=== PATIENT | female | born 1970 | race Caucasian/White ===

== ENCOUNTER → 2018-06-14 13:43 | Outpatient (CLI) | payer OTHER, SELFPAY ==
--- NOTE | 2018-06-14 13:47 | US_ITS ---
STUDY: THYROID ULTRASOUND REASON FOR EXAM: Female, 47 years old. Difficulty swallowing, thyromegaly, iodine deficiency TECHNIQUE: Ultrasound evaluation of the thyroid was performed with real-time and static moctezuma-scale imaging. COMPARISON: None. FINDINGS: RIGHT LOBE: The right lobe of the thyroid gland measures 5.8 x 2.7 x 2.5 cm. There is a heterogeneous echotexture. 2 solid nodules are noted measuring 2.5 x 2.2 x 2.4 cm and 1.2 x 1.1 x 0.8 cm, located within the midportion and lower pole, respectively. LEFT LOBE: The left lobe of the thyroid gland measures 4.9 x 2.0 x 1.9 cm. There is a homogeneous echotexture. 2 small solid nodules are noted measuring 4 to 6 mm at the lower pole. ISTHMUS: The isthmus measures 4 mm . The regional lymph nodes are normal. US/Thyroid IMPRESSION: Enlargement of the thyroid. Bilateral thyroid nodules. Electronically Signed: Werner Sheridan DO at 22:39 EDT Tel [phone], Service support ,
== END ==
PROVIDERS: Family Provider Nurse Practitioner; PCP Nurse Practitioner; Visit Provider Nurse Practitioner
DX: E01.0 Iodine-deficiency related diffuse (endemic) goiter (principal); R13.12 Dysphagia, oropharyngeal phase
CPT/HCPCS: 76536

== ENCOUNTER → 2018-06-17 07:41 | Outpatient (CLI) | payer OTHER, SELFPAY ==
[2018-06-17 09:05] LABS: AST(SGOT) 15 U/L (15-37); Alanine Aminotransfer ALT/SGPT 26 U/L (13-56); Albumin, Serum 3.6 g/dL (3.2-5.0); Alkaline Phosphatase 65 U/L (45-117); Cholesterol 267 mg/dL (200); Globulin 4.2 g/dL (2.2-4.2); High Density Lipoprotein 41 mg/dL; Protein, Total 7.8 g/dL (6.4-8.2); Triglycerides 183 mg/dL; Very Low Density Lipoprotein 37 mg/dL (5-40)
== END ==
PROVIDERS: Family Provider Nurse Practitioner; PCP Nurse Practitioner; Visit Provider Internal Medicine Cardiovascular Disease
DX: E78.5 Hyperlipidemia, unspecified (principal); R06.09 Other forms of dyspnea
CPT/HCPCS: 36415; 80061; 80076

== ENCOUNTER → 2018-07-05 14:15 | Outpatient (CLI) | payer OTHER, SELFPAY | PROVIDERS: Family Provider Nurse Practitioner; PCP Nurse Practitioner; Visit Provider Internal Medicine Cardiovascular Disease | DX: R06.09 Other forms of dyspnea (principal) | CPT/HCPCS: 93306 ==

== ENCOUNTER → 2018-07-11 12:14 | Outpatient (CLI) | payer OTHER, SELFPAY | PROVIDERS: Family Provider Nurse Practitioner; PCP Nurse Practitioner; Visit Provider Internal Medicine Cardiovascular Disease | DX: E78.5 Hyperlipidemia, unspecified (principal); R06.09 Other forms of dyspnea | CPT/HCPCS: 93017; 93350 ==

== ENCOUNTER → 2018-10-26 07:51 | Outpatient (CLI) | payer OTHER, SELFPAY ==
[2018-06-15 15:43] VITALS: BMI 37.0
[2018-10-26 09:31] LABS: Hemoglobin A1c 7.4 % (4.2-6.3)
[2018-10-26 09:33] LABS: Vitamin D,25 Hydroxy 49.4 ng/mL (29.95-100.01)
[2018-10-26 09:33] LABS: AST(SGOT) 14 U/L (15-37); Alanine Aminotransfer ALT/SGPT 26 U/L (13-56); Albumin, Serum 3.5 g/dL (3.2-5.0); Alkaline Phosphatase 66 U/L (45-117); Bilirubin, Direct 0.08 mg/dL (0.00-0.30); Cholesterol 265 mg/dL (200); Globulin 4.1 g/dL (2.2-4.2); High Density Lipoprotein 38 mg/dL; Protein, Total 7.6 g/dL (6.4-8.2); Triglycerides 262 mg/dL; Very Low Density Lipoprotein 52 mg/dL (5-40)
--- OUTSIDE RECORDS SUMMARY | 2018-12-12 00:58 | XMS RPT_ITS ---
:1970 Author Organization OHIP Support Name Relationship Address Phone JENIFFER NANCE Unavailable [address] + [place] [address] COMACT Unavailable [address] + [place] [address] NANCE, MARIO Unavailable [address] + [place] [address] NANCE, JENIFFER Unavailable [address] + [place] [address] NANCE, JENIFFER Unavailable [address] + [place] [address] COMACT Unavailable [address] + [place] [address] NANCE, MARIO Unavailable [address] + [place] [address] COMACT Unavailable [address] + [place] [address] NANCE, MARIO Unavailable [address] + [place] [address] COMACT Unavailable [address] + [place] [address] NANCE, MARIO Unavailable [address] + [place] [address] COMACT Unavailable [address] + [place] [address] NANCE, MARIO Unavailable [address] + [place] [address] COMACT Unavailable [address] + [place] [address] NANCE, MARIO Unavailable [address] + [place] [address] COMACT Unavailable [address] + [place] [address] NANCE, MARIO Unavailable [address] + [place] [address] COMACT Unavailable [address] + [place] [address] NANCE, MARIO Unavailable [address] + [place] [address] COMACT Unavailable [address] + [place] [address] NANCE, MARIO Unavailable [address] + [place] [address] Care Team Providers Name Role Phone Kurtz, Holly CORRESPONDENCE RENEW CLERK-C Attending Unavailable Kurtz, Holly CORRESPONDENCE RENEW CLERK-C Primary Care Unavailable Kurtz, Holly CORRESPONDENCE RENEW CLERK-C Referring Unavailable Lala Zambrano Attending Unavailable Jose Alfredo Velázquez Attending Unavailable Kurtz, Holly CORRESPONDENCE RENEW CLERK-C Referring Unavailable Kurtz, Holly CORRESPONDENCE RENEW CLERK-C Primary Care Unavailable Arvind Rothman Attending Unavailable Arvind Rothman Referring Unavailable Kurtz, Holly CORRESPONDENCE RENEW CLERK-C Primary Care Unavailable , PENNIE Consulting Unavailable Jose Alfredo Velázquez Attending Unavailable Jose Alfredo Velázquez Referring Unavailable Kurtz, Holly CORRESPONDENCE RENEW CLERK-C Primary Care Unavailable Jose Alfredo Velázquez Attending Unavailable Jose Alfredo Velázquez Referring Unavailable Kurtz, Holly CORRESPONDENCE RENEW CLERK-C Primary Care Unavailable Jose Alfredo Velázquez Attending Unavailable Jose Alfredo Velázquez Referring Unavailable Kurtz, Holly CORRESPONDENCE RENEW CLERK-C Primary Care Unavailable Jose Alfredo Velázquez Attending Unavailable Jose Alfredo Velázquez Referring Unavailable Jose Alfredo Velázquez Attending Unavailable Jose Alfredo Velázquez Referring Unavailable FREIDA MONTALVO Attending Unavailable FREIDA MONTALVO Referring Unavailable FREIDA MONTALVO Attending Unavailable JO LANE (ROASTER OPERATOR) Referring Unavailable TRUDI BENAVIDEZ, Shona POWELL Attending Unavailable TRUDI BENAVIDEZ, A ANDRE Attending Unavailable TRUDI BENAVIDEZ, A ANDRE Attending Unavailable PROBLEMS PROBLEMS DATE TYPE CONDITION / CODE ATTENDING STATUS SOURCE 07/11/2018 Unknown E78.5 - Jose Alfredo Velázquez Active [place] Hyperlipidemia, Community unspecified / Hospital E78.5(ICD-10) Repository 08/02/2018 Unknown R06.09 - Other Jose Alfredo Velázquez Active [place] forms of dyspnea / Community R06.09(ICD-10) Hospital Repository 06/14/2018 Unknown 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, 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 Hospital (endemic) goiter / Repository E01.0(ICD-10) 06/14/2018 Unknown R13.12 - Dysphagia, Jerardo, Active [place] oropharyngeal phase Holly CORRESPONDENCE RENEW CLERK-C Community / R13.12(ICD-10) Hospital Repository 06/14/2018 Active Encounter for NA Active [facility] screening mammogram [facility] [place] for malignant Repository neoplasm of breast / Z12.31(ICD-10) 06/14/2018 Active Unknown / KATIA, Active [facility] UNK(Unknown) FREIDA L [facility] [place] Repository PROCEDURES PROCEDURES No Procedure Records FoundRESULTS RESULTS HEMOGLOBIN A1C Collected: 10/26/2018 Status: F Source: [place] 8:03 AM [facility] REPOSITORY Order Comment: WANTS THE A1C VITD KAYLA WANTST THE LIVER LIPID TYPE CODE TESTS RESULT OUT OF RANGE REFERENCE UNITS LAB L501.9985 4.2-6.3 % High HGB A1C 7.4 Performed By: #### L501.9985 #### [facility] [address] [place], [place], [address] VITAMIN D,25 HYDROXY Collected: 10/26/2018 Status: F Source: [place] 8:03 AM [facility] REPOSITORY Order Comment: WANTS THE A1C VITD KAYLA WANTST THE LIVER LIPID TYPE CODE TESTS RESULT OUT OF RANGE REFERENCE UNITS LAB L506.1000 29.95-100.01 ng/mL Normal Vitamin D 49.4 25-OH Result Comment: Vitamin D 25(OH) Status Range Deficiency <20 ng/mL (50nmol/L) Insuffciency 20 - 30 ng/mL (50 - 75 nmol/L) Sufficiency 30 - 100 ng/mL (75 - 250 nmol/L) Toxicity >100 ng/mL (>250 nmol/L) Performed By: #### L506.1000 #### [facility] [address] [place], [address] LIVER PROFILE Collected: 10/26/2018 Status: F Source: [place] 8:01 AM [facility] REPOSITORY Order Comment: WANTS THE A1C VITD KAYLA WANTST THE LIVER LIPID TYPE CODE TESTS RESULT OUT OF RANGE REFERENCE UNITS LAB L501.1500 6.4-8.2 g/dL Normal T PROT 7.6 LAB L501.1800 3.2-5.0 g/dL Normal ALB 3.5 LAB L501.1950 2.2-4.2 g/dL Normal GLOB 4.1 LAB L501.4100 15-37 U/L Low AST 14 LAB L501.4305 45-117 U/L Normal ALK P 66 LAB L501.4405 13-56 U/L Normal ALT 26 LAB L501.4600 0.20-1.00 mg/dL Normal T BILI 0.30 LAB L501.4700 0.00-0.30 mg/dL Normal D BILI 0.08 Performed By: #### L500.3400, L500.4100 #### [facility] [address] [place], [place], [id number] LIPID PROFILE Collected: 10/26/2018 Status: F Source: [place] 8:01 AM [facility] REPOSITORY Order Comment: WANTS THE A1C VITD KAYLA WANTST THE LIVER LIPID TYPE CODE TESTS RESULT OUT OF RANGE REFERENCE UNITS LAB L501.4900 200 mg/dL High CHOL 265 Result Comment: <200 mg/dL Desirable 200-240 mg/dL Borderline >240 mg/dL High Risk LAB L501.5000 mg/dL High TRIG 262 Result Comment: The drugs N-Acetylcysteine and Metamizole may falsely depress this assay. Serum Triglycerides Reference Interval Normal <150 mg/dL Borderline high 150 - 199 mg/dL High 200 - 499 mg/dL Very High > or = 500 mg/dL LAB L501.6400 mg/dL Low HDL 38 Result Comment: The drugs N-Acetylcysteine and Metamizole may falsely depress this assay. Reference Range HDL <40 mg/dL Low HDL Cholesterol HDL >or= 60 mg/dL High HDL Cholesterol LAB L501.6500 0-130 mg/dL High LDL 175 LAB L501.6600 5-40 mg/dL High VLDL 52 Performed By: #### L500.3400, L500.4100 #### [facility] [address] [place], [place], [address] Observed: 08/10/2018 Status: F Source: [facility] C URINE 1:54 PM [facility] REPOSITORY [facility] [address] [place] [id number] Name: PATRICIA NANCE : 1970 Admitting Provider: Gender: Female Financial [id number] Number: Location: [facility] Admit 08/09/2018 Date: Discharge 08/09/2018 Date: Microbiology PROCEDURE: C URINE SOURCE: CLEAN CATCH BODY SITE: COLLECTED DATE/TIME: 08/09/2018 15:27 EDT RECEIVED DATE/TIME: 08/09/2018 16:21 EDT START DATE/TIME: 08/09/2018 16:21 EDT FREE TEXT SOURCE: ORDERING PHYSICIAN: Shona BRUSH MD FINAL REPORTS Final Report [] Verified Date/Time: 08/10/2018 13:54 EDT Three or more bacterial species were isolated from urine indicating superficial or fecal contamination. Submission of another specimen is requested. If clinically indicated L=Low, H= High, *= Abnormal, C=Critical, f=Footnote, c=Corrected, i=Interp Data Name: PATRICIA NANCE Print Date/ 08/10/2018 13:54 EDT Time: Performed By: #### [id number] #### [facility] [address] [place] [address] [employer] Developer: Tejinder Felix MD SURGICAL PATHOLOGY Observed: 08/01/2018 Status: F Source: [place] 5:01 PM [facility] REPOSITORY Specimen originated from [facility] Specimen #: [id number] Submitting Physician: FREIDA MONTALVO M.D. ([id number]) FINAL DIAGNOSIS 1. Cervix, 3, 6 and 12 o'clock, biopsy (A) - Squamous mucosa with no significant pathologic abnormality. 2. Endocervix, curettage (B) - Endocervical mucosa with no significant pathologic abnormality. AJP/kr 08/03/2018 Pennie Love MD (Electronic Signature) SPECIMEN SUBMITTED A: CERVIX, BIOPSY 12, 6, 3 O'CLOCK B: ENDOCERVICAL, CURETTINGS CLINICAL DATA Ascus cannot r/o HSIL, +HPV GROSS DESCRIPTION A. Received in formalin are three pieces of christie-white, soft tissue aggregating to 1.3 x 0.3 x 0.3 cm. Totally submitted in one cassette. B. Received in formalin are multiple christie, soft feathery segments of tissue aggregating to 1.0 x 0.5 x 0.1 cm. Totally submitted in one cassette. Gross examination performed at [facility], [address] [place] [address] FFS 08/02/2018 11:56:33 PM Date of Report: 08/03/2018 Date of Procedure: 08/01/2018 Date of Receipt: 08/02/2018 Submitted by: FREIDA MONTALVO M.D. ([id number]) Location: [facility] Diagnostic interpretation performed at [place] [address]. CNOV Observed: 08/01/2018 Status: COMPLETED Source: [place] 4:10 PM [facility] REPOSITORY Office Visit (WOOB) PATRICIA NANCE ([id number]) 1970 F Date Time Provider Department 08/01/18 4:10 PM FREIDA MONTALVO During your visit today, we recorded the following information about you: Blood pressure Weight 132/78 104.3 kg Freida Montalvo MD 08/01/2018 5:01 PM Signed 132/78Mistashley Nance is a 48 year old female who presents today for a colposcopy. Her last pap smear was ASCUS cannot rule out HGSIL from June 2018. Patient has a history of abnormal pap: Yes. She has had prior treatment: LEEP. test: negative UNIVERSAL PROTOCOL / SAFETY CHECKLIST Procedure to be performed: colposcopy with biopsy Sign in Communication: Completed Time Out: Team Confirms the Correct Patient, Correct Procedure, Correct Site and Site Marking, Correct Position (if applicable), Prep and Dry Time (if applicable). Time: 1651 Affirmation of Time Out: YES Sign Out Discussion: Completed Freida Montalvo M.D. PROCEDURE: EXTERNAL GENITALIA: Normal in appearance without lesions VAGINA: Normal in appearance without lesions CERVIX: Speculum placed in vagina and excellent visualization of cervix achieved. Cervix swabbed x 3 with 3% acetic acid solution. Cervix grossly normal. Squamocolumnar junction visualized. acetowhite changes noted 12-6, punctations noted -none, mosaicism noted none and atypical vasculature noted -none, none of upper vagina either. BIOPSY: Done at 3:00, 6:00 and 12:00 ECC: done HEMOSTASIS: Obtained with silver nitrate and pressure Procedure Summary: Patient tolerated procedure well and colposcopy was adequate. ASSESSMENT: HPV effect PLAN: Specimens labeled and sent to Pathology. Will notify patient of results in 1-2 weeks. Post-procedure instructions reviewed and written material given to the patient. [facility] 08/01/2018 3:47 PM Signed YOUR RECOVERY It may take a few weeks for your cervix to heal. While your cervix heals, you may have: - Vaginal bleeding (less than a normal menstrual period) - Mild cramping - A brown-black vaginal discharge (similar to coffee grounds) which is a result of the paste used to help stop bleeding from the procedure Do NOT put anything in the vagina for 1 week after your colposcopy if your doctor does a biopsy of your cervix. This includes sex, tampons, and douches. If you have any discomfort, you may take an over the counter pain medication (motrin, advil, ibuprofen, tylenol, etc). If this does not relieve your discomfort, contact your doctor's office for a prescription strength pain medication. It is okay to wear a sanitary pad until the discharge and spotting stops. RISKS Although problems seldom occur with colposcopy, there can be some complications. You may feel faint during and shortly after the procedure as well as have some bleeding and vaginal discharge after the procedure. There is also a risk of infection after the procedure. These complications are rare and can be easily treated. You should contact you doctor is you have any of the following: - Heavy bleeding (more than your normal period) - Bleeding with clots - Severe abdominal pain - Fever (more than 100.4F) - Foul smelling vaginal discharge RESULTS If a biopsy was taken, we will have the results of your biopsy in 1-2 weeks. If you do not hear the results of your biopsy after 2 weeks, please contact your physicians office for the results. Depending on the biopsy results, your doctor will determine your follow up plan which may include further testing or treatments. STAYING HEALTHY After the procedure, you will need to see your doctor for follow up visits during the year. At these visits your doctor will check the health of your cervix with a pap smear. After three normal pap smears, your doctor will allow you to return to having exams once a year. If you have another abnormal pap smear, you may need closer follow up for longer or you may need additional treatment. By making a few lifestyle changes after the procedure, you can help protect the health of your cervix: - Have regular pelvic exams and pap smears as ordered by your doctor. - Stop smoking as smoking increases your risk of developing a cancer of the cervix - If you have more than one sexual partner, limit your number of partners and use condoms to reduce your risks of STDs. If you have any additional questions, please contact your doctor's office. Referring Provider: JO LANE (ROASTER OPERATOR) [[id number]] Allergies As of Date: 08/01/2018 (No Known Allergies) Date Reviewed: 08/01/2018 Reviewed by: Jen Dailey Ma - Fully Assessed Reason for Visit: Colposcopy [1551] Primary Visit Diagnosis:Pap smear of cervix with ASCUS, cannot exclude HGSIL [R87.611] Other Visit Diagnosis:Cervical high risk HPV (human papillomavirus) test positive [R87.810] Order(s):HCG QUAL UR B/O [7549412] Order #: [id number] COLPOSCOPY [[id number]] Order #: [id number] SURGICAL PATHOLOGY [3970516] Order #: [id number]. #:[id number] Prescriptions as of 08/01/2018 Sig: ESTRADIOL 10 MCG VAGINAL TABL* Use 1 tablet vaginally twice * LEVONORGESTREL 20 MCG/24 HR (* Inserted in office CPAP PRAVASTATIN 40 MG TABLET Problem List As Of Date 08/01/2018 Noted Resolved DM (diabetes mellitus), type 2, uncontrolled wi*INVALID FOR* Cigarette smoker [F17.210] INVALID FOR* Obesity (BMI 30-39.9) [E66.9] INVALID FOR* HSIL (high grade squamous intraepithelial lesio*INVALID FOR* More... Other instructions from your clinician: YOUR RECOVERY It may take a few weeks for your cervix to heal. While your cervix heals, you may have: - Vaginal bleeding (less than a normal menstrual period) - Mild cramping - A brown-black vaginal discharge (similar to coffee grounds) which is a result of the paste used to help stop bleeding from the procedure Do NOT put anything in the vagina for 1 week after your colposcopy if your doctor does a biopsy of your cervix. This includes sex, tampons, and douches. If you have any discomfort, you may take an over the counter pain medication (motrin, advil, ibuprofen, tylenol, etc). If this does not relieve your discomfort, contact your doctor's office for a prescription strength pain medication. It is okay to wear a sanitary pad until the discharge and spotting stops. RISKS Although problems seldom occur with colposcopy, there can be some complications. You may feel faint during and shortly after the procedure as well as have some bleeding and vaginal discharge after the procedure. There is also a risk of infection after the procedure. These complications are rare and can be easily treated. You should contact you doctor is you have any of the following: - Heavy bleeding (more than your normal period) - Bleeding with clots - Severe abdominal pain - Fever (more than 100.4F) - Foul smelling vaginal discharge RESULTS If a biopsy was taken, we will have the results of your biopsy in 1-2 weeks. If you do not hear the results of your biopsy after 2 weeks, please contact your physicians office for the results. Depending on the biopsy results, your doctor will determine your follow up plan which may include further testing or treatments. STAYING HEALTHY After the procedure, you will need to see your doctor for follow up visits during the year. At these visits your doctor will check the health of your cervix with a pap smear. After three normal pap smears, your doctor will allow you to return to having exams once a year. If you have another abnormal pap smear, you may need closer follow up for longer or you may need additional treatment. By making a few lifestyle changes after the procedure, you can help protect the health of your cervix: - Have regular pelvic exams and pap smears as ordered by your doctor. - Stop smoking as smoking increases your risk of developing a cancer of the cervix - If you have more than one sexual partner, limit your number of partners and use condoms to reduce your risks of STDs. If you have any additional questions, please contact your doctor's office. Encounter Status:Closed by FREIDA MONTALVO MD on 08/01/18 PROGRESS Observed: 08/01/2018 Status: COMPLETED Source: [place] 3:45 PM [facility] REPOSITORY HNO ID: [id number] Author: Freida Montalvo Service: (none) Author Type: Physician Type: Progress Notes Filed: 08/01/2018 5:01 PM Note Text: 132/78Patricia Nance is a 48 year old female who presents today for a colposcopy. Her last pap smear was ASCUS cannot rule out HGSIL from June 2018. Patient has a history of abnormal pap: Yes. She has had prior treatment: LEEP. test: negative UNIVERSAL PROTOCOL / SAFETY CHECKLIST Procedure to be performed: colposcopy with biopsy Sign in Communication: Completed Time Out: Team Confirms the Correct Patient, Correct Procedure, Correct Site and Site Marking, Correct Position (if applicable), Prep and Dry Time (if applicable). Time: 1651 Affirmation of Time Out: YES Sign Out Discussion: Completed Freida Montalvo M.D. PROCEDURE: EXTERNAL GENITALIA: Normal in appearance without lesions VAGINA: Normal in appearance without lesions CERVIX: Speculum placed in vagina and excellent visualization of cervix achieved. Cervix swabbed x 3 with 3% acetic acid solution. Cervix grossly normal. Squamocolumnar junction visualized. acetowhite changes noted 12-6, punctations noted -none, mosaicism noted none and atypical vasculature noted -none, none of upper vagina either. BIOPSY: Done at 3:00, 6:00 and 12:00 ECC: done HEMOSTASIS: Obtained with silver nitrate and pressure Procedure Summary: Patient tolerated procedure well and colposcopy was adequate. ASSESSMENT: HPV effect PLAN: Specimens labeled and sent to Pathology. Will notify patient of results in 1-2 weeks. Post-procedure instructions reviewed and written material given to the patient. Freida Montalvo MD THYGLOB WITH REFLEX Collected: 07/29/2018 Status: F Source: [facility] 7:45 AM [facility] REPOSITORY TYPE CODE TESTS RESULT OUT OF REFERENCE UNITS RANGE LAB [id number](LO INC) Thyroglobulin Normal See Report Performed By: #### [id number] #### [facility] [address] [place], [place] [id number] [employer] Software Developer: Tejinder Felix MD DHEA S Collected: 07/28/2018 Status: F Source: [facility] 9:42 AM [facility] REPOSITORY TYPE CODE TESTS RESULT OUT OF RANGE REFERENCE UNITS LAB 7922 32-240 Normal DHEA-S 121 Result Comment: REFERENCE INTERVAL: DHEAS Access complete set of age- and/or gender-specific reference intervals for this test in the [employer] [facility] Test Directory ([facility]). Performed by APR, [address] [place] [id number] [email or web address], Mello Hobson MD - Lab. Director Performed By: #### [id number], [id number] #### [facility] [address] [place], [place] [id number] [employer] Developer: Tejinder Felix MD THYROGLOBULIN AB Collected: 07/28/2018 Status: F Source: [facility] 8:25 AM [facility] REPOSITORY TYPE CODE TESTS RESULT OUT OF REFERENCE UNITS RANGE LAB [id number] 0.0-4.0 IU/mL Thyroglobulin Normal Antibody <0.9 Result Comment: INTERPRETIVE INFORMATION: Thyroglobulin Antibody A value of 4.0 IU/mL or less indicates a negative result for thyroglobulin antibodies. The Thyroglobulin Antibody assay is being performed using the [employer] Access DxI method. Performed by APR, [address] [place] [address] [email or web address], Mello Hobson MD - Lab. Director Performed By: #### [id number], [id number] #### [facility] [address] [place], [place] [id number] [employer] Developer: Tejinder Felix MD TPO Collected: 07/28/2018 Status: F Source: [facility] 8:12 AM [facility] REPOSITORY TYPE CODE TESTS RESULT OUT OF RANGE REFERENCE UNITS LAB [id number] 0.0-9.0 IU/mL Normal Thyroid (TPO) <0.3 Ab Result Comment: Performed by APR, [address] [place] [address] [email or web address], Mello Hobson MD - Lab. Director Performed By: #### [id number], [id number] #### [facility] [address] [place] [address] [employer] Developer: Tejinder Felix MD TESTOS TOT Collected: 07/26/2018 Status: F Source: [facility] 6:10 PM [facility] REPOSITORY TYPE CODE TESTS RESULT OUT OF RANGE REFERENCE UNITS LAB [id number] ng Normal TESTOS 12 TOT Result Comment: Reference ranges for females greater than or equal to 21 yrs old: Premenopausal females-Age 21-60 yrs 9 - 48 ng/dl Postmenopausal females-Age 45-89 yrs 0 - 46 ng/dl Samples with biotin concentrations greater than 30 ng/ml will cause erroneus results. Performed By: #### [id number], [id number], [id number], [id number] #### [facility] [address] [place] [id number] [employer] Developer: Tejinder Fleix MD VIT D 25 LEVEL Collected: 07/26/2018 Status: F Source: [facility] 6:10 PM [facility] REPOSITORY TYPE CODE TESTS RESULT OUT OF RANGE REFERENCE UNITS LAB [id number] ng/mL Normal Vit D 12 25 Result Comment: Less than 20 ng/ml Deficient 20-30 ng/ml Insufficient 30-100 ng/ml Sufficient Greater than 100 ng/ml Potential toxicity Patients who have recently undergone fluorescein dye angiography in the past 48 to 72 hours (or longer if renal insufficient) may have falsely elevated results. Performed By: #### [id number], [id number], [id number], [id number] #### [facility] [address] [place] [id number] [employer] Developer: Tejinder Felix MD FSH Collected: 07/26/2018 Status: F Source: [facility] 6:10 PM [facility] REPOSITORY TYPE CODE TESTS RESULT OUT OF RANGE REFERENCE UNITS LAB [id number] IU/L Normal FSH 7.6 Result Comment: REFERENCE INTERVAL: FOLLICLE STIMULATING HORMONE Prepubertal 0 - 2.0 IU/L Male (Adult) 1.0 - 8.0 IU/L Female: Follicular 1.0 - 10.0 IU/L Mid-cycle 3.0 - 25.0 IU/L Luteal 1.0 - 8.0 IU/L Postmenopausal 30.0 - 110.0 IU/L Performed By: #### [id number], [id number], [id number], [id number] #### [facility] [address] [place] [id number] [employer] Developer: Tejinder Felix MD U MALB RANDOM Collected: 07/26/2018 Status: F Source: [facility] 6[facility]07 [facility] [facility] REPOSITORY TYPE CODE TESTS RESULT OUT OF RANGE REFERENCE UNITS LAB 48498490 0-30 mg MALB/gm High CREAT 32 Microalbumi n/Creatinin e Ratio LAB 28805333 mg/dL Normal 147.0 Creatinine, Urine mg/dl LAB 59684402 mg/L Normal 46.5 Microalbumi n, Urine mg/L Performed By: #### [id number] #### [facility] Services [address] [place] [address] [employer] Software Developer: Tejinder Felix MD THY GP Collected: 07/26/2018 Status: F Source: [facility] 6:07 PM [facility] REPOSITORY TYPE CODE TESTS RESULT OUT OF RANGE REFERENCE UNITS LAB 8878 0.36-3.74 uIU/ml Normal TSH 1.06 Result Comment: High levels of serum biotin may interfere with this test. LAB [id number] 0.76-1.46 ng/dL Normal Free 0.97 T4 Result Comment: High levels of serum biotin may interfere with this test. Performed By: #### [id number] #### [facility] [address] [place], [place] [id number] [employer] Software Developer: Tejinder Felix MD HGB A1C Collected: 07/26/2018 Status: F Source: [facility] 6:02 PM [facility] REPOSITORY TYPE CODE TESTS RESULT OUT OF RANGE REFERENCE UNITS LAB 8155 4.0-6.0 % High HGB A1C 6.4 Performed By: #### [id number] #### [facility] [address] [place], [place] [id number] [employer] Software Developer: Tejinder Felix MD UA Collected: 07/26/2018 Status: F Source: [facility] 5:42 PM [facility] REPOSITORY TYPE CODE TESTS RESULT OUT OF RANGE REFERENCE UNITS LAB [id number] Negative Bilirubin, Normal U Negative LAB 5043993 Negative Nitrite, U Normal Negative LAB 7043537 Appearance, Normal U Clear LAB 8374337 Negative Protein, U Normal Negative LAB 5969188 Bacteria, U Normal Few LAB 8810537 0-5 #/HPF High WBC/HPF, U 17 LAB 3297258 Negative Blood, U Normal Negative LAB 4894147 Negative Leukocyte Abnormal Esterase, U Trace LAB 9422701 Negative Ketones, U Normal Negative LAB 6526767 Negative Glucose Normal Qual, U Negative LAB 0886328 <2.0 mg/dl Normal Urobilinogen <2.0 mg/dl Qual, U Result Comment: EU/dl and mg/dl are equivalent units. LAB 6536717 Normal Mucous, U Occasional LAB 5257654 #/HPF Normal Squamous 2 Epithelial Cells, U LAB 8059156 Normal Color, U Yellow LAB 5287094 4.5-8.0 Normal pH, U 5.0 LAB 2376099 0-3 #/HPF Normal RBC/HPF, U 1 LAB 0300685 1.001-1 Normal .035 Specific 1.018 [place], U LAB 0919272 Normal U MICRO Indicated Performed By: #### [id number] #### [facility] [address] [place] [address] [employer] Software Developer: Tejinder Felix MD STRESS TEST ECHO W/O Observed: 07/12/2018 Status: F Source: [place] 5:00 AM [facility] REPOSITORY [facility] Cardiovascular Services [address] [place] [address] Stress Test Echo w/o Contrast MR#: [id number] Acct: [id number] Name: PATRICIA NANCE Rep #: [id number] : 1970 47 From: Jose Alfredo Velázquez MD Primary Care: Holly Kurtz NP Status: REG CLI Ordering Dr: Jose Alfredo Velázquez MD Sex: F C Reason For Study: Dyspnea On Exertion Stress Results Protocol: Terrence Protocol Maximum Predicted HR: 173 bpm Target HR: 147 bpm% Max imum Predicted HR: 88 % DurationHeart Rate Stage (mm:ss) (bpm) BPCom ment Baseline 72 118/70 No Chest Pain; No Dyspnea Terrence Protocol Stage I 3:00 12 9 146/72No Chest Pain; Mild Dyspnea Terrence Protocol Stage II 3:00 15 3 164/64No Chest Pain; Moderate Dyspnea Recovery 96 122/70 Stress Duration: 6:00 mm:ss Maximum Stress HR: 153 bpmM ETS: 7 Baseline Echocardiogram Findings The estimated ejection fraction is 65 %. Stress Echo Wall motion Data Resting WMIntermediate WMStress WM Resting Wall Motion Wall Motion Stress No regional wall motion No regional wall motion abnormalities noted. abnormalities noted. EKG Data The baseline ECG demonstrates normal sinus rhythm with at rate of _ beats per minute. The patient exercised according to the regular Terrence protocol for a total duration of 6:00. The maximum heart rate attained was 153 beats per minute. This was 88% of maximum predicted heart rate. The patient exercised into stage 3 of the Terrence protocol. During stress, there were no ST or T wave changes noted to suggest ischemia. No clinical angina was noted. No arrhythmias noted. Interpretation Summary The estimated ejection fraction is 65 %. Normal, adequate, treadmill echocardiogram. Negative for ischemia by EKG and echocardiographic criteria. No anginal symptoms noted. No arrhythmias noted. Appropriate blood pressure response to exercise. Below average exercise capacity for age. Final LVEF is 75%. Test terminated due to dyspnea. No complications. Ordering Physician: Jose Alfredo Velázquez Referring Physician: Jose Alfredo Velázquez Performed By: Kelsi Lafleur, RDCS, RVT 07/12/18 0459 Date Jose Alfredo Velázquez MD CC: STACIE Kurtz; Jose Alfredo Velázquez MD Date Dictated: 07/11/18 1258 Date Transcribed: 07/12/18458 Medical Liaison: Signed ECHOCARDIOGRAM COMPLETE Observed: 07/05/2018 Status: F Source: [place] 4:11 PM [facility] REPOSITORY [facility] Cardiovascular Services [address] [place] [address] Echo Complete 07/05/18 1436 MR#: [id number] Acct: [id number] Name: PATRICIA NANCE Rep #: [id number] : 1970 47 From: Jose Alfredo Velázquez MD Attending Dr: Jose Alfredo Velázquez MD Status: REG CLI Ordering Dr: Jose Alfredo Velázquez MD Date: 07/05/18 Location: [facility] Sex: F C Admitted: Reason For Study: Dyspnea/SOB Procedure This was a 2D Doppler, Color Flow transthoracic echocardiogram. Exam performed in department. Left Ventricle Normal size and thickness. The estimated ejection fraction is 65 %. Normal diastology for age. No regional wall motion abnormalities noted. Right Ventricle Normal size and thickness. Normal systolic function. Atria Normal left atrium. Normal right atrium. Normal atrial septum. Mitral Valve The mitral valve is structurally normal. No prolapse or stenosis seen. Tricuspid Valve Normal tricuspid valve. Trivial tricuspid valve insufficiency. Unable to estimate RV systolic pressure/pulmonary artery pressure due to technically difficult study. Aortic Valve Trisinus/trileaflet aortic valve. Normal aortic valve. Pulmonic Valve Normal pulmonic valve. Great Vessels Normal aortic root. Normal arch. Normal inferior vena cava. Inferior vena cava collapse with sniff. Pericardium/Pleural No pericardial effusion. MMode/2D Measurements AND Calculations LVIDd: 5.0 cm IVSd: 1.2 cm Ao root diam: 3.4 cm LVIDs: 2.9 cm LVPWd: 1.0 cm LA dimension: 4.0 cm RVDd: 3.2 cm FS: 43.3 % LAV(MOD-bp): 44.7 ml LA A4 area: 17.4 cm2 RA A4 area: 12.5 cm2 LAV(MOD-bp) Indexed: 21.3 ml/m2 LAV(MOD-sp2): 42.8 ml LAV(MOD-sp4): 41.9 ml Time Measurements MV dec time: 0.22 sec Doppler Measurements AND Calculations MV E max randell: 105.6 cm/sec Lat Peak E' Randell: 12.5 cm/sec Med Peak E' Randell: 11.1 cm/sec MV A max randell: 78.4 cm/sec E/E' lat: 8.4 E/E' med: 9.5 MV E/A: 1.3 MV V2 max: 107.9 cm/sec MV P1/2t max randell: 106.9 cm/sec Ao V2 max: 152.2 cm/sec MV max P.7 mmHg MV P1/2t: 121.2 msec Ao max P.3 mmHg MV V2 mean: 63.4 cm/sec MV dec slope: 258.4 cm/sec2 Ao V2 mean: 96.8 cm/sec MV mean P.9 mmHg MVA(P1/2t): 1.8 cm2 Ao mean P.4 mmHg MV V2 VTI: 31.5 cm Ao V2 VTI: 28.6 cm LV V1 max: 148.6 cm/sec PA V2 max: 96.3 cm/sec LV V1 max P.8 mmHg LV V1 mean P.8 mmHg LV V1 mean: 88.0 cm/sec LV V1 VTI: 29.7 cm Interpretation Summary The estimated ejection fraction is 65 %. Normal diastology for age. Trivial tricuspid valve insufficiency. Unable to estimate RV systolic pressure/pulmonary artery pressure due to technically difficult study. Compared to echo report dated 11/15/2009, no appreciable changes noted. Ordering Physician: Jose Alfredo Velázquez Referring Physician: Jose Alfredo Velázquez Performed By: Didier Lopez RCS 07/05/18 1611 Date Jose Alfredo Velázquez MD CC: STACIE Kurtz; Jose Alfredo Velázquez MD Date Dictated: 07/05/18 1436 Date Transcribed: 07/05/18 1611 Medical Liaison: Rebecca VELARDE Observed: 06/21/2018 Status: COMPLETED Source: [place] 12:00 AM [facility] REPOSITORY Telephone (WOOB) PATRICIA NANCE ([id number]) 1970 F Date Time Provider Department 06/21/[address] (WINNIE) WOOB During your visit today, we recorded the following information about you: Jo Lane APRN.CNP 06/21/2018 12:12 PM Signed Pap ASC-H and HPV+ needs to schedule colp with RR Jo Lane APRN.WINNIE Alves RN 06/21/2018 2:10 PM Signed Left message for patient to call office. Pinky Montalvo MD 06/22/2018 8:05 AM Signed colposcopy ordered. MD Rayna Tran WIRE DRAWING MACHINE TENDER 06/27/2018 9:33 AM Signed Left message to call office Katherine Trevino RN 06/27/2018 3:48 PM Signed Patient notified. 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 [R87.613] Order(s):COLPOSCOPY [6268508] Order #: [id number] Prescriptions as of 06/21/2018 Sig: ESTRADIOL 10 MCG VAGINAL TABL* Use 1 tablet vaginally twice * LEVONORGESTREL 20 MCG/24 HR (* Inserted in office CPAP Problem List As Of Date 06/21/2018 Noted Resolved DM (diabetes mellitus), type 2, uncontrolled wi*INVALID FOR* Cigarette smoker [F17.210] INVALID FOR* Obesity (BMI 30-39.9) [E66.9] INVALID FOR* Encounter Status:Closed by JO LANE on 06/26/18 LIVER PROFILE Collected: 06/17/2018 Status: F Source: [place] 7:51 AM [facility] REPOSITORY TYPE CODE TESTS RESULT OUT OF RANGE REFERENCE UNITS LAB L501.1500 6.4-8.2 g/dL Normal T PROT 7.8 LAB L501.1800 3.2-5.0 g/dL Normal ALB 3.6 LAB L501.1950 2.2-4.2 g/dL Normal GLOB 4.2 LAB L501.4100 15-37 U/L Normal AST 15 LAB L501.4305 45-117 U/L Normal ALK P 65 LAB L501.4405 13-56 U/L Normal ALT 26 LAB L501.4600 0.20-1.00 mg/dL Normal T BILI 0.30 LAB L501.4700 0.00-0.30 mg/dL Normal D BILI 0.10 Performed By: #### L500.3400, L500.4100 #### [facility] [address] [place], [place], [address] LIPID PROFILE Collected: 06/17/2018 Status: F Source: [place] 7:51 AM [facility] REPOSITORY TYPE CODE TESTS RESULT OUT OF RANGE REFERENCE UNITS LAB L501.4900 200 mg/dL High CHOL 267 Result Comment: <200 mg/dL Desirable 200-240 mg/dL Borderline >240 mg/dL High Risk LAB L501.5000 mg/dL Normal TRIG 183 Result Comment: The drugs N-Acetylcysteine and Metamizole may falsely depress this assay. Serum Triglycerides Reference Interval Normal <150 mg/dL Borderline high 150 - 199 mg/dL High 200 - 499 mg/dL Very High > or = 500 mg/dL LAB L501.6400 mg/dL Normal HDL 41 Result Comment: The drugs N-Acetylcysteine and Metamizole may falsely depress this assay. Reference Range HDL <40 mg/dL Low HDL Cholesterol HDL >or= 60 mg/dL High HDL Cholesterol LAB L501.6500 0-130 mg/dL High LDL 189 LAB L501.6600 5-40 mg/dL Normal VLDL 37 Performed By: #### L500.3400, L500.4100 #### [facility] [address] [place], [address] CARDIOLOGY VISIT Observed: 06/15/2018 Status: F Source: [place] REPORT 4:15 PM [facility] REPOSITORY [facility] [address] [place] [address] OFFICE VISIT Date of Service: 06/15/18 MR#: [id number] Acct: [id number] Name: PATRICIA NANCE Rep #: [id number] : 1970 Provider: Jose Alfredo Velázquez MD Age/Sex: 47/F Location: [facility] Status: Signed HPI HPI Chief Complaint: Routine f/u Details: PATRICIA NANCE, is a 47 F who presents to the office today for evaluation of dyspnea on exertion. Specifically she is a diabetic, positive tobacco around 5 cigarettes per day for the past 20 years, nondrinker, nonhypertensive, history of irritable bowel syndrome, currently with a Mirena IUD in place, positive obstructive sleep apnea on chronic CPAP therapy for the past 14 years. She has no known history of coronary disease or CVA or family history that she knows of. She underwent a stress echo in 2008 which was negative for atypical type chest pain. Over the last 1-1/2 years the patient has had progressively worsening lightheadedness and dizziness particularly in the hot shower as well as cold sweats. She attributed this to perimenopausal symptoms however recently she has had electrical shock like chest pain, with upper chest heaviness radiating to her jaw and with tingling and numbness down her left arm. This appears to be both exertional and nonexertional in origin. She is unable to walk 2 blocks due to dyspnea on exertion and shortness of breath. She denies any lower extremity edema, presyncope or syncope. She is currently in a perimenopausal situation. In our office today her blood pressure is 120/60, pulse is 76 and regular. Physical exam demonstrates morbid obesity, clear lungs bilaterally, regular rate and rhythm, normal S1/S2, no S3, S4 or murmurs. No carotid bruits or thrills. She has 2+ upstroke bilaterally. She has no edema. Lipids are pending. EKG dated 06/15/18 shows normal sinus rhythm, low voltage in the limb leads, poor R-wave progression across the precordium which may be secondary to lead misplacement. Intake Vital Signs06/15/18 Height 5 ft 5.5 in 06/15/18 Weight: 226 lb 06/15/18 Body Mass Index (BMI) 37.0 06/15/18 Blood Pressure 120/60 Intake Visit Reasons: SANTIAGO (self) [employer] Allergies No Known Allergies Allergy (Verified 06/15/18 15:45) Medications levonorgestrel 20 mcg/24 hr (5 years) intrauterine device 1 insert INTRAUTERINE ONCE 06/13/18 [History Confirmed 06/13/18] estradiol 10 mcg vaginal tablet 10 mcg VAGINAL 2XW 06/15/18 [History Confirmed 06/15/18] PFSH Medical History Small kidney, unilateral (Chronic) Hyperlipidemia (Chronic) Obstructive sleep apnea (Chronic) Dyspnea on exertion (Chronic) Thyroid mass (Chronic) Family History Mother Ovarian cancer Grandmother Thyroid disorder Arrhythmia Grandfather Thyroid disorder Uncle Thyroid disorder Aunt Thyroid disorder Brother Hypertension Social History Smoking Status: Light Smoker (<10/day) ROS Const Const: Positive for other (New onset SANTIAGO, left jaw pain, chest twinges, near syncope with sweating); negative for fatigue, weakness, body ache, fever(s), headache(s), chills, frequent falls, night sweats, daytime sleepiness, difficulty sleeping, excessive sweating, weight gain, weight loss, increased appetite, poor appetite or anorexia Eyes Eyes: Negative for blind spots, loss of peripheral vision, transient loss of vision, blurry vision, change in vision, double vision, floaters, tunnel vision or other ENT ENT: Negative for headache(s), dizziness, hearing loss, tinnitus, Nosebleed/epistaxis, balance problems, post nasal drip, lip swelling, tongue swelling, bleeding gums, hoarseness, neck pain, dry mouth or other Cardio Chest Pain: Yes (Occasional twinges and midsternal pain, left jaw pain, left arm pain/numb) Palpitations: Yes Edema: None Muscle aches with walking: None Resp Respiratory: Positive for SOB with activity (Recent onset, walking up an incline); negative for SOB at rest, SOB orthopnea\SOB lying down, Coughing up blood/hemoptysis, chest congestion, pain on inspiration, snoring, stridor, wheezing, crackles, paroxysmal nocturnal dyspnea or other GI GI: Negative nausea, vomiting, heartburn, constipation, belching, bloating, cramping, vomiting blood/hematemesis, bright, red blood in stools, black,tarry stools, loose stools, Difficulty Swallowing or other : Negative for hematuria, frequent nighttime urination/ nocturia, erectile dysfunction or abnormal vaginal bleeding Musc Musc: Negative for balance problems, muscle aches/ myalgia, muscle weakness or joint pain Skin Skin: Negative redness, non-healing lesions, rash, unusual bruising, skin ulcer, wounds, jaundice or other Neuro Neuro: Negative for weakness, headache(s), frequent falls, blurry vision, double vision, dizziness, lightheadedness, near syncope, syncope, orthostatic symptoms, confusion, memory loss, restless legs, vertigo, seizures, lack of coordination or other Pankaj Hematologic/Lymphatic: Negative for easy bleeding, easy bruising, enlarged lymph nodes or other Endo Endo: Negative for fatigue, excessive sweating, cold intolerance, heat intolerance, flushing, increased thirst/drinking, increased hunger, hair loss, hair growth or other Psych Psych: Negative for anxiety, depression, thoughts of harming anyone, thoughts of harming yourself, visual hallucinations, panic attacks or audible hallucinations Allergy Allergy/Immunology: Negative for lip swelling, Negative for tongue swelling, Negative for rash, Negative for throat swelling, Negative for hives Cardiology Exam Const Appearance: cooperative, healthy appearing and no acute distress Nutritional Appearance: well nourished Orientation: alert, oriented x3 and oriented to person Head Head: normal to inspection, atraumatic and normocephalic Nose: external nose normal Face and Sinus: face symmetric Mouth: oral mucosae normal Eyes General: appearance normal, both eyes and all related structures Eyelids: eyelids normal Conjunctivae: conjunctivae normal Pupils: PERRL and normal by confrontation EOM: EOM intact bilaterally Neck Neck: normal visual inspection and full ROM Carotids: normal carotid upstroke Chest Chest inspection: normal inspection of the chest Auscultation: Bilateral: Clear to Auscultation Cardio Palpation: normal PMI Rate: regular rate Rhythm: regular rhythm Heart sounds: S1 normal and S2 normal GI GI: normal to inspection, no hepatosplenomegaly and bowel sounds present Neuro General: alert, oriented x3, awake, CN's II-XI intact bilaterally and moves all extremities Skin Skin: no rashes or lesions noted Extremities Pulses: Normal: Right Femoral Pulse, Left Femoral Pulse, Right Dorsalis Pedis Pulse, Left Dorsalis Pedis Pulse, Right Posterior Tibial Pulse, Left Posterior Tibial Pulse, Right Radial Pulse, Left Radial Pulse Lower Extremity Edema: None: Bilateral Psych Psychological: normal affect Assessment AND Plan 1. Dyspnea on exertion R06.09 Plan 1. Me on exertion: Wesley dissipation of dyspnea on exertion but she also has episodes of upper chest pressure, radiating down her left arm and into her neck and jaw. This is both typical and atypical in origin according to the patient. She does have several risk factors including her age, hypertension, diabetes, unknown cholesterol and smoking. I recommended that she undergo a treadmill echocardiogram to evaluate her constellation of symptoms, as well as to evaluate for ischemia. If this is grossly abnormal, she may require diagnostic coronary angiogram. In the meantime she will also undergo a 2D echo with Doppler to assess her LV function and more specifically her pulmonary pressures given her obstructive sleep apnea. No indication for antihypertensive therapy at this time. I have also had a long and thorough discussion with the patient regarding tobacco cessation, and strongly encouraged her to discontinue all tobacco products. Orders Orders: 2. Hyperlipidemia E78.5 Plan 2. Hyperlipidemia: We will obtain a fasting lipid profile. Would recommend treating her LDL if it is greater than 130 given her diabetes. 3. Return office in 6 months. Orders Orders: Plan Detail Follow Up +6M (Eber) Coding Level of Care Code Off vis,new,level 4 Diagnoses Dyspnea on exertion R06.09 Hyperlipidemia E78.5 Coding Level of Care Code Off vis,new,level 4 Diagnoses Dyspnea on exertion R06.09 Hyperlipidemia E78.5 06/15/18 8077 <Electronically signed by Jose Alfredo Velázquez MD> Date Jose Alfredo Thomas Signature: Date (if applicable) CC: STACIE Kurtz CNCO Observed: 06/14/2018 Status: COMPLETED Source: [place] 4:24 PM [facility] REPOSITORY HNO ID: [id number] Author: Mammography Coordinator Service: (none) Author Type: Physician Type: Letter Filed: 06/15/2018 11:32 PM Note Text: June 14, 2018 PID: [id number] Patricia Nance [address] [place] [address] Dear Ms. Nance, We are pleased to inform you that the results of your recent breast imaging exam on 06/14/2018 are normal. Your mammogram demonstrates that you have dense breast tissue, which could hide abnormalities. Dense breast tissue, in and of itself, is a relatively common condition. Therefore, this information is not provided to cause undue concern; rather, it is to raise your awareness and promote discussion with your health care provider regarding the presence of dense breast tissue in addition to other risk factors. Early detection of cancer is very important. We also understand recommendations regarding breast cancer screening are controversial. Please discuss with your primary care provider which strategy is best for you and whether a mammogram is right for you. Your imaging studies and report will be kept on file at [facility] as part of your permanent medical record and are available for your continuing care. Thank you for allowing us to help in meeting your health care needs. Sincerely, Dr. Ceron Interpreting Radiologist [facility] (Normal over 40) THYROID Observed: 06/14/2018 Status: F Source: [place] 1:48 PM [facility] REPOSITORY [facility] Imaging Services [address] [place] [address] Thyroid MR#: [id number] Acct: [id number] Name: PATRICIA NANCE Rep #: [id number] : 1970 F 47 From: Werner Sheridan DO PCP: Holly Kurtz NP Status: REG CLI Study: Thyroid Date of Exam: 06/14/18 Exam# [id number] Ordering Dr: Holly Kurtz CORRESPONDENCE RENEW CLERK-C STUDY: THYROID ULTRASOUND REASON FOR EXAM: Female, 47 years old. Difficulty swallowing, thyromegaly, iodine deficiency TECHNIQUE: Ultrasound evaluation of the thyroid was performed with real-time and static moctezuma-scale imaging. COMPARISON: None. FINDINGS: RIGHT LOBE: The right lobe of the thyroid gland measures 5.8 x 2.7 x 2.5 cm. There is a heterogeneous echotexture. 2 solid nodules are noted measuring 2.5 x 2.2 x 2.4 cm and 1.2 x 1.1 x 0.8 cm, located within the midportion and lower pole, respectively. LEFT LOBE: The left lobe of the thyroid gland measures 4.9 x 2.0 x 1.9 cm. There is a homogeneous echotexture. 2 small solid nodules are noted measuring 4 to 6 mm at the lower pole. ISTHMUS: The isthmus measures 4 mm . The regional lymph nodes are normal. US/Thyroid IMPRESSION: Enlargement of the thyroid. Bilateral thyroid nodules. Electronically Signed: Werner Sheridan DO at 22:39 EDT Tel [phone], Service support , CC: STACIE Kurtz Medical Liaison: Signed [facility] SCREENING Observed: 06/14/2018 Status: F Source: [place] 10:49 AM [facility] REPOSITORY * * *Final Report* * * DATE OF EXAM: Jun 14 2018 10:49AM WOW 0581 - [facility] SCREENING / PROCEDURE REASON: Encounter for screening mammogram for malignant neoplasm of breast * * * * Physician Interpretation * * * * RESULT: #[id number] - [facility] SCREENING BILATERAL DIGITAL SCREENING MAMMOGRAM WITH CAD: 06/14/2018 HISTORY: Encounter For Screening Mammogram For Malignant Neoplasm Of Breast /patient reports no breast symptoms /priors available for comparison. RESULT: TECHNIQUE: The study was acquired using full field digital technology and interpreted from soft copy. Current study was also evaluated with a Computer Aided Detection (CAD). Comparison is made to exam dated: 09/09/2016 mammogram - [facility]. The tissue of both breasts is heterogeneously dense. This may lower the sensitivity of mammography. No significant masses, calcifications, or other findings are seen in either breast. There has been no significant interval change. IMPRESSION: NEGATIVE There is no mammographic evidence of malignancy. A 1 year screening mammogram is recommended. 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: [employer])(Yumi), [facility] letter sent: Normal over 40 Mammogram BI-RADS: 1 Negative Medical Liaison: Eddy Transcribe Date/Time: Jun 14 2018 10:38A Dictated by: SOPHIA CERON MD This examination was interpreted and the report reviewed and electronically signed by: SOPHIA CERON MD on Jun 14 2018 4:24PM EST [id number] PROGRESS Observed: 06/14/2018 Status: COMPLETED Source: [place] 10:32 AM [facility] [place] REPOSITORY HNO ID: [id number] Author: Lisa Mack Service: (none) Author Type: (none) Type: Progress Notes Filed: 06/14/2018 10:37 AM Note Text: Radiology Service Progress Note PATIENT NAME: Patricia Nance DATE OF SERVICE: June 14, 2018 TIME: 10:32 AM PATIENT IDENTITY VERIFICATION COMPLETED USING TWO (2) METHODS: Patient confirmed name verbally and Date of . PATIENT GENDER DATA: Female. status: : No status: NO. PATIENT RELEVANT IMPLANT DATA REVIEWED: Not Applicable RADIOLOGY DEPARTMENT: [facility] scr mammogram PERIPHERAL IV DATA: Not applicable SIGNED BY: Lisa Mack June 14, 2018 10:32 AM HPV W/GENOTYPE Collected: 06/14/2018 Status: F Source: [place] 9:34 AM [facility] REPOSITORY TYPE CODE TESTS RESULT OUT OF RANGE REFERENCE UNITS LAB HPVT16 Abnormal HPV HighRisk Positive for Alert Type 16 HPV DNA high risk type 16 by PCR LAB HPVT18 HPV HighRisk Negative for Type 18 HPV DNA high risk type 18 by PCR. LAB HPVHRO HPV HighRisk Negative for Other HPV DNA high risk types: 31,33,35,39,4 5,51,52,56,58 ,59,66,68 by PCR. Result Comment: This test was developed and its performance characteristics determined by [facility]'s [facility] [place] ([facility] It has not been cleared or approved by the FDA. -[facility] is regulated under CLIA as qualified to perform high-complexity testing. This test is used for clinical purposes. It should not be regarded as inv estigational or for research. Performed By: #### HPVHRR #### [facility] [address] [place], [place] [address] CYTOLOGY Observed: 06/14/2018 Status: C Source: [place] 9:34 [facility] REPOSITORY ADDITIONAL PROCEDURES PRESENT ---Abnormal Pap Test - Epithelial Cell Abnormality--- Specimen originated from [facility] Specimen #: [id number] Submitting Physician: FREIDA MONTALVO M.D. ([id number]) SPECIMEN SUBMITTED A: CERVICAL, SCREENING, FLUID FINAL DIAGNOSIS A. CERVICAL, SCREENING, FLUID Satisfactory for interpretation. Epithelial cell abnormality. Atypical squamous cells cannot exclude high grade squamous intraepithelial lesion (ASC-H). Acute inflammation. This specimen has been analyzed by the ThinPrep Imaging System, an automated imaging and review system, which assists the laboratory in evaluating cells on ThinPrep Pap tests. Following automated imaging, selected zambrano from every slide are reviewed by a bag shaker. Lucia Field MD (Electronic Signature) ADDITIONAL PROCEDURE(S) HUMAN PAPILLOMA VIRUS Date Ordered: 06/15/2018 Date Reported: 06/16/2018 Procedure Results and Interpretation Positive for HPV DNA high risk type 16 by PCR(*) Negative for HPV DNA high risk type 18 by PCR. Negative for HPV DNA high risk types: 31,33,35,39,45,51,52,56,58,59,66,68 by PCR. This test was developed and its performance characteristics determined by [facility]'s Curt [facility] [place] ([facility]). It has not been cleared or approved by the FDA. -[facility] is regulated under CLIA as qualified to perform high-complexity testing. This test is used for clinical purposes. It should not be regarded as investigational or for research. 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 ([id number]) Location: [facility] Diagnostic interpretation performed at [facility], [address] [place] [address]. The Pap Smear is a screening test for cervical cancer. False negative results occur with all screening tests, emphasizing the need for rescreening at recommended intervals, and clinical correlation. CNOV Observed: 06/14/2018 Status: COMPLETED Source: [place] 9:05 AM [facility] REPOSITORY Office Visit (WOOB) PATRICIA NANCE ([id number]) 1970 F Date Time Provider Department 06/14/18 9:05 AM FREIDA MONTALVO WOKEYLA During your visit today, we recorded the following information about you: Blood pressure Weight Height 110/72 102.1 kg 1.664 m Freida Montalvo MD 06/14/2018 9:35 AM Signed Patricia Nance is a 47 year old who presents for her annual gynecologic exam with complaints, vaginal pain w/ intercourse.. During and after, some irritaiton w/ urination as well. Worse past 6 months. Some night sweats and hot flashes. Menses: rare, light w/ mirena. Contraception: IUD HPV vaccine: No Last Pap: 2016 abnormal, ascus HPV: positive History of abnormal pap: No Last mammogram: todauy Sexually active: Yes Obstetric History T0 L0 SAB0 TAB0 Ectopic0 Multiple0 Live Births0 PAST MEDICAL HISTORY Diagnosis Date - ASCUS on Pap smear 01/2014,08/2015,08/2016 - Diabetes (HCC) diet controled - HPV test positive 01/2014,08/2015,08/2016 - Sleep apnea 2004 PAST SURGICAL HISTORY Procedure Laterality Date - GALLBLADDER/EF - INSERTION OF IUD - OFFICE LEEP 04/2014 CIN2 - VAGINOSCOPY 02/2014, 12/2014 FAMILY HISTORY Problem Relation Age of Onset - None Mother - None Father SOCIAL HISTORY Social History Substance Use Topics - Smoking status: Current Every Day Smoker Packs/day: 0.30 Years: 20.00 Types: Cigarettes - Smokeless tobacco: Never Used - Alcohol use No REVIEW OF SYSTEMS Abdomen: No abdominal pain, nausea, vomiting, diarrhea, or constipation. No bloating, early satiety, indigestion, or increased flatulence. Bladder: No dysuria, gross hematuria, urinary frequency, urinary urgency, or incontinence. Breast: No breast lumps, nipple d/c, overlying skin changes, redness or skin retraction. Allergies and current medication updated:Yes EXAM: There were no vitals taken for this visit. GENERAL: pleasant, female in no apparent distress HEENT: Normocephalic, atraumatic, mucus membranes moist and no lesions NECK: Supple, full range of motion, no adenopathy and thyroid normal DERMATOLOGY: Normal, without lesions, non-icteric and non-hirsute BREAST: soft, non-tender, symmetric, no dominant mass, normal nipple-areolar complex, no lymphadenopathy and no nipple discharge CHEST: Normal inspiratory effort ABDOMEN: soft, non-tender and no masses PELVIC: external genitalia normal, normal Bartholin's glands, urethra, Trinity's glands, no vulvar lesions, no cervical lesions, physiologic discharge present, normal appearing perineal body and perianal region, cystocele 1st degree, rectocele 1st degree, IUD strings 2 cm long BIMANUAL: uterus normal size, shape and consistency, no adnexal masses and non-tender RECTOVAGINAL: deferred. NEURO: alert and oriented x3,exam grossly non-focal EXTREMITIES: normal ASSESSMENT/PLAN: 1) Health maintenance: Pap done with HPV. Mammogram ordered. colonoscopy recommended 2) Contraception: IUD. Contraceptive options reviewed and information provided. 3) STD screening: Declined STD check. 4) Follow up one year or sooner as needed vulvovaginal atrophy- trial vaginal estrogen Freida Montalvo MD Referring Provider: SELF [200] Allergies As of Date: 06/14/2018 (No Known Allergies) Date Reviewed: 06/14/2018 Reviewed by: Freida Montalvo - Fully Assessed Reason for Visit: Yearly Exam [187] Primary Visit Diagnosis:Encounter for gynecological examination (general) (routine) with abnormal findings [Z01.411] Other Visit Diagnoses:Screening for cervical cancer [Z12.4] Encounter for screening mammogram for breast cancer [Z12.31] Papanicolaou smear of cervix with atypical squamous cells of undetermined significance (ASC-US) [R87.610] Cervical high risk human papillomavirus (HPV) DNA test positive [R87.810] Atrophic vulvovaginitis [N95.2] Order(s):GLADIS SCREENING [[id number]] Order #: [id number] FUTURE PAP FLUID CERVICAL SCREENING [[id number]] Order #: [id number] GLADIS SCREENING [[id number]] Order #: [id number] FUTURE Estradiol (YUVAFEM) 10 mcg tab vaginal tabletUse 1 tablet vaginally twice a week.Disp: 8 tabletRfl: 12 Prescriptions as of 06/14/2018 Sig: LEVONORGESTREL 20 MCG/24 HR (* Inserted in office CPAP ESTRADIOL 10 MCG VAGINAL TABL* Use 1 tablet vaginally twice * Problem List As Of Date 06/14/2018 Noted Resolved DM (diabetes mellitus), type 2, uncontrolled wi*INVALID FOR* Cigarette smoker [F17.210] INVALID FOR* Obesity (BMI 30-39.9) [E66.9] INVALID FOR* Prescriptions ordered this encounter Disp Refills Start End ESTRADIOL 10 MCG VAGINAL TABLET 8 ta* 12 06/14/2018 Route: VAGINAL Sig: Use 1 tablet vaginally twice a week. Medications Discontinued During This Encounter azithromycin (ZITHROMAX) 250 mg tabl* 6 ta* 0 08/12/2017 06/14/2018 Route: ORAL Sig: Take 1 tablet by mouth as directed. Take 2 tablets by mouth on Day 1, then 1 tablet by mouth every day thereafter for 4 days Patient not taking: Reported on 06/14/2018 Disc: Course of therapy completed albuterol HFA (PROAIR HFA) 90 mcg/ac* 1 In* 0 08/12/2017 06/14/2018 Route: INHALATION Sig: Inhale 2 Puffs as instructed every 4 hours as needed for Wheezing/Shortness of Breath. Patient not taking: Reported on 06/14/2018 Disc: Course of therapy completed benzonatate (TESSALON PERLE) 100 mg * 30 c* 0 08/12/2017 06/14/2018 Route: ORAL Sig: Take 2 capsules by mouth three times daily as needed. Patient not taking: Reported on 06/14/2018 Disc: Course of therapy completed Norethindrone, Contraceptive, (MARYJO* 3 Pa* 3 10/04/2016 06/14/2018 Route: ORAL Sig: Take 1 tablet by mouth once daily. Patient not taking: Reported on 06/14/2018 Disc: Course of therapy completed Disposition: Return in 1 year (on 06/14/2019) for Annual Exam. Follow-up and Disposition History Recorded Letter Text Freida Montalvo M.D. [facility] [address] [place] [phone] 06/14/2018 To whom it may concern: Patricia Nance was seen in our office today. Sincerely, Freida Montalvo M.D. Encounter Status:Closed by FREIDA MONTALVO MD on 06/14/18 PROGRESS Observed: 06/14/2018 Status: COMPLETED Source: [place] 8:56 AM [facility] REPOSITORY HNO ID: [id number] Author: Freida Montalvo Service: (none) Author Type: Physician Type: Progress Notes Filed: 06/14/2018 9:35 AM Note Text: Patricia Nance is a 47 year old who presents for her annual gynecologic exam with complaints, vaginal pain w/ intercourse.. During and after, some irritaiton w/ urination as well. Worse past 6 months. Some night sweats and hot flashes. Menses: rare, light w/ mirena. Contraception: IUD HPV vaccine: No Last Pap: 2016 abnormal, ascus HPV: positive History of abnormal pap: No Last mammogram: toda Sexually active: Yes Obstetric History T0 L0 SAB0 TAB0 Ectopic0 Multiple0 Live Births0 PAST MEDICAL HISTORY Diagnosis Date - ASCUS on Pap smear 01/2014,08/2015,08/2016 - Diabetes (HCC) diet controled - HPV test positive 01/2014,08/2015,08/2016 - Sleep apnea 2004 PAST SURGICAL HISTORY Procedure Laterality Date - GALLBLADDER/EF - INSERTION OF IUD - OFFICE LEEP 04/2014 CIN2 - VAGINOSCOPY 02/2014, 12/2014 FAMILY HISTORY Problem Relation Age of Onset - None Mother - None Father SOCIAL HISTORY Social History Substance Use Topics - Smoking status: Current Every Day Smoker Packs/day: 0.30 Years: 20.00 Types: Cigarettes - Smokeless tobacco: Never Used - Alcohol use No REVIEW OF SYSTEMS Abdomen: No abdominal pain, nausea, vomiting, diarrhea, or constipation. No bloating, early satiety, indigestion, or increased flatulence. Bladder: No dysuria, gross hematuria, urinary frequency, urinary urgency, or incontinence. Breast: No breast lumps, nipple d/c, overlying skin changes, redness or skin retraction. Allergies and current medication updated:Yes EXAM: There were no vitals taken for this visit. GENERAL: pleasant, female in no apparent distress HEENT: Normocephalic, atraumatic, mucus membranes moist and no lesions NECK: Supple, full range of motion, no adenopathy and thyroid normal DERMATOLOGY: Normal, without lesions, non-icteric and non-hirsute BREAST: soft, non-tender, symmetric, no dominant mass, normal nipple-areolar complex, no lymphadenopathy and no nipple discharge CHEST: Normal inspiratory effort ABDOMEN: soft, non-tender and no masses PELVIC: external genitalia normal, normal Bartholin's glands, urethra, Trinity's glands, no vulvar lesions, no cervical lesions, physiologic discharge present, normal appearing perineal body and perianal region, cystocele 1st degree, rectocele 1st degree, IUD strings 2 cm long BIMANUAL: uterus normal size, shape and consistency, no adnexal masses and non-tender RECTOVAGINAL: deferred. NEURO: alert and oriented x3,exam grossly non-focal EXTREMITIES: normal ASSESSMENT/PLAN: 1) Health maintenance: Pap done with HPV. Mammogram ordered. colonoscopy recommended 2) Contraception: IUD. Contraceptive options reviewed and information provided. 3) STD screening: Declined STD check. 4) Follow up one year or sooner as needed vulvovaginal atrophy- trial vaginal estrogen Freida Montalvo MD ALLERGIES ALLERGIES DATE TYPE / CODE NAME / CODE REACTION SEVERITY SOURCE 06/15/2018 Drug No Known Unknown [facility] Allergy/416 Allergies/I18078 [facility] 119418(SNOM 0388(RXNORM) Repository ED CT) Drug NO KNOWN [facility] Class/72216 ALLERGIES [facility] 1003(SNOMED Repository CT) ENCOUNTERS ENCOUNTERS ADMIT/DISCHARGE ACCOUNT NUMBER ADMITTING ENCOUNTER LOCATION SOURCE CLASS 11/28/2018 [id number] Ambulatory [facility] ing:[facility] Repository 10/26/2018 [id number] Ambulatory [facility] ding:LAB Repository 08/09/2018/08/09/20 [id number] [place] [address] g:[facility] Repository 08/01/2018/08/29/20 [id number] Ambulatory [address] Repository 07/26/2018/07/26/20 [id number] Ambulatory 66238Bamsykw [facility] 18 g:OPCL [facility] Repository 07/11/2018 [id number] Ambulatory [facility] ding:[facility] Repository 07/11/2018 [id number] Ambulatory BMSBuilding: [facility] Repository 07/05/2018 [id number] Ambulatory [facility] ding:[facility] Repository 07/05/2018 [id number] Ambulatory BMSBuilding: [facility] Repository 06/17/2018 [id number] Ambulatory [facility] ding:LAB Repository 06/15/2018/06/15/20 [id number] Ambulatory BMSBuilding: [place] 18 BMS.[facility] Repository 06/14/2018 [id number] Ambulatory [facility] ding:US Repository 06/14/2018/06/14/20 [id number] Ambulatory [address] Repository 06/14/2018/06/15/20 [id number] Ambulatory [address] Repository 06/13/2018 [id number] Ambulatory BMSBuilding: [place] BMS.[facility] Repository PAYERS PAYERS ENCOUNTER GUARANTOR PAYER SUBSCRIBER SOURCE 11/28/2018 PATRICIA Rosi Primary JENIFFER [facility] PITTMANDOB: Insurance:AETNAPolicy PITANDOB: General [facility] [id number] Number: [id number] [place] [address] [id number] [place] [address] Date:9063-01-85[place]qykWest [place], [place] [address]Fxu: [phone]) Name:Esteban [phone]: () [phone] () () 10/26/2018 MARIO Falcon [id number] E Insurance:AETNAPolicy PITTMANDOB: [facility] Number: [id number], [place] [id number] Repository [address]Zjq: ([phone]) Date:5900-88-98[phone] (HP) 930961AYANN [place] [phone]: 10/26/2018 Secondary NOT GIVENUNK [place] Insurance:SELF PAY [facility] Number: Effective Repository Date:2018-10-26 08/09/2018 PATRICIA D Primary JENIFEFR Cruz PITTMANDOB: Insurance:AETNAPolicy PITTMANDOB: General Health [id number] Number: [id number] [facility] [id number] [address] [place] [address] Repository [place], [place] Date:2008-11-14 [place], [place] [address]Ufu: [phone] 0936-03-31Plan Name: [id number]: (HP) [phone] (HP) () 07/11/2018 Mario Primary Mario Falcon [id number] E Insurance:AETNAPolicy [facility] Number: [id number], [place] [id number] Repository [address]Ukv: [phone]) Date:1662-60-05[phone] (HP) [id number], [place] [address]OT: 07/11/2018 Secondary NOT GIVENUNK [place] Insurance:SELF PAY [facility] Number: Effective Repository Date:2018-06-15 07/11/2018 Mario Primary Mario Falcon [id number] E Insurance:AETNAPolicy PittmanDOB: [facility] Number: [id number], [place] [id number] Repository [address]Fjb: 330) Date:8875-83-80[phone] () 516008KMSYLMAR, [place] [address]QO: 07/11/2018 Secondary NOT GIVENUNK [place] Insurance:SELF PAY [facility] Number: Effective Repository Date:2018-07-11 07/05/2018 Mario Primary Mario Falcon [id number] E Insurance:AETNAPolicy PittmanDOB: [facility] Number: [id number], [place] [id number] Repository [address]Qgy: ([phone]) Date:9319-27-24[phone] (HP) [id number] OTTO [address]HT: 07/05/2018 Secondary NOT GIVENUNK [place] Insurance:SELF PAY [facility] Number: Effective Repository Date:2018-06-15 07/05/2018 Mario Primary Mario Falcon [id number] E Insurance:AETNAPolicy PittmanDOB: [facility] Number: [id number], [place] [id number] Repository [address]Wga: ([phone]) Date:8485-33-91XN [phone] (HP) [id number] ANN RUSHING [phone]: 07/05/2018 Secondary NOT GIVENUNK [place] Insurance:SELF PAY [facility] Number: Effective Repository Date:2018-07-05 06/17/2018 Mario Primary Mario Falcon [id number] E Insurance:AETNAPolicy PittmanDOB: [facility] Number: [id number], [place] [id number] Repository [address]Nek: ([phone]) Date:1808-25-11IX [phone] (HP) [id number] ANN RUSHING [phone]: 06/17/2018 Secondary NOT GIVENUNK [place] Insurance:SELF PAY [facility] Number: Effective Repository Date:2018-06-17 06/15/2018 Mario Primary Mario Falcon [id number] E Insurance:AETNAPolicy PittmanDOB: [facility] Number: [id number], [place] [id number] Repository [address]Dnb: ([phone]) Date:4792-99-45[phone] (HP) [id number] ANN RUSHING [address]QE: 06/15/2018 Secondary NOT GIVENUNK [place] Insurance:SELF PAY [facility] Number: Effective Repository Date:2018-06-15 06/14/2018 Mario Primary Mario Falcon [id number] E Insurance:AETNAPolicy PittmanDOB: [facility] Number: [id number], [place] [id number] Repository [address]Lgv: ([phone]) Date:6724-37-83[phone] (HP) [id number] ANN RUSHING [phone]: 06/14/2018 Secondary NOT GIVENUNK [place] Insurance:SELF PAY [facility] Number: Effective Repository Date:2018-06-09 06/13/2018 Mario Primary Mario Falcon [id number] E Insurance:AETNAPolicy PittmanDOB: [facility] Number: [id number], [place] [id number] Repository [address]Zus: ([phone]) Date:6433-09-39TL [phone] () 384999KHANN OTTO [phone]: 06/13/2018 Secondary NOT GIVENUNK [place] Insurance:SELF PAY [facility] Number: Effective Repository Date:2018-06-13
== END ==
PROVIDERS: Family Provider Nurse Practitioner; PCP Nurse Practitioner; Referring Provider Nurse Practitioner Family; Visit Provider Nurse Practitioner Family
DX: E78.5 Hyperlipidemia, unspecified (principal); E55.9 Vitamin D deficiency, unspecified; R73.9 Hyperglycemia, unspecified
CPT/HCPCS: 80061; 80076; 82306; 83036

== ENCOUNTER → 2019-01-06 09:46 | Outpatient (CLI) | payer OTHER, SELFPAY ==
[2018-06-15 15:43] VITALS: BMI 37.0
[2019-01-06 10:52] LABS: AST(SGOT) 18 U/L (15-37); Alanine Aminotransfer ALT/SGPT 25 U/L (13-56); Albumin, Serum 3.5 g/dL (3.2-5.0); Alkaline Phosphatase 69 U/L (45-117); Bilirubin, Direct 0.09 mg/dL (0.00-0.30); Cholesterol 205 mg/dL (200); Globulin 3.9 g/dL (2.2-4.2); High Density Lipoprotein 34 mg/dL; Protein, Total 7.4 g/dL (6.4-8.2); Triglycerides 175 mg/dL; Very Low Density Lipoprotein 35 mg/dL (5-40)
== END ==
PROVIDERS: Family Provider Nurse Practitioner; PCP Nurse Practitioner; Referring Provider Nurse Practitioner Family; Visit Provider Nurse Practitioner Family
DX: E11.9 Type 2 diabetes mellitus without complications (principal); E78.5 Hyperlipidemia, unspecified
CPT/HCPCS: 36415; 80061; 80076

== ENCOUNTER → 2019-02-03 08:00 | Outpatient (CLI) | payer OTHER, SELFPAY ==
[2019-01-12 14:46] VITALS: BMI 38.3
[2019-02-03 09:15] LABS: Hemoglobin A1c 6.3 % (4.2-6.3)
[2019-02-03 10:31] LABS: Microalbumin,Random Urine 37.6 mg/L (NO RANGE EST.); Microalbumin:Creatinine Ratio 17.6 mg/g CRE (<30 mg/g CRE)
== END ==
PROVIDERS: Family Provider Nurse Practitioner; PCP Nurse Practitioner
DX: E11.9 Type 2 diabetes mellitus without complications (principal)
CPT/HCPCS: 36415; 82043; 82570; 83036

== ENCOUNTER → 2019-02-05 15:23 | Outpatient (CLI) | payer OTHER, SELFPAY ==
[2019-01-12 14:46] VITALS: BMI 38.3
--- NOTE | 2019-02-05 16:04 | US_ITS ---
HISTORY: F/U NODULES TECHNIQUE: Rosen scale and color doppler imaging was performed of the thyroid gland. COMPARISON: 06/14/18 thyroid ultrasound. FINDINGS: RIGHT THYROID LOBE: 5.3 x 2.2 x 3.0 cm. Homogeneous echotexture with normal vascularity. Lower pole nodule measures 2.8 x 1.5 x 1.9 cm, solid and complex with irregular margins and karmen-nodular vascularity. The second nodule which was measured on the prior study is not identified separate from this larger nodule today. LEFT THYROID LOBE: 4.9 x 1.8 x 2.0 cm.. Homogeneous echotexture with normal vascularity. 0.5 x 0.3 x 0.3 cm solid hypoechoic lower pole nodule with regular margins. ISTHMUS: 0.3 cm thick. No isthmus nodules are present. US/Thyroid IMPRESSION: Large right thyroid nodule again demonstrated. The second nodule which was measured on the prior study is not seen separate from this larger nodule today. This may be due to technical factors and plane of scan. Otherwise the nodule is grossly similar to prior. This nodule has high suspicion pattern; biopsy suggested if not previously performed. at 0944 Reported and signed by: Sreedhar Ernandez MD Electronically Signed: Sreedhar Ernandez, at 9:43 EDT Tel , Service support ,
== END ==
PROVIDERS: Family Provider Nurse Practitioner; PCP Nurse Practitioner
DX: E04.2 Nontoxic multinodular goiter (principal)
CPT/HCPCS: 76536

== ENCOUNTER → 2019-05-11 06:20 | Outpatient (CLI) | payer OTHER, SELFPAY ==
[2019-01-12 14:46] VITALS: BMI 38.3
[2019-05-11 07:42] LABS: Hemoglobin A1c 8.1 % (4.2-6.3)
[2019-05-11 07:43] LABS: AST(SGOT) 15 U/L (15-37); Alanine Aminotransfer ALT/SGPT 26 U/L (13-56); Albumin, Serum 3.5 g/dL (3.2-5.0); Alkaline Phosphatase 77 U/L (45-117); Bilirubin, Direct 0.09 mg/dL (0.00-0.30); Cholesterol 171 mg/dL (200); Globulin 3.9 g/dL (2.2-4.2); High Density Lipoprotein 35 mg/dL; Protein, Total 7.4 g/dL (6.4-8.2); Triglycerides 214 mg/dL; Very Low Density Lipoprotein 43 mg/dL (5-40)
== END ==
PROVIDERS: Family Provider Nurse Practitioner; PCP Nurse Practitioner; Referring Provider Internal Medicine Cardiovascular Disease; Visit Provider Internal Medicine Cardiovascular Disease
DX: E04.2 Nontoxic multinodular goiter (principal); E78.5 Hyperlipidemia, unspecified; E55.9 Vitamin D deficiency, unspecified; E66.09 Other obesity due to excess calories; R73.03 Prediabetes; Z79.84 Long term (current) use of oral hypoglycemic drugs
CPT/HCPCS: 36415; 80061; 80076; 83036

== ENCOUNTER → 2019-09-21 14:37 | Outpatient (CLI) | payer OTHER, SELFPAY ==
[2019-08-23 15:59] VITALS: BMI 39.6
--- NOTE | 2019-09-21 14:41 | ECHOCS_ITS ---
Reason For Study: PHTN Procedure This was a 2D Doppler, Color Flow transthoracic echocardiogram. Contrast injection was performed. Exam performed in department. Left Ventricle Normal size and thickness. The estimated ejection fraction is 65 %. Normal diastology for age. No regional wall motion abnormalities noted. Right Ventricle Normal size and thickness. Normal systolic function. Atria Normal left atrium. Normal right atrium. Normal atrial septum. Mitral Valve The mitral valve is structurally normal. No prolapse or stenosis seen. Tricuspid Valve Normal tricuspid valve. Unable to estimate RV systolic pressure due to insufficient tricuspid regurgitant envelope. Aortic Valve Trisinus/trileaflet aortic valve. The aortic valve is not well visualized. Pulmonic Valve Normal pulmonic valve. Great Vessels Normal aortic root. Normal arch. Normal inferior vena cava. Inferior vena cava collapse with sniff. Pericardium/Pleural No pericardial effusion. Medication Diluted definity 3ml given slow IV push to enhance endocardial definition. MMode/2D Measurements & Calculations LVIDd: 5.0 cm IVSd: 0.98 cm Ao root diam: 2.9 cm LVIDs: 2.9 cm LVPWd: 1.0 cm RVDd: 2.7 cm FS: 42.6 % LAV(MOD-bp): 32.4 ml LVAd ap4: 27.2 cm2 SV(MOD-sp4): 55.0 ml LAV(MOD-bp) Indexed: 15.3 ml/m2 EDV(MOD-sp4): 81.3 ml LAV(MOD-sp2): 30.0 ml EDV(sp4-el): 83.0 ml LAV(MOD-sp4): 32.0 ml LVAs ap4: 13.8 cm2 ESV(MOD-sp4): 26.2 ml ESV(sp4-el): 25.8 ml EF(MOD-sp4): 67.7 % EF(sp4-el): 69.0 % SV(sp4-el): 57.2 ml LA A4 area: 14.6 cm2 LA dimension(2D): 4.0 cm RA A4 area: 10.2 cm2 Doppler Measurements & Calculations MV E max randell: 89.8 cm/sec Lat Peak E' Randell: 9.9 cm/sec Med Peak E' Randell: 8.5 cm/sec MV A max randell: 77.0 cm/sec E/E' lat: 9.0 E/E' med: 10.6 MV E/A: 1.2 Ao V2 max: 153.7 cm/sec LV V1 max: 123.8 cm/sec PA V2 max: 91.9 cm/sec Ao max P.4 mmHg LV V1 max P.1 mmHg Ao V2 mean: 110.9 cm/sec Ao mean P.3 mmHg Ao V2 VTI: 31.2 cm Interpretation Summary The estimated ejection fraction is 65 %. Normal diastology for age. Unable to estimate RV systolic pressure due to insufficient tricuspid regurgitant envelope. Compared to echo report dated 07/05/2018, no appreciable changes noted. The study was technically difficult. Contrast injection was performed. Ordering Physician: Jose Alfredo Velázquez Referring Physician: Holly Kurtz Performed By: Savi Rothman RDCS, RVT
== END ==
PROVIDERS: Family Provider Nurse Practitioner; PCP Nurse Practitioner; Referring Provider Internal Medicine Cardiovascular Disease; Visit Provider Internal Medicine Cardiovascular Disease
DX: I27.20 Pulmonary hypertension, unspecified (principal); G47.33 Obstructive sleep apnea (adult) (pediatric)
CPT/HCPCS: 93306; Q9957; A4216; C8929

== ENCOUNTER 2019-11-23 09:34 | Emergency (ER) | payer OTHER, SELFPAY ==
[2019-08-23 15:59] VITALS: BMI 39.6
[2019-11-23 09:34] VITALS: BP 141/80; PULSE 98; RESP 18; TEMP 36.8; O2SAT 98; BMI 39.4
--- NOTE | 2019-11-23 09:35 | NURSING ---
NO OLD EKGS
--- NOTE | 2019-11-23 09:39 | RAD_ITS ---
STUDY: X-RAY CHEST REASON FOR EXAM: Female, 49 years old. Chest pain TECHNIQUE: Single AP portable view of the chest. COMPARISON: Comparison is made with prior examination dated August 09, 2010. FINDINGS: EKG electrodes are seen. Elevation of the right hemidiaphragm. The lungs are clear. There is no demonstrated pleural abnormality. Normal size heart. Normal mediastinum and mejia. Normal visualized pulmonary arteries. Normal visualized aortic arch and descending thoracic aorta. Normal visualized thoracic spine. Normal visualized ribs, clavicles, and shoulders. There is no demonstrated abnormality of the visualized soft tissue structures of the upper abdomen. RAD/Chest 1 View (Portable) IMPRESSION: Normal x-ray examination of the chest. Electronically Signed: Billy Powell, at 10:42 EST , Service support ,
--- NOTE | 2019-11-23 09:39 | EKG12_ITS ---
Test Reason : CP Blood Pressure : / mmHG Vent. Rate : 094 BPM Atrial Rate : 094 BPM P-R Int : 152 ms QRS Dur : 090 ms QT Int : 372 ms P-R-T Axes : 031 -32 011 degrees QTc Int : 465 ms Normal sinus rhythm Left axis deviation Low voltage QRS Poor R wave progression Abnormal ECG Confirmed by CHOCO BENAVIDEZ, PAPITO ([id number]), scientific editor MEREDITH HOANG ([id number]) on 11/26/2019 10:21:09 AM Referred By: Confirmed By:PAPITO WILHELM MD
[2019-11-23] MEDS: Aspirin 81 MG TAB.CHEW 324 MG PO (09:48)
--- NOTE | 2019-11-23 09:56 | ED.VISSUMM ---
- ER Visit Summary Date of Service: 11/23/19 Chief Complaint: Chest discomfort History of Present Illness: The patient is a 49 F history of [id number] diabetes and high cholesterol. No history of cardiac disease. Prior recent negative stress echo within the last year or so. No prior cardiac catheterization. She has been worked up for chest pain before in the past. She is also had a prior cholecystectomy. She states the last several weeks she has intermittent chest discomfort. She describes as a tightness not associated with exertion or walking. No significant shortness of breath. Today she did get little diaphoretic with it. She has had some mild nausea. Currently she is pain-free and symptom-free. She has had these symptoms before. Physical Examination: Middle-aged female no acute distress vital signs are stable and afebrile. Pulse ox 98% on room air no signs hypoxia. H EENT exam unremarkable. Neck nontender. Lungs clear to auscultation bilaterally. Heart regular rhythm no murmur. Chest nontender. Abdomen soft nontender normal bowel sounds no peritoneal signs. Patient moving all 4 extremities. Calves nontender without edema or cords. Neurologically she is awake alert with no focal motor deficits. Test Results: EKG shows a normal sinus rhythm rate 94 no acute signs of VA or ischemia. CBC normal. Chemistries normal. Glucose 269. Troponin normal. Chest x-ray portable 1 view read by myself shows no acute abnormality. Normal cardiac silhouette mediastinum. Emergency Department Course and Treatment: Patient has nonexertional chest pain. She has had a prior negative cardiac work-up including a stress echo. She will undergo a cardiac work-up today. Repeat exam at 10:40 AM the patient is doing well. Symptom-free. We went over all of her test results. They are comfortable being discharged home with outpatient follow-up. Treatment Plan: Stop smoking. Follow-up with your doctor next week. Return if feeling worse. Return if accelerating or worsening symptoms. Disposition: Discharge Impression: Acute chest pain atypical and nonexertional of uncertain etiology This note was generated with [employer] dictation software. It may contain incorrect words, spelling, and punctuation that were not noted in review of the chart prior to signing ED Disposition - Plan for ED Patient: Referrals: Holly Kurtz NP-C [Primary Care Provider] -
[2019-11-23 10:00] LABS: Absolute Lymphocyte Count 3.09 X10^3/uL (0.83-4.51); Absolute Neutrophil Count 7.3 X10^3/uL (2.0-7.7); Basophil# 0.05 X10^3/uL; Basophil% 0.4 % (0-1); Eosinophil# 0.37 X10^3/uL; Eosinophils% 3.2 % (0-5); Hemoglobin 12.9 g/dL (12.0-15.0); Lymphocyte # 3.09 X10^3/ul (4.0); Lymphocyte % 27.1 % (19-41); Mean Corp Hgb Conc 32.3 g/dL (32-36); Mean Corpuscular Hgb 30.4 pg (27.0-32.0); Mean Corpuscular Volume 94.3 fL (81-99); Mean Platelet Vol. 8.9 fl (6.2-12.0); Monocyte# 0.52 X10^3/uL; Monocyte% 4.6 % (0-10); NRBC Flagged by Analyzer 0 % (0-5); Neutrophil # 7.28 X10^3/uL (2.7-7.7); Platelet Count 331 K/mm3 (150-450); RBC Distribution Width CV 13.2 % (11.6-14.6); RBC Distribution Width SD 45.5 fl (35.1-43.9); Red Blood Count 4.24 M/mm3 (4.2-5.4); White Blood Count 11.4 K/mm3 (4.4-11.0)
[2019-11-23 10:13] LABS: Anion Gap 5 (5-15); BUN 12 mg/dL (7-18); BUN/Creat Ratio 13.7 RATIO (10-20); Chloride 106 mmol/L (98-107); Creatinine, Serum 0.88 mg/dL (0.55-1.02); EST Glomerular Filtration Rate 73 mL/min (>60); Est Glom Filt Rate - Afr Amer 88 mL/min (>60); Estimated Creatinine Clearance 69.59 ml/min; Glucose 269 mg/dL (74-106); Potassium 3.7 mmol/L (3.5-5.1); Sodium Level 137 mmol/L (136-145)
[2019-11-23 10:35] VITALS: BP 130/82; PULSE 77; RESP 15; O2SAT 100
--- NOTE | 2019-11-23 10:43 | ED.DEP ---
ED Disposition - Plan for ED Patient: Disposition: Home or Assisted Living Instructions: CHEST PAIN, Uncertain Cause Referrals: Holly Kurtz NP-C [Primary Care Provider] - 3-5 Days Additional Instructions: Call or follow-up with your primary care physician or provider. Your work-up today was normal. If your symptoms are not improving you need further evaluation. If you are feeling worse return the emergency department. STOP Smoking!
[2019-11-23 10:57] VITALS: BP 135/84; PULSE 87; RESP 18; O2SAT 99
== END 2019-11-23 10:58 | disposition home or self-care (01) ==
PROVIDERS: Emergency Provider Emergency Medicine; Family Provider Nurse Practitioner; PCP Nurse Practitioner
DX: R07.89 Other chest pain (principal); R11.0 Nausea; E11.9 Type 2 diabetes mellitus without complications; E78.00 Pure hypercholesterolemia, unspecified; Z72.0 Tobacco use; Z79.84 Long term (current) use of oral hypoglycemic drugs; Z79.899 Other long term (current) drug therapy; Z90.49 Acquired absence of other specified parts of digestive tract
CPT/HCPCS: 71045; 80048; 84484; 85025; 93005; 99283; A4216

== ENCOUNTER → 2020-10-27 | Outpatient (CLI) | payer OTHER, SELFPAY ==
[2020-10-27 17:19] VITALS: BMI 36.8
== END | disposition home or self-care (01) ==
PROVIDERS: PCP Nurse Practitioner; Referring Provider Nurse Practitioner; Visit Provider Nurse Practitioner
DX: N39.0 Urinary tract infection, site not specified (principal)
CPT/HCPCS: 87077; 87086; 87088; 87186

== ENCOUNTER → 2020-11-25 | Outpatient (CLI) | payer OTHER, SELFPAY ==
[2020-11-25 19:22] VITALS: BMI 38.2
== END | disposition home or self-care (01) ==
PROVIDERS: PCP Nurse Practitioner; Visit Provider Nurse Practitioner
DX: R10.9 Unspecified abdominal pain (principal)
CPT/HCPCS: 87086; 87088

== ENCOUNTER → 2022-06-23 | Outpatient (CLI) | payer OTHER, SELFPAY ==
[2022-06-23 07:29] LABS: Absolute Lymphocyte Count 3.55 X10^3/uL (0.83-4.51); Absolute Neutrophil Count 5.6 X10^3/uL (2.0-7.7); Basophil# 0.06 X10^3/uL; Basophil% 0.6 % (0-1); Eosinophil# 0.62 X10^3/uL; Hematocrit 43.7 % (37-47); Hemoglobin 14.6 g/dL (12.0-15.0); Lymphocyte # 3.55 X10^3/ul (0.83-4.51); Lymphocyte % 34.2 % (19-41); Mean Corp Hgb Conc 33.4 g/dL (32-36); Mean Corpuscular Hgb 31.4 pg (27.0-32.0); Mean Platelet Vol. 10.2 fl (6.2-12.0); Monocyte# 0.53 X10^3/uL; Monocyte% 5.1 % (0-10); NRBC Flagged by Analyzer 0 % (0-5); Neutrophil # 5.57 X10^3/uL (2.7-7.7); Neutrophil % 53.7 % (47-70); Platelet Count 323 K/mm3 (150-450); RBC Distribution Width CV 13.2 % (11.6-14.6); RBC Distribution Width SD 45.6 fl (35.1-43.9); Red Blood Count 4.65 M/mm3 (4.2-5.4); White Blood Count 10.4 K/mm3 (4.4-11.0)
[2022-06-23 07:56] LABS: ALB/GLOB Ratio 0.9 RATIO (0.9-2.4); AST(SGOT) 14 U/L (15-37); Alanine Aminotransfer ALT/SGPT 31 U/L (13-56); Albumin, Serum 3.6 g/dL (3.2-5.0); Alkaline Phosphatase 79 U/L (45-117); Anion Gap 5 (5-15); BUN 12 mg/dL (7-18); BUN/Creat Ratio 18.3 RATIO (10-20); Calcium,Total 9.1 mg/dL (8.5-10.1); Chloride 108 mmol/L (98-107); Cholesterol 263 mg/dL (200); Creatinine, Serum 0.65 mg/dL (0.55-1.02); EST Glomerular Filtration Rate 101 mL/min (>60); Est Glom Filt Rate - Afr Amer 122 mL/min (>60); Glucose 107 mg/dL (74-106); High Density Lipoprotein 37 mg/dL; Protein, Total 7.6 g/dL (6.4-8.2); Sodium Level 139 mmol/L (136-145); Triglycerides 249 mg/dL; Very Low Density Lipoprotein 50 mg/dL (5-40)
[2022-06-23 08:22] LABS: Hemoglobin A1c 5.9 % (3.8-5.6)
== END | disposition home or self-care (01) ==
LOC: LAB 06:31
PROVIDERS: PCP Nurse Practitioner; Visit Provider Nurse Practitioner
DX: Z00.00 Encounter for general adult medical examination without abnormal findings (principal)
CPT/HCPCS: 36415; 80053; 80061; 83036; 85025

== ENCOUNTER → 2022-08-24 | Outpatient (CLI) | payer OTHER, SELFPAY | END | disposition home or self-care (01) | PROVIDERS: PCP Nurse Practitioner; Visit Provider Nurse Practitioner | DX: E11.65 Type 2 diabetes mellitus with hyperglycemia (principal); N30.90 Cystitis, unspecified without hematuria | CPT/HCPCS: 87086; 87088 ==

== ENCOUNTER 2022-12-03 17:01 | Inpatient (IN) | payer OTHER, SELFPAY ==
[2022-12-03] VITALS (7 sets, daily range): BP systolic 101–127; BP diastolic 65–91; PULSE 66–78; RESP 14–19; TEMP 36.4–36.8; O2SAT 95–99; BMI 34.6; BMI 34.2
--- NOTE | 2022-12-03 17:06 | EKG12_ITS ---
Test Reason : Blood Pressure : / mmHG Vent. Rate : 078 BPM Atrial Rate : 078 BPM P-R Int : 148 ms QRS Dur : 076 ms QT Int : 400 ms P-R-T Axes : 023 -35 031 degrees QTc Int : 456 ms Normal sinus rhythm Left axis deviation Abnormal ECG Confirmed by CURTIS BENAVIDEZ, SHAYE ([id number]), sports editor MEREDITH HOANG ([id number]) on 12/06/2022 10:02:32 AM Referred By: DAMIAN Confirmed By:SHAYE ACEVEDO MD
--- NOTE | 2022-12-03 17:21 | RAD_ITS ---
INDICATION: chest pain EXAMINATION/TECHNIQUE: X-RAY - XR Chest 1 View COMPARISON: 11/23/2019 FINDINGS: LIFE-SUPPORT AND LINES: 1. None HEART AND VESSELS: The cardiac silhouette, pulmonary vasculature have normal appearance. No evidence of congestive failure. LUNGS AND PLEURAL SPACES: Lungs are clear. No focal infiltrate, consolidation or effusions. No evidence of pneumothorax. No pulmonary mass is noted. MEDIASTINUM AND HILAR REGIONS: No masses adenopathy noted. No areas of calcification. Visualized upper airway is normal in position. BONY ELEMENTS: No acute bony changes noted. RAD/Chest 1 View (Portable) IMPRESSION: 1. No evidence of acute cardiopulmonary process Electronically Signed: Marcelo Huston MD at 17:52 EST ,
--- NOTE | 2022-12-03 17:25 | EDS_ITS ---
HPI History of Present Illness Chief Complaint: Chest Pain Narrative Narrative: Patient presents with chest pain. It has been ongoing for about 6 hours, it is on and off, it is in her chest and lasts just a few minutes. It has been however constant over the past 2 hours and its somewhat squeezing and pressure- like. She has no radiation of the pain she has no back pain or tearing sensation no upper extremity symptoms. She has no pleuritic component. She has no DVT or PE risk factors. [facility] Medical History (Reviewed 08/25/22 @ 14:19 by Holly Kurtz DIRECTOR OF TEACHER EDUCATION, DIRECTOR OF TEACHER EDUCATION-C) Diabetes type 2, uncontrolled Dyspnea on exertion Hyperlipidemia Obstructive sleep apnea Small kidney, unilateral Thyroid mass Home Medications levonorgestrel 20 mcg/24 hours (8 yrs) 52 mg intrauterine device (Mirena) 1 insert intrauterine ONCE 06/13/18 [History Last Taken Unknown] empagliflozin 25 mg-metformin ER 1,000 mg tablet,extended release 24hr (Synjardy XR) 1 tab PO DAILY #90 ea 06/22/22 [Rx Last Taken Unknown] rosuvastatin 10 mg tablet 10 mg PO DAILY #90 tabs 06/22/22 [Rx Last Taken Unknown] fluconazole 150 mg tablet 150 mg PO Q3D 2 doses #2 tabs 07/22/22 [Rx Last Taken Unknown] phenazopyridine 200 mg tablet (Pyridium) 200 mg PO TID PRN pain #9 tabs 08/24/22 [Rx Last Taken Unknown] dulaglutide 0.75 mg/0.5 mL subcutaneous pen injector (Trulicity) 0.75 mg (0.5 mL) subcut QWEEK 3 months #6.5 mL 09/23/22 [Rx Last Taken Unknown] tirzepatide 5 mg/0.5 mL subcutaneous pen injector (Mounjaro) 5 mg (0.5 mL) subcut QWEEK 30 days #2.5 mL 09/28/22 [Rx Last Taken Unknown] Allergy/AdvReac Type Severity Reaction Status Date / Time No Known Allergies Allergy Verified 12/03/22 17:05 Family History Mother Ovarian cancer Grandmother Thyroid disorder Arrhythmia Grandfather Thyroid disorder had thyroid removed for cancer Uncle Thyroid disorder Aunt Thyroid disorder thyroid cancer and had removed Brother Hypertension Surgical History (Reviewed 08/25/22 @ 14:19 by Holly Kurtz DIRECTOR OF TEACHER EDUCATION, DIRECTOR OF TEACHER EDUCATION-C) History of cholecystectomy Social History Smoking Status: Current every day smoker tobacco type: cigarettes ROS ROS ED ROS Narrative Past medical history: Reviewed Medications: Reviewed Social history: Noncontributory Review of systems: All systems negative except as indicated General: No fever Eyes: No visual changes ENT: No upper airway congestion, normal voice Neck: No neck pain Cardiovascular: Chest pain as in HPI Respiratory: No shortness of breath or cough Gastrointestinal: No abdominal pain, nausea vomiting or diarrhea Genitourinary: No dysuria Musculoskeletal: Denies myalgias no difficulty with ambulation Skin: No rash Neurological: No memory loss, confusion or any focal weakness Psych: No recent behavioral changes Hematologic: No easy bleeding or easy bruising EXAM Physical Exam Narrative Exam Narrative: Physical exam General: Well nourished, Well developed, No Acute Distress Head: Normocephalic, Atraumatic Eyes: Conjunctiva not pale ENT: Moist mucous membranes Neck: Supple, Nontender, No lymphadenopathy Cardiovascular: Regular rate, Regular rhythm Respiratory: No distress, CTA bilaterally Abdomen: Soft, Nontender, Nondistended Back: Nontender, Normal Inspection. Negative for: CVA tenderness Extremities: Nontender, No edema Skin: Normal color, No rash Neurological: Alert, Normal Strength, Normal Sensation Psychological: Normal affect Const Vital Signs: 12/03/22 17:02 12/03/22 17:13 12/03/22 18:03 Temperature 97.6 F L Temperature Source Temporal Pulse Rate 78 66 Respiratory Rate 19 H 15 Blood Pressure 127/65 H Blood Pressure Mean 85 Pulse Ox 99 97 98 Oxygen Delivery Method Room Air Room Air Room Air Heart Score History: Highly Suspicious ECG: Nonspecific Repolarization Age: >45 - <65 years Risk Factors: >/= 3 Risk Factors or History of CAD Troponin: >/=3 x Normal Limit Score: 8 MDM MDM MDM Narrative Medical decision making narrative: A. Problems addressed Chest pain, acute coronary syndrome. B. Amount and/or complexity of the data 1. CBC, CMP, troponin ordered and interpreted by me. I discussed the patient with who was in the room 2. Independent interpretation of test Sinus rhythm with a rate in the 70s without any ectopy. 3. Discussion of management with cardiology, Dr. Burt, and the medicine admitting doctor. Esteban. Patient is found to have quite an elevated troponin. Her heart score is an 8. Her EKG is however unremarkable other than nonspecific changes. I discussed with cardiology since the patient has acute coronary syndrome. We will give nitroglycerin and Lovenox. At this time there is no indication for emergent intervention. We will get the pain controlled and patient will be admitted Lab Data Labs: Laboratory Results - last 24 hr 12/03/22 12/03/22 17:15 17:15 WBC 12.0 H RBC 4.85 Hgb 15.0 Hct 46.5 MCV 95.9 MCH 30.9 MCHC 32.3 RDW Std Deviation 46.6 H RDW Coeff of Lakesha 13.2 Plt Count 367 MPV 9.2 Immature Gran % (Auto) 0.400 Neut % (Auto) 59.6 Lymph % (Auto) 29.1 [place] % (Auto) 5.0 Eos % (Auto) 5.3 H Baso % (Auto) 0.6 Absolute Neuts (auto) 7.1 Absolute Lymphs (auto) 3.48 Nucleated RBC % 0 Sodium 141 Potassium 3.6 Chloride 107 Carbon Dioxide 28.0 Anion Gap 6 BUN 9 Creatinine 0.77 Estim Creat Clear Calc 76.90 Est GFR (MDRD) Af Amer 101 Est GFR (MDRD) Non-Af 84 BUN/Creatinine Ratio 11.7 Glucose 135 H Calcium 9.5 Troponin I High Sens 85 H Radiography Diagnostic Testing: Clinical Impression(s) from Imaging Studies Chest X-Ray 12/03/22 17:21 IMPRESSION: 1. No evidence of acute cardiopulmonary process Electronically Signed: Marcelo Huston MD at 17:52 EST , EKG Initial EKG: Comments: Sinus rhythm with a rate of 78. Normal MD and QTc intervals. Left axis deviation. No acute ischemic changes. Critical Care Time Critical Care Time: Yes Critical care time (excluding procedures): 30-74 minutes, Including time spent:, Discussing w/Patient &/or Family/See Wheeler, Discussing w/Consultants, Arranging Admission or Transfer, Performing Direct Patient Care at Bedside and - (30 minutes) Discharge Plan Triage Chief Complaint: Chest Pain ED Provider: Dante Daniel Dx/Rx/DC Orders Clinical Impression: ACS (acute coronary syndrome), Diabetes, Hypercholesterolemia, Chest pain, Elevated troponin Prescriptions: No Action levonorgestrel [Mirena] 20 mcg/24 hr (5 years) intrauterine device 1 insert Intrauterine ONCE Synjardy XR 25-1,000 mg tablet, IR - ER, biphasic 24hr 1 tab PO DAILY Qty: 90 3RF rosuvastatin 10 mg tablet 10 mg PO DAILY Qty: 90 3RF fluconazole 150 mg tablet 150 mg PO Q3D Qty: 2 2RF phenazopyridine [Pyridium] 200 mg tablet 200 mg PO TID PRN (Reason: pain) Qty: 9 5RF Trulicity 0.75 mg/0.5 mL pen injector 0.75 mg subcut QWEEK 90 Days Qty: 6.5 3RF Mounjaro 5 mg/0.5 mL pen injector 5 mg subcut QWEEK 30 Days Qty: 2.5 12RF Primary Care Provider: Holly Kurtz NP Referrals: Holly Kurtz NP, DIRECTOR OF TEACHER EDUCATION-C [Primary Care Provider] - Disposition Disposition: Acute Care Hospital [facility]
[2022-12-03 17:26] LABS: Absolute Lymphocyte Count 3.48 X10^3/uL (0.83-4.51); Absolute Neutrophil Count 7.1 X10^3/uL (2.0-7.7); Basophil# 0.07 X10^3/uL; Basophil% 0.6 % (0-1); Eosinophil# 0.63 X10^3/uL; Eosinophils% 5.3 % (0-5); Hematocrit 46.5 % (37-47); Lymphocyte # 3.48 X10^3/ul (0.83-4.51); Lymphocyte % 29.1 % (19-41); Mean Corp Hgb Conc 32.3 g/dL (32-36); Mean Corpuscular Hgb 30.9 pg (27.0-32.0); Mean Corpuscular Volume 95.9 fL (81-99); Mean Platelet Vol. 9.2 fl (6.2-12.0); NRBC Flagged by Analyzer 0 % (0-5); Neutrophil # 7.14 X10^3/uL (2.7-7.7); Neutrophil % 59.6 % (47-70); Platelet Count 367 K/mm3 (150-450); RBC Distribution Width CV 13.2 % (11.6-14.6); RBC Distribution Width SD 46.6 fl (35.1-43.9); Red Blood Count 4.85 M/mm3 (4.2-5.4)
[2022-12-03] MEDS: Ketorolac 15 MG/ML Vial IV (17:29)
[2022-12-03 17:58] LABS: Anion Gap 6 (5-15); BUN 9 mg/dL (7-18); BUN/Creat Ratio 11.7 RATIO (10-20); Calcium,Total 9.5 mg/dL (8.5-10.1); Chloride 107 mmol/L (98-107); Creatinine, Serum 0.77 mg/dL (0.55-1.02); EST Glomerular Filtration Rate 84 mL/min (>60); Est Glom Filt Rate - Afr Amer 101 mL/min (>60); Glucose 135 mg/dL (74-106); Potassium 3.6 mmol/L (3.5-5.1); Sodium Level 141 mmol/L (136-145); Troponin-I HS 85 pg/mL (3.0-54.0)
[2022-12-03] MEDS: Enoxaparin 100 MG/ML Syringe SC (18:32)
[2022-12-03] MEDS: Ondansetron 4 MG/2 ML Vial IV (18:34)
--- NOTE | 2022-12-03 18:57 | ED.RN ---
PT REFUSED NITRO PASTE OF 1856. PER DR. RUBALCAVA PASTE IS FOR PAIN MANAGEMENT AND NOT FOR CARDIAC TREATMENT. PT RATES PAIN ON NUMERIC VERBAL SCALE 1/10. DR. RUBALCAVA AWARE NITRO PASTE HELD.
--- NOTE | 2022-12-03 19:11 | HP.PCM.HOS_ITS ---
HPI - General General Date of Admission: 12/03/22 Date of Service: 12/03/22 Chief Complaint: Chest pain HPI Narrative МАРИНА NANCE, is a 52 F who presents to the emergency room at [facility] with complaints of substernal chest discomfort which started at 11 AM today, its been off and on since that time, she describes the chest discomfort as squeezing in nature and radiating into her throat and down both arms. At the time of my examination, she states her chest pain is a 1 out of 10 in intensity with 10 being the greatest intensity. Patient's work-up in the emergency room included a chest x-ray which was unremarkable, white blood cell count was 12,000, chemistry profile was remarkable for glucose of 135 and troponin was 85. Patient's EKG showed a normal sinus rhythm without evidence of ischemic changes. Patient will be admitted for non-STEMI to the PCU, she will have an echocardiogram performed tomorrow, she was given subcu Lovenox for anticoagulation, and she was placed on Nitropaste. She will be seen by cardiology tomorrow, I had a brief conversation with Dr. Burt about her care. Cardiac enzymes will be cycled [facility] Medical History Diabetes type 2, uncontrolled Dyspnea on exertion Hyperlipidemia Obstructive sleep apnea Small kidney, unilateral Thyroid mass Home Medications levonorgestrel 20 mcg/24 hours (8 yrs) 52 mg intrauterine device (Mirena) 1 insert intrauterine ONCE CONTROL 06/13/18 [History Last Taken Unknown] empagliflozin 25 mg-metformin ER 1,000 mg tablet,extended release 24hr (Synjardy XR) 1 tab PO DAILY blood sugars 12/03/22 [History Last Taken 12/03/22] modafinil 100 mg tablet 100 mg PO DAILY SLEEP APNEA 12/03/22 [History Last Taken 12/03/22] rosuvastatin 10 mg tablet 10 mg PO DAILY cholesterol 12/03/22 [History Last Taken 12/03/22] tirzepatide 5 mg/0.5 mL subcutaneous pen injector (Mounjaro) 5 mg subcut YAÑEZ DIABETES 12/03/22 [History Last Taken 11/28/22] Allergy/AdvReac Type Severity Reaction Status Date / Time No Known Allergies Allergy Verified 12/03/22 17:05 Family History Mother Ovarian cancer Grandmother Thyroid disorder Arrhythmia Grandfather Thyroid disorder had thyroid removed for cancer Uncle Thyroid disorder Aunt Thyroid disorder thyroid cancer and had removed Brother Hypertension Surgical History History of cholecystectomy Social History Smoking Status: Current every day smoker tobacco type: cigarettes ROS Constitutional Constitutional: Denies anorexia, change in weight, chills, fatigue, fever(s), malaise, night sweats or weakness Eyes Eyes: Denies blurry vision, change in eye color, change in vision, discharge from eye(s), double vision or eye pain ENT HEENT: Denies abnormal hearing, dysphagia or ear pain Cardiovascular Cardiovascular: Reports chest pain; Denies claudication, dyspnea on exertion, edema, palpitations or rapid heart rate Respiratory/Chest Respiratory/Chest: Denies cough, dyspnea, excessive phlegm production, hemoptysis, productive cough, shortness of breath at rest or shortness of breath with exertion Gastrointestinal Gastrointestinal: Denies abdominal pain, coffee ground emesis, constipation, diarrhea, dyspepsia, hematemesis, hematochezia, loose stools, melena, nausea or vomiting Genitourinary Genitourinary: Denies dysuria, hematuria, urinary frequency, urinary hesitancy, urinary incontinence or urinary urgency Musculoskeletal Musculoskeletal: Denies back pain, joint pain, joint stiffness, joint swelling, myalgias or neck pain Neurologic Neurologic: Denies abnormal gait, abnormal speech, dizziness, focal weakness, headache(s), loss of vision, numbness, other visual disturbances, paresthesias, syncope or tingling Psychiatric Psychiatric: Denies anxiety, cognitive impairment, depression, irritability, mood swings or suicidal ideation Endocrine Endocrinology: Denies change in body appearance, cold intolerance, excessive sweating, heat intolerance, polydipsia or polyuria Hematologic/Lymphatic Hematologic/Lymphatic: Denies none, anemia, easy bleeding, easy bruising or lymphadenopathy Allergic/Immunologic Allergic/Immunologic: Denies rhinitis, urticaria, eczemia or asthma Vital Signs Vital Signs Vital Signs: 12/03/22 17:02 12/03/22 17:13 12/03/22 18:03 Temperature 97.6 F L Temperature Source Temporal Pulse Rate 78 66 Respiratory Rate 19 H 15 Blood Pressure 127/65 H Blood Pressure Mean 85 Pulse Ox 99 97 98 Oxygen Delivery Method Room Air Room Air Room Air 12/03/22 18:49 Temperature 98.2 F Temperature Source Oral Pulse Rate 68 Respiratory Rate 14 Blood Pressure 125/70 H Blood Pressure Mean 88 Pulse Ox 97 Oxygen Delivery Method Room Air Weight Weight: 94.347 kg Body Mass Index (BMI) 34.6 Physical Exam Const alert, oriented x3, no apparent distress and healthy appearing General Appearance: cooperative, well kempt and well developed Orientation / Consciousness: awake, oriented to person, oriented to place and oriented to time HEENT normocephalic, head/scalp atraumatic, hearing grossly normal bilaterally and moist oral mucous membranes Eyes PERRL, EOMs intact bilaterally and conjunctivae normal Neck supple, no JVD, thyroid normal and no carotid bruits General: trachea midline Resp normal respiratory effort, no retractions, no use of accessory muscles and clear to auscultation bilaterally Auscultation: Negative for rales, rhonchi or wheezes Cardio regular rate, regular rhythm, S1 normal heart sound, S2 normal heart sound, no murmurs, no rub and no gallops GI normal to inspection, nondistended, normoactive bowel sounds, soft to palpation, non-tender and non-distended Extremity no clubbing, cyanosis or edema Skin no rashes or lesions noted General Skin Exam: no breakdown Neuro oriented x3, CN's II-XII intact bilaterally, moves all extremities, no focal motor deficits and no sensory deficits noted Sensorium / Orientation: awake and alert Speech: speech normal Psych affect normal Results Lab / Micro Data Result Diagrams: 12/03/22 17:15 12/03/22 17:15 Labs: Laboratory Results - last 24 hr 12/03/22 17:15: WBC 12.0 H, RBC 4.85, Hgb 15.0, Hct 46.5, MCV 95.9, MCH 30.9, MCHC 32.3, RDW Std Deviation 46.6 H, RDW Coeff of Lakesha 13.2, Plt Count 367, MPV 9.2, Immature Gran % (Auto) 0.400, Neut % (Auto) 59.6, Lymph % (Auto) 29.1, [place] % (Auto) 5.0, Eos % (Auto) 5.3 H, Baso % (Auto) 0.6, Absolute Neuts (auto) 7.1, Absolute Lymphs (auto) 3.48, Nucleated RBC % 0 12/03/22 17:15: Sodium 141, Potassium 3.6, Chloride 107, Carbon Dioxide 28.0, Anion Gap 6, BUN 9, Creatinine 0.77, Estim Creat Clear Calc 76.90, Est GFR (MDRD) Af Amer 101, Est GFR (MDRD) Non-Af 84, BUN/Creatinine Ratio 11.7, Glucose 135 H, Calcium 9.5, Troponin I High Sens 85 H Radiology Impression Chest X-Ray 12/03/22 17:21 IMPRESSION: 1. No evidence of acute cardiopulmonary process Electronically Signed: Marcelo Huston MD at 17:52 EST , Assessment & Plan Assessment/Plan (1) ACS (acute coronary syndrome): PLAN: Plan 1. [id number] will be admitted to PCU, Lovenox subcu will be administered for full anticoagulation, patient will have an echocardiogram performed tomorrow, she will be seen by cardiology, cardiac enzymes will be cycled. Patient will be placed on a baby aspirin a day. #2 type 2 diabetes-patient's blood sugars will be monitored, sliding scale insulin will be administered as needed #3 hyperlipidemia-patient states that she does not take her cholesterol medications on a routine basis, she will be placed on a statin #4 sleep apnea-patient states that she takes Provigil, this will be continued here Total clinical time spent by myself addressing the patient's medical problems, reviewing the medical data, and collaborating with patient's care team: 55 minutes
--- NOTE | 2022-12-03 20:25 | ECHOD_ITS ---
Reason For Study: NSTEMI Procedure This was a 2D Doppler, Color Flow transthoracic echocardiogram. Exam performed portable in patient room. Left Ventricle Normal LV size. The estimated ejection fraction is 50 %. Stage 1 diastolic dysfunction. Mild segmental systolic dysfunction (see wall motion). [place] : Hypokinetic. Mid-Anterior : Hypokinetic. Right Ventricle Normal RV size. Normal systolic function. Atria Normal left atrium. Normal right atrium. Mitral Valve Normal mitral valve. Tricuspid Valve Normal tricuspid valve. Aortic Valve Trisinus/trileaflet aortic valve. Normal aortic valve. Pulmonic Valve Normal pulmonic valve. Great Vessels Normal aortic root. The pulmonary artery is normal size. Normal inferior vena cava. Pericardium/Pleural No pericardial effusion. MMode/2D Measurements & Calculations LVIDd: 5.2 cm IVSd: 1.2 cm Ao root diam: 3.2 cm LVIDs: 3.3 cm LVPWd: 1.1 cm RVDd: 3.3 cm FS: 35.7 % LAV(MOD-bp): 41.6 ml LVAd ap4: 23.8 cm2 LVAd ap2: 24.3 cm2 LAV(MOD-bp) Indexed: 20.8 ml/m2 LVLd ap4: 7.4 cm LVLd ap2: 7.8 cm LAV(MOD-sp2): 41.1 ml EDV(MOD-sp4): 63.1 ml EDV(MOD-sp2): 63.9 ml LAV(MOD-sp4): 41.1 ml EDV(sp4-el): 65.1 ml EDV(sp2-el): 64.2 ml LVAs ap4: 14.4 cm2 LVAs ap2: 15.4 cm2 LVLs ap4: 5.9 cm LVLs ap2: 6.9 cm ESV(MOD-sp4): 28.7 ml ESV(MOD-sp2): 29.1 ml ESV(sp4-el): 29.7 ml ESV(sp2-el): 29.1 ml EF(MOD-sp4): 54.6 % EF(MOD-sp2): 54.5 % EF(sp4-el): 54.4 % SV(MOD-sp4): 34.5 ml SV(MOD-sp2): 34.8 ml SV(sp4-el): 35.4 ml LA dimension(2D): 3.9 cm LA A4 area: 16.5 cm2 RA A4 area: 12.3 cm2 Time Measurements MV dec time: 0.18 sec Doppler Measurements & Calculations MV E max randell: 71.4 cm/sec Lat Peak E' Randell: 9.5 cm/sec Med Peak E' Randell: 9.2 cm/sec MV A max randell: 79.0 cm/sec E/E' lat: 7.5 E/E' med: 7.8 MV E/A: 0.90 MV dec slope: 397.9 cm/sec2 Ao V2 max: 139.1 cm/sec LV V1 max: 104.4 cm/sec Ao max P.7 mmHg LV V1 max P.4 mmHg Ao V2 mean: 98.3 cm/sec LV V1 mean P.4 mmHg Ao mean P.3 mmHg LV V1 mean: 72.9 cm/sec Ao V2 VTI: 33.8 cm LV V1 VTI: 23.5 cm AV (velocity ratio): 0.70 PA V2 max: 61.0 cm/sec ECHO/Echo Complete Interpretation Summary Normal LV size. The estimated ejection fraction is 50 %. Stage 1 diastolic dysfunction. Mild segmental systolic dysfunction (see wall motion). Ordering Physician: Marco Antonio Han Referring Physician: Holly Kurtz Performed By: Kelsi Lafleur RDCS, RVT
--- NOTE | 2022-12-03 20:30 | EKG12_ITS ---
Test Reason : CHEST PAIN ADMISSION Blood Pressure : / mmHG Vent. Rate : 068 BPM Atrial Rate : 068 BPM P-R Int : 158 ms QRS Dur : 078 ms QT Int : 416 ms P-R-T Axes : 040 -32 033 degrees QTc Int : 442 ms Normal sinus rhythm Left axis deviation Low voltage QRS Abnormal ECG When compared with ECG of 03-DEC-2022 17:11, MANUAL COMPARISON REQUIRED, DATA IS UNCONFIRMED Confirmed by CURTIS BENAVIDEZ, SHAYE ([id number]), general expeditor MEREDITH HOANG ([id number]) on 12/07/2022 11:33:53 AM Referred By: EDUAR Confirmed By:SHAYE ACEVEDO MD
[2022-12-03 21:16] LABS: Troponin-I HS 476 pg/mL (3.0-54.0)
[2022-12-03] MEDS: Atorvastatin Calcium 20 MG Tablet PO (21:56)
[2022-12-03] MEDS: 0.9% Saline Lock 10 ML Syringe IV (21:56)
[2022-12-03] MEDS: Carvedilol 3.125 MG TABLET PO (21:56)
[2022-12-03 23:06] LABS: Bedside Glucose 104 mg/dL (74-106)
[2022-12-03 23:59] LABS: Troponin-I HS 990 pg/mL (3.0-54.0)
[2022-12-04 02:54] VITALS: BP 117/73; PULSE 76; RESP 16; TEMP 36.9; O2SAT 94
[2022-12-04 06:20] VITALS: BP 119/79; PULSE 62; RESP 18; TEMP 36.9; O2SAT 95
[2022-12-04 07:01] LABS: Bedside Glucose 81 mg/dL (74-106)
[2022-12-04 07:33] LABS: Anion Gap 5 (5-15); BUN 10 mg/dL (7-18); BUN/Creat Ratio 15.9 RATIO (10-20); Calcium,Total 8.9 mg/dL (8.5-10.1); Chloride 111 mmol/L (98-107); Cholesterol 254 mg/dL (200); Creatinine, Serum 0.63 mg/dL (0.55-1.02); EST Glomerular Filtration Rate 105 mL/min (>60); Est Glom Filt Rate - Afr Amer 127 mL/min (>60); Estimated Creatinine Clearance 93.99 ml/min; Glucose 101 mg/dL (74-106); High Density Lipoprotein 30 mg/dL; Potassium 3.9 mmol/L (3.5-5.1); Sodium Level 141 mmol/L (136-145); Triglycerides 299 mg/dL; Very Low Density Lipoprotein 60 mg/dL (5-40)
[2022-12-04 10:57] VITALS: BP 123/84; PULSE 62; RESP 20; TEMP 36.4; O2SAT 97
--- NOTE | 2022-12-04 10:58 | CON.PCM.CA_ITS ---
Assessment & Plan Assessment/Plan (1) ACS (acute coronary syndrome): PLAN: She presents with chest discomfort and is noted to have evidence of a non- ST elevation myocardial infarction. * Will continue aspirin * Continue beta-rich * Start high intensity statin * Lovenox 1 mg/kg twice a day * Patient at this moment is pain-free with preserved ejection fraction noted on the echocardiogram with anteroapical hypokinesis. * Will scheduled for left heart catheterization Tuesday a.m. (2) Hyperlipidemia: PLAN: Continue aggressive risk factor modification Thank you for allowing me to participate in the care of your patient. Please don't hesitate to call if any issues arise. HPI Consult Data Date of Consult: 12/04/22 HPI Narrative HPI Narrative: МАРИНА NANCE, is a 52 F who presents to the emergency room with chest discomfort which she describes as a tightness and squeezing sensation and occasional sharp discomfort. She says that she has had on and off discomfort since 2019. She had previously been investigated in the hospital with an echocardiogram which was noted to be normal. At this time the discomfort started at about 11:00 was squeezing and she did have a little bit of jaw discomfort. She had no dizziness or diaphoresis no near syncope or syncope but it seemed to come with activity or with movement. She presented to the emergency room and her initial cardiac enzymes were noted to be mildly abnormal. Her EKG demonstrated normal sinus rhythm with no acute changes. [facility] Medical History Diabetes type 2, uncontrolled Dyspnea on exertion Hyperlipidemia Obstructive sleep apnea Small kidney, unilateral Thyroid mass Home Medications levonorgestrel 20 mcg/24 hours (8 yrs) 52 mg intrauterine device (Mirena) 1 insert intrauterine ONCE CONTROL 06/13/18 [History Last Taken Unknown] empagliflozin 25 mg-metformin ER 1,000 mg tablet,extended release 24hr (Synjardy XR) 1 tab PO DAILY blood sugars 12/03/22 [History Last Taken 12/03/22] modafinil 100 mg tablet 100 mg PO DAILY SLEEP APNEA 12/03/22 [History Last Taken 12/03/22] rosuvastatin 10 mg tablet 10 mg PO DAILY cholesterol 12/03/22 [History Last Taken 12/03/22] tirzepatide 5 mg/0.5 mL subcutaneous pen injector (Mounjaro) 5 mg subcut YAÑEZ DIABETES 12/03/22 [History Last Taken 11/28/22] Allergy/AdvReac Type Severity Reaction Status Date / Time No Known Allergies Allergy Verified 12/03/22 17:05 Family History Mother Ovarian cancer Grandmother Thyroid disorder Arrhythmia Grandfather Thyroid disorder had thyroid removed for cancer Uncle Thyroid disorder Aunt Thyroid disorder thyroid cancer and had removed Brother Hypertension Surgical History History of cholecystectomy Social History Smoking Status: Current every day smoker tobacco type: cigarettes ROS Constitutional Constitutional: Denies anorexia, change in weight, chills, fatigue, fever(s), malaise, night sweats or weakness Eyes Eyes: Denies blurry vision, change in eye color, change in vision, discharge from eye(s), double vision or eye pain ENT HEENT: Denies abnormal hearing, dysphagia or ear pain Cardiovascular Cardiovascular: Reports chest pain; Denies claudication, dyspnea on exertion, edema, palpitations or rapid heart rate Respiratory/Chest Respiratory/Chest: Denies cough, dyspnea, excessive phlegm production, hemoptysis, productive cough, shortness of breath at rest or shortness of breath with exertion Gastrointestinal Gastrointestinal: Denies abdominal pain, coffee ground emesis, constipation, diarrhea, dyspepsia, hematemesis, hematochezia, loose stools, melena, nausea or vomiting Genitourinary Genitourinary: Denies dysuria, hematuria, urinary frequency, urinary hesitancy, urinary incontinence or urinary urgency Musculoskeletal Musculoskeletal: Denies back pain, joint pain, joint stiffness, joint swelling, myalgias or neck pain Neurologic Neurologic: Denies abnormal gait, abnormal speech, dizziness, focal weakness, headache(s), loss of vision, numbness, other visual disturbances, paresthesias, syncope or tingling Psychiatric Psychiatric: Denies anxiety, cognitive impairment, depression, irritability, mood swings or suicidal ideation Endocrine Endocrinology: Denies change in body appearance, cold intolerance, excessive sweating, heat intolerance, polydipsia or polyuria Hematologic/Lymphatic Hematologic/Lymphatic: Denies none, anemia, easy bleeding, easy bruising or lymphadenopathy Allergic/Immunologic Allergic/Immunologic: Denies rhinitis, urticaria, eczemia or asthma Physical Exam Const alert, oriented x3 and no apparent distress General Appearance: cooperative HEENT hearing grossly normal bilaterally Head and Scalp: atraumatic Eyes EOMs intact bilaterally Neck General: normal visual inspection Chest inspection of chest normal and palpation of chest normal Resp normal respiratory effort Auscultation: clear to auscultation bilaterally Cardio regular rate, regular rhythm, S1 normal heart sound and S2 normal heart sound Jugular Venous Distention: JVD GI normal to inspection, nondistended, normoactive bowel sounds Extremity normal capillary refill and no pedal edema Peripheral Pulses: Yes pulses 2+ throughout and femoral pulses present Skin no rashes or lesions noted Neuro oriented x3 and CN's II-XII intact bilaterally Psych Appearance: grossly normal and appropriate Risk Stratification Risk Stratification Applicable: Yes Age >/= 65: No >/= 3 CAD Risk Factors (HTN, HLD, DM, family hx of CAD, or current smoker): Yes Aspirin Use in the Past 7 Days: No Severe Angina (>/= episodes in 24 hours): Yes EKG ST Changes >/= 0.5mm: No Positive Cardiac Marker: Yes ALBERT Risk Stratification Score: 3 ALBERT % Risk: 13% Risk Objective Data Vital Signs: Vital Signs Temp Pulse Resp BP Pulse Ox O2 Del Method 97.6 F L 62 20 H 123/84 H 97 Room Air 12/04/22 10:57 12/04/22 10:57 12/04/22 10:57 12/04/22 10:57 12/04/22 10:57 12/04/22 10:57 Oxygen Delivery Method Room Air Weight: 205 lb 7.533 oz Body Mass Index (BMI) 34.2 Lab / Micro Data Result Diagrams: 12/03/22 17:15 12/04/22 06:39 Labs: Laboratory Results - last 24 hr 12/03/22 17:15: WBC 12.0 H, RBC 4.85, Hgb 15.0, Hct 46.5, MCV 95.9, MCH 30.9, MCHC 32.3, RDW Std Deviation 46.6 H, RDW Coeff of Lakesha 13.2, Plt Count 367, MPV 9.2, Immature Gran % (Auto) 0.400, Neut % (Auto) 59.6, Lymph % (Auto) 29.1, [place] % (Auto) 5.0, Eos % (Auto) 5.3 H, Baso % (Auto) 0.6, Absolute Neuts (auto) 7.1, Absolute Lymphs (auto) 3.48, Nucleated RBC % 0 12/03/22 17:15: Sodium 141, Potassium 3.6, Chloride 107, Carbon Dioxide 28.0, Anion Gap 6, BUN 9, Creatinine 0.77, Estim Creat Clear Calc 76.90, Est GFR (MDRD) Af Amer 101, Est GFR (MDRD) Non-Af 84, BUN/Creatinine Ratio 11.7, Glucose 135 H, Calcium 9.5, Troponin I High Sens 85 H 12/03/22 20:40: Troponin I High Sens 476 H* 12/03/22 21:55: POC Glucose 104 12/03/22 22:48: Troponin I High Sens 990 H* 12/04/22 06:23: POC Glucose 81 12/04/22 06:39: Sodium 141, Potassium 3.9, Chloride 111 H, Carbon Dioxide 25.0, Anion Gap 5, BUN 10, Creatinine 0.63, Estim Creat Clear Calc 93.99, Est GFR (MDRD) Af Amer 127, Est GFR (MDRD) Non-Af 105, BUN/Creatinine Ratio 15.9, Glucose 101, Calcium 8.9, Triglycerides 299 H, Cholesterol 254 H, LDL Cholesterol 164 H, VLDL Cholesterol 60 H, HDL Cholesterol 30 L Cardiology Labs/Tests 12/03/22 17:15: WBC 12.0 H, RBC 4.85, Hgb 15.0, Hct 46.5, MCV 95.9, MCH 30.9, MCHC 32.3, Plt Count 367, MPV 9.2, Immature Gran % (Auto) 0.400, Neut % (Auto) 59.6, Lymph % (Auto) 29.1, [place] % (Auto) 5.0, Eos % (Auto) 5.3 H, Baso % (Auto) 0.6, Absolute Neuts (auto) 7.1, Nucleated RBC % 0 12/03/22 17:15: Sodium 141, Potassium 3.6, Chloride 107, Carbon Dioxide 28.0, A nion Gap 6, BUN 9, Creatinine 0.77, Est GFR (MDRD) Af Amer 101, Est GFR (MDRD) Non-Af 84, BUN/Creatinine Ratio 11.7, Glucose 135 H, Calcium 9.5 12/04/22 06:39: Sodium 141, Potassium 3.9, Chloride 111 H, Carbon Dioxide 25.0, Anion Gap 5, BUN 10, Creatinine 0.63, Est GFR (MDRD) Af Amer 127, Est GFR (MDRD) Non-Af 105, BUN/Creatinine Ratio 15.9, Glucose 101, Calcium 8.9, Triglycerides 299 H, Cholesterol 254 H, LDL Cholesterol 164 H, VLDL Cholesterol 60 H, HDL Cholesterol 30 L Rhythm: EKG: ECHO: Stress Test: Cardiac Cath: PCI: CT Surgery: Holter monitor: EPS: PPM: CXR: Chest CT Scan: Radiography Diagnostic Testing: Radiology Impression Chest X-Ray 12/03/22 17:21 IMPRESSION: 1. No evidence of acute cardiopulmonary process Electronically Signed: Marcelo Huston MD at 17:52 EST Reading Location ID and State: [address] [place] [address] Tel , Service support , Echocardiogram 12/03/22 20:25 Interpretation Summary Normal LV size. The estimated ejection fraction is 50 %. Stage 1 diastolic dysfunction. Mild segmental systolic dysfunction (see wall motion). Ordering Physician: Marco Antonio Han Referring Physician: Holly Kurtz Performed By: Kelsi Lafleur, RDCS, RVT
[2022-12-04] MEDS: Carvedilol 3.125 MG TABLET PO ×2 (11:23→18:18)
[2022-12-04] MEDS: Aspirin E.C. 81 MG Tablet PO (11:23)
--- NOTE | 2022-12-04 11:45 | CASEMGMT ---
RN CM Face to Face with patient for initial transition planning/care coordination assessment. RN CM introduced self and role at [facility]. Patient lying in bed, alert and oriented, at bedside. Patient willing to participate in assessment and is able to answer all questions appropriately. Care providers, pharmacy, and demographics verified. Patient wishes to discharge home, denies need for home health at this time. Patient states she has no further needs or concerns at this time. CM to follow for discharge planning needs that may arise. PCP: STACIE Kurtz Specialists: none Preferred Pharmacy: [facility] Insurance: [employer] Prescription Benefit: yes Living Will/HPOA: yes, Mario Lopez, HPOA LNOK: Living Arrangements: Patient lives with in a single story home with 2 steps and railing to enter the home. Patient states she is independent at home. Transportation: self, DME/HHC: Patient states she has cpap at home. No previous HHC. Disposition Plan: Patient to discharge home with family support and follow-up plans in place. Cassandra ALAN, RN, CM
--- NOTE | 2022-12-04 12:22 | PN.HOSP_ITS ---
Subjective Subjective Follow-up on acute non-STEMI: Patient was seen and examined. She denied any pain at time of being seen. Denied any dizziness or palpitations Objective Data Objective Data Vital Signs: Vital Signs Temp Pulse Resp BP Pulse Ox O2 Del Method 97.6 F L 62 20 H 123/84 H 97 Room Air 12/04/22 10:57 12/04/22 10:57 12/04/22 10:57 12/04/22 10:57 12/04/22 10:57 12/04/22 10:57 Oxygen Delivery Method Room Air Weight: 93.2 kg Body Mass Index (BMI) 34.2 Lab / Micro Data Result Diagrams: 12/03/22 17:15 12/04/22 06:39 Labs: Laboratory Results - last 24 hr 12/03/22 17:15: WBC 12.0 H, RBC 4.85, Hgb 15.0, Hct 46.5, MCV 95.9, MCH 30.9, MCHC 32.3, RDW Std Deviation 46.6 H, RDW Coeff of Lakesha 13.2, Plt Count 367, MPV 9.2, Immature Gran % (Auto) 0.400, Neut % (Auto) 59.6, Lymph % (Auto) 29.1, [place] % (Auto) 5.0, Eos % (Auto) 5.3 H, Baso % (Auto) 0.6, Absolute Neuts (auto) 7.1, Absolute Lymphs (auto) 3.48, Nucleated RBC % 0 12/03/22 17:15: Sodium 141, Potassium 3.6, Chloride 107, Carbon Dioxide 28.0, Anion Gap 6, BUN 9, Creatinine 0.77, Estim Creat Clear Calc 76.90, Est GFR (MDRD) Af Amer 101, Est GFR (MDRD) Non-Af 84, BUN/Creatinine Ratio 11.7, Glucose 135 H, Calcium 9.5, Troponin I High Sens 85 H 12/03/22 20:40: Troponin I High Sens 476 H* 12/03/22 21:55: POC Glucose 104 12/03/22 22:48: Troponin I High Sens 990 H* 12/04/22 06:23: POC Glucose 81 12/04/22 06:39: Sodium 141, Potassium 3.9, Chloride 111 H, Carbon Dioxide 25.0, Anion Gap 5, BUN 10, Creatinine 0.63, Estim Creat Clear Calc 93.99, Est GFR (MDRD) Af Amer 127, Est GFR (MDRD) Non-Af 105, BUN/Creatinine Ratio 15.9, Glucose 101, Calcium 8.9, Triglycerides 299 H, Cholesterol 254 H, LDL Cholesterol 164 H, VLDL Cholesterol 60 H, HDL Cholesterol 30 L Radiography Diagnostic Testing: Radiology Impression Chest X-Ray 12/03/22 17:21 IMPRESSION: 1. No evidence of acute cardiopulmonary process Electronically Signed: Marcelo Huston MD at 17:52 EST , Echocardiogram 12/03/22 20:25 Interpretation Summary Normal LV size. The estimated ejection fraction is 50 %. Stage 1 diastolic dysfunction. Mild segmental systolic dysfunction (see wall motion). Ordering Physician: Marco Antonio Han Referring Physician: Holly Kurtz Performed By: Kelsi Lafleur RDCS, RVT Physical Exam Narrative Physical exam: General: Alert, Oriented x3, Cooperative HEENT: Atraumatic Oral: Moist Mucosa Neck: Supple Lungs: Clear to auscultation Cardiovascular: HS I+II, regular, no murmurs Abdomen: Bowel Sounds Present, Soft, Non Tender Extremities: No edema Skin: No rashes, No breakdown Neurological: Grossly intact Psych/Mental Status: Appropriate Assessment & Plan Assessment/Plan (1) Elevated troponin: (2) Hypercholesterolemia: (3) Diabetes: PLAN: Plan 1, Acute NSTEMI, likely type I Patient with multiple comorbidities cardiovascular risk factors have been known history of heart disease Troponins went from 85-->990 Patient is currently on Lovenox therapeutic dosing, aspirin, statin Cardiology consulted, cardiac cath planned for Abisai morning 2. Type II DM, continue insulin sliding scale with blood glucose Continue to hold empagliflozin/metforminalivia 3. Hyperlipidemia, continue on statin 4. KATRINA, continue on Provigil 5. DVT PPx- on therapeutic Lovenox Charges/Coding Visit Charges Inpatient E&M: 92272 Subs Hosp L2
[2022-12-04 12:30] LABS: Bedside Glucose 103 mg/dL (74-106)
[2022-12-04 15:55] VITALS: BP 103/50; PULSE 62; RESP 18; TEMP 36.6; O2SAT 97
[2022-12-04] MEDS: Enoxaparin 100 MG/ML Syringe SC (16:46)
[2022-12-04 17:10] LABS: Bedside Glucose 102 mg/dL (74-106)
[2022-12-04 20:38] VITALS: BP 124/94; PULSE 64; RESP 18; TEMP 37; O2SAT 96
[2022-12-04] MEDS: Atorvastatin Calcium 40 MG Tablet PO (20:49)
[2022-12-04 23:26] VITALS: BP 110/66; PULSE 65; RESP 18; TEMP 36.7; O2SAT 95
[2022-12-04 23:26] LABS: Bedside Glucose 108 mg/dL (74-106)
[2022-12-05 05:42] VITALS: BP 80/72; PULSE 65; RESP 18; TEMP 36.4; O2SAT 94
[2022-12-05] MEDS: Enoxaparin 100 MG/ML Syringe SC ×2 (05:46→16:45)
[2022-12-05 05:52] VITALS: BP 98/52
[2022-12-05 06:50] LABS: Bedside Glucose 102 mg/dL (74-106)
[2022-12-05 06:57] LABS: Absolute Lymphocyte Count 3.06 X10^3/uL (0.83-4.51); Absolute Neutrophil Count 4.7 X10^3/uL (2.0-7.7); Basophil# 0.07 X10^3/uL; Basophil% 0.8 % (0-1); Eosinophil# 0.45 X10^3/uL; Eosinophils% 5.1 % (0-5); Hematocrit 42.7 % (37-47); Hemoglobin 13.9 g/dL (12.0-15.0); Lymphocyte # 3.06 X10^3/ul (0.83-4.51); Lymphocyte % 34.3 % (19-41); Mean Corp Hgb Conc 32.6 g/dL (32-36); Mean Corpuscular Hgb 31.1 pg (27.0-32.0); Mean Corpuscular Volume 95.5 fL (81-99); Mean Platelet Vol. 9.2 fl (6.2-12.0); Monocyte# 0.58 X10^3/uL; Monocyte% 6.5 % (0-10); NRBC Flagged by Analyzer 0 % (0-5); Neutrophil # 4.73 X10^3/uL (2.7-7.7); Neutrophil % 53.1 % (47-70); Platelet Count 324 K/mm3 (150-450); RBC Distribution Width CV 12.7 % (11.6-14.6); RBC Distribution Width SD 44.8 fl (35.1-43.9); Red Blood Count 4.47 M/mm3 (4.2-5.4); White Blood Count 8.9 K/mm3 (4.4-11.0)
[2022-12-05 07:27] LABS: ALB/GLOB Ratio 0.9 RATIO (0.9-2.4); AST(SGOT) 23 U/L (15-37); Alanine Aminotransfer ALT/SGPT 30 U/L (13-56); Albumin, Serum 3.4 g/dL (3.2-5.0); Alkaline Phosphatase 74 U/L (45-117); Anion Gap 7 (5-15); BUN 10 mg/dL (7-18); Chloride 106 mmol/L (98-107); Creatinine, Serum 0.63 mg/dL (0.55-1.02); EST Glomerular Filtration Rate 106 mL/min (>60); Est Glom Filt Rate - Afr Amer 128 mL/min (>60); Estimated Creatinine Clearance 93.99 ml/min; Globulin 3.7 g/dL (2.2-4.2); Glucose 96 mg/dL (74-106); Potassium 3.9 mmol/L (3.5-5.1); Protein, Total 7.1 g/dL (6.4-8.2); Sodium Level 137 mmol/L (136-145)
--- NOTE | 2022-12-05 08:00 | PCM.PN.HOSP ---
Subjective Subjective Follow-up on acute non-STEMI: Patient was seen and examined.?She denied any chest pain at time of being seen.? Denied any dizziness or palpitations. Patient will be going for [facility] in am. Objective Data Objective Data Vital Signs: Vital Signs Temp Pulse Resp BP Pulse Ox O2 Del Method 97.6 F L 65 18 98/52 L 94 Room Air 12/05/22 05:42 12/05/22 05:42 12/05/22 05:42 12/05/22 05:52 12/05/22 05:42 12/05/22 06:51 Oxygen Delivery Method Room Air Weight: 93.2 kg Body Mass Index (BMI) 34.2 Intake & Output: Intake and Output for Last 24 Hours 12/03/22 12/04/22 12/05/22 23:59 23:59 23:59 Intake Total 640 / 640 120 / 120 Balance 640 / 640 120 / 120 Lab / Micro Data Result Diagrams: 12/05/22 06:21 12/05/22 06:21 Labs: Laboratory Results - last 24 hr 12/04/22 11:25: POC Glucose 103 12/04/22 16:44: POC Glucose 102 12/04/22 20:43: POC Glucose 108 H 12/05/22 06:21: WBC 8.9, RBC 4.47, Hgb 13.9, Hct 42.7, MCV 95.5, MCH 31.1, MCHC 32.6, RDW Std Deviation 44.8 H, RDW Coeff of Lakesha 12.7, Plt Count 324, MPV 9.2, Immature Gran % (Auto) 0.200, Neut % (Auto) 53.1, Lymph % (Auto) 34.3, [place] % (Auto) 6.5, Eos % (Auto) 5.1 H, Baso % (Auto) 0.8, Absolute Neuts (auto) 4.7, Absolute Lymphs (auto) 3.06, Nucleated RBC % 0 12/05/22 06:21: Sodium 137, Potassium 3.9, Chloride 106, Carbon Dioxide 24.0, Anion Gap 7, BUN 10, Creatinine 0.63, Estim Creat Clear Calc 93.99, Est GFR (MDRD) Af Amer 128, Est GFR (MDRD) Non-Af 106, BUN/Creatinine Ratio 16.0, Glucose 96, Calcium 9.0, Total Bilirubin 0.50, AST 23, ALT 30, Alkaline Phosphatase 74, Total Protein 7.1, Albumin 3.4, Globulin 3.7, Albumin/Globulin Ratio 0.9 12/05/22 06:27: POC Glucose 102 Radiography Diagnostic Testing: Radiology Impression Echocardiogram 12/03/22 20:25 Interpretation Summary Normal LV size. The estimated ejection fraction is 50 %. Stage 1 diastolic dysfunction. Mild segmental systolic dysfunction (see wall motion). Ordering Physician: Marco Antonio Han Referring Physician: Holly Kurtz Performed By: Kelsi Lafleur, LOUIE, RVT Physical Exam Narrative Physical exam: General: Alert, Oriented x3, Cooperative HEENT: Atraumatic Oral: Moist Mucosa Neck: Supple Lungs: Clear to auscultation Cardiovascular: HS I+II, regular, no murmurs Abdomen: Bowel Sounds Present, Soft, Non Tender Extremities: No edema Skin: No rashes, No breakdown Neurological: Grossly intact Psych/Mental Status: Appropriate Assessment & Plan Assessment/Plan (1) Elevated troponin: (2) Hypercholesterolemia: (3) Diabetes: PLAN: Plan 1, Acute NSTEMI, going for [facility] in am Continue on Lovenox therapeutic dosing, aspirin, statin Cardiology following 2. Type II DM, continue insulin sliding scale with blood glucose Continue to hold empagliflozin/metformin,mounjaro 3. Hyperlipidemia, continue on statin 4. KATRINA, continue on Provigil 5. DVT PPx- on therapeutic Lovenox Charges/Coding Visit Charges Inpatient E&M: 16719 Subs Hosp L2
[2022-12-05 09:00] VITALS: BP 118/59; PULSE 70; RESP 20; TEMP 36.4; O2SAT 95
[2022-12-05] MEDS: Aspirin E.C. 81 MG Tablet PO (09:01)
[2022-12-05] MEDS: Carvedilol 3.125 MG TABLET PO ×2 (09:01→16:45)
--- NOTE | 2022-12-05 09:38 | PN.CARD_ITS ---
Subjective Subjective Patient seen and evaluated no chest pain since admission. Objective Data Vital Signs: Vital Signs Temp Pulse Resp BP Pulse Ox O2 Del Method 97.6 F L 65 18 98/52 L 94 Room Air 12/05/22 05:42 12/05/22 05:42 12/05/22 05:42 12/05/22 05:52 12/05/22 05:42 12/05/22 06:51 Oxygen Delivery Method Room Air Weight: 205 lb 7.533 oz Body Mass Index (BMI) 34.2 Intake & Output: Intake and Output for Last 24 Hours 12/03/22 12/04/22 12/05/22 23:59 23:59 23:59 Intake Total 640 / 640 120 / 120 Balance 640 / 640 120 / 120 Lab / Micro Data Result Diagrams: 12/05/22 06:21 12/05/22 06:21 Labs: Laboratory Results - last 24 hr 12/04/22 11:25: POC Glucose 103 12/04/22 16:44: POC Glucose 102 12/04/22 20:43: POC Glucose 108 H 12/05/22 06:21: WBC 8.9, RBC 4.47, Hgb 13.9, Hct 42.7, MCV 95.5, MCH 31.1, MCHC 32.6, RDW Std Deviation 44.8 H, RDW Coeff of Lakesha 12.7, Plt Count 324, MPV 9.2, Immature Gran % (Auto) 0.200, Neut % (Auto) 53.1, Lymph % (Auto) 34.3, [place] % (Auto) 6.5, Eos % (Auto) 5.1 H, Baso % (Auto) 0.8, Absolute Neuts (auto) 4.7, Absolute Lymphs (auto) 3.06, Nucleated RBC % 0 12/05/22 06:21: Sodium 137, Potassium 3.9, Chloride 106, Carbon Dioxide 24.0, Anion Gap 7, BUN 10, Creatinine 0.63, Estim Creat Clear Calc 93.99, Est GFR (MDRD) Af Amer 128, Est GFR (MDRD) Non-Af 106, BUN/Creatinine Ratio 16.0, Glucose 96, Calcium 9.0, Total Bilirubin 0.50, AST 23, ALT 30, Alkaline Phosphatase 74, Total Protein 7.1, Albumin 3.4, Globulin 3.7, Albumin/Globulin Ratio 0.9 12/05/22 06:27: POC Glucose 102 Cardiology Labs/Tests 12/05/22 06:21: WBC 8.9, RBC 4.47, Hgb 13.9, Hct 42.7, MCV 95.5, MCH 31.1, MCHC 32.6, Plt Count 324, MPV 9.2, Immature Gran % (Auto) 0.200, Neut % (Auto) 53.1, Lymph % (Auto) 34.3, [place] % (Auto) 6.5, Eos % (Auto) 5.1 H, Baso % (Auto) 0.8, Absolute Neuts (auto) 4.7, Nucleated RBC % 0 12/05/22 06:21: Sodium 137, Potassium 3.9, Chloride 106, Carbon Dioxide 24.0, Anion Gap 7, BUN 10, Creatinine 0.63, Est GFR (MDRD) Af Amer 128, Est GFR (MDRD) Non-Af 106, BUN/Creatinine Ratio 16.0, Glucose 96, Calcium 9.0, Total Bilirubin 0.50 Rhythm: EKG: ECHO: Stress Test: Cardiac Cath: PCI: CT Surgery: Holter monitor: EPS: PPM: CXR: Chest CT Scan: Radiography Diagnostic Testing: Radiology Impression Echocardiogram 12/03/22 20:25 Interpretation Summary Normal LV size. The estimated ejection fraction is 50 %. Stage 1 diastolic dysfunction. Mild segmental systolic dysfunction (see wall motion). Ordering Physician: Marco Antonio Han Referring Physician: Holly Kurtz Performed By: Kelsi Lafleur, LOUIE, RVT Physical Exam Const alert, oriented x3 and no apparent distress General Appearance: cooperative HEENT hearing grossly normal bilaterally Head and Scalp: atraumatic Eyes EOMs intact bilaterally Neck General: normal visual inspection Chest inspection of chest normal and palpation of chest normal Resp normal respiratory effort Auscultation: clear to auscultation bilaterally Cardio regular rate, regular rhythm, S1 normal heart sound and S2 normal heart sound Jugular Venous Distention: JVD GI normal to inspection, nondistended, normoactive bowel sounds Extremity normal capillary refill and no pedal edema Peripheral Pulses: Yes pulses 2+ throughout and femoral pulses present Skin no rashes or lesions noted Neuro oriented x3 and CN's II-XII intact bilaterally Psych Appearance: grossly normal and appropriate Assessment & Plan Assessment/Plan (1) ACS (acute coronary syndrome): PLAN: She presents with chest discomfort and is noted to have evidence of a non- ST elevation myocardial infarction. * Will continue aspirin * Continue beta-rich * Start high intensity statin * Lovenox 1 mg/kg twice a day * Patient at this moment is pain-free with preserved ejection fraction noted on the echocardiogram with anteroapical hypokinesis. * Will scheduled for left heart catheterization Tuesday a.m. (2) Hyperlipidemia: PLAN: Continue aggressive risk factor modification Thank you for allowing me to participate in the care of your patient. Please don't hesitate to call if any issues arise.
[2022-12-05 12:10] LABS: Bedside Glucose 167 mg/dL (74-106)
[2022-12-05 15:00] VITALS: BP 113/76; PULSE 73; RESP 18; TEMP 36.2; O2SAT 97
[2022-12-05 17:35] LABS: Bedside Glucose 98 mg/dL (74-106)
[2022-12-05] MEDS: Atorvastatin Calcium 40 MG Tablet PO (20:32)
[2022-12-05 20:37] VITALS: BP 109/44; PULSE 71; RESP 16; TEMP 36.9; O2SAT 96
[2022-12-05 21:20] LABS: Bedside Glucose 120 mg/dL (74-106)
[2022-12-06] VITALS (12 sets, daily range): BP systolic 91–114; BP diastolic 57–80; PULSE 58–77; RESP 14–18; TEMP 36.5–36.8; O2SAT 95–97; BMI 34.2
[2022-12-06] MEDS: Aspirin E.C. 81 MG Tablet PO (06:35)
[2022-12-06] MEDS: Carvedilol 3.125 MG TABLET PO (06:35)
[2022-12-06 07:06] LABS: Bedside Glucose 111 mg/dL (74-106)
--- NOTE | 2022-12-06 08:01 | PN.CARD_ITS ---
Subjective Subjective Patient seen and evaluated and underwent cardiac catheterization this morning. Objective Data Vital Signs: Vital Signs Temp Pulse Resp BP Pulse Ox O2 Del Method 98.2 F 60 18 114/59 L 96 Room Air 12/06/22 06:27 12/06/22 06:27 12/06/22 06:27 12/06/22 06:27 12/06/22 06:27 12/06/22 06:27 Oxygen Delivery Method Room Air Weight: 205 lb 7.533 oz Body Mass Index (BMI) 34.2 Intake & Output: Intake and Output for Last 24 Hours 12/04/22 12/05/22 12/06/22 23:59 23:59 23:59 Intake Total 640 / 640 970 / 970 Balance 640 / 640 970 / 970 Lab / Micro Data Result Diagrams: 12/05/22 06:21 12/05/22 06:21 Labs: Laboratory Results - last 24 hr 12/05/22 11:28: POC Glucose 167 H 12/05/22 16:39: POC Glucose 98 12/05/22 20:28: POC Glucose 120 H 12/06/22 06:33: POC Glucose 111 H Cardiology Labs/Tests Rhythm: EKG: ECHO: Stress Test: Cardiac Cath: PCI: CT Surgery: Holter monitor: EPS: PPM: CXR: Chest CT Scan: Physical Exam Const alert, oriented x3 and no apparent distress General Appearance: cooperative HEENT hearing grossly normal bilaterally Head and Scalp: atraumatic Eyes EOMs intact bilaterally Neck General: normal visual inspection Chest inspection of chest normal and palpation of chest normal Resp normal respiratory effort Auscultation: clear to auscultation bilaterally Cardio regular rate, regular rhythm, S1 normal heart sound and S2 normal heart sound Jugular Venous Distention: JVD GI normal to inspection, nondistended, normoactive bowel sounds Extremity normal capillary refill and no pedal edema Peripheral Pulses: Yes pulses 2+ throughout and femoral pulses present Skin no rashes or lesions noted Neuro oriented x3 and CN's II-XII intact bilaterally Psych Appearance: grossly normal and appropriate Assessment & Plan Assessment/Plan (1) ACS (acute coronary syndrome): PLAN: She presents with chest discomfort and is noted to have evidence of a non- ST elevation myocardial infarction. * Will continue aspirin * Continue beta-rich * Start high intensity statin * Catheterization the following: Normal left main coronary tree. Left anterior descending artery with high-grade proximal to mid LAD stenosis. Left circumflex artery with diffuse coronary stenosis. Dominant right coronary artery diffusely diseased with high-grade PDA and obtuse marginal vessel stenosis. Preserved left ventricular systolic function with anterior hypokinesis. Based on the above angiographic findings would consider coronary artery bypass graft surgery. (2) Hyperlipidemia: PLAN: Continue aggressive risk factor modification Thank you for allowing me to participate in the care of your patient. Please don't hesitate to call if any issues arise.
--- NOTE | 2022-12-06 08:09 | CL.D_ITS ---
Patient Name: МАРИНА NANCE Study Date: 12/06/2022 Performing: Ronak Burt MD Ht: 65 inches 165.1 cm : 1970 Wt: 205.7 lbs 93.2 kg Age: 52 Gender: female BSA: 2 PROCEDURE(S) PERFORMED [id number])LHC/COR/LV CLINICAL PROFILE AND INDICATIONS Indications: Suspected CAD Heart Failure: None Stress/Imaging Stress/Image Study Performed: No CAD Presentations: Non-STEMI. Symptom onset Date/Time: 12/04/22 Time Not Available CONCLUSIONS Triple-vessel disease involving the left anterior descending artery, circumflex artery, and right coronary artery with low normal ejection fraction. RECOMMENDATIONS Surgery consult for coronary revascularization DESCRIPTION OF PROCEDURE The patient arrived to the procedure lab. The risks and benefits of the procedure as well as a full description of our services here and current unavailability of surgical backup were fully explained to the patient and/or their significant other prior to the catheterization. The Timeout was completed, verifying the correct patient and procedure. The patient's procedural site was prepped and draped in the usual fashion. Local anesthetic was given subcutaneously to right radial region with Lidocaine 2%. Using a modified Seldinger technique, arterial access was obtained via the right radial artery, a 6Fr sheath was inserted. Right Coronary Artery selective angiography was then performed in multiple views using a 5 Fr. 4.0 Waldron catheter. Left Coronary Artery selective angiography was performed in multiple views using a 5 Fr. 4.0 Waldron catheter. Left Ventriculography was performed in BULGARIAN projection using a 5 Fr. Pigtail catheter. LV to AO pullback pressures were then recorded.The arterial sheath was pulled and a TR Band was applied for hemostasis. 10cc air inserted. CORONARY ANGIOGRAPHY DOMINANCE: Right Dominant LEFT HEART ASSESSMENT Left Ventricular Ejection Fraction: by LV Gram 50 % Anterior Hypokinesis - Mild Normal Left Ventricular systolic function LEFT MAIN: Angiographically normal LEFT ANTERIOR DESCENDING ARTERY: Left anterior descending artery appears to be severely diseased with 2 areas of 80 to 90% stenosis in the first diagonal branch with an ostial 80% stenosis. The vessel itself also is diffusely diseased. CIRCUMFLEX ARTERY: Nondominant medium size vessel mild diffuse disease in obtuse marginal branch with proximal 70% stenosis RIGHT CORONARY ARTERY: Dominant vessel severely diffusely diseased with ostial posterior descending artery 80% stenosis and acute marginal branch with 70% stenosis. COMPLICATIONS No Complications PROCEDURE MEDICATIONS Fentanyl 50 mcg IV Versed 1 mg IV Versed 1 mg IV Oxygen: 2 L/min via nasal cannula Heparin given IA 12/06/2022 07:38:45 Verapamil 2.5mg, Ntg 100mcgs, 3000 units of Heparin given IA 12/06/2022 07:38:45 SUMMARY OF HEMODYNAMIC DATA Time AIR REST ECG 07:17:22 AO 93/61 (76) SA 07:40:13 LV 106/0, 6 07:50:27 LV 107/0, 6 07:50:35 LV 109/2, 9 07:51:51 LVp 110/0, 9 07:51:55 AOp 114/62 (85) 07:52:02 Signed By Ronak Burt MD On 12/06/2022 08:08:09 Ronak Burt MD
[2022-12-06] MEDS: Acetaminophen 325 MG Tablet 650 MG PO (10:14)
--- NOTE | 2022-12-06 10:50 | PCM.DC.SUM ---
Providers Date of Admission: 12/03/22 Date of Discharge: 12/06/22 Primary Care Physician: ARMANDO Jackman Consultations 12/03/22 20:25 Consult: Cardiology Routine Consulting Provider: Ronak Burt Reason for Consult: NSTEMI EMERGENT Consult: No MD Notified: Yes Date Notified: 12/03/22 Time Notified: 19:31 Method of Notification: Verbal Reason For Visit: NON-STEMI Diagnosis Discharge Diagnosis (1) ACS (acute coronary syndrome): Status: Acute Code(s): I24.9 - Acute ischemic heart disease, unspecified (2) Hyperlipidemia: Status: Chronic Code(s): E78.5 - Hyperlipidemia, unspecified Medications at Discharge Home Medications levonorgestrel 20 mcg/24 hours (8 yrs) 52 mg intrauterine device (Mirena) 1 insert intrauterine ONCE CONTROL 06/13/18 empagliflozin 25 mg-metformin ER 1,000 mg tablet,extended release 24hr (Synjardy XR) 1 tab PO DAILY blood sugars 12/03/22 modafinil 100 mg tablet 100 mg PO DAILY SLEEP APNEA 12/03/22 rosuvastatin 10 mg tablet 10 mg PO DAILY cholesterol 12/03/22 tirzepatide 5 mg/0.5 mL subcutaneous pen injector (Mounjaro) 5 mg subcut YAÑEZ DIABETES 12/03/22 Hospital Course Procedures 2-D Echocardiogram, Cardiac catheterization and EKG Summary of Care Provided Minutes Spent on Discharge: 33 Hospital Course: Mrs. Lopez is a 52-year-old lady male who presented to emergency department [facility] on 12/03/2022 with complaints substernal chest pain that started at 11 AM on the day of presentation. She reported that it had been happening on and off since that time. She reported the pain was squeezing in nature and radiated to her throat and both arms. Her vital signs on presentation were stable and her lab work was overall unremarkable other than a mildly elevated white count at 12,000, glucose of 135, and her initial troponin was 85. Her EKG showed normal sinus rhythm without evidence of acute ischemia. She was admitted to telemetry and placed on subcu Lovenox therapeutic dosing as well as Nitropaste. She was maintained on aspirin, beta-rich, high-dose statin was initiated and an echocardiogram was performed on the day of admission and showed an EF of 50% with stage I diastolic dysfunction and mild segmental systolic dysfunction at the apex and mid anterior region of the LV. Cardiac enzymes were cycled and increased from 85-4 76 and her third troponin was 990. She was evaluated by cardiology on 12/04/2022. Lipid panel was performed finding a total cholesterol of 254/LDL 164/HDL 30/triglyceride 299. Cardiac catheterization was performed on the a.m. of 12/06/2021 at which time triple-vessel disease involving the LAD, circumflex, and RCA with a low normal ejection fraction was identified. With these findings transfer to tertiary center for cardiothoracic surgery intervention was recommended and Dr. Burt spoke to Dr. Ulloa at [facility] and he accepted for transfer. Her most recent hemoglobin A1c was done on 08/24/2022 and was 5.8. A bed was available for transfer on 12/06/2022 the patient was transferred to [facility] chest pain-free on this day. Discharge diagnoses: NSTEMI Triple-vessel cardiovascular disease Hyperlipidemia DM-2 KATRINA Tobacco abuse Physical Exam Const alert, oriented x3, no apparent distress and well nourished Constitutional Narrative: Obese, middle-aged, white female lying in bed, nursing and at bedside, patient appears comfortable, has just returned from the [employer] General Appearance: cooperative, comfortable, well kempt and well developed Orientation / Consciousness: awake, oriented to person, oriented to place and oriented to time Exam Limitations: no limitations Nutritional Appearance: obese HEENT normocephalic, head/scalp atraumatic, hearing grossly normal bilaterally and moist oral mucous membranes HEENT Narrative: Mallampati 3, no thrush Resp normal respiratory effort, no retractions, no use of accessory muscles and clear to auscultation bilaterally Auscultation: Negative for crackles, rales, rhonchi or wheezes Cardio regular rate, regular rhythm, S1 normal heart sound, S2 normal heart sound, no murmurs, no rub, no gallops and no clicks GI normal to inspection, nondistended, normoactive bowel sounds, soft to palpation and non-tender Extremity no clubbing, cyanosis or edema Extremity Narrative: Right radial post catheterization compressive device in place with good cap refill bilateral upper extremities, 2+ pedal pulses Neuro oriented x3, CN's II-XII intact bilaterally, moves all extremities and no focal motor deficits Speech: speech normal Psych affect normal Psych Narrative: Very pleasant, appropriately interactive Weight / BMI Weight Weight: 93.2 kg Body Mass Index (BMI) 34.2 ABG / Lab / Microbiology Data Result Diagrams: 12/05/22 06:21 12/05/22 06:21 Laboratory: Laboratory Results - last 24 hr 12/05/22 11:28: POC Glucose 167 H 12/05/22 16:39: POC Glucose 98 12/05/22 20:28: POC Glucose 120 H 12/06/22 06:33: POC Glucose 111 H Meaningful Use Info Meaningful Use Diagnoses (Choose all that apply): None applicable Discharge Plan Admission Admit Date/Time: 12/03/22 19:22 Primary Reason for Your Visit: Chest Pain Attending Provider: Lucia Shay Primary Care Provider: Holly Kurtz NP Consulting Providers: Ronak Burt ; Marco Antonio Han ; Shilpa Norton Discharge Orders/Prescriptions Prescriptions: No Action levonorgestrel [Mirena] 20 mcg/24 hr (5 years) intrauterine device 1 insert Intrauterine ONCE modafinil 100 mg tablet 100 mg PO DAILY rosuvastatin 10 mg tablet 10 mg PO DAILY Synjardy XR 25-1,000 mg tablet, IR - ER, biphasic 24hr 1 tab PO DAILY Mounjaro 5 mg/0.5 mL pen injector 5 mg subcut YAÑEZ Referrals / Follow Up: Holly Kurtz BUSINESS CENTER REPRESENTATIVE, BUSINESS CENTER REPRESENTATIVE-C [Primary Care Provider] - Arvind Rothman BUSINESS CENTER REPRESENTATIVE, BUSINESS CENTER REPRESENTATIVE-C [Med Staff - [facility] Practice Prof] - 01/03/23 10:00 am Disposition Disposition (needs filled in before D/C Order can be placed): Acute Care Hospital Charges/Coding Visit Charges Inpatient E&M: 58209 Disch Hosp
[2022-12-06 13:36] LABS: Bedside Glucose 103 mg/dL (74-106)
--- NOTE | 2022-12-06 15:18 | NURSING ---
REPORT CALLED TO Jaime LIZARRAGA AT [facility]
== END 2022-12-06 15:33 | disposition short-term general hospital (02) | DRG 282 ==
LOC: ED 18:29 → PCU 20:07
PROVIDERS: Internal Medicine; Admitting Provider Internal Medicine; Emergency Provider Emergency Medicine; PCP Nurse Practitioner; Visit Provider Internal Medicine
DX: I21.4 Non-ST elevation (NSTEMI) myocardial infarction (principal); E11.9 Type 2 diabetes mellitus without complications; I25.10 Atherosclerotic heart disease of native coronary artery without angina pectoris; E78.00 Pure hypercholesterolemia, unspecified; G47.33 Obstructive sleep apnea (adult) (pediatric); F17.210 Nicotine dependence, cigarettes, uncomplicated; E66.9 Obesity, unspecified; Z68.34 Body mass index [BMI] 34.0-34.9, adult; Z79.82 Long term (current) use of aspirin; Z79.899 Other long term (current) drug therapy
CPT/HCPCS: 36415; 71045; 80048; 80053; 80061; 82962; 84484; 85025; 93005; 93306; 93458; 99152; 99153; 99285; Q9957; A4216; C1769; C1894; J2405; Q9967

== ENCOUNTER → 2023-01-13 | Outpatient (CLI) | payer OTHER, SELFPAY ==
--- NOTE | 2023-01-13 15:25 | US_ITS ---
STUDY: THYROID ULTRASOUND REASON FOR EXAM: Female, 52 years old. Enlarged and thyroid mass TECHNIQUE: Ultrasound evaluation of the thyroid was performed with real-time and static moctezuma-scale imaging. COMPARISON: Comparison is made with prior study dated February 05, 2019. FINDINGS: RIGHT LOBE: The right lobe of the thyroid gland is enlarged and measures 5.8 cm x 2.5 cm x 3.2 cm. There is a homogeneous echotexture. There are 3 complex solid and cystic nodules within the lobe. The largest measures 3.1 cm x 2.3 sided by 2.7 cm. This lies in the lower pole of the right lobe. This has increased in size as compared to prior study. LEFT LOBE: The left lobe of the thyroid gland is enlarged and measures 5.1 cm x 1.9 cm x 2.0 cm. There is a homogeneous echotexture. Scattered solid hypoechoic nodule is seen predominantly in the mid and lower pole of the left lobe. The largest measures 7 mm x 8 mm x 5 mm. ISTHMUS: The isthmus measures 3.6 mm. The regional lymph nodes are normal. US/Thyroid IMPRESSION: Enlargement of the thyroid gland as described. Dominant complex solid cystic masses seen in the right lobe as described. Biopsy is suggested if not previously performed. Electronically Signed: Billy Powell MD at 13:46 EST ,
== END | disposition home or self-care (01) ==
LOC: US 15:24
PROVIDERS: PCP Nurse Practitioner; Visit Provider Nurse Practitioner
DX: E07.9 Disorder of thyroid, unspecified (principal)
CPT/HCPCS: 76536

== ENCOUNTER → 2023-01-24 | Outpatient (CLI) | payer OTHER, SELFPAY ==
--- NOTE | 2023-01-24 13:04 | PCM.CR.HP2 ---
CR - History & Physical - General Arrival date:: 01/24/23 Arrival time:: 13:05 Date of Referral:: 12/29/22 Date of CR Evaluation:: 01/24/23 Referring Physician: Dr. Ronak Burt Primary Diagnosis: PCI with coronary stent - History of Present Cardiac Event Onset Date: Enter Onset Date of cardiac illnesses in Comment field below PTCA or coronary stenting:: Yes - 12/06/22 LAD and RCA - Sleep Disorder Evaluation Hx of Sleep Apnea: Yes Do you snore loudly (louder than talking or can be heard through closed doors)?: No Do you often feel tired/ fatigued/ sleepy during daytime?: No Has anyone observed you stop breathing during sleep?: No History of Hypertension (for STOP score): No STOP Results: Negative - Medications Home Medications: Ambulatory Orders Medication Instructions Recorded levonorgestrel 21 mcg/24 hours (8 1 insert intrauterine ONCE 06/13/18 yrs) 52 mg intrauterine device CONTROL (Mirena) empagliflozin 25 mg-metformin ER 1 tab PO DAILY blood sugars 12/03/22 1,000 mg tablet,extended release 24hr (Synjardy XR) tirzepatide 5 mg/0.5 mL 5 mg subcut YAÑEZ DIABETES 12/03/22 subcutaneous pen injector (Mounjaro) aspirin 81 mg tablet,delayed 81 mg PO DAILY #90 tabs 12/29/22 release atorvastatin 40 mg tablet 40 mg PO DAILY #90 tabs 12/29/22 metoprolol succinate 25 mg 25 mg PO DAILY PRN 12/29/22 tablet,extended release 24 hr modafinil 100 mg tablet 100 mg PO DAILY PRN SLEEP APNEA 12/29/22 pantoprazole 20 mg tablet,delayed 20 mg PO DAILY #90 tabs 12/29/22 release ticagrelor 90 mg tablet (Brilinta) 90 mg PO BID #180 tabs 12/29/22 - Allergies Allergies/Adverse Reactions: Allergies No Known Allergies Allergy (Verified 12/29/22 12:58) Advanced Directives - Advanced Directives 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9 - Past Surgical History Surgical History: Past Surgical History (Last Updated 01/07/23 @ 10:51 by Evie MENDOZA, PA) History of cholecystectomy Z90.49 History of heart artery stent Z95.5 PCI to proximal. Mid LAD with 3 overlapping stents, Proximal RCA, Mid RCA and distal RCA with side brand to the RPDA 12/06/2022 - Family History Summary Family History: Family History (Last Reviewed 12/29/22 @ 16:36 by Evie MENDOZA, PA) Mother Ovarian cancer Grandmother Thyroid disorder Arrhythmia Grandfather Thyroid disorder had thyroid removed for cancer Uncle Thyroid disorder Aunt Thyroid disorder thyroid cancer and had removed Brother Hypertension Social History - Smoking History Smoking Status: Former smoker Years Smokin Hx Smoking Cessation Date: 12/03/22 Hx Tobacco Use: Yes - 5 cigarettes a day Hx Smoking Exposure: Yes - Alcohol Use Alcohol Usage: No - Substance Abuse Hx Substance Use: No - Occupation Occupation (List type of work in comments):: Employed Hours worked per day:: 8 - Hobbies, Recreation, Social Activities Hobbies: Other - fishing Recreational Activities: I am able to engage in all my recreational activities Social Environment - Status Marital Status: - Current Living Arrangements Living Environment:: Spouse - Children How many children do you have?: 0 - Safety Do you feel safe in your surroundings?: Yes - Assistance Do you need any assistance at home?: no Review of Systems - Review of Systems Hints: Right click = Denies (Slash). Left click = Reports (Rulo) Review of Present Symptoms: Reports: Shortness of Breath with Exertion, Angina, Dizziness/Lightheadedness, Fatigue, Sleep - Normal. Denies: Shortness of Breath at Rest, PVD, Operative Discomfort, Wound Healing, Heart Arrhythmia/Irregularities, Appetite - Normal, Appetite - Special Diet, Sexual Changes - Pain Is Patient Pain Free?: No Pain Location: head, chest Pain Level: 5/10 Risk Factor Assessment - Vital Signs Pulse Ox: 95 - Pulse Pulse Rate: 93 - Hypertension Blood Pressure Sitting - Left Arm: 128/92 - Diabetes Diabetic History: Type II Nutrition Referral for Diabetes: Yes - Obesity Height: 5 ft 4 in Weight:: 96.162 kg Weight in Pounds: 212.0 lbs Body Mass Index (BMI): 36.3 Nutritional Referral for Obesity: Yes - Physical Inactivity Physical Inactivity: None - Risk Stratification Risk Guidelines: Moderate Risk: Risk Factor for Hypertension, Risk Factor for Sedentary Lifestyle, Risk Factor for Depression, Highest Risk: Risk Factor for Smoking, Risk Factor for Dyslipidemia, Risk Factor for Diabetes, Risk Factor for Obesity - Family History Family History: Family History (Last Reviewed 12/29/22 @ 16:36 by Evie Miller PA, PA) Mother Ovarian cancer Grandmother Thyroid disorder Arrhythmia Grandfather Thyroid disorder Uncle Thyroid disorder Aunt Thyroid disorder Brother Hypertension Motivation - Motivation to Participate On a scale of 1 to 10, how prepared are you to commit to attending program?: 10 What do you see as barriers to successfully being able to complete the program?: nothing What do you see as the benefits of succesfully completing the program? In other words, what do you hope to get out of participating in the program?: no more surgeries Are there issues you are dealing with that will interfere with completing the program?: no Do you have a spouse or signficant other, family or friends who will help support you to complete the program?: yes
[2023-01-24 13:57] VITALS: BP 128/92; PULSE 93; O2SAT 95; BMI 36.3
--- NOTE | 2023-01-24 13:58 | PCM.CR.ITP ---
Diagnosis - General Information Admitting Diagnosis: with coronary stent Personal Learning Style:: Audio/Visual Stage of change r/t lifestyle modifications:: Contemplation Gave educational material for:: Treating Heart Disease, Emotions & Heart Disease, Stress Management & Relaxation, Sleep Disorders & Heart Disease, How The Heart Works, What it means to have Heart Disease, How Coronary Artery Disease is Diagnosed, Heart Procedures, What Heart Medications Do, Risk Factors & Modifications, Living an Active Life, Nutrition - Education/Goals Cardiac Rehabilitation Goals: 1. Maintain the individual as the primary focus of care. 2. To improve the patient's quality of life. 3. Identification of cardiac risk factors and provide cardiac risk factor management. 4. Enhance the psychosocial status of the patient. 5. Reconditioning enough to allow the patient to resume customary activities. 6. Control symptoms of cardiac disease Personal Goals: Initial Assessment: Improve energy level, Participate in home exercise program, Improve muscle strength and endurance, Improve diet and eating habits (eat healthier), Control risk factors (learn risk factor modification) Scale for measuring improvement of personal goals: Enter appropriate number in Comments. 2 = Unchanged. 3 = Slightly Better. 4 = Moderate Improvement. 5 = Met my Goal Exercise - Initial Assessment - Visit Date of Eval: 01/24/23 - initial eval Mets: Pre-: >3 METS for 30 minutes by discharge, >5 METS for 30 minutes by discharge, >7 METS for 30 minutes by discharge, Unable to meet goal due to: (see comment below) - Physician Prescribed Exercise Modalities: Treadmill, Rower, Airdyne, NuStep, SciFit, Lateral Community Dietitian Frequency: 2x/week for 18 weeks [36 sessions] Intensity: 60-80% of age predicted maximum heart rate reserve Current METSs:: 3 Target Heart Rate:: 109-126 Resting Blood Pressure: 128/92 EKG Type: NSR - Outcomes & Goals Goals:: Verbalizes understanding of THR, RPE & goal METS by session 6, Documents in home exercise log/reports 30 min aerobic 5 day/wk by DC, Demonstrates accurate pulse taking by DC, Other additional outcome/goals: see below - Intervention & Plan Exercise Program Goals: Instruct on personal THR & RPE, Instruct on MET level & personal MET goal, Show patient to take own pulse /validate performance until accurate, Instruct on home exercise, Other additional plan/int - Physical Activity Home Exercise Physical Activity - Home Exercise: Safe Exercise, Warm-up, Self-monitoring, Cool-Down, Home Exercise > 30 min Daily, Sitting Time <3 hours/daily - Outcomes & Goals Outcomes/Goals: Demonstrates correct Warm-up/exercise Cool-Down (S3) if = 2.5 METs, Verbalizes symptoms of exercise intolerance by Session 3 (S3), Demonstrate safe equipment use (S3) & follows exercise prescrition (6), Other: See below - Intervention & Plan Plan/Intervention: Instruct warm-up & cool-down if exercising at > 2 METs, Instruct on symptoms of exercise intolerance & actions to take, Instruct & monitor on saf, Assess intial functional capacity & safety risk, Other See below Nutrition - Initial Assessment - Program Goals Nutrition Program Goals: LDL <100 optimal. 100 - 129 Near optimal. 130 - 159 Borderline High. 160 - 189 High. Total Cholesterol <200 desirable. 200 - 239 Borderline High. >/= 240 High. HDL < 40 Low >/=60 High. Triglycerides <150 desirable. <199 optimal. VlDL 5 - 40. HgbA1C <7%. BMI <25 Patient has diagnosis of Hyperlipidemia (ICD E78)?: Yes - Visit Date of Assessment:: 01/24/23 - initial eval - Cholesterol/Lipids (Other Core Measures) Determine presence & major risk factors that modify LDL goal: Cigarette smoking, Hypertension or hypertensive medication, Low HDL cholesterol <40 mg/dL*, Family history of premature CHD in Male < 55 years: female <65 yearsFa, Age men > 45 years; women >/= 55 years Outcomes/Goals: Pt IDs own risk factors & lifestyle modifications by Session 10, Verbalizes symptoms of angina & response by session 3., Pt independently manages, Other Additional Outcomes/Goals: Intervention/Plan: Advocate for lipid panel cholesterol medication if applicable, Instruct on personal lipid levels & lipid goals/NCEP guidelines, Instruct on cholesterol, Other additional plan/int Referral to dietitian:: Yes - Diabetes (Other Core Measures) Diabetes Type: Diagnosis Type II ICD-10 E11 Non-Insulin Dependent?: Yes Referral to Diabetic Clinic:: Yes Outcomes/Goals:: Able to state symptoms of, Able to state, Able to state, Other additional Intervention/Plan:: Instruct on, Refer to, Instruct on, Other - Weight Mgt (Other Care) Height: 5 ft 5 in Weight:: 96.162 kg BMI: 35.2 Diagnosis Overweight/Obesity BMI> 30% ICD-10 E66: Yes Diagnosis High BMI/Morbid Obesity BMI> 35% ICD-10 Z68: Yes Outcomes/Goals: Pt sets, maintains & shows weight loss goal & trend during rehab, Other additional outcomes/goals Intervention/Plan: Instruct on ideal BMI & set weight loss goal w/patient, Assist pt to ID & incorporate diet changes for weight loss by S9, Refer to Structured Weight Loss program as appropriate, Encourage goal of using 250-300dcal per session for weight loss, Other additional plan/interventions - Healthy Eating Habits Will attend diet classes:: Yes Outcomes/Goals:: Consume diet rich in vegs,fruits,whole grain/high fiber,fish,lean meat, Limit sat/trans fats,cholesterol & added salts & sugars, Other additional outcome/goals: Intervention/Plan:: Assess current eating habits, Other Additional plan/interventions - Education Gave educational materials for:: Signs & symptoms of hypoglycemia, Signs & symptoms of hyperglycemia, Relate diabetes to coronary artery disease, Healthy eating Nutrition - 30-Day Assessment Nutrition - 60-Day Assessment Nutrition - 90-Day Assessment Nutrition - Final Assessment Core - Initial Assessment - Visit Date of Eval: 01/24/23 - initial eval - Medication Compliance Preventative Medication(s):: Aspirin, Ticagrelor/P2Y12 inhibitor, Statin/lipid, Beta rich H/O mental health issues: depression, anxiety, or addiction?: No Doesn?t believe in the benefits of treatment?: No Believes medications are unnecessary or harmful?: No Has a concern about medication side effects?: No Expresses concern over the cost of medications?: No Interventions/plans: Instruct on medication effects & side effects, Review medication list w/patient every two weeks, Instruct importance of taking meds as ordered & assist problem solving, Other additional - Tobacco Use Tobacco Use: Non-smoker How many cigarettes do you smoke per day?: 5 - stopped in november Smokin Do you use smokeless tobacco?: No Outcomes/Goals: Smoking cessation achieved or maintained by discharge, Identify aids/strategies for achieving smoking cessation by session 6, Other additional outcome/goals Interventions/plan: Instruct on effects of smoking & provide smoking cessation resource, Assist pt to set quit date & provide encouragement, Assist pt to develop strategies to achieve/maintain quit date, Assist pt w/nicotine replacement & medication for cessation success, Other additional plan/interventions - Hypertension Resting Blood Pressure:: 128/92 [place] [employer] Hypertension Guidelines: [place] [employer] Hypertension Guidelines. Normal BP Less than 120/80. Elevated BP 120/80. Hypertension Stage 1: BP 130-139/80-89. Hypertesnion Stage 2: BP 140 or higher/90 or higher. Hypertension Crisis: BP higher than 180/120 Outcomes/Goals: Able to verbalize/achieve optimal blood pressure <130/80, Incorporates diet changes & exercise for blood pressure control by DC, Other additional outcomes/goals Interventions/plan: Instruct on optimal blood pressure, hypertension & medications, Instruct on effects of sodium, alcohol, stress, exercise &hypertension, Other additional plan/interventions - Tobacco Cessation Referral Smoking Cessation Referral:: No Individual Education/Counseling:: No Education Schedule Given:: Yes Core - 30-Day Assessment Core - 60-Day Assessment Core - 90 Day Assessment Core - Final Assessment Psychosocial - Initial Assess - VIsit Date of Eval: 01/24/23 - initial eval History of previous Mental disease:: No Psychosocial - 30-Day Assess Psychosocial - 60-Day Assess Psychosocial - 90-Day Assess Psychosocial - Final Assessmen Patient Health Questionnaire Initial Assessment 1. Little interest or pleasure in doing things: Not at all 2. Feeling down, depressed, or hopeless: Not at all 3. Trouble falling or staying asleep, or sleeping too much: Several days 4. Feeling tired or having little energy: Several days 5. Poor appetite or overeating: More than half the days 6. Feeling bad about yourself -- or that you are a failure or have let yourself or your family down: Not at all 7. Trouble concentrating on things, such as reading the newspaper or watching television: Several days 8. Moving or speaking so slowly that other people could have noticed. Or the opposite - being so fidgety or restless that you have been moving around a lot more than usual: Not at all 9. Thoughts that you would be better off , or of hurting yourself in some way: Not at all How difficult have these problems made it for you to do your work, take care of things at home, or get along with other people?: Somewhat difficult Total Score: 5 OMKAR-Q SV Test - Statements CAD is a disease of the arteries in the heart: False Examples of risk factors for heart disease: True Angina is chest pain or discomfort: True The benefits of resistance training include: True Eating more meat and dairy products: False Anti-platelet medications such as aspirin are important: True The only effective way to manage stress: False An exercise warm-up slowly increases heart rate: True Prepared, processed foods usually have high sodium: True Depression is common after a heart attack: True The statin medications lower cholesterol: True To control blood pressure, lower the amount of sodium: True If someone gets chest discomfort during walking: False Transfats are partially hydrogenated vegetable oils: True Sleep apnea that is not treated increases the risk: False To control cholesterol, one should become a vegetarian: False Someone knows if he/she is exercising at the right level: I Don't Know Diabetes cannot be prevented with exercise & health eating: I Don't Know Stress is a large risk for heart attack: True A diet that can help lower blood pressure is rich in: True - Total Score Total Correct Responses: 18 Self-Efficacy Initial Assessment We would like to know how confident you are in doing certain activities. Please select your confidence level for:: Select your confidence level for the following using the scale 1-10 where 1 is not at all confident and 10 is totally confident. Your score is the average of all 6 responses. Fatigue: How confident are you that you can keep the fatigue caused by your disease from interfering with the things you want to do? Select Number: 4 Physical Discomfort or Pain: How confident are you that you can keep the physical discomfort or pain of your disease from interfering with the things you want to do? Select Number: 4 Emotional Distress: How confident are you that you can keep the emotional distress caused by your disease from interfering with the things you want to do? Select Number: 5 Other Symptoms or Health Problems: How confident are you that you can keep other symptoms or health problems from interfering with the things you want to do? Select Number: 4 Different Tasks and Activities: How confident are you that you can do the different tasks and activities needed to manage your health condition so as to reduce your need to see a doctor? Select Number: 7 Medication: How confident are you that you can do things other than just taking medication to reduce how much your illness affects your everyday life? Select Number: 7 Total Score:: 5 Nutrition Survey - Nutrition Survey Initial Have you lost >10 lbs over the past 2 months without trying?: No Are you following a special diet at home for diabetes, low fat, or low salt?: No Are you interested in meeting with a dietitian for help understanding your diet?: Yes Do you eat less than 3 meals a day?: No Do you eat fatty meats (alvarado, sausage, ribs, etc), fried foods, desserts, large amounts of salad dressings, margarine, butter, or cheese most days?: Yes Do you have food allergies? [Enter types in comment field]: No Do you eat in restaurants more than 3 times a week?: No Do you season food with salt, seasoning salt, or garlic salt?: No Do you used canned, boxed, frozen meals, or soups, seasoning packets?: Yes Total Score:: 3
[2023-01-24 15:08] VITALS: BP 128/92; BMI 35.2
== END | disposition home or self-care (01) ==
LOC: CR 13:00
PROVIDERS: PCP Nurse Practitioner; Visit Provider Internal Medicine Cardiovascular Disease
DX: Z95.5 Presence of coronary angioplasty implant and graft (principal)

== ENCOUNTER 2023-02-09 15:15 | Outpatient (RCR) | payer OTHER, SELFPAY ==
[2023-01-24 15:08] VITALS: BMI 35.2
== END 2023-02-11 23:59 ==
LOC: CR 15:15
PROVIDERS: PCP Nurse Practitioner; Visit Provider Internal Medicine Cardiovascular Disease
DX: I25.10 Atherosclerotic heart disease of native coronary artery without angina pectoris (principal); E11.9 Type 2 diabetes mellitus without complications; R06.00 Dyspnea, unspecified; E78.00 Pure hypercholesterolemia, unspecified; G47.33 Obstructive sleep apnea (adult) (pediatric); E04.1 Nontoxic single thyroid nodule; N27.9 Small kidney, unspecified; F17.210 Nicotine dependence, cigarettes, uncomplicated
CPT/HCPCS: 93798

== ENCOUNTER → 2023-02-16 | Outpatient (CLI) | payer OTHER, SELFPAY ==
[2023-01-24 15:08] VITALS: BMI 35.2
[2023-02-16 07:57] LABS: AST(SGOT) 13 U/L (15-37); Alanine Aminotransfer ALT/SGPT 29 U/L (13-56); Albumin, Serum 3.7 g/dL (3.2-5.0); Alkaline Phosphatase 97 U/L (45-117); Bilirubin, Direct 0.07 mg/dL (0.00-0.30); Cholesterol 167 mg/dL (200); High Density Lipoprotein 40 mg/dL; Protein, Total 7.7 g/dL (6.4-8.2); Triglycerides 123 mg/dL; Very Low Density Lipoprotein 25 mg/dL (5-40)
== END | disposition home or self-care (01) ==
LOC: LAB 07:06
PROVIDERS: PCP Nurse Practitioner; Referring Provider Physician Assistant Medical; Visit Provider Physician Assistant Medical
DX: E78.5 Hyperlipidemia, unspecified (principal); Z95.5 Presence of coronary angioplasty implant and graft
CPT/HCPCS: 36415; 80061; 80076

== ENCOUNTER 2023-03-10 15:58 | Outpatient (RCR) | payer OTHER, SELFPAY ==
[2023-02-23 10:07] VITALS: BMI 36.4
== END 2023-03-13 23:59 ==
LOC: DC 15:58
PROVIDERS: PCP Nurse Practitioner; Referring Provider Internal Medicine Cardiovascular Disease; Visit Provider Internal Medicine Cardiovascular Disease
DX: E11.9 Type 2 diabetes mellitus without complications (principal)
CPT/HCPCS: G0108

== ENCOUNTER 2023-03-11 08:00 | Outpatient (RCR) | payer OTHER, SELFPAY ==
[2023-01-24 15:08] VITALS: BMI 35.2
--- NOTE | 2023-02-23 09:57 | CR.ITP_ITS ---
Diagnosis Exercise - 30-day Assessment - Visit Date of Eval: 02/23/23 Session #:: 5 - Physician Prescribed Exercise Modalities: Treadmill, Airdyne, NuStep Frequency: 2x/week for 18 weeks [36 sessions], 3x/week for 12 weeks [36 sessions] Intensity: 60-80% of age predicted maximum heart rate reserve Current METSs:: 4 Target Heart Rate:: 109-126 Current RPE:: 11-13 Maximum Excercise HR:: 116 Resting Blood Pressure: 118/70 Maximum Exercise Blood Pressure: 138/72 EKG Type: NSR to ST without ectopy - Outcomes & Goals Goals:: Verbalizes understanding of THR, RPE & goal METS by session 6, Documents in home exercise log/reports 30 min aerobic 5 day/wk by DC, Demonstrates accurate pulse taking by DC, Other additional outcome/goals: see below - Intervention & Plan Exercise Program Goals: Instruct on personal THR & RPE, Instruct on MET level & personal MET goal, Show patient to take own pulse /validate performance until accurate, Instruct on home exercise, Other additional plan/int - 30-day Reassessments 30 day Reassessments:: Progressing - THR explained - Physical Activity Home Exercise Physical Activity - Home Exercise: Safe Exercise, Warm-up, Self-monitoring, Cool-Down, Home Exercise > 30 min Daily, Sitting Time <3 hours/daily - Outcomes & Goals Outcomes/Goals: Demonstrates correct Warm-up/exercise Cool-Down (S3) if = 2.5 METs, Verbalizes symptoms of exercise intolerance by Session 3 (S3), Demonstrate safe equipment use (S3) & follows exercise prescrition (6), Other: See below - Intervention & Plan Plan/Intervention: Instruct warm-up & cool-down if exercising at > 2 METs, Instruct on symptoms of exercise intolerance & actions to take, Instruct & monitor on saf, Assess intial functional capacity & safety risk, Other See below - 30-day Reassessments 30 day Reassessments:: Progressing - warm up encouraged Nutrition - Initial Assessment Nutrition - 30-Day Assessment - Program Goals Nutrition Program Goals: LDL <100 optimal. 100 - 129 Near optimal. 130 - 159 Borderline High. 160 - 189 High. Total Cholesterol <200 desirable. 200 - 239 Borderline High. >/= 240 High. HDL < 40 Low >/=60 High. Triglycerides <150 desirable. <199 optimal. VlDL 5 - 40. HgbA1C <7%. BMI <25 Patient has diagnosis of Hyperlipidemia (ICD E78)?: Yes - Visit Date of Assessment:: 02/23/23 Session #:: 5 - Cholesterol/Lipids (Other Core Measures) Determine presence & major risk factors that modify LDL goal: Cigarette smoking, Hypertension or hypertensive medication, Low HDL cholesterol <40 mg/dL*, Family history of premature CHD in Male < 55 years: female <65 yearsFa, Age men > 45 years; women >/= 55 years Outcomes/Goals: Pt IDs own risk factors & lifestyle modifications by Session 10, Verbalizes symptoms of angina & response by session 3., Pt independently manages, Other Additional Outcomes/Goals: Intervention/Plan: Advocate for lipid panel cholesterol medication if applicable, Instruct on personal lipid levels & lipid goals/NCEP guidelines, Instruct on cholesterol, Other additional plan/int 30-day Reassessments:: Progressing - risk factors explained - Diabetes (Other Core Measures) Diabetes Type: Diagnosis Type II ICD-10 E11 Non-Insulin Dependent?: Yes Referral to Diabetic Clinic:: Yes Outcomes/Goals:: Able to state symptoms of, Able to state, Able to state, Other additional Intervention/Plan:: Instruct on, Refer to, Instruct on, Other - Weight Mgt (Other Care) Height: 5 ft 5 in Weight:: 99.337 kg BMI: 36.4 Diagnosis Overweight/Obesity BMI> 30% ICD-10 E66: Yes Diagnosis High BMI/Morbid Obesity BMI> 35% ICD-10 Z68: Yes Outcomes/Goals: Pt sets, maintains & shows weight loss goal & trend during rehab, Other additional outcomes/goals Intervention/Plan: Instruct on ideal BMI & set weight loss goal w/patient, Assist pt to ID & incorporate diet changes for weight loss by S9, Refer to Structured Weight Loss program as appropriate, Encourage goal of using 250- 300dcal per session for weight loss, Other additional plan/interventions 30 day Reassessments:: Progressing - will attend nutrition class - Healthy Eating Habits Will attend diet classes:: Yes Outcomes/Goals:: Consume diet rich in vegs,fruits,whole grain/high fiber,fish,lean meat, Limit sat/trans fats,cholesterol & added salts & sugars, Other additional outcome/goals: Intervention/Plan:: Assess current eating habits, Other Additional plan/interventions 30-day Reassessments:: Progressing - will attend nutrition class - Education Gave educational materials for:: Signs & symptoms of hypoglycemia, Signs & symptoms of hyperglycemia, Relate diabetes to coronary artery disease, Healthy eating Nutrition - 60-Day Assessment Nutrition - 90-Day Assessment Nutrition - Final Assessment Core - Initial Assessment Core - 30-Day Assessment - Visit Date of Eval: 02/23/23 Session #:: 5 - Medication Compliance Preventative Medication(s):: Aspirin, Ticagrelor/P2Y12 inhibitor, Statin/lipid, Beta rich H/O mental health issues: depression, anxiety, or addiction?: No Doesn?t believe in the benefits of treatment?: No Believes medications are unnecessary or harmful?: No Has a concern about medication side effects?: No Expresses concern over the cost of medications?: No Outcomes/Goals: Verbalizes medications,desired effect & common side effects @ DC, Pt self-reports following medication regimen, Keeps card in wallet w/medications listed by DC, Other additional outcome/goals: Interventions/plans: Instruct on medication effects & side effects, Review medication list w/patient every two weeks, Instruct importance of taking meds as ordered & assist problem solving, Other additional 30-day Reassessments:: Progressing - pt encouraged to take meds - Tobacco Use Tobacco Use: Non-smoker - pt stopped smoking in November How long ago did you quit using tobacco products?: Less than 6 months ago Years Smokin Outcomes/Goals: Smoking cessation achieved or maintained by discharge, Identify aids/strategies for achieving smoking cessation by session 6, Other additional outcome/goals Interventions/plan: Instruct on effects of smoking & provide smoking cessation resource, Assist pt to set quit date & provide encouragement, Assist pt to develop strategies to achieve/maintain quit date, Assist pt w/nicotine replacement & medication for cessation success, Other additional plan/interventions 30-day Reassessments:: Met - Hypertension Resting Blood Pressure:: 118/70 [place] [employer] Hypertension Guidelines: [place] [employer] Hypertension Guidelines. Normal BP Less than 120/80. Elevated BP 120/80. Hypertension Stage 1: BP 130-139/80-89. Hypertesnion Stage 2: BP 140 or higher/90 or higher. Hypertension Crisis: BP higher than 180/120 Peak Exercise Blood Pressure:: 138/72 Outcomes/Goals: Able to verbalize/achieve optimal blood pressure <130/80, Incorporates diet changes & exercise for blood pressure control by DC, Other additional outcomes/goals Interventions/plan: Instruct on optimal blood pressure, hypertension & medications, Instruct on effects of sodium, alcohol, stress, exercise &hypertension, Other additional plan/interventions 30 day Reassessments:: Progressing - encouraged to take meds - Tobacco Cessation Referral Smoking Cessation Referral:: No Individual Education/Counseling:: No Education Schedule Given:: Yes Core - 60-Day Assessment Core - 90 Day Assessment Core - Final Assessment Psychosocial - Initial Assess Psychosocial - 30-Day Assess - VIsit Date of Eval: 02/23/23 Session #:: 5 Psychosocial - 60-Day Assess Psychosocial - 90-Day Assess Psychosocial - Final Assessmen Patient Health Questionnaire 30-Day Re-eval Assessment 1. Little interest or pleasure in doing things: Not at all 2. Feeling down, depressed, or hopeless: Not at all 3. Trouble falling or staying asleep, or sleeping too much: Several days 4. Feeling tired or having little energy: Several days 5. Poor appetite or overeating: More than half the days 6. Feeling bad about yourself -- or that you are a failure or have let yourself or your family down: Not at all 7. Trouble concentrating on things, such as reading the newspaper or watching television: Several days 8. Moving or speaking so slowly that other people could have noticed. Or the opposite - being so fidgety or restless that you have been moving around a lot more than usual: Not at all 9. Thoughts that you would be better off , or of hurting yourself in some way: Not at all How difficult have these problems made it for you to do your work, take care of things at home, or get along with other people?: Somewhat difficult Total Score: 5 Self-Efficacy 30-Day Re-eval Assessment We would like to know how confident you are in doing certain activities. Please select your confidence level for:: Select your confidence level for the following using the scale 1-10 where 1 is not at all confident and 10 is totally confident. Your score is the average of all 6 responses. Fatigue: How confident are you that you can keep the fatigue caused by your disease from interfering with the things you want to do? Select Number: 4 Physical Discomfort or Pain: How confident are you that you can keep the physical discomfort or pain of your disease from interfering with the things you want to do? Select Number: 4 Emotional Distress: How confident are you that you can keep the emotional distress caused by your disease from interfering with the things you want to do? Select Number: 5 Other Symptoms or Health Problems: How confident are you that you can keep other symptoms or health problems from interfering with the things you want to do? Select Number: 4 Different Tasks and Activities: How confident are you that you can do the di fferent tasks and activities needed to manage your health condition so as to reduce your need to see a doctor? Select Number: 7 Medication: How confident are you that you can do things other than just taking medication to reduce how much your illness affects your everyday life? Select Number: 7 Total Score:: 5 Nutrition Survey
[2023-02-23 10:07] VITALS: BP 118/70; BP 138/72; BMI 36.4
== END 2023-03-13 23:59 ==
LOC: CR 08:00
PROVIDERS: PCP Nurse Practitioner; Visit Provider Internal Medicine Cardiovascular Disease
DX: I25.10 Atherosclerotic heart disease of native coronary artery without angina pectoris (principal); E11.9 Type 2 diabetes mellitus without complications; R06.00 Dyspnea, unspecified; E78.00 Pure hypercholesterolemia, unspecified; G47.33 Obstructive sleep apnea (adult) (pediatric); N27.9 Small kidney, unspecified; F17.210 Nicotine dependence, cigarettes, uncomplicated; E78.5 Hyperlipidemia, unspecified
CPT/HCPCS: 93798

== ENCOUNTER 2023-03-24 16:00 | Outpatient (RCR) | payer OTHER, SELFPAY ==
[2023-02-23 10:07] VITALS: BMI 36.4
== END 2023-04-13 23:59 ==
LOC: DC 16:00
PROVIDERS: PCP Nurse Practitioner; Referring Provider Internal Medicine Cardiovascular Disease; Visit Provider Internal Medicine Cardiovascular Disease
DX: E11.9 Type 2 diabetes mellitus without complications (principal)
CPT/HCPCS: 97802; G0108; G0109

== ENCOUNTER 2023-04-08 15:15 | Outpatient (RCR) | payer OTHER, SELFPAY ==
[2023-02-23 10:07] VITALS: BMI 36.4
[2023-03-14 00:44] VITALS: BP 118/70; BP 138/72
--- NOTE | 2023-03-25 08:18 | PCM.CR.ITP ---
Diagnosis Exercise - 60-day Assessment - Visit Date of Eval: 03/25/23 Session #:: 14 - Physician Prescribed Exercise Modalities: Treadmill, Rower, Lateral Cookie Breaker Frequency: 3x/week for 12 weeks [36 sessions] Intensity: 60-80% of age predicted maximum heart rate reserve Current METSs:: 6 Target Heart Rate:: 126-142 Current RPE:: 12-13 Maximum Excercise HR:: 118 Resting Blood Pressure: 102/78 Maximum Exercise Blood Pressure: 132/80 EKG Type: NSR to ST - Outcomes & Goals Goals:: Verbalizes understanding of THR, RPE & goal METS by session 6, Documents in home exercise log/reports 30 min aerobic 5 day/wk by DC, Demonstrates accurate pulse taking by DC, Other additional outcome/goals: see below - Intervention & Plan Exercise Program Goals: Instruct on personal THR & RPE, Instruct on MET level & personal MET goal, Show patient to take own pulse /validate performance until accurate, Instruct on home exercise, Other additional plan/int - 30-day Reassessments 30 day Reassessments:: Progressing - THR explained - Physical Activity Home Exercise Physical Activity - Home Exercise: Safe Exercise, Warm-up, Self-monitoring, Cool-Down, Home Exercise > 30 min Daily, Sitting Time <3 hours/daily - Outcomes & Goals Outcomes/Goals: Demonstrates correct Warm-up/exercise Cool-Down (S3) if = 2.5 METs, Verbalizes symptoms of exercise intolerance by Session 3 (S3), Demonstrate safe equipment use (S3) & follows exercise prescrition (6), Other: See below - Intervention & Plan Plan/Intervention: Instruct warm-up & cool-down if exercising at > 2 METs, Instruct on symptoms of exercise intolerance & actions to take, Instruct & monitor on saf, Assess intial functional capacity & safety risk, Other See below - 30-day Reassessments 30 day Reassessments:: Progressing - cool down encouraged Nutrition - Initial Assessment Nutrition - 30-Day Assessment Nutrition - 60-Day Assessment - Program Goals Nutrition Program Goals: LDL <100 optimal. 100 - 129 Near optimal. 130 - 159 Borderline High. 160 - 189 High. Total Cholesterol <200 desirable. 200 - 239 Borderline High. >/= 240 High. HDL < 40 Low >/=60 High. Triglycerides <150 desirable. <199 optimal. VlDL 5 - 40. HgbA1C <7%. BMI <25 Patient has diagnosis of Hyperlipidemia (ICD E78)?: Yes - Visit Date of Assessment:: 03/25/23 Session #:: 14 - Cholesterol/Lipids (Other Core Measures) Determine presence & major risk factors that modify LDL goal: Cigarette smoking, Hypertension or hypertensive medication, Low HDL cholesterol <40 mg/dL*, Family history of premature CHD in Male < 55 years: female <65 yearsFa, Age men > 45 years; women >/= 55 years Outcomes/Goals: Pt IDs own risk factors & lifestyle modifications by Session 10, Verbalizes symptoms of angina & response by session 3., Pt independently manages, Other Additional Outcomes/Goals: Intervention/Plan: Advocate for lipid panel cholesterol medication if applicable, Instruct on personal lipid levels & lipid goals/NCEP guidelines, Instruct on cholesterol, Other additional plan/int - Diabetes (Other Core Measures) Diabetes Type: Diagnosis Type II ICD-10 E11 Non-Insulin Dependent?: Yes Referral to Diabetic Clinic:: No - pt met with advertising sales manager Outcomes/Goals:: Able to state symptoms of, Able to state, Able to state, Other additional Intervention/Plan:: Instruct on, Refer to, Instruct on, Other 30-day Reassessments:: Progressing - met with advertising sales manager - Weight Mgt (Other Care) Height: 5 ft 5 in Weight:: 99.337 kg BMI: 36.4 Diagnosis Overweight/Obesity BMI> 30% ICD-10 E66: Yes Diagnosis High BMI/Morbid Obesity BMI> 35% ICD-10 Z68: Yes Outcomes/Goals: Pt sets, maintains & shows weight loss goal & trend during rehab, Other additional outcomes/goals Intervention/Plan: Instruct on ideal BMI & set weight loss goal w/patient, Assist pt to ID & incorporate diet changes for weight loss by S9, Refer to Structured Weight Loss program as appropriate, Encourage goal of using 250-300dcal per session for weight loss, Other additional plan/interventions 30 day Reassessments:: Progressing - met with advertising sales manager - Healthy Eating Habits Will attend diet classes:: Yes Outcomes/Goals:: Consume diet rich in vegs,fruits,whole grain/high fiber,fish,lean meat, Limit sat/trans fats,cholesterol & added salts & sugars, Other additional outcome/goals: Intervention/Plan:: Assess current eating habits, Other Additional plan/interventions 30-day Reassessments:: Progressing - met with advertising sales manager - Education Gave educational materials for:: Signs & symptoms of hypoglycemia, Signs & symptoms of hyperglycemia, Relate diabetes to coronary artery disease, Healthy eating Nutrition - 90-Day Assessment Nutrition - Final Assessment Core - Initial Assessment Core - 30-Day Assessment Core - 60-Day Assessment - Visit Date of Eval: 03/25/23 Session #:: 14 - Medication Compliance Preventative Medication(s):: Aspirin, Ticagrelor/P2Y12 inhibitor, Statin/lipid, Beta rich H/O mental health issues: depression, anxiety, or addiction?: No Doesn?t believe in the benefits of treatment?: No Believes medications are unnecessary or harmful?: No Has a concern about medication side effects?: No Expresses concern over the cost of medications?: No Outcomes/Goals: Verbalizes medications,desired effect & common side effects @ DC, Pt self-reports following medication regimen, Keeps card in wallet w/medications listed by DC, Other additional outcome/goals: Interventions/plans: Instruct on medication effects & side effects, Review medication list w/patient every two weeks, Instruct importance of taking meds as ordered & assist problem solving, Other additional 30-day Reassessments:: Progressing - encouraged to take meds - Tobacco Use Tobacco Use: Non-smoker - pt stopped smoking in November How long ago did you quit using tobacco products?: Less than 6 months ago Years Smokin Outcomes/Goals: Smoking cessation achieved or maintained by discharge, Identify aids/strategies for achieving smoking cessation by session 6, Other additional outcome/goals Interventions/plan: Instruct on effects of smoking & provide smoking cessation resource, Assist pt to set quit date & provide encouragement, Assist pt to develop strategies to achieve/maintain quit date, Assist pt w/nicotine replacement & medication for cessation success, Other additional plan/interventions 30-day Reassessments:: Met - pt is no longer smoking - Hypertension Resting Blood Pressure:: 102/78 [place] [employer] Hypertension Guidelines: [place] [employer] Hypertension Guidelines. Normal BP Less than 120/80. Elevated BP 120/80. Hypertension Stage 1: BP 130-139/80-89. Hypertesnion Stage 2: BP 140 or higher/90 or higher. Hypertension Crisis: BP higher than 180/120 Peak Exercise Blood Pressure:: 132/80 Outcomes/Goals: Able to verbalize/achieve optimal blood pressure <130/80, Incorporates diet changes & exercise for blood pressure control by DC, Other additional outcomes/goals Interventions/plan: Instruct on optimal blood pressure, hypertension & medications, Instruct on effects of sodium, alcohol, stress, exercise &hypertension, Other additional plan/interventions 30 day Reassessments:: Progressing - encouraged to take meds - Tobacco Cessation Referral Smoking Cessation Referral:: No Individual Education/Counseling:: No Education Schedule Given:: Yes Core - 90 Day Assessment Core - Final Assessment Psychosocial - Initial Assess Psychosocial - 30-Day Assess Psychosocial - 60-Day Assess - VIsit Date of Eval: 03/25/23 Session #:: 14 History of previous Mental disease:: No Psychosocial - 90-Day Assess Psychosocial - Final Assessmen Patient Health Questionnaire 60-Day Re-eval Assessment 1. Little interest or pleasure in doing things: Not at all 2. Feeling down, depressed, or hopeless: Not at all 3. Trouble falling or staying asleep, or sleeping too much: Several days 4. Feeling tired or having little energy: Several days 5. Poor appetite or overeating: More than half the days 6. Feeling bad about yourself -- or that you are a failure or have let yourself or your family down: Not at all 7. Trouble concentrating on things, such as reading the newspaper or watching television: Not at all 8. Moving or speaking so slowly that other people could have noticed. Or the opposite - being so fidgety or restless that you have been moving around a lot more than usual: Not at all 9. Thoughts that you would be better off , or of hurting yourself in some way: Not at all How difficult have these problems made it for you to do your work, take care of things at home, or get along with other people?: Somewhat difficult Total Score: 4 Self-Efficacy 60-Day Re-eval Assessment We would like to know how confident you are in doing certain activities. Please select your confidence level for:: Select your confidence level for the following using the scale 1-10 where 1 is not at all confident and 10 is totally confident. Your score is the average of all 6 responses. Fatigue: How confident are you that you can keep the fatigue caused by your disease from interfering with the things you want to do? Select Number: 4 Physical Discomfort or Pain: How confident are you that you can keep the physical discomfort or pain of your disease from interfering with the things you want to do? Select Number: 4 Emotional Distress: How confident are you that you can keep the emotional distress caused by your disease from interfering with the things you want to do? Select Number: 5 Other Symptoms or Health Problems: How confident are you that you can keep other symptoms or health problems from interfering with the things you want to do? Select Number: 4 Different Tasks and Activities: How confident are you that you can do the different tasks and activities needed to manage your health condition so as to reduce your need to see a doctor? Select Number: 7 Medication: How confident are you that you can do things other than just taking medication to reduce how much your illness affects your everyday life? Select Number: 7 Total Score:: 5 Nutrition Survey
[2023-03-25 08:30] VITALS: BP 102/78; BP 132/80; BMI 36.4
== END 2023-04-13 23:59 ==
LOC: CR 15:15
PROVIDERS: PCP Nurse Practitioner; Visit Provider Internal Medicine Cardiovascular Disease
DX: Z95.5 Presence of coronary angioplasty implant and graft
CPT/HCPCS: 93798

== ENCOUNTER 2023-04-19 16:03 | Outpatient (RCR) | payer OTHER, SELFPAY ==
[2023-03-25 08:30] VITALS: BMI 36.4
== END 2023-05-13 23:59 ==
LOC: DC 16:03
PROVIDERS: PCP Nurse Practitioner; Referring Provider Internal Medicine Cardiovascular Disease; Visit Provider Internal Medicine Cardiovascular Disease
DX: E11.9 Type 2 diabetes mellitus without complications (principal)
CPT/HCPCS: 97803

== ENCOUNTER 2023-05-09 15:45 | Outpatient (RCR) | payer OTHER, SELFPAY ==
[2023-03-25 08:30] VITALS: BMI 36.4
[2023-04-14 00:36] VITALS: BP 102/78; BP 132/80
== END 2023-05-13 23:59 ==
LOC: CR 15:45
PROVIDERS: PCP Nurse Practitioner; Visit Provider Internal Medicine Cardiovascular Disease
DX: Z95.5 Presence of coronary angioplasty implant and graft (principal)
CPT/HCPCS: 93798

== ENCOUNTER → 2023-06-09 | Outpatient (CLI) | payer OTHER, SELFPAY ==
[2023-03-25 08:30] VITALS: BMI 36.4
[2023-05-25 08:33] VITALS: BMI 36.5
--- NOTE | 2023-06-09 12:44 | ART_ITS ---
Reason For Study: PVD, claudication Procedure A bilateral lower extremity continuous wave Doppler with analog waveform analysis,segmental pressures,and ankle brachial indexes without exercise. Left Segmental Pressures Left brachial= 117mmHg. Left posterior tibial artery = 151mmHg. Left dorsalis pedis artery = 140mmHg. Left digit = 151 mmHg. The left dorsalis pedis waveforms are triphasic. The left posterior tibial artery waveforms are triphasic. Right Segmental Pressures Right brachial= 122mmHg. Right posterior tibial artery = 157mmHg. Right dorsalis pedis artery = 154mmHg. Right digit = 139 mmHg. The right dorsalis pedis waveforms are triphasic. The right posterior tibial artery waveforms are triphasic. Indices The right ankle brachial index by the posterior tibial artery is 1.29. The right ankle brachial index by the dorsalis pedis is 1.26. The right digital-brachial index is 1.14. The left ankle brachial index by the posterior tibial artery is 1.24. The left ankle brachial index by the dorsalis pedis is 1.15. The left digital-brachial index is 1.24. VL/Lower Ext Art Exam w/o Exercis Interpretation Summary Right AIMEE 1.29, normal. TBI and Doppler/PVR waveforms of the right leg normal a t rest. Left AIMEE 1.24, normal. TBI and Doppler/PVR waveforms of the left leg normal at rest. Ordering Physician: Evie Miller Performed By: Riley Junior RVT
== END | disposition home or self-care (01) ==
LOC: CVS 12:44
PROVIDERS: PCP Nurse Practitioner; Referring Provider Physician Assistant Medical; Visit Provider Physician Assistant Medical
DX: I73.9 Peripheral vascular disease, unspecified (principal)
CPT/HCPCS: 93923

== ENCOUNTER 2023-06-13 15:45 | Outpatient (RCR) | payer OTHER, SELFPAY ==
[2023-03-25 08:30] VITALS: BMI 36.4
[2023-05-14 01:22] VITALS: BP 102/78; BP 132/80
--- NOTE | 2023-05-25 08:17 | PCM.CR.ITP ---
Nutrition - Initial Assessment Program Goals Nutrition Program Goals Patient has diagnosis of Hyperlipidemia (ICD E78)?: Yes Weight Mgt (Other Care) Height: 5 ft 5 in Weight:: 219 lb 8 oz BMI: 36.5 Core - Initial Assessment Hypertension Resting Blood Pressure:: 120/72 [place] [employer] Hypertension Guidelines Psychosocial - Initial Assess Target Goals Target Goals Referral to Behavioral Health PS - Interventions: Yes: Attend Stress Management Classes and No: Referral to Behavioral Health if PHQ-9 score >9:, No: Referral to [facility] and No: Referral to Physician if PHQ-9 if score is 5-9: Patient Health Questionnaire PHQ-9 Screening Discharge Assessment: 1. Little interest or pleasure in doing things: Not at all 2. Feeling down, depressed, or hopeless: Not at all 3. Trouble falling or staying asleep, or sleeping too much: Several days 4. Feeling tired or having little energy: Not at all 5. Poor appetite or overeating: Several days 6. Feeling bad about yourself -- or that you are a failure or have let yourself or your family down: Not at all 7. Trouble concentrating on things, such as reading the newspaper or watching television: Not at all 8. Moving or speaking so slowly that other people could have noticed. Or the opposite - being so fidgety or restless that you have been moving around a lot more than usual: Not at all 9. Thoughts that you would be better off , or of hurting yourself in some way: Not at all How difficult have these problems made it for you to do your work, take care of things at home, or get along with other people?: Not difficult at all Total Score: 2 Self-Efficacy 6-Item Scale Discharge Assessment: We would like to know how confident you are in doing certain activities. Please select your confidence level for: Fatigue Select Number: 10 Physical Discomfort or Pain Select Number: 10 Emotional Distress Select Number: 10 Other Symptoms or Health Problems Select Number: 10 Different Tasks and Activities Select Number: 10 Medication Select Number: 10 Total Score:: 10 Nutrition Survey Nutrition Survey Instructions Scoring Instructions Nutrition Survey Discharge: Have you lost >10 lbs over the past 2 months without trying?: No Are you following a special diet at home for diabetes, low fat, or low salt?: No Are you interested in meeting with a dietitian for help understanding your diet?: No Do you eat less than 3 meals a day?: No Do you eat fatty meats (alvarado, sausage, ribs, etc), fried foods, desserts, large amounts of salad dressings, margarine, butter, or cheese most days?: No Do you have food allergies? [Enter types in comment field]: No Do you eat in restaurants more than 3 times a week?: No Do you season food with salt, seasoning salt, or garlic salt?: No Do you used canned, boxed, frozen meals, or soups, seasoning packets?: No Total Score:: 0 Exercise - Final/Discharge Visit Date of Eval: 05/25/23 Session #:: 27 Comments:: Patient is doing two days per week due to her work schedule conflict on Tuesday. Physician Prescribed Exercise Modalities: Rower, Airdyne and Lateral [place] Frequency: 3x/week for 12 weeks [36 sessions] Intensity: 60-80% of age predicted maximum heart rate reserve Duration: 30 - 45 minutes Current METSs:: 7.0 Target Heart Rate:: 126-142 Current RPE:: 12 Maximum Heart Rate:: 129 Resting Blood Pressure: 120/72 Maximum Exercise Blood Pressure: 176/82 EKG Type: NSR to sinus tachy w/ rare PVC Outcomes & Goals Goals:: Verbalizes understanding of THR, RPE & goal METS by session 6, Documents in home exercise log/reports 30 min aerobic 5 day/wk by DC and Demonstrates accurate pulse taking by DC Intervention & Plan Exercise Program Goals: Instruct on personal THR & RPE, Instruct on MET level & personal MET goal, Show patient to take own pulse /validate performance until accurate and Instruct on home exercise 30-day Reassessments 30 day Reassessments:: Met Physical Activity Home Exercise Physical Activity - Home Exercise: Safe Exercise, Warm-up, Self-monitoring, Cool-Down, Home Exercise > 30 min Daily and Sitting Time <3 hours/daily Outcomes & Goals Outcomes/Goals: Demonstrates correct Warm-up/exercise Cool-Down (S3) if = 2.5 METs, Verbalizes symptoms of exercise intolerance by Session 3 (S3) and Demonstrate safe equipment use (S3) & follows exercise prescrition (6) Intervention & Plan Plan/Intervention: Instruct warm-up & cool-down if exercising at > 2 METs, Instruct on symptoms of exercise intolerance & actions to take, Instruct & monitor on saf and Assess intial functional capacity & safety risk 30-day Reassessments 30 day Reassessments:: Met Nutrition - 30-Day Assessment Weight Mgt (Other Care) Height: 5 ft 5 in Weight:: 219 lb 8 oz BMI: 36.5 Nutrition - 60-Day Assessment Weight Mgt (Other Care) Height: 5 ft 5 in Weight:: 219 lb 8 oz BMI: 36.5 Core - Final Assessment Visit Date of Eval: 05/25/23 Session #:: 27 Medication Compliance Preventative Medication(s):: Aspirin, Ticagrelor/P2Y12 inhibitor, Statin/lipid and Beta rich H/O mental health issues: depression, anxiety, or addiction?: No Doesn?t believe in the benefits of treatment?: No Believes medications are unnecessary or harmful?: No Has a concern about medication side effects?: No Expresses concern over the cost of medications?: No Outcomes/Goals: Verbalizes medications,desired effect & common side effects @ DC, Pt self-reports following medication regimen and Keeps card in wallet w/medications listed by DC Interventions/plans: Instruct on medication effects & side effects, Review medication list w/patient every two weeks and Instruct importance of taking meds as ordered & assist problem solving 30-day Reassessments:: Met Tobacco Use Tobacco Use: Non-smoker Hypertension Resting Blood Pressure:: 120/72 [place] [employer] Hypertension Guidelines Peak Exercise Blood Pressure:: 176/82 Outcomes/Goals: Able to verbalize/achieve optimal blood pressure <130/80 and Incorporates diet changes & exercise for blood pressure control by DC Interventions/plan: Instruct on optimal blood pressure, hypertension & medications and Instruct on effects of sodium, alcohol, stress, exercise &hypertension 30 day Reassessments:: Met Tobacco Cessation Referral Smoking Cessation Referral:: No Individual Education/Counseling:: No Education Schedule Given:: Yes Core - 60-Day Assessment Hypertension Resting Blood Pressure:: 120/72 [place] [employer] Hypertension Guidelines Psychosocial - 30-Day Assess Target Goals Target Goals Referral to Behavioral Health PS - Interventions: Yes: Attend Stress Management Classes and No: Referral to Behavioral Health if PHQ-9 score >9:, No: Referral to [facility] and No: Referral to Physician if PHQ-9 if score is 5-9: Psychosocial - 60-Day Assess Target Goals Target Goals Referral to Behavioral Health PS - Interventions: Yes: Attend Stress Management Classes and No: Referral to Behavioral Health if PHQ-9 score >9:, No: Referral to [facility] and No: Referral to Physician if PHQ-9 if score is 5-9: Psychosocial - 90-Day Assess Target Goals Target Goals Referral to Behavioral Health PS - Interventions: Yes: Attend Stress Management Classes and No: Referral to Behavioral Health if PHQ-9 score >9:, No: Referral to [facility] and No: Referral to Physician if PHQ-9 if score is 5-9: Psychosocial - Final Assessmen Target Goals Target Goals Psychosocial Test Tool Used:: [employer] QOL Cardiac and PHQ-9 Questionnaire phq-9 Severity Referral to Behavioral Health PS - Interventions: Yes: Attend Stress Management Classes and No: Referral to Behavioral Health if PHQ-9 score >9:, No: Referral to [facility] and No: Referral to Physician if PHQ-9 if score is 5-9: Outcomes/Goals: See list Psychosocial Outcomes/Goals:: ID's personal stressors & 2 strategies to manage stress by discharge Intervention/Plan: See List Interventions/Plan:: Assess stressors,coping strategies & signs of derpression on admission, Instruct/assist pt to develop coping & personal stress Mgt strategies, Instruct patient to recognize signs & symptoms of depression and Instruct patient to recog 30-day Reassessments: 30 day Reassessments:: Met Nutrition - 90-Day Assessment Weight Mgt (Other Care) Height: 5 ft 5 in Weight:: 219 lb 8 oz BMI: 36.5 Nutrition - Final Assessment Program Goals Patient has diagnosis of Hyperlipidemia (ICD E78)?: Yes Visit Date of Assessment:: 05/25/23 Session #:: 27 Cholesterol/Lipids (Other Core Measures) Determine presence & major risk factors that modify LDL goal: Hypertension or hypertensive medication, Family history of premature CHD in Male < 55 years: female <65 yearsFa and Age men > 45 years; women >/= 55 years Outcomes/Goals: Pt IDs own risk factors & lifestyle modifications by Session 10, Verbalizes symptoms of angina & response by session 3. and Pt independently manages Intervention/Plan: Instruct on personal lipid levels & lipid goals/NCEP guidelines, Instruct on cholesterol and Other additional plan/int Referral to dietitian:: No 30-day Reassessments:: Met Diabetes (Other Core Measures) Diabetes Type: Diagnosis Type II ICD-10 E11 Insulin dependent injection/pump?: No Non-Insulin Dependent?: No Do you monitor your blood sugar at home?: No Referral to Diabetic Clinic:: No Weight Mgt (Other Care) Not Applicable: No Height: 5 ft 5 in Weight:: 219 lb 8 oz BMI: 36.5 Diagnosis Overweight/Obesity BMI> 30% ICD-10 E66: Yes Diagnosis High BMI/Morbid Obesity BMI> 35% ICD-10 Z68: Yes Outcomes/Goals: Pt sets, maintains & shows weight loss goal & trend during rehab Intervention/Plan: Instruct on ideal BMI & set weight loss goal w/patient, Assist pt to ID & incorporate diet changes for weight loss by S9 and Encourage goal of using 250-300dcal per session for weight loss 30 day Reassessments:: Not Met Healthy Eating Habits Will attend diet classes:: Yes Outcomes/Goals:: Consume diet rich in vegs,fruits,whole grain/high fiber,fish,lean meat and Limit sat/trans fats,cholesterol & added salts & sugars Intervention/Plan:: Assess current eating habits 30-day Reassessments:: Progressing
[2023-05-25 08:33] VITALS: BP 120/72; BMI 36.5
== END 2023-06-13 23:59 ==
LOC: CR 15:45
PROVIDERS: PCP Nurse Practitioner; Visit Provider Internal Medicine Cardiovascular Disease
DX: Z95.5 Presence of coronary angioplasty implant and graft (principal)
CPT/HCPCS: 93798

== ENCOUNTER → 2023-07-15 | Outpatient (CLI) | payer OTHER, SELFPAY ==
[2023-05-25 08:33] VITALS: BMI 36.5
[2023-07-15 08:28] LABS: Hematocrit 40.1 % (37-47); Hemoglobin 12.8 g/dL (12.0-15.0); Mean Corp Hgb Conc 31.9 g/dL (32-36); Mean Corpuscular Hgb 30.3 pg (27.0-32.0); Mean Corpuscular Volume 94.8 fL (81-99); Platelet Count 353 K/mm3 (150-450); RBC Distribution Width CV 14.2 % (11.6-14.6); RBC Distribution Width SD 48.9 fl (35.1-43.9); Red Blood Count 4.23 M/mm3 (4.2-5.4); White Blood Count 8.5 K/mm3 (4.4-11.0)
[2023-07-15 08:46] LABS: Microalbumin,Random Urine 16.2 mg/L (NO RANGE EST.); Microalbumin:Creatinine Ratio 10.5 mg/g CRE (<30 mg/g CRE)
[2023-07-15 08:57] LABS: Homocysteine 7.3 umol/L (3.2-10.7)
[2023-07-15 09:14] LABS: Vitamin B12 420 pg/mL (211-911); Vitamin D,25 Hydroxy 51.8 ng/mL
[2023-07-15 09:22] LABS: AST(SGOT) 15 U/L (15-37); Alanine Aminotransfer ALT/SGPT 33 U/L (13-56); Albumin, Serum 3.9 g/dL (3.2-5.0); Alkaline Phosphatase 113 U/L (45-117); Anion Gap 6 (5-15); BUN 13 mg/dL (7-18); BUN/Creat Ratio 14.8 RATIO (10-20); Chloride 108 mmol/L (98-107); Cholesterol 166 mg/dL (200); Creatinine, Serum 0.88 mg/dL (0.55-1.02); EST Glomerular Filtration Rate 71 mL/min (>60); Est Glom Filt Rate - Afr Amer 86 mL/min (>60); Ferritin 97 ng/mL (8-252); Free T3 2.2 pg/mL (2.18-3.98); Globulin 4.1 g/dL (2.2-4.2); Glucose 108 mg/dL (74-106); High Density Lipoprotein 48 mg/dL; Iron 56 ug/dL (50-170); Iron Binding Capacity,Total 349 ug/dL (250-450); Sodium Level 140 mmol/L (136-145); T4 Free Direct 1.07 ng/dL (0.76-1.46); Thyroid Stim Hormone (TSH) 1.67 uIU/mL (0.358-3.74); Triglycerides 124 mg/dL; Very Low Density Lipoprotein 25 mg/dL (5-40)
[2023-07-20 05:07] LABS: Methylmalonic Acid Bld 107 nmol/L (0-378)
[2023-07-20 18:07] LABS: Thyroid Stim Immunoglob <0.10 IU/L (0.00-0.55)
== END | disposition home or self-care (01) ==
PROVIDERS: PCP Nurse Practitioner; Referring Provider Internal Medicine Endocrinology, Diabetes & Metabolism; Visit Provider Internal Medicine Endocrinology, Diabetes & Metabolism
DX: E11.65 Type 2 diabetes mellitus with hyperglycemia (principal); E78.5 Hyperlipidemia, unspecified; I25.10 Atherosclerotic heart disease of native coronary artery without angina pectoris; E04.1 Nontoxic single thyroid nodule; E55.9 Vitamin D deficiency, unspecified
CPT/HCPCS: 36415; 80053; 80061; 82043; 82306; 82570; 82607; 82728; 82746; 83090; 83540; 83550; 83921; 84439; 84443; 84445; 84481; 85027

== ENCOUNTER → 2023-07-19 | Outpatient (CLI) | payer OTHER, SELFPAY ==
[2023-05-25 08:33] VITALS: BMI 36.5
--- NOTE | 2023-07-19 13:02 | STRESSREP_ITS ---
Stress Test Report Exercise myocardial perfusion stress test. 52-year-old lady with a history of chest pain post stent Stress protocol: Resting EKG demonstrates normal sinus rhythm with a rate of 65 bpm resting blood pressure is 104/62 mmHg. The patient exercised according to the regular Terrence protocol for a total duration of 6 minutes and 30 seconds attaining a maximum heart rate of 148 bpm which was 88% of maximum predicted heart rate; the maximum workload was 8.5 metabolic equivalents. At rest there were no ST or T wave changes noted to suggest ischemia and at peak exercise upsloping ST changes only were noted which did not meet the criteria for ischemia. No clinical angina was noted the test was terminated due to the target heart rate being ach ieved/fatigue. The peak blood pressure was 152/82 mmHg. Rate-pressure product was 20,600. Myocardial perfusion protocol. 13.2 mCi of technetium 99m sestamibi was injected at rest. The patient exer cised according to regular Terrence protocol for total duration of 6 minutes and 30 seconds and at peak exercise 45.0 mCi of technetium 99m sestamibi was injected stress images were obtained stress and rest images were reconstructed in comparing the short axis vertical long and horizontal long axis. Gated images were also obtained. Perfusion SPECT analysis: Review of the stress images demonstrate normal uptake of tracer noted in all areas of the myocardium. The resting images similarly demonstrate normal uptake of tracer noted in all areas of the myocardium. No areas of reversibility are noted to suggest ischemia no previous infarct was noted. Gated SPECT analysis: The gated ejection fraction is 81%. Conclusion: Normal exercise myocardial perfusion stress test at a moderate workload Preserved ejection fraction.
== END | disposition home or self-care (01) ==
LOC: CVS 06:13
PROVIDERS: PCP Nurse Practitioner; Referring Provider Physician Assistant Medical; Visit Provider Physician Assistant Medical
DX: R07.9 Chest pain, unspecified (principal); E11.65 Type 2 diabetes mellitus with hyperglycemia; I24.9 Acute ischemic heart disease, unspecified; I25.10 Atherosclerotic heart disease of native coronary artery without angina pectoris; Z95.5 Presence of coronary angioplasty implant and graft; E78.2 Mixed hyperlipidemia; R77.8 Other specified abnormalities of plasma proteins; R06.09 Other forms of dyspnea
CPT/HCPCS: 78452; 93017; A9500; A4216

== ENCOUNTER → 2023-07-28 | Outpatient (CLI) | payer OTHER, SELFPAY ==
[2023-05-25 08:33] VITALS: BMI 36.5
== END | disposition home or self-care (01) ==
LOC: LAB 07:59
PROVIDERS: PCP Nurse Practitioner; Referring Provider Internal Medicine Endocrinology, Diabetes & Metabolism; Visit Provider Internal Medicine Endocrinology, Diabetes & Metabolism
DX: E11.65 Type 2 diabetes mellitus with hyperglycemia (principal); E78.5 Hyperlipidemia, unspecified; I25.10 Atherosclerotic heart disease of native coronary artery without angina pectoris; E55.9 Vitamin D deficiency, unspecified; E04.1 Nontoxic single thyroid nodule
CPT/HCPCS: 36415; 82533

== ENCOUNTER → 2023-09-08 | Outpatient (CLI) | payer OTHER, SELFPAY ==
[2023-05-25 08:33] VITALS: BMI 36.5
--- NOTE | 2023-09-08 07:43 | AAAS_ITS ---
Reason For Study: AAA Screening Aorta Measurements Aorta Doppler Measurements Proximal aorta measures2.07 x 2.04cm. in cross- Peak systolic flow velocities within the proximal sectional axis. aorta measure 106.7 cm/sec. Proximal aorta measures2.03cm. in longitudinal Peak systolic flow velocities within the mid aorta axis. measure 94.1 cm/sec. Mid aorta measures1.36 x 1.42cm. in cross- Peak systolic flow velocities within the distal sectional axis. aorta measure 74.1 cm/sec. Mid aorta measures1.38cm. in longitudinal axis. Distal aorta measures1.44 x 1.46cm. in cross- sectional axis. Distal aorta measures1.41cm. in longitudinal axis. Left Iliac Artery Left iliac artery measures 0.83 x 0.83 cm. in the cross-sectional axis. Left iliac artery measures 0.82 cm. in the longitudinal axis. Peak systolic velocity in the left iliac artery measures 146.9 cm/sec. Right Iliac Artery Right iliac artery measures 0.79 x 0.94 cm. in the cross-sectional axis. Right iliac artery measures 0.81 cm. in the longitudinal axis. Peak systolic velocity in the right iliac artery measures 101.3 cm/sec. VL/AAA Screening Interpretation Summary Aorta patent, normal caliber Bilateral iliac arteries patent, normal caliber Ordering Physician: Ronak Burt Referring Physician: Holly Kurtz Performed By: Umer Romero, RVT
== END | disposition home or self-care (01) ==
LOC: CVS 07:42
PROVIDERS: PCP Nurse Practitioner; Referring Provider Internal Medicine Cardiovascular Disease; Visit Provider Internal Medicine Cardiovascular Disease
DX: I25.118 Atherosclerotic heart disease of native coronary artery with other forms of angina pectoris (principal)
CPT/HCPCS: 76706; 93005

== ENCOUNTER → 2023-09-08 | Outpatient (CLI) | payer OTHER, SELFPAY ==
[2023-05-25 08:33] VITALS: BMI 36.5
== END | disposition home or self-care (01) ==
LOC: CR 07:41
PROVIDERS: PCP Nurse Practitioner; Referring Provider Internal Medicine Cardiovascular Disease; Visit Provider Internal Medicine Cardiovascular Disease
DX: Z00.00 Encounter for general adult medical examination without abnormal findings (principal)

== ENCOUNTER 2023-09-13 08:00 | Outpatient (RCR) | payer OTHER, SELFPAY ==
[2023-05-25 08:33] VITALS: BMI 36.5
== END 2023-09-13 23:59 ==
LOC: CR 08:00
PROVIDERS: PCP Nurse Practitioner; Referring Provider Internal Medicine Cardiovascular Disease; Visit Provider Internal Medicine Cardiovascular Disease
DX: I25.118 Atherosclerotic heart disease of native coronary artery with other forms of angina pectoris (principal)
CPT/HCPCS: 92971; G0166

== ENCOUNTER → 2023-09-28 | Outpatient (CLI) | payer OTHER, SELFPAY ==
[2023-05-25 08:33] VITALS: BMI 36.5
--- NOTE | 2023-09-28 15:19 | US_ITS ---
STUDY: THYROID ULTRASOUND REASON FOR EXAM: Female, 53 years old. NODULE GROWTH TECHNIQUE: Ultrasound evaluation of the thyroid was performed with real-time and static moctezuma-scale imaging. COMPARISON: 01/13/2023 FINDINGS: RIGHT LOBE: The right lobe of the thyroid gland measures 6.4 x 3.0 x 3.5 cm. There is a homogeneous echotexture. Nodule 1: No change in the 29 x 23 x 23 mm solid isoechoic wider than tall ill-defined margin nodule with no echogenic foci (TR 3) in the mid right lobe for which ultrasound-guided biopsy is recommended if never performed. Nodule 2: No change in the 12 x 11 x 9 mm solid isoechoic wider than tall ill-defined margin nodule with no echogenic foci (TR 3) in the inferior right lobe consistent with an adenoma. Nodule 3: No change in the 13 x 12 x 15 mm solid isoechoic wider than tall ill-defined margin nodule with no echogenic foci (TR 3) in the inferior right lobe and follow-up ultrasound is recommended in one year. LEFT LOBE: The left lobe of the thyroid gland measures 5.4 x 2.0 x 2.1 cm. There is a homogeneous echotexture. Nodule 4: No change in a 9 x 7 x 6 mm solid hypoechoic wider than tall ill-defined margin nodule with no echogenic foci (TR 4) in the inferior left lobe consistent with an adenoma. ISTHMUS: The isthmus measures 5 mm thick. . The regional lymph nodes are normal. US/Thyroid IMPRESSION: No change in multinodular thyroid gland. Follow-up ultrasound is recommended in one year. Electronically Signed: Marcelo Saldana MD at 22:35 EST ,
== END | disposition home or self-care (01) ==
LOC: US 15:18
PROVIDERS: PCP Nurse Practitioner; Referring Provider Internal Medicine Endocrinology, Diabetes & Metabolism; Visit Provider Internal Medicine Endocrinology, Diabetes & Metabolism
DX: E11.65 Type 2 diabetes mellitus with hyperglycemia (principal); E78.5 Hyperlipidemia, unspecified; I25.10 Atherosclerotic heart disease of native coronary artery without angina pectoris; E04.1 Nontoxic single thyroid nodule; E55.9 Vitamin D deficiency, unspecified
CPT/HCPCS: 76536

== ENCOUNTER 2023-10-13 08:00 | Outpatient (RCR) | payer OTHER, SELFPAY ==
[2023-05-25 08:33] VITALS: BMI 36.5
--- NOTE | 2023-10-11 09:09 | SUR.PHASEII ---
Patricia Lopez 1970 53 F Ronak Burt 10/11/2023 Clinical RCR V [id number] M [id number] Patricia Lopez was referred to Cardiac Rehabilitation for External Counter-Pulsation Therapy (EECP) by Dr.. Burt on 09/12/2023. Since starting therapy, the patient reports less frequency and intensity of her stable angina. She has increased energy and activity levels since starting therapy as well. The first two weeks of therapy, she had occasional Premature Ventricular Contractions (PVCs) identified by EKG, but the past 2-3 weeks she has had no ectopy noted. The patient is very happy with EECP therapy results to date. Her overall decrease in periods of angina, and increased energy level has greatly improved her quality of life, she stated. Thank you Dr. Burt for referring your patient to the Cardiac Rehab EECP
== END 2023-10-13 23:59 ==
LOC: CR 08:00
PROVIDERS: PCP Nurse Practitioner; Referring Provider Internal Medicine Cardiovascular Disease; Visit Provider Internal Medicine Cardiovascular Disease
DX: I25.119 Atherosclerotic heart disease of native coronary artery with unspecified angina pectoris (principal)
CPT/HCPCS: 92971; G0166

== ENCOUNTER → 2023-10-14 | Outpatient (CLI) | payer OTHER, SELFPAY ==
[2023-05-25 08:33] VITALS: BMI 36.5
[2023-10-14 10:38] LABS: Hemoglobin A1c 5.4 % (3.8-5.6)
[2023-10-14 11:13] LABS: AST(SGOT) 20 U/L (15-37); Alanine Aminotransfer ALT/SGPT 35 U/L (13-56); Albumin, Serum 3.9 g/dL (3.2-5.0); Alkaline Phosphatase 120 U/L (45-117); Anion Gap 7 (5-15); BUN 11 mg/dL (7-18); BUN/Creat Ratio 12.1 RATIO (10-20); Calcium,Total 9.3 mg/dL (8.5-10.1); Chloride 106 mmol/L (98-107); Cholesterol 175 mg/dL (200); Creatinine, Serum 0.91 mg/dL (0.55-1.02); EST Glomerular Filtration Rate 69 mL/min (>60); Est Glom Filt Rate - Afr Amer 83 mL/min (>60); Globulin 4.1 g/dL (2.2-4.2); Glucose 103 mg/dL (74-106); High Density Lipoprotein 49 mg/dL; Potassium 4.3 mmol/L (3.5-5.1); Sodium Level 139 mmol/L (136-145); T4 Free Direct 1.09 ng/dL (0.76-1.46); Thyroid Stim Hormone (TSH) 1.21 uIU/mL (0.358-3.74); Triglycerides 121 mg/dL; Very Low Density Lipoprotein 24 mg/dL (5-40)
== END | disposition home or self-care (01) ==
LOC: LAB 09:20
PROVIDERS: PCP Nurse Practitioner; Referring Provider Internal Medicine Endocrinology, Diabetes & Metabolism; Visit Provider Internal Medicine Endocrinology, Diabetes & Metabolism
DX: E11.65 Type 2 diabetes mellitus with hyperglycemia (principal); E78.5 Hyperlipidemia, unspecified; E55.9 Vitamin D deficiency, unspecified; E04.1 Nontoxic single thyroid nodule; I25.10 Atherosclerotic heart disease of native coronary artery without angina pectoris
CPT/HCPCS: 36415; 80053; 80061; 83036; 84439; 84443

== ENCOUNTER 2023-11-02 08:00 | Outpatient (RCR) | payer OTHER, SELFPAY ==
[2023-05-25 08:33] VITALS: BMI 36.5
== END 2023-11-13 23:59 ==
LOC: CR 08:00
PROVIDERS: PCP Nurse Practitioner; Referring Provider Internal Medicine Cardiovascular Disease; Visit Provider Internal Medicine Cardiovascular Disease
DX: I25.118 Atherosclerotic heart disease of native coronary artery with other forms of angina pectoris
CPT/HCPCS: 92971; G0166

== ENCOUNTER → 2024-02-16 | Outpatient (CLI) | payer OTHER, SELFPAY ==
[2023-05-25 08:33] VITALS: BMI 36.5
[2024-02-16 09:06] LABS: AST(SGOT) 15 U/L (15-37); Alanine Aminotransfer ALT/SGPT 34 U/L (13-56); Alkaline Phosphatase 111 U/L (45-117); Anion Gap 3 (5-15); BUN 14 mg/dL (7-18); BUN/Creat Ratio 13.6 RATIO (10-20); Calcium,Total 9.6 mg/dL (8.5-10.1); Chloride 110 mmol/L (98-107); Creatinine, Serum 1.03 mg/dL (0.55-1.02); EST Glomerular Filtration Rate 60 mL/min (>60); Est Glom Filt Rate - Afr Amer 72 mL/min (>60); Globulin 3.9 g/dL (2.2-4.2); Glucose 131 mg/dL (74-106); Potassium 4.8 mmol/L (3.5-5.1); Protein, Total 7.9 g/dL (6.4-8.2); Sodium Level 141 mmol/L (136-145); Vitamin D,25 Hydroxy 44.5 ng/mL
[2024-02-16 11:01] LABS: Hemoglobin A1c 5.7 % (3.8-5.6)
[2024-02-16 12:38] LABS: Microalbumin:Creatinine Ratio 6.1 mg/g CRE (<30 mg/g CRE)
== END | disposition home or self-care (01) ==
LOC: LAB 07:38
PROVIDERS: PCP Nurse Practitioner; Referring Provider Internal Medicine Endocrinology, Diabetes & Metabolism; Visit Provider Internal Medicine Endocrinology, Diabetes & Metabolism
DX: E11.65 Type 2 diabetes mellitus with hyperglycemia (principal); E78.5 Hyperlipidemia, unspecified; I25.10 Atherosclerotic heart disease of native coronary artery without angina pectoris; E04.1 Nontoxic single thyroid nodule; E55.9 Vitamin D deficiency, unspecified
CPT/HCPCS: 36415; 80053; 82043; 82306; 82570; 83036

== ENCOUNTER → 2024-06-01 | Outpatient (CLI) | payer OTHER, SELFPAY ==
[2023-05-25 08:33] VITALS: BMI 36.5
== END | disposition home or self-care (01) ==
PROVIDERS: PCP Nurse Practitioner; Referring Provider Nurse Practitioner; Visit Provider Nurse Practitioner
DX: N30.90 Cystitis, unspecified without hematuria (principal)
CPT/HCPCS: 87077; 87086; 87088; 87186

== ENCOUNTER 2024-06-26 10:11 | Day surgery (SDC) | payer OTHER, SELFPAY ==
[2023-05-25 08:33] VITALS: BMI 36.5
[2024-06-26 10:12] VITALS: BP 102/66; PULSE 71; RESP 15; TEMP 36.4; O2SAT 96; BMI 36.8
--- NOTE | 2024-06-26 10:47 | RAD_ITS ---
STUDY: X-RAY CHEST REASON FOR EXAM: Female, 53 years old. Chest pain TECHNIQUE: Frontal and lateral views of the chest COMPARISON: 12/03/2022 FINDINGS: The lungs are clear. There are no pleural effusions. There is no pneumothorax. The heart is normal in size. The visualized osseous structures are within normal limits. RAD/Chest PA and Lateral IMPRESSION: No acute thoracic pathology. Electronically Signed: Fabian Jacinto MD at 11:18 EDT ,
--- NOTE | 2024-06-26 10:50 | EDS_ITS ---
HPI History of Present Illness Chief Complaint: Chest Pain Informant: patient Narrative Narrative: Waxing waning pain across her chest for last 2 days. Intermittent dullness with sharp sensations. Yesterday pain down her left arm and neck region. Had intermittent dyspnea and nausea and sweats. States feels similar when she had her DC a couple years ago. Initially admitted here catheterization had multivessel disease she was transferred up to [facility]. She did not have a bypass however did have sick stents placed. She states symptoms are now mild dull in the chest of 3. She did not take any medications. She called her bi consultant office today Dr. Burt, spoke to nursing. She was sent to the ED for evaluation. Denies recent cough. Hypertension, diabetes, hyperlipidemia. Remote tobacco quit after last DC. Denies family history of MIs at young age. Denies recent surgeries, travel, immobilizations. No history of PE or DVT. Prior Similar Symptoms: Yes and With Prior DC CVD Risk Factors: Positive for Hypertension, Diabetes and Hypercholesterolemia; Negative for Family History 1' </=55 or Smoking (Quit 2 years ago) PE Risk Factors: Positive for Recent Travel/Surgery, Recent Immobilization and Prior DVT or PE [facility] Medical History Normal echocardiogram CAD (coronary artery disease), [place] coronary artery Hypercholesterolemia Diabetes Diabetes type 2, uncontrolled Small kidney, unilateral Hyperlipidemia Obstructive sleep apnea Dyspnea on exertion Thyroid mass Home Medications ?Medication ?Instructions ?Recorded ?Last Taken ?Type levonorgestrel 21 mcg/24 hr (up to 1 insert intrauterine ONCE 06/13/18 Unknown History 8 years) 52 mg intrauterine device CONTROL (Mirena) blood sugar diagnostic (OneTouch #50 ea 04/08/23 Unknown Rx Verio test strips) lancets 33 gauge (OneTouch Delica #100 ea 04/08/23 Unknown Rx Plus Lancet) tirzepatide 5 mg/0.5 mL 5 mg subcut QWEEK 05/11/23 Unknown History subcutaneous pen injector (Sharmin) amlodipine 2.5 mg tablet (Norvasc) 2.5 mg PO DAILY #90 tabs 08/25/23 Unknown Rx atorvastatin 80 mg tablet 80 mg PO DAILY #90 tabs 08/25/23 Unknown Rx cholecalciferol (vitamin D3) 125 125 mcg PO DAILY 08/25/23 Unknown History mcg (5,000 unit) capsule nitroglycerin 0.4 mg sublingual 0.4 mg sublingual Q5-15M PRN chest 08/25/23 Unknown Rx tablet (Nitrostat) pain #25 tabs empagliflozin 10 mg tablet 10 mg PO DAILY 11/17/23 Unknown History (Jardiance) famotidine 40 mg tablet See Rx Instructions .Route 12/13/23 Unknown Rx .COMPLEX #90 TABLETS metoprolol succinate 25 mg See Rx Instructions .Route 01/06/24 Unknown Rx tablet,extended release 24 hr .COMPLEX #90 tabs evolocumab 140 mg/mL subcutaneous 140 mg subcut Q2W PA has been 01/17/24 Unknown Rx pen injector (Repatha Lisaick) APPROVED 12/08/2023 #2 mL isosorbide mononitrate 30 mg 30 mg PO DAILY #90 TABLETS 02/20/24 Unknown Rx tablet,extended release 24 hr aspirin 81 mg tablet,delayed 81 mg PO DAILY #90 tabs 02/28/24 Unknown Rx release ticagrelor 90 mg tablet (Brilinta) 90 mg PO BID #180 tabs 02/28/24 Unknown Rx ciprofloxacin HCl 500 mg tablet 500 mg PO BID #14 tabs 06/01/24 Unknown Rx (Cipro) tirzepatide 12.5 mg/0.5 mL 12.5 mg subcut QWEEK 06/01/24 Unknown History subcutaneous pen injector ranolazine 1,000 mg 1,000 mg PO BID #180 TABLETS 06/06/24 Unknown Rx tablet,extended release,12 hr Allergy/AdvReac Type Severity Reaction Status Date / Time No Known Allergies Allergy Verified 06/26/24 10:11 Family History Mother Ovarian cancer Grandmother Thyroid disorder Arrhythmia Grandfather Thyroid disorder had thyroid removed for cancer Uncle Thyroid disorder Aunt Thyroid disorder thyroid cancer and had removed Brother Hypertension Surgical History H/O left heart catheterization by ventricular puncture History of heart artery stent History of cholecystectomy Social History Smoking Status: Former smoker ROS ROS ED Constitutional Constitutional ED: Denies chills, fever(s) or sweats Eyes Eyes: Denies change in vision ENT ENT ED: Denies dysphagia or sore throat Cardiovascular Cardiovascular: Reports chest pain; Denies leg edema, palpitations or racing heartbeat Respiratory/Chest Respiratory/Chest: Denies cough, dyspnea or dyspnea on exertion Gastrointestinal Gastrointestinal: Denies abdominal pain, diarrhea, nausea or vomiting Genitourinary Genitourinary ED: Denies dysuria, hematuria or urinary frequency Musculoskeletal Musculoskeletal: Denies back pain, extremity pain or neck pain Integumentary Denies rash or wounds Neurologic Neurologic: Denies headache(s), paresthesias or weakness EXAM Physical Exam Const Vital Signs: 06/26/24 10:12 06/26/24 10:49 06/26/24 11:11 Temperature 97.6 F L Temperature Source Temporal Pulse Rate 71 67 Respiratory Rate 15 19 H Blood Pressure 102/66 101/68 Blood Pressure Mean 78 79 Pulse Ox 96 97 Oxygen Delivery Method Room Air Room Air Room Air Positive well nourished and well developed General Appearance ED: well developed and NAD HEENT Reports moist mucous membranes normocephalic and atraumatic Eyes EOMs intact bilaterally and conjunctivae normal General Eye ED: Yes normal appearance of both eyes Neck no lymphadenopathy and supple General: Negative for tenderness Chest Wall Chest: Negative for tenderness Resp normal respiratory effort and normal air movement Effort and Inspection: symmetric chest movement; Negative for respiratory distress Cardio regular rate, regular rhythm and no murmurs Peripheral Pulses: pulses 2+ throughout GI normal to inspection, nondistended, normoactive bowel sounds and non-tender Palpation: Negative for guarding or rebound tenderness present Back/Spine no CVA tenderness and no thoracic nor lumbar tenderness Extremity normal to inspection General Extremety ED: Negative for edema or tenderness General Extremity: Negative for edema Neuro oriented x3 and no sensory deficits noted Sensorium / Orientation: awake and alert Skin no rashes or lesions noted and no wounds MDM MDM MDM Narrative Medical decision making narrative: Interventions / MDM: Differential diagnosis: Diagnosis considered but do not suspect: N/A My EKG interpretation: Sinus rate of 70, no ST changes isolated T wave inversion leads III. Nonspecific. Imaging independently reviewed and interpreted by myself: 2 view chest x-ray: No acute process. External documents reviewed: Cardiac cath November 2022 of multivessel disease. Transferred to [facility] at that time for intervention treatment. Test considered but not ordered:N/A ED course: Patient presented with chest pains waxing waning for 2 days. Currently 3 out of 10. Current blood pressure in the room started 105. Give aspirin cardiac workup performed. Will hold off on nitro at this time as her blood pressure is soft and she is in no acute distress. 1135: Patient still dull pain 3 out of 10. Initial troponin is negative. Labs are stable. Two-view chest x-ray shows no acute process. I will discuss with cardiology service with her cardiac history. Re-evaluation: stable Disposition discussed with patient/family/significant other: Case discussed with consulting clinician: N/A This note was generated with [employer] dictation software. It may contain incorrect words, spelling, and punctuation that were not noted in checking the note before signing. Lab Data Attestation: I reviewed the patient's lab results. Labs: Laboratory Results - last 24 hr 06/26/24 10:27 WBC 9.9 RBC 4.16 L Hgb 13.0 Hct 39.9 MCV 95.9 MCH 31.3 MCHC 32.6 RDW Std Deviation 46.1 H RDW Coeff of Lakesha 13.2 Plt Count 318 MPV 9.1 Immature Gran % (Auto) 0.400 Neut % (Auto) 66.5 Lymph % (Auto) 24.7 [place] % (Auto) 6.6 Eos % (Auto) 1.5 Baso % (Auto) 0.3 Absolute Neuts (auto) 6.6 Absolute Lymphs (auto) 2.43 Nucleated RBC % 0 Sodium 139 Potassium 3.9 Chloride 107 Carbon Dioxide 25.0 Anion Gap 7 BUN 13 Creatinine 0.78 Estim Creat Clear Calc 98.02 Est GFR (MDRD) Af Amer 100 Est GFR (MDRD) Non-Af 82 BUN/Creatinine Ratio 16.8 Glucose 123 H Calcium 9.3 Troponin I High Sens 4 Radiography Diagnostic Testing: Clinical Impression(s) from Imaging Studies Chest X-Ray 06/26/24 10:47 IMPRESSION: No acute thoracic pathology. Electronically Signed: Fabian Jacinto MD at 11:18 EDT , Discharge Plan Triage Chief Complaint: Chest Pain ED Provider: Kevin Schneider Dx/Rx/DC Orders Prescriptions: No Action levonorgestrel [Mirena] 20 mcg/24 hr (5 years) intrauterine device 1 insert Intrauterine ONCE Mounjaro 5 mg/0.5 mL pen injector 5 mg subcut QWEEK cholecalciferol (vitamin D3) 125 mcg (5,000 unit) capsule 125 mcg PO DAILY atorvastatin 80 mg tablet 80 mg PO DAILY Qty: 90 4RF amlodipine [Norvasc] 2.5 mg tablet 2.5 mg PO DAILY Qty: 90 3RF nitroglycerin [Nitrostat] 0.4 mg tablet, sublingual 0.4 mg sublingual Q5-15M PRN (Reason: chest pain) Qty: 25 3RF Rx Instructions: do not exceed 3 doses per episode Jardiance 10 mg tablet 10 mg PO DAILY ciprofloxacin HCl [Cipro] 500 mg tablet 500 mg PO BID Qty: 14 0RF tirzepatide 12.5 mg/0.5 mL pen injector 12.5 mg subcut QWEEK (DME) OneTouch Verio test strips Strip See Rx Instructions .Route Qty: 50 12RF Rx Instructions: 2 x a day (DME) lancets [OneTouch Delica Plus Lancet] 33 gauge misc See Rx Instructions .Route Qty: 100 12RF Rx Instructions: for testing 2 x a day famotidine 40 mg tablet See Rx Instructions .ROUTE .COMPLEX Qty: 90 3RF Dose Instruction: TAKE 1 TABLET BY MOUTH EVERY DAY Rx Instructions: TAKE 1 TABLET BY MOUTH EVERY DAY metoprolol succinate 25 mg tablet extended release 24 hr See Rx Instructions .ROUTE .COMPLEX Qty: 90 3RF Dose Instruction: TAKE 1 TABLET BY MOUTH EVERY DAY Rx Instructions: TAKE 1 TABLET BY MOUTH EVERY DAY Repatha SureClick 140 mg/mL pen injector 140 mg subcut Q2W Qty: 2 11RF isosorbide mononitrate 30 mg tablet extended release 24 hr 30 mg PO DAILY Qty: 90 3RF aspirin 81 mg tablet,delayed release (DR/EC) 81 mg PO DAILY Qty: 90 4RF Brilinta 90 mg tablet 90 mg PO BID Qty: 180 4RF ranolazine 1,000 mg tablet extended release 12 hr 1,000 mg PO BID Qty: 180 3RF Primary Care Provider: Holly Kurtz NP Referrals: Kurtz,Holly POLYSOMNOGRAPH TECH, POLYSOMNOGRAPH TECH-C [Primary Care Provider] - Print Language: Ukrainian
[2024-06-26 10:53] LABS: Absolute Lymphocyte Count 2.43 X10^3/uL (0.83-4.51); Absolute Neutrophil Count 6.6 X10^3/uL (2.0-7.7); Basophil# 0.03 X10^3/uL; Basophil% 0.3 % (0-1); Eosinophil# 0.15 X10^3/uL; Eosinophils% 1.5 % (0-5); Hematocrit 39.9 % (37-47); Lymphocyte # 2.43 X10^3/ul (0.83-4.51); Lymphocyte % 24.7 % (19-41); Mean Corp Hgb Conc 32.6 g/dL (32-36); Mean Corpuscular Hgb 31.3 pg (27.0-32.0); Mean Corpuscular Volume 95.9 fL (81-99); Mean Platelet Vol. 9.1 fl (6.2-12.0); Monocyte# 0.65 X10^3/uL; Monocyte% 6.6 % (0-10); NRBC Flagged by Analyzer 0 % (0-5); Neutrophil # 6.55 X10^3/uL (2.7-7.7); Neutrophil % 66.5 % (47-70); Platelet Count 318 K/mm3 (150-450); RBC Distribution Width CV 13.2 % (11.6-14.6); RBC Distribution Width SD 46.1 fl (35.1-43.9); Red Blood Count 4.16 M/mm3 (4.2-5.4); White Blood Count 9.9 K/mm3 (4.4-11.0)
[2024-06-26 11:11] VITALS: BP 101/68; PULSE 67; RESP 19; O2SAT 97
[2024-06-26] MEDS: Aspirin 81 MG TAB.CHEW 324 MG PO (11:11)
[2024-06-26 11:26] LABS: Anion Gap 7 (5-15); BUN 13 mg/dL (7-18); BUN/Creat Ratio 16.8 RATIO (10-20); Calcium,Total 9.3 mg/dL (8.5-10.1); Chloride 107 mmol/L (98-107); Creatinine, Serum 0.78 mg/dL (0.55-1.02); EST Glomerular Filtration Rate 82 mL/min (>60); Est Glom Filt Rate - Afr Amer 100 mL/min (>60); Estimated Creatinine Clearance 98.02 ml/min; Glucose 123 mg/dL (74-106); Potassium 3.9 mmol/L (3.5-5.1); Sodium Level 139 mmol/L (136-145); Troponin-I HS (w/2H Reflex) 4 pg/mL (3.0-54.0)
[2024-06-26 12:00] VITALS: BP 95/51; PULSE 65; RESP 16; O2SAT 100
[2024-06-26 12:49] LABS: Reflex Troponin-HS? (from REC) Y
[2024-06-26 13:00] VITALS: BP 106/63; PULSE 73; RESP 15; O2SAT 98
[2024-06-26 13:07] LABS: Troponin-I HS 3 pg/mL (3.0-54.0)
--- NOTE | 2024-06-26 13:16 | NURSING ---
[employer]
[2024-06-26 13:19] VITALS: BP 106/61; PULSE 81; RESP 17; O2SAT 97
--- NOTE | 2024-06-26 13:25 | PCM.CONS.C ---
Assessment & Plan Assessment/Plan (1) ACS (acute coronary syndrome): PLAN: She presents with chest discomfort and has no EKG changes or troponin elevation. Will continue aspirin Continue beta-rich Start high intensity statin She was brought to the catheterization lab from the ED and it demonstrated the following: Normal left main coronary artery. Left anterior descending artery with the previously placed stents noted to be patent. Left circumflex artery with diffuse atherosclerosis and the inferior branch of the first obtuse marginal branch with 60 to 70% stenosis. Dominant right coronary artery previously stented and noted to be patent. Based on the above and graphic findings she will continue with aggressive medical therapy and increasing her amlodipine to 2.5 mg twice a day. She will be discharged from the [facility]. (2) Hyperlipidemia: QUALIFIERS: Hyperlipidemia type: mixed hyperlipidemia Qualified Code(s): E78.2 - Mixed hyperlipidemia PLAN: Continue aggressive risk factor modification Thank you for allowing me to participate in the care of your patient. Please don't hesitate to call if any issues arise. HPI Consult Data Date of Consult: 06/26/24 HPI Narrative HPI Narrative: МАРИНА NANCE, is a 53 F who presents to the emergency room after complaining of chest discomfort which she says is similar to the previous discomfort that she had when she had a non-ST elevation myocardial infarction and underwent PCI. She was seen in the emergency room EKG demonstrated no acute changes and cardiac enzymes were negative. However due to her persistent complaints cardiology was called for further evaluation and management. She did have an stress echocardiogram done in 2019 which was a normal adequate treadmill stress echocardiogram.? It was negative for ischemia by EKG and echocardiogram criteria.? She presented to [facility] on 12/04/2022 with chest tightness.? Her cardiac enzymes were noted to be elevated.?She did undergo a diagnostic heart catheterization on 12/06/2022.? She was noted to have triple-vessel disease involving the LAD, circumflex and RCA with a low normal ejection fraction.? She was transferred ostensibly for coronary bypass surgery but instead underwent angioplasty and stenting of the LAD and right coronary artery. She underwent cardiac rehabilitation. She had undergone proximal and mid LAD stenting using 3 overlapping stents and PCI through the ostium into the distal RCA and the right posterior descending artery with 3 overlapping stents. The proximal RCA was also stented due to guide dissection. Residual disease was noted and a small inferior branch of the obtuse marginal vessel. [facility] Medical History Normal echocardiogram CAD (coronary artery disease), [place] coronary artery Hypercholesterolemia Diabetes Diabetes type 2, uncontrolled Small kidney, unilateral Hyperlipidemia Obstructive sleep apnea Dyspnea on exertion Thyroid mass Home Medications ?Medication ?Instructions ?Recorded ?Last Taken ?Type levonorgestrel 21 mcg/24 hr (up to 1 insert intrauterine ONCE 06/13/18 Unknown History 8 years) 52 mg intrauterine device CONTROL (Mirena) blood sugar diagnostic (OneTouch #50 ea 04/08/23 Unknown Rx Verio test strips) lancets 33 gauge (bideo.comTouch Delica #100 ea 04/08/23 Unknown Rx Plus Lancet) tirzepatide 5 mg/0.5 mL 5 mg subcut QWEEK 05/11/23 Unknown History subcutaneous pen injector (Sharmin) amlodipine 2.5 mg tablet (Norvasc) 2.5 mg PO DAILY #90 tabs 08/25/23 Unknown Rx atorvastatin 80 mg tablet 80 mg PO DAILY #90 tabs 08/25/23 Unknown Rx cholecalciferol (vitamin D3) 125 125 mcg PO DAILY 08/25/23 Unknown History mcg (5,000 unit) capsule nitroglycerin 0.4 mg sublingual 0.4 mg sublingual Q5-15M PRN chest 08/25/23 Unknown Rx tablet (Nitrostat) pain #25 tabs empagliflozin 10 mg tablet 10 mg PO DAILY 11/17/23 Unknown History (Jardiance) famotidine 40 mg tablet See Rx Instructions .Route 12/13/23 Unknown Rx .COMPLEX #90 TABLETS metoprolol succinate 25 mg See Rx Instructions .Route 01/06/24 Unknown Rx tablet,extended release 24 hr .COMPLEX #90 tabs evolocumab 140 mg/mL subcutaneous 140 mg subcut Q2W PA has been 01/17/24 Unknown Rx pen injector (Ran Nassar) APPROVED 12/08/2023 #2 mL isosorbide mononitrate 30 mg 30 mg PO DAILY #90 TABLETS 02/20/24 Unknown Rx tablet,extended release 24 hr aspirin 81 mg tablet,delayed 81 mg PO DAILY #90 tabs 02/28/24 Unknown Rx release ticagrelor 90 mg tablet (Brilinta) 90 mg PO BID #180 tabs 02/28/24 Unknown Rx ciprofloxacin HCl 500 mg tablet 500 mg PO BID #14 tabs 06/01/24 Unknown Rx (Cipro) tirzepatide 12.5 mg/0.5 mL 12.5 mg subcut QWEEK 06/01/24 Unknown History subcutaneous pen injector ranolazine 1,000 mg 1,000 mg PO BID #180 TABLETS 06/06/24 Unknown Rx tablet,extended release,12 hr Allergy/AdvReac Type Severity Reaction Status Date / Time No Known Allergies Allergy Verified 06/26/24 10:11 Family History Mother Ovarian cancer Grandmother Thyroid disorder Arrhythmia Grandfather Thyroid disorder had thyroid removed for cancer Uncle Thyroid disorder Aunt Thyroid disorder thyroid cancer and had removed Brother Hypertension Surgical History H/O left heart catheterization by ventricular puncture History of heart artery stent History of cholecystectomy Social History Smoking Status: Former smoker ROS Constitutional Constitutional: Denies fever(s) or weight loss Eyes Eyes: Reports systems reviewed and no addt'l complaints, except as documented ENT HEENT: Reports systems reviewed and no addt'l complaints, except as documented Cardiovascular Cardiovascular: Reports chest pain at rest and chest pain with activity; Denies dyspnea at rest, dyspnea on exertion, edema, palpitations or paroxysmal nocturnal dyspnea Respiratory/Chest Respiratory/Chest: Denies dyspnea on exertion, productive cough, shortness of breath at rest or shortness of breath with exertion Gastrointestinal Gastrointestinal: Denies change in bowel habits, nausea, vomiting or weight changes Genitourinary Genitourinary: Denies difficulty urinating Musculoskeletal Musculoskeletal: Denies joint stiffness or muscle weakness Integumentary Integumentary: Denies lesions Neurologic Neurologic: Denies dizziness or syncope Psychiatric Psychiatric: Denies anxiety Endocrine Endocrinology: Denies excessive sweating or fatigue Hematologic/Lymphatic Hematologic/Lymphatic: Denies anemia Allergic/Immunologic Allergic/Immunologic: Denies seasonal rhinorrhea Physical Exam Const alert, oriented x3 and no apparent distress General Appearance: cooperative HEENT hearing grossly normal bilaterally Head and Scalp: atraumatic Eyes EOMs intact bilaterally Neck General: normal visual inspection Chest inspection of chest normal and palpation of chest normal Resp normal respiratory effort Auscultation: clear to auscultation bilaterally Cardio regular rate, regular rhythm, S1 normal heart sound and S2 normal heart sound Jugular Venous Distention: JVD GI normal to inspection, nondistended, normoactive bowel sounds Extremity normal capillary refill and no pedal edema Peripheral Pulses: Yes pulses 2+ throughout and femoral pulses present Skin no rashes or lesions noted Neuro oriented x3 and CN's II-XII intact bilaterally Psych Appearance: grossly normal and appropriate Risk Stratification Risk Stratification Applicable: Yes Age >/= 65: No >/= 3 CAD Risk Factors (HTN, HLD, DM, family hx of CAD, or current smoker): Yes Aspirin Use in the Past 7 Days: Yes Severe Angina (>/= episodes in 24 hours): No EKG ST Changes >/= 0.5mm: No Positive Cardiac Marker: No ALBERT Risk Stratification Score: 2 ALBERT % Risk: 8% Risk Objective Data Vital Signs: Vital Signs Temp Pulse Resp BP Pulse Ox O2 Del Method 97.6 F L 81 17 106/61 97 Room Air 06/26/24 10:12 06/26/24 13:19 06/26/24 13:19 06/26/24 13:19 06/26/24 13:19 06/26/24 13:19 Oxygen Delivery Method Room Air Weight: 221 lb 12.8 oz Body Mass Index (BMI) 36.8 Lab / Micro Data 06/26/24 10:27 06/26/24 10:27 Labs: Laboratory Results - last 24 hr 06/26/24 10:27: WBC 9.9, RBC 4.16 L, Hgb 13.0, Hct 39.9, MCV 95.9, MCH 31.3, MCHC 32.6, RDW Std Deviation 46.1 H, RDW Coeff of Lakesha 13.2, Plt Count 318, MPV 9.1, Immature Gran % (Auto) 0.400, Neut % (Auto) 66.5, Lymph % (Auto) 24.7, [place] % (Auto) 6.6, Eos % (Auto) 1.5, Baso % (Auto) 0.3, Absolute Neuts (auto) 6.6, Absolute Lymphs (auto) 2.43, Nucleated RBC % 0, Sodium 139, Potassium 3.9, Chloride 107, Carbon Dioxide 25.0, Anion Gap 7, BUN 13, Creatinine 0.78, Estim Creat Clear Calc 98.02, Est GFR (MDRD) Af Amer 100, Est GFR (MDRD) Non-Af 82, BUN/Creatinine Ratio 16.8, Glucose 123 H, Calcium 9.3, Troponin I High Sens 4 06/26/24 12:27: Troponin I High Sens 3 Cardiology Labs/Tests 06/26/24 10:27: WBC 9.9, RBC 4.16 L, Hgb 13.0, Hct 39.9, MCV 95.9, MCH 31.3, MCHC 32.6, Plt Count 318, MPV 9.1, Immature Gran % (Auto) 0.400, Neut % (Auto) 66.5, Lymph % (Auto) 24.7, [place] % (Auto) 6.6, Eos % (Auto) 1.5, Baso % (Auto) 0.3, Absolute Neuts (auto) 6.6, Nucleated RBC % 0, Sodium 139, Potassium 3.9, Chloride 107, Carbon Dioxide 25.0, Anion Gap 7, BUN 13, Creatinine 0.78, Est GFR (MDRD) Af Amer 100, Est GFR (MDRD) Non-Af 82, BUN/Creatinine Ratio 16.8, Glucose 123 H, Calcium 9.3 Rhythm: EKG: ECHO: Stress Test: Cardiac Cath: PCI: CT Surgery: Holter monitor: EPS: PPM: CXR: Chest CT Scan: Radiography Diagnostic Testing: Radiology Impression Chest X-Ray 06/26/24 10:47 IMPRESSION: No acute thoracic pathology. Electronically Signed: Fabian Jacinto MD at 11:18 EDT ,
[2024-06-26 14:10] VITALS: BP 106/61; PULSE 78; RESP 16; TEMP 36.6; O2SAT 100
--- NOTE | 2024-06-26 18:47 | CL.D_ITS ---
Patient Name: МАРИНА NANCE Study Date: 06/26/2024 Performing: Ronak Burt MD Ht: 65 inches 165.1 cm : 1970 Wt: 222.1 lbs 100.61 kg Age: 53 Gender: female BSA: 2.07 PROCEDURE(S) PERFORMED [id number])[facility] CLINICAL PROFILE AND INDICATIONS Indications: Worsening Angina Heart Failure: None Stress/Imaging Stress/Image Study Performed: No CAD Presentations: Symptom unlikely to be ischemic. CONCLUSIONS Patent stent placed in the proximal mid and distal right coronary artery, and proximal and mid left anterior descending artery. 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 RECOMMENDATIONS [facility] medical therapy. DESCRIPTION OF PROCEDURE The patient arrived to the procedure lab. The risks and benefits of the procedure as well as a full description of our services here and current unavailability of surgical backup were fully explained to the patient and/or their significant other prior to the catheterization. The Timeout was completed, verifying the correct patient and procedure. The patient's procedural site was prepped and draped in the usual fashion. Local anesthetic was given subcutaneously to right radial region with Lidocaine 2%. Using a modified Seldinger technique, arterial access was obtained via the right ulner artery, a 6Fr sheath was inserted. Right Coronary Artery selective angiography was then performed in multiple views using a 5 Fr. 4.0 [place] catheter. Left Coronary Artery selective angiography was performed in multiple views using a 5 Fr. JL3 catheter.The arterial sheath was pulled and a TR Band was applied for hemostasis. 12cc air CORONARY ANGIOGRAPHY DOMINANCE: Right Dominant LEFT HEART ASSESSMENT Left Ventricular Ejection Fraction: Not assessed LEFT MAIN: Angiographically normal LEFT ANTERIOR DESCENDING ARTERY: Diffusely stented vessel from proximal to mid segment with minimal in-stent stenosis and mild diffuse disease noted distally. CIRCUMFLEX ARTERY: Nondominant left circumflex artery with first obtuse marginal branch which bifurcates with the lower branch having a 60 to 70% stenosis. The AV groove branch has mild diffuse disease. RIGHT CORONARY ARTERY: Dominant right coronary artery previously stented with patent stents noted in the proximal mid and distal segments. COMPLICATIONS No Complications PROCEDURE MEDICATIONS Fentanyl 50 mcg IV Versed 1 mg IV Versed 1 mg IV Fentanyl 25 mcg IV Oxygen: 2 L/min via nasal cannula Heparin given IA 06/26/2024 13:39:08 Verapamil 2.5mg, Ntg 100mcgs, 3000 units of Heparin given IA 06/26/2024 13:39:08 SUMMARY OF HEMODYNAMIC DATA Time AIR REST ECG 13:26:05 AO 89/60 (74) SA 13:41:46 AO 96/65 (80) 13:49:24 Signed By Ronak Burt MD On 06/26/2024 18:46:34 Ronak Burt MD
== END 2024-06-26 16:00 | disposition home or self-care (01) ==
LOC: ED 11:19 → CLSP 13:17
PROVIDERS: Emergency Provider Emergency Medicine; PCP Nurse Practitioner; Visit Provider Internal Medicine Cardiovascular Disease
DX: I25.119 Atherosclerotic heart disease of native coronary artery with unspecified angina pectoris (principal); E11.9 Type 2 diabetes mellitus without complications; I10 Essential (primary) hypertension; E78.2 Mixed hyperlipidemia; G47.33 Obstructive sleep apnea (adult) (pediatric); I25.2 Old myocardial infarction; Z79.02 Long term (current) use of antithrombotics/antiplatelets; Z79.82 Long term (current) use of aspirin; Z79.84 Long term (current) use of oral hypoglycemic drugs; Z79.85 Long-term (current) use of injectable non-insulin antidiabetic drugs; Z87.891 Personal history of nicotine dependence; Z95.5 Presence of coronary angioplasty implant and graft
CPT/HCPCS: 71046; 80048; 84484; 85025; 93005; 93454; 99152; 99153; 99282; J7040; Q9967; A4216; C1769; C1894

== ENCOUNTER → 2024-06-28 | Outpatient (CLI) | payer OTHER, SELFPAY ==
[2023-05-25 08:33] VITALS: BMI 36.5
[2024-06-28 11:30] LABS: ALB/GLOB Ratio 0.9 RATIO (0.9-2.4); AST(SGOT) 20 U/L (15-37); Alanine Aminotransfer ALT/SGPT 38 U/L (13-56); Albumin, Serum 3.8 g/dL (3.2-5.0); Alkaline Phosphatase 118 U/L (45-117); Anion Gap 7 (5-15); BUN 11 mg/dL (7-18); BUN/Creat Ratio 13.1 RATIO (10-20); Chloride 105 mmol/L (98-107); Cholesterol 100 mg/dL (200); Creatinine, Serum 0.84 mg/dL (0.55-1.02); EST Glomerular Filtration Rate 75 mL/min (>60); Est Glom Filt Rate - Afr Amer 91 mL/min (>60); Globulin 4.1 g/dL (2.2-4.2); Glucose 113 mg/dL (74-106); High Density Lipoprotein 53 mg/dL; Potassium 4.3 mmol/L (3.5-5.1); Protein, Total 7.9 g/dL (6.4-8.2); Sodium Level 138 mmol/L (136-145); Triglycerides 140 mg/dL; Very Low Density Lipoprotein 28 mg/dL (5-40)
[2024-06-28 13:34] LABS: Vitamin D,25 Hydroxy 54.7 ng/mL
== END | disposition home or self-care (01) ==
LOC: LAB 09:18
PROVIDERS: PCP Nurse Practitioner; Referring Provider Internal Medicine Endocrinology, Diabetes & Metabolism; Visit Provider Internal Medicine Endocrinology, Diabetes & Metabolism
DX: E11.65 Type 2 diabetes mellitus with hyperglycemia (principal); E78.5 Hyperlipidemia, unspecified; I25.10 Atherosclerotic heart disease of native coronary artery without angina pectoris; E55.9 Vitamin D deficiency, unspecified; E04.1 Nontoxic single thyroid nodule
CPT/HCPCS: 36415; 80053; 80061; 82306; 83036; 84443; 84481

== ENCOUNTER → 2024-11-20 | Outpatient (CLI) | payer OTHER, SELFPAY ==
[2023-05-25 08:33] VITALS: BMI 36.5
[2024-11-20 08:36] LABS: Hemoglobin A1c 5.2 % (3.8-5.6)
[2024-11-20 08:38] LABS: AST(SGOT) 22 U/L (15-37); Alanine Aminotransfer ALT/SGPT 58 U/L (13-56); Alkaline Phosphatase 128 U/L (45-117); Anion Gap 8 (5-15); BUN 15 mg/dL (7-18); BUN/Creat Ratio 15.1 RATIO (10-20); Calcium,Total 9.3 mg/dL (8.5-10.1); Chloride 109 mmol/L (98-107); Cholesterol 98 mg/dL (200); Creatinine, Serum 0.99 mg/dL (0.55-1.02); EST Glomerular Filtration Rate 62 mL/min (>60); Est Glom Filt Rate - Afr Amer 75 mL/min (>60); Globulin 4.1 g/dL (2.2-4.2); Glucose 116 mg/dL (74-106); High Density Lipoprotein 53 mg/dL; Protein, Total 8.1 g/dL (6.4-8.2); Sodium Level 140 mmol/L (136-145); T4 Free Direct 1.11 ng/dL (0.76-1.46); Triglycerides 110 mg/dL; Very Low Density Lipoprotein 22 mg/dL (5-40)
[2024-11-20 10:12] LABS: Microalbumin:Creatinine Ratio 9.1 mg/g CRE (<30 mg/g CRE)
== END | disposition home or self-care (01) ==
LOC: LAB 07:39
PROVIDERS: PCP Nurse Practitioner; Referring Provider Internal Medicine Endocrinology, Diabetes & Metabolism; Visit Provider Internal Medicine Endocrinology, Diabetes & Metabolism
DX: I25.10 Atherosclerotic heart disease of native coronary artery without angina pectoris (principal); E11.65 Type 2 diabetes mellitus with hyperglycemia; E78.5 Hyperlipidemia, unspecified; E04.1 Nontoxic single thyroid nodule; G47.33 Obstructive sleep apnea (adult) (pediatric)
CPT/HCPCS: 36415; 80053; 80061; 82043; 82570; 83036; 84439; 84443

== ENCOUNTER → 2024-12-13 | Outpatient (CLI) | payer OTHER, SELFPAY ==
[2023-05-25 08:33] VITALS: BMI 36.5
--- NOTE | 2024-12-13 15:29 | US_ITS ---
PROCEDURE: THYROID REASON FOR EXAM: THYROID NODULE TECHNIQUE: Routine grayscale and color flow imaging of the thyroid gland with routine image documentation. COMPARISON: No relevant prior FINDINGS: Right thyroid lobe measures 5.3 x 3.0 x 2.2 cm.. Left thyroid lobe measures 4.6 x 1.9 x 1.9 cm.. Isthmus thickness is0.4 cm.. Thyroid Size: Normal Background Echotexture: Heterogeneous. Thyroid Nodules: Bilateral. Right: Superior pole, 0.6 x 0.6 x 2.5 the cm, mixed cystic and solid, hypoechoic, wider than tall, no calcifications, TR 3. Mid pole, predominantly solid, 2.3 x 1.9 x 1.7 cm, isoechoic, wider than tall, no calcifications, TR 2. Inferior pole, mixed cystic and solid, 1.2 x 1.1 x 0.8 cm, isoechoic, wider than tall, no calcifications, TR 2. Inferior pole, predominantly solid, 1.4 x 1.7 x 1.4 cm, isoechoic, wider than tall, no calcifications, TR 2. Left: Superior pole, solid, 0.4 x 0.4 x 0.3 cm, hypoechoic, wider than tall, no calcifications, TR 4. Inferior pole, solid, 0.5 x 0.4 x 0.4 cm, hypoechoic, wider than tall, no calcifications, TR 4. Inferior pole, solid, 0.5 x 0.6 x 0.4 cm, hypoechoic, wider than tall, no calcifications, TR 4. US/Thyroid IMPRESSION: 1. Heterogeneous thyroid gland. 2. TR 3 and TR 2 category nodules in the right thyroid lobe. No FNA warranted . 3. TR 4 category micro nodules in the left thyroid lobe. No FNA warranted. 4. Follow-up ultrasound recommended in 12 months for surveillance. Reading Location: [facility]
== END | disposition home or self-care (01) ==
LOC: US 15:27
PROVIDERS: PCP Nurse Practitioner; Referring Provider Internal Medicine Endocrinology, Diabetes & Metabolism; Visit Provider Internal Medicine Endocrinology, Diabetes & Metabolism
DX: E04.1 Nontoxic single thyroid nodule (principal); E11.65 Type 2 diabetes mellitus with hyperglycemia; I25.10 Atherosclerotic heart disease of native coronary artery without angina pectoris; E78.5 Hyperlipidemia, unspecified; G47.33 Obstructive sleep apnea (adult) (pediatric)
CPT/HCPCS: 76536

== ENCOUNTER → 2025-04-01 | Outpatient (CLI) | payer OTHER, SELFPAY ==
[2023-05-25 08:33] VITALS: BMI 36.5
[2025-04-01 09:04] LABS: Microalbumin,Random Urine 13.8 mg/L (NO RANGE EST.); Microalbumin:Creatinine Ratio 49.8 mg/g CRE
[2025-04-01 09:29] LABS: ALB/GLOB Ratio 1.4 RATIO (0.9-2.4); AST(SGOT) 19 U/L (<=31); Alanine Aminotransfer ALT/SGPT 20 U/L (<=34); Albumin, Serum 4.3 g/dL (3.5-5.0); Alkaline Phosphatase 109 U/L (35-104); Anion Gap 11 (5-15); BUN 13 mg/dL (4-19); Calcium,Total 9.4 mg/dL (7.6-11.0); Carbon Dioxide 23.1 mmol/L (21.0-32.0); Chloride 107 mmol/L (98-108); Creatinine, Serum 0.92 mg/dL (0.70-1.20); EST Glomerular Filtration Rate 74 (>60); Globulin 3.1 g/dL (2.2-4.2); Glucose 112 mg/dL (70-99); Hemoglobin A1c 5.3 % (<=5.6); Potassium 4.3 mmol/L (3.3-5.1); Protein, Total 7.4 g/dL (5.9-8.4); Sodium Level 141 mmol/L (133-145); Total Bilirubin 0.28 mg/dL (0.00-1.30)
[2025-04-01 09:31] LABS: Free T3 2.7 pg/mL (2.18-3.98); Vitamin D,25 Hydroxy 41.2 ng/mL (30-100)
== END | disposition home or self-care (01) ==
LOC: LAB 07:43
PROVIDERS: PCP Nurse Practitioner; Referring Provider Internal Medicine Endocrinology, Diabetes & Metabolism; Visit Provider Internal Medicine Endocrinology, Diabetes & Metabolism
DX: E11.65 Type 2 diabetes mellitus with hyperglycemia (principal); E78.5 Hyperlipidemia, unspecified; I25.10 Atherosclerotic heart disease of native coronary artery without angina pectoris; E04.1 Nontoxic single thyroid nodule; G47.33 Obstructive sleep apnea (adult) (pediatric)
CPT/HCPCS: 36415; 80053; 82043; 82306; 82570; 83036; 84439; 84443; 84481

== ENCOUNTER → 2025-07-04 | Outpatient (CLI) | payer OTHER, SELFPAY ==
[2023-05-25 08:33] VITALS: BMI 36.5
== END | disposition home or self-care (01) ==
LOC: LABSPEC 10:32
PROVIDERS: PCP Nurse Practitioner; Referring Provider Nurse Practitioner; Visit Provider Nurse Practitioner
DX: K58.9 Irritable bowel syndrome, unspecified (principal); A04.72 Enterocolitis due to Clostridium difficile, not specified as recurrent; T73.2XXA Exhaustion due to exposure, initial encounter; X58.XXXA Exposure to other specified factors, initial encounter
CPT/HCPCS: 87493; 87506

== ENCOUNTER → 2025-10-04 | Outpatient (CLI) | payer OTHER, SELFPAY ==
[2023-05-25 08:33] VITALS: BMI 36.5
--- NOTE | 2025-10-04 07:25 | AAVD_ITS ---
Reason For Study Reason For Study: CAD / EECP Therapy Aorta Measurements Aorta Doppler Measurements Proximal aorta measures2.21 x 2.21cm. in cross-sectional Peak systolic flow velocities within the proximal aorta axis. measure 88.6 cm/sec. Proximal aorta measures2.10cm. in longitudinal axis. Peak systolic flow velocities within the mid aorta measure Mid aorta measures1.54 x 1.69cm. in cross-sectional axis. 85.0 cm/sec. Mid aorta measures1.67cm. in longitudinal axis. Peak systolic flow velocities within the distal aorta Distal aorta measures1.71 x 1.72cm. in cross-sectional axis.measure 75.9 cm/sec. Distal aorta measures1.65cm. in longitudinal axis. Left Iliac Artery Left iliac artery measures 1.03 x 1.06 cm. in the cross-sectional axis. Left iliac artery measures 1.04 cm. in the longitudinal axis. Peak systolic velocity in the left iliac artery measures 107.3 cm/sec. Right Iliac Artery Right iliac artery measures 1.12 x 1.13 cm. in the cross-sectional axis. Right iliac artery measures 1.10 cm. in the longitudinal axis. Peak systolic velocity in the right iliac artery measures 88.6 cm/sec. Procedure Aorta IVC Iliac vasculature or bypass grafts [id number]. The exam was diagnostic. Exam performed in department. VL/Abd Aortic/IVC Duplex scan Interpretation Summary The dimensions of the intra-abdominal aorta appear normal, without evidence of aneurysmal dilatation. The iliac arteries also appear normal in caliber bilaterally. The intra-abdominal aorta and iliac arteries are patent, demonstrating normal, pulsatile arterial flow and normal peak systolic velocities. Ordering Physician: Yenny Izquierdo Referring Physician: Holly Kurtz Performed By: Umer Romero, RVT
--- OUTSIDE RECORDS SUMMARY | 2025-10-04 07:38 | XMS RPT_ITS | CCD ---
Author Organization [facility] Care Team Providers Care Feeder Driver Name Role Phone Jerardo BOATS RENTER, BOATS RENTER-C Joshua Primary Care Provider Dr. Dante Daniel Emergency Provider Dr. Supa Witt Admit Provider Dr. Supa Witt Attending Provider Dr. Supa Witt Other Provider Dr. Ronak Burt Attending Provider Dr. Ronak Burt Other Provider Dr. Shilpa Norton Attending Provider Dr. Shilpa Norton Other Provider Dr. Lucia Shay Attending Provider Dr. Lucia Shay Other Provider Dr. Ronak Burt Attending Provider Dr. Supa Witt Referring Provider Dr. Lucia Shay Other Provider Jerardo BOATS RENTER, BOATS RENTER-C Joshua Referring Provider Angela MENDOZA, REJI Eason Attending Provider SUPA WITT Referring Unavailable KURTZ, JOSHUA Primary Care Unavailable GRICELDA CORTÉS Attending Unavailable GRICELDA CORTÉS Admitting Unavailable KURTZ, JOSHUA Primary Care Unavailable KATHERINE BARBA Referring Unavailable Jerardo BOATS RENTER, BOATS RENTER-C Joshua Primary Care Provider Dr. Dante Daniel Emergency Provider Dr. Supa Witt Admit Provider Dr. Supa Witt Attending Provider Dr. Supa Witt Other Provider Dr. Ronak Burt Attending Provider Dr. Supa Witt Referring Provider Dr. Ronak Burt Other Provider Dr. Shilpa Norton Attending Provider Dr. Shilpa Norton Other Provider Dr. Lucia Shay Other Provider Dr. Lucia Shay Attending Provider Kurtz BOATS RENTER, BOATS RENTER-C Joshua Referring Provider REJI Armstrong Attending Provider Kurtz BOATS RENTER, BOATS RENTER-C Joshua Primary Care Provider Kurtz BOATS RENTER, BOATS RENTER-C Joshua Primary Care Provider Kurtz BOATS RENTER, BOATS RENTER-C Joshua Referring Provider REJI Armstrong Attending Provider Dr. Taras Ramachandran Attending Provider Kurtz BOATS RENTER, BOATS RENTER-C Joshua Primary Care Provider Kurtz BOATS RENTER, BOATS RENTER-C Joshua Referring Provider REJI Armstrong Attending Provider REJI Armstrong Referring Provider REJI Armstrong Other Provider Dr. Ronak Burt Attending Provider Kurtz BOATS RENTER, BOATS RENTER-C Joshua Primary Care Provider Kurtz BOATS RENTER, BOATS RENTER-C Joshua Referring Provider REJI Armstrong Attending Provider Kurtz BOATS RENTER, BOATS RENTER-C Joshua Primary Care Provider Dr. Taras Ramachandran Attending Provider [phone] REJI Armstrong Referring Provider REJI Armstrong Other Provider [phone] Dr. Ronak Burt Attending Provider [phone] Kurtz BOATS RENTER, BOATS RENTER-C Joshua Referring Provider REJI Armstrong Attending Provider Kurtz BOATS RENTER, BOATS RENTER-C Joshua Primary Care Provider REJI Armstrong Referring Provider Dr. Taras Ramachandran Attending Provider [phone] Kurtz BOATS RENTER, BOATS RENTER-C Joshua Primary Care Provider Kurtz BOATS RENTER, BOATS RENTER-C Joshua Referring Provider REJI Armstrong Attending Provider Kurtz, Joshua Primary Care Provider Kurtz BOATS RENTER-C, Joshua Primary Care Provider Flavio BENAVIDEZ, Dr. Jodee To Attending Provide r Flavio BENAVIDEZ, Dr. Jodee To Referring Provide r Kurtz BOATS RENTER-C, Joshua Referring Provider Yenny Yee Attending Provider Kurtz BOATS RENTER-C, Joshua Primary Care Provider Flavio BENAVIDEZ, Dr. Jodee To Attending Provide r Dr. Jodee Muniz MD Referring Provide r Kurtz BOATS RENTER-C, Joshua Attending Provider Timbo QUINONES-CYenny Referring Provider Kurtz BOATS RENTER, Joshua Primary Care Unavailable Ronak Burt Attending Unavailable Kurtz BOATS RENTER, Joshua Referring Unavailable Yenny Izquierdo NP Attending Unavailable Kurtz BOATS RENTER, Joshua Referring Unavailable Kurtz BOATS RENTER, Joshua Primary Care Unavailable Timbo BOATS RENTER, Yenny Attending Unavailable Jerardo BOATS RENTER, Joshua Referring Unavailable Jerardo BOATS RENTER, Joshua Primary Care Unavailable Raghunathan, Jodee Na Referring Unavaila ble Jerardo BOATS RENTER, Joshua Primary Care Unavailable Raghunathan, Jodee Na Attending Unavaila ble Jerardo BOATS RENTER, Joshua Primary Care Unavailable Raghunathan, Jodee Na Attending Unavaila ble Ragamiranathan, Jodee Na Referring Unavaila ble iTmbo BOATS RENTER, Yenny Attending Unavailable Timbo BOATS RENTER, Yenny Referring Unavailable Jerardo BOATS RENTER, Joshua Primary Care Unavailable Kurtz BOATS RENTER, Joshua Attending Unavailable Jerardo BOATS RENTER, Joshua Primary Care Unavailable Kurtz BOATS RENTER, Joshua Attending Unavailable Jerardo BOATS RENTER, Joshua Referring Unavailable Jerardo BOATS RENTER, Joshua Primary Care Unavailable Raghunathan, Jodee Na Referring Unavaila ble Jerarod BOATS RENTER, Joshua Primary Care Unavailable Raghunathan, Jodee Na Attending Unavaila ble Allergies Allergy Classification Reported Allergen(s) Allergy Type Date of Onset Reaction(s) Facility (1 source) metFORMIN Drug Allergy 08-24-2022 Diarrhea [facility] Work Phone: (1 source) ozempic Propensity to adverse reactions 08-24-2022 Diarrhea [facility] Work Phone: Medications Current Medications Medication Drug Class(es) Dates Sig (Normalized) Sig (Original) amLODIPine 2.5 mg oral tablet (20 sources) Dihydropyridine Calcium Channel Rich Start: 07-02-2025 take 1 tablet by mouth once daily Amlodipine 2.5 mg tablet Active 2.5 mg PO daily July 02, 2025 12:00am Start: 05-13-2025 End: 06-03-2025 take 1 tablet by mouth twice daily Amlodipine 2.5 mg tablet Discontinued 2.5 mg PO .COMPLEX 180 3 May 14, 2025 3:41pm June 03, 2025 12:57pm 2.5 mg orally twice a day Start: 05-09-2025 End: 05-13-2025 take 1 tablet by mouth twice daily Amlodipine 5 mg tablet Discontinued 5 mg PO TWICE A DAY 90 3 May 10, 2025 4:36pm May 13, 2025 11:39am Start: 07-23-2024 End: 04-02-2025 take 1 tablet by mouth twice daily Amlodipine (Norvasc) 2.5 mg tablet Discontinued 2.5 mg PO TWICE A DAY 180 July 23, 2024 9:14am April 02, 2025 2:08pm Start: 08-25-2023 End: 07-23-2024 take 1 tablet by mouth once daily Amlodipine (Norvasc) 2.5 mg tablet Discontinued 2.5 mg PO DAILY 90 August 25, 2023 12:00am July 23, 2024 9:14am atorvastatin 80 mg oral tablet (20 sources) HMG-CoA Reductase Inhibitor Start: 08-25-2023 End: 10-02-2024 take 1 tablet by mouth once daily Atorvastatin 80 mg tablet Active 80 mg PO DAILY 90 October 02, 2024 4:01pm Start: 12-06-2022 End: 12-10-2023 take 1 tablet by mouth once daily Atorvastatin 40 mg tablet Discontinued 40 mg PO DAILY 90 February 01, 2023 9:35am August 25, 2023 1:28pm cholecalciferol 0.125 mg oral capsule (14 sources) Vitamin D Start: 08-25-2023 take 1 capsule by mouth once daily Cholecalciferol (Vitamin D3) 125 mcg (5,000 unit) capsule Active 125 ug PO DAILY August 25, 2023 12:00am cholecalciferol (D3 Maximum Strength) 125 MCG (5000 UT) capsule as directed 0 Active estradiol 1 mg oral tablet (20 sources) Estrogen Start: 06-27-2022 take 1 tablet by mouth once daily estradiol (Estrace) 1 MG tablet Take 1 mg by mouth daily. 0 06/27/2022 Active Start: 06-15-2018 End: 08-23-2019 Estradiol (Yuvafem) 10 mcg t ablet Discontinued 10 ug VAGINAL TWICE A WEEK June 15, 2018 12:00am August 23, 2019 4:04pm Start: 06-15-2018 End: 08-23-2019 Estradiol (Yuvafem) 10 mcg t ablet Discontinued 10 MCG VAGINAL TWICE A WEEK June 15, 2018 12:00am August 23, 2019 4:04pm fluconazole 150 mg oral tablet (20 sources) Azole Antifungal Start: 07-22-2022 Fluconazole A ctive 150 MG PO Q3D July 22, 2022 12:00am Start: 05-19-2021 End: 06-22-2022 Fluconazole 150 mg tablet Di scontinued 150 mg PO Every 3 Days 2 May 19, 2021 12:00am June 22, 2022 5:37pm 24 hr isosorbide mononitrate 30 mg extended release oral tablet (20 sources) Nitrate Vasodilator Start: 07-02-2025 Isosorbide Mononitrate 30 mg tablet extended release 24 hr Active 60 mg PO TWICE A DAY 270 90 July 02, 2025 2:31pm Start: 10-02-2024 End: 07-02-2025 take 1 tablet by mouth twice daily, then take 1 tablet by mouth every twenty-four hours Isosorbide Mononitrate 30 mg tablet extended release 24 hr Discontinued 30 mg PO TWICE A DAY 180 90 January 16, 2025 5:16pm July 02, 2025 2:32pm Start: 08-25-2023 End: 10-02-2024 take 1 tablet by mouth once daily, then take 1 tablet by mouth every twenty-four hours Isosorbide Mononitrate 30 mg tablet extended release 24 hr Discontinued 30 mg PO DAILY 90 February 20, 2024 2:25pm October 02, 2024 3:54pm Start: 02-14-2023 End: 08-25-2023 take 1 tablet by mouth twice daily, then take 1 tablet by mouth every twenty-four hours Isosorbide Mononitrate 30 mg tablet extended release 24 hr Discontinued 30 mg PO TWICE A DAY 60 February 17, 2023 1:54pm August 25, 2023 1:34pm Start: 02-07-2023 End: 02-14-2023 take 1 tablet by mouth once daily, then take 1 tablet by mouth every twenty-four hours Isosorbide Mononitrate 30 mg tablet extended release 24 hr Discontinued 30 mg PO DAILY 30 February 07, 2023 12:00am February 14, 2023 3:56pm levonorgestrel 0.678369 mg/hr intrauterine system (20 sources) Progestin, Progestin-containing Intrauterine Device Start: 06-13-2018 Levonorgestrel (Mirena) 20 mcg/24 hr (5 years) intrauterine device Active 1 NMA INTRA-UTER ONCE June 13, 2018 12:00am CONTROL Start: 06-13-2018 Levonorgestrel (Mirena) 20 mcg/24 hr (5 years) intrauterine device Active 1 INSERT INTRA-UTER ONCE June 13, 2018 12:00am 24 hr metoprolol succinate 25 mg extended release oral tablet (20 sources) beta-Adrenergic Rich Start: 07-02-2025 take 1 tablet by mouth every twenty-four hours at bedtime Metoprolol Succinate 25 mg tablet extended release 24 hr Active 25 mg PO AT BEDTIME July 02, 2025 2:13pm Start: 06-03-2025 End: 07-02-2025 take 1 tablet by mouth twice daily Metoprolol Succinate 25 mg tablet extended release 24 hr Discontinued 25 mg PO TWICE A DAY 180 3 June 03, 2025 12:58pm July 02, 2025 2:15pm Start: 04-20-2023 End: 06-03-2025 take 1 tablet by mouth once daily Metoprolol Succinate 25 mg tablet extended release 24 hr Discontinued 0 .ROUTE .COMPLEX 90 3 March 27, 2025 8:10am June 03, 2025 12:58pm TAKE 1 TABLET BY MOUTH EVERY DAY Start: 12-29-2022 End: 02-14-2023 take 1 tablet by mouth once daily as needed Metoprolol Succinate 25 mg tablet extended release 24 hr Discontinued 25 mg PO DAILY as needed December 29, 2022 1:00am February 14, 2023 3:27pm Start: 12-10-2022 End: 12-10-2023 take 0.5 tablet by mouth once daily metoprolol succinate XL (Toprol-XL) 25 MG 24 hr tablet Take 0.5 tablets (12.5 mg) by mouth daily. Do not crush or chew. Do not start before December 10, 2022. 15 tablet 11 12/10/2022 12/10/2023 Active Start: 12-08-2022 End: 12-10-2022 metoprolol succinate XL (Top rol-XL) 24 hr tablet 12.5 mg metroNIDAZOLE 500 mg oral tablet (20 sources) Nitroimidazole Antimicrobial Start: 07-05-2025 take 1 tablet by mouth every eight hours Metronidazole 500 mg tablet Active 500 mg PO Q8H 42 14 0 July 05, 2025 12:00am July 18, 2025 12:00am Start: 05-19-2021 End: 06-22-2022 take 1 tablet by mouth three times daily Metronidazole 500 mg tablet Discontinued 500 mg PO THREE TIMES A DAY 21 7 1 Bettie 6th, 2021 12:00am June 22, 2022 5:37pm nitroglycerin 0.4 mg sublingual tablet (12 sources) Nitrate Vasodilator Start: 08-25-2023 Nitroglyce rin (Nitrostat) 0.4 mg tablet, sublingual Active 0.4 mg SL every 5 to 15 minutes as needed for chest pain 05 02August 25, 2023 12:00am do not exceed 3 doses per episode Start: 08-25-2023 Nitroglycerin (Nitrostat) 0.4 mg tablet, sublingual Active 0.4 MG SL every 5 to 15 minutes August 25, 2023 12:00am do not exceed 3 doses per episode phenazopyridine hydrochloride 200 mg oral tablet (1 source) Start: 08-24-2022 take 1 tablet by mouth three times daily Phenazopyridine (Pyridium) 200 mg tablet Active 200 MG PO THREE TIMES A DAY August 24, 2022 12:00am 12 hr ranolazine 1000 mg extended release oral tablet (20 sources) Anti-ang inal Start: 07-05-2023 End: 07-09-2025 take 1 tablet by mouth twice daily Ranolazine 1,000 mg tablet extended release 12 hr Active 1000 mg PO TWICE A DAY 180 July 09, 2025 8:53am Start: 06-06-2023 End: 07-05-2023 take 1 tablet by mouth twice daily Ranolazine 500 mg tablet extended release 12 hr Discontinued 1000 mg PO TWICE A DAY 180 June 06, 2023 4:18pm July 05, 2023 3:16pm Start: 05-11-2023 End: 06-06-2023 take 1 tablet by mouth twice daily Ranolazine 500 mg tablet extended release 12 hr Discontinued 500 mg PO TWICE A DAY 180 May 11, 2023 12:00am June 06, 2023 4:19pm Respiratory Therapy Supplies (CareTouch 2 CPAP Hose Nail Sticker) misc (2 sources) Respiratory Ther apy Supplies (CareTouch 2 CPAP Hose Nail Sticker) [facility] Tirzepatide 12.5 mg/0.5 mL pen injector (5 sources) Start: Tirzepatide 12.5 mg/0.5 mL pen injector Active 12.5 mg SC EVERY WEEK June 01, 2024 12:00am vancomycin 125 mg oral capsule (1 source) Glycopeptide Antibacterial Start: take 1 capsule by mouth four times daily Vancomycin 125 mg capsule Active 125 mg PO EVERY 6 HOURS 40 10 0 July 08, 2025 12:00am July 17, 2025 12:00am take 125 mg 4 times per day for 10 days Vitamin B Complex tablet (3 sources) Start: Vitamin B Complex tablet Active 1 {tbl} PO daily July 02, 2025 12:00am Completed/Discontinued Medications Medication Drug Class(es) Dates Sig (Normalized) Sig (Original) acetaminophen 325 mg oral tablet (4 sources) Start: 12-08-2022 End: 12-09-2022 take 1 tablet by mouth every four hours as needed for pain acetaminophen (Tylenol) tablet 650 mg Start: 12-06-2022 End: 12-10-2022 take 1 tablet by mouth every six hours as needed for pain and fever acetaminophen (Tylenol) tablet 650 mg aspirin 81 mg delayed release oral tablet (20 sources) Platelet Aggregation Inhibitor, Nonsteroidal Anti-inflammatory Drug Start: 12-29-2022 End: 04-12-2025 take 1 tablet by mouth once daily Aspirin 81 mg tablet,delayed release (DR/EC) Discontinued 81 mg PO DAILY 90 4 February 28, 2024 10:20am April 12, 2025 12:12pm Start: 12-06-2022 End: 12-10-2023 aspirin 81 MG chewable table t Chew 1 tablet (81 mg) daily. Do not start before December 10, 2022. 30 tablet 11 12/10/2022 12/10/2023 Active cholecalciferol 9.52 unt/ml / glucose 357 mg/ml oral gel (2 sources) Vitamin D Start: 12-06-2022 End: 12-10-2022 glucose oral gel 15 g ciprofloxacin 500 mg oral tablet (20 sources) Quinolone Antimicrobial Start: 06-01-2024 End: 10-02-2024 take 1 tablet by mouth twice daily Ciprofloxacin Hcl (Cipro) 500 mg tablet Discontinued 500 mg PO TWICE A DAY 14 0 June 01, 2024 12:00am October 02, 2024 3:52pm Start: 07-22-2022 End: 10-11-2022 take 1 tablet by mouth twice daily Ciprofloxacin Hcl (Cipro) 500 mg tablet Discontinued 500 mg PO TWICE A DAY 14 0 July 22, 2022 8:31pm August 24, 2022 7:19pm Start: 10-27-2020 End: 11-25-2020 take 1 tablet by mouth twice daily Ciprofloxacin Hcl (Cipro) 500 mg tablet Discontinued 500 mg PO TWICE A DAY 14 0 October 27, 2020 1:00am November 25, 2020 8:27pm 0.5 ml dulaglutide 3 mg/ml auto-injector (20 sources) GLP-1 Receptor Agonist Start: 04-08-2023 End: 05-11-2023 Dulaglutide 1.5 mg/0.5 mL pen injector Discontinued 1.5 mg SC EVERY WEEK 6.5 90 3 April 08, 2023 12:00am May 11, 2023 3:31pm empagliflozin 10 mg oral tablet (20 sources) Sodium-Glucose Cotransporter 2 Inhibitor Start: 11-17-2023 End: 04-02-2025 take 1 tablet by mouth once daily Empagliflozin (Jardiance) 10 mg tablet Discontinued 25 mg PO DAILY October 02, 2024 3:53pm April 02, 2025 2:03pm Start: 10-27-2020 End: 12-26-2020 take 1 tablet by mouth once daily Empagliflozin (Jardiance) 10 mg tablet Discontinued 10 mg PO DAILY October 27, 2020 1:00am December 26, 2020 4:36pm 24 hr empagliflozin 25 mg / metFORMIN hydrochloride 1000 mg extended release oral tablet (20 sources) Biguanide, Sodium-Glucose Cotransporter 2 Inhibitor Start: 12-26-2020 End: 11-17-2023 Empagliflozin-Metformin (Synjardy Xr) 25-1,000 mg tablet, IR - ER, biphasic 24hr Discontinued 1 {tbl} PO DAILY 90 3 June 18, 2021 5:27pm June 22, 2022 5:39pm 0.4 ml enoxaparin sodium 100 mg/ml prefilled syringe (2 sources) Low Molecular Weight Heparin Start: 12-06-2022 End: 12-07-2022 enoxaparin (Lovenox) syringe 40 mg 1 ml evolocumab 140 mg/ml auto-injector (20 sources) PCSK9 Inhibitor Start: 11-17-2023 End: 01-17-2024 Evolocumab (Brendanshona Cesario) 140 mg/mL pen injector Discontinued 140 mg SC every 2 weeks 2 December 28, 2023 4:49pm January 17, 2024 10:34am PA has been APPROVED 12/08/2023 famotidine 40 mg oral tablet (20 sources) Histamine-2 Receptor Antagonist Start: 05-11-2023 End: 01-17-2025 take 1 tablet by mouth once daily Famotidine 40 mg tablet Discontinued 0 .ROUTE .COMPLEX 90 December 13, 2023 11:01am January 17, 2025 9:36am TAKE 1 TABLET BY MOUTH EVERY DAY Start: 02-02-2023 End: 02-14-2023 take 1 tablet by mouth once daily Famotidine (Pepcid) 40 mg tablet Discontinued 40 mg PO DAILY 90 3 February 02, 2023 12:00am February 14, 2023 3:28pm fluticasone propionate 0.05 mg/actuat metered dose nasal spray (18 sources) Corticosteroid Start: 05-11-2023 End: 08-25-2023 take 50 ug nasal route once daily Fluticasone Propionate (Flonase Allergy Relief) 50 mcg/actuation spray,suspension Discontinued 1 NMA INTRANASAL DAILY May 11, 2023 12:00am August 25, 2023 1:05pm administer into each nostril Start: 05-11-2023 End: 08-25-2023 take 1 spray(s) nasal route once daily Fluticasone Propionate (Flonase Allergy Relief) 50 mcg/actuation spray,suspension Discontinued 1 SPRAY INTRANASAL DAILY May 11, 2023 12:00am August 25, 2023 1:05pm administer into each nostril glimepiride 2 mg oral tablet (20 sources) Sulfonylurea Start: 08-23-2019 End: 11-25-2020 take 2 tablets by mouth twice daily Glimepiride 2 mg tablet Discontinued 4 mg PO TWICE A DAY August 23, 2019 12:00am November 25, 2020 8:27pm Start: 08-23-2019 End: 11-25-2020 take 4 mg by mouth twice daily Glimepiride Discontinue d 4 MG PO TWICE A DAY August 23, 2019 12:00am November 25, 2020 8:27pm Start: 01-12-2019 End: 08-23-2019 take 1 tablet by mouth once daily in the morning Glimepiride 1 mg tablet Discontinued 1 mg PO EVERY MORNING January 12, 2019 1:00am August 23, 2019 4:05pm glucagon (rdna) 1 mg injection (2 sources) Antihypoglycemic Agent Start: 12-06-2022 End: 12-10-2022 glucagon (human recombinant) injection 1 mg 150 ml glucose 50 mg/ml injection (4 sources) Start: 12-06-2022 End: 12-10-2022 dextrose 50 % solution 12.5 g Start: 12-06-2022 End: 12-10-2022 dextrose 5 % infusion 250 ml heparin sodium, porcine 100 unt/ml injection (6 sources) Unfractionated Heparin, Anti-coagulant Start: 12-07-2022 End: 12-08-2022 heparin 25,000 units in dextrose 5% 250mL infusion (premix) Start: 12-07-2022 End: 12-07-2022 heparin injection 4,000 Unit s Start: 12-07-2022 End: 12-08-2022 heparin injection 2,000 Unit s Insulin Lispro (Humalog) injection 0-6 Units (2 sources) Start: 12-06-2022 End: 12-10-2022 Insulin Lispro (Humalog) injection 0-6 Units osmotic 24 hr metFORMIN hydrochloride 500 mg extended release oral tablet (20 sources) Biguanide Start: 10-27-2020 End: 12-26-2020 take 1 tablet by mouth once daily Metformin 500 mg tablet extended release 24hr Discontinued 500 mg PO DAILY 13 12October 27, 2020 1:00am December 26, 2020 4:36pm modafinil 100 mg oral tablet (20 sources) Sympathomimeti c-like Agent Start: 12-03-2022 End: 02-14-2023 take 1 tablet by mouth once daily as needed for sleep Modafinil 100 mg tablet Discontinued 100 mg PO DAILY as needed for SLEEP APNEA December 29, 2022 2:04pm February 14, 2023 3:28pm ondansetron ODT (Zofran-ODT) disintegrating tablet 4 mg (2 sources) Start: 12-06-2022 End: 12-10-2022 take 1 tablet by mouth every eight hours as needed for nausea and vomiting ondansetron ODT (Zofran-ODT) disintegrating tablet 4 mg pantoprazole 20 mg delayed release oral tablet (20 sources) Proton Pump Inhibitor Start: 12-09-2022 End: 12-09-2023 take 1 tablet by mouth once daily Pantoprazole 20 mg tablet,delayed release (DR/EC) Discontinued 20 mg PO DAILY 90 4 February 01, 2023 9:36am May 11, 2023 3:31pm polyethylene glycol 3350 06957 mg powder for oral solution (2 sources) Osmotic Laxative Start: 12-06-2022 End: 12-10-2022 take 17 g by mouth every twenty-four hours as needed for constipation polyethylene glycol (PEG) 3350 (Miralax) packet 17 g pravastatin sodium 40 mg oral tablet (20 sources) HMG-CoA Reductase Inhibitor Start: 10-26-2018 End: 10-26-2018 take 1 tablet by mouth at bedtime Pravastatin 80 mg tablet Discontinued 80 mg PO AT BEDTIME 30 October 26, 2018 10:47am October 26, 2018 3:27pm Start: 06-20-2018 End: 01-12-2019 take 1 tablet by mouth at bedtime Pravastatin 40 mg tablet Discontinued 40 mg PO AT BEDTIME 30 October 26, 2018 3:26pm January 12, 2019 3:50pm rosuvastatin calcium 10 mg oral tablet (20 sources) HMG-CoA Reductase Inhibitor Start: 01-12-2019 End: 12-29-2022 take 1 tablet by mouth once daily Rosuvastatin 10 mg tablet Discontinued 10 mg PO DAILY 90 3 June 18, 2021 5:28pm June 22, 2022 5:39pm End: 12-10-2022 take 1 tablet by mouth at dinner rosuvastatin (Crestor) 5 MG tablet Take 5 mg by mouth with evening meal. 0 12/10/2022 Discontinued (Stop taking at discharge) 0.25 mg, 0.5 mg dose 1.5 ml semaglutide 1.34 mg/ml pen injector (20 sources) Start: 02-20-2021 End: 08-24-2022 Semaglutide (Ozempic) 0.25 m g or 0.5 mg(2 mg/1.5 mL) pen injector Discontinued 0.5 mg SC EVERY WEEK 5.2 90 3 June 18, 2021 5:26pm June 22, 2022 5:39pm Start: 12-26-2020 End: 02-20-2021 Semaglutide (Ozempic) 0.25 m g or 0.5 mg(2 mg/1.5 mL) pen injector Discontinued 0.25 mg SC EVERY WEEK December 26, 2020 1:00am February 20, 2021 5:14pm ticagrelor 90 mg oral tablet (20 sources) Start: 12-29-2022 End: 12-29-2022 take 1 tablet by mouth twice daily Ticagrelor (Brilinta) 60 mg tablet Discontinued 60 mg PO TWICE A DAY December 29, 2022 1:00am December 29, 2022 2:30pm Start: 12-08-2022 End: 01-17-2025 take 1 tablet by mouth twice daily Ticagrelor (Brilinta) 90 mg tablet Discontinued 90 mg PO TWICE A DAY 4 February 28, 2024 10:20am January 17, 2025 9:37am Tirzepatide (Mounjaro) 2.5 mg/0.5 mL pen injector (20 sources) Start: 07-22-2022 End: 08-24-2022 Tirzepatide (Mounjaro) 2.5 mg/0.5 mL pen injector Discontinued 2.5 mg SC EVERY WEEK July 22, 2022 12:00am August 24, 2022 7:26pm Start: 07-22-2022 End: 08-24-2022 Tirzepatide (Mounjaro) 2.5 m g/0.5 mL pen injector Discontinued 2.5 MG SC EVERY WEEK July 21, 2022 11:00pm August 24, 2022 6:26pm Start: 07-22-2022 End: 08-24-2022 Tirzepatide (Mounjaro) 2.5 m g/0.5 mL pen injector Discontinued 2.5 MG SC EVERY WEEK July 22, 2022 12:00am August 24, 2022 7:26pm Tirzepatide (Mounjaro) 5 mg/ 0.5 mL pen injector (20 sources) Start: 10-02-2024 End: 04-02-2025 Tirzepatide (Mounjaro) 5 mg/ 0.5 mL pen injector Discontinued 12.5 mg SC EVERY WEEK October 02, 2024 3:53pm April 02, 2025 1:54pm Start: 05-11-2023 End: 10-02-2024 Tirzepatide (Mounjaro) 5 mg/ 0.5 mL pen injector Discontinued 5 mg SC EVERY WEEK May 11, 2023 12:00am October 02, 2024 3:54pm Start: 05-11-2023 Tirzepatide (M ounjaro) 5 mg/0.5 mL pen injector Active 5 MG SC EVERY WEEK May 10, 2023 11:00pm Start: 05-11-2023 Tirzepatide (M ounjaro) 5 mg/0.5 mL pen injector Active 5 MG SC EVERY WEEK May 11, 2023 12:00am Start: 12-03-2022 End: 04-08-2023 Tirzepatide (Mounjaro) 5 mg/ 0.5 mL pen injector Discontinued 5 mg SC SMALLS December 03, 2022 7:52pm April 08, 2023 4:08pm DIABETES Start: 12-03-2022 End: 04-08-2023 Tirzepatide (Mounjaro) 5 mg/ 0.5 mL pen injector Discontinued 5 mg SC SMALLS December 03, 2022 7:52pm April 08, 2023 4:08pm Start: 12-03-2022 End: 04-08-2023 Tirzepatide (Mounjaro) 5 mg/ 0.5 mL pen injector Discontinued 5 MG SC SMALLS December 03, 2022 6:52pm April 08, 2023 3:08pm Start: 12-03-2022 End: 04-08-2023 Tirzepatide (Mounjaro) 5 mg/ 0.5 mL pen injector Discontinued 5 MG SC SMALLS December 03, 2022 7:52pm April 08, 2023 4:08pm Start: 12-03-2022 Tirzepatide (M ounjaro) 5 mg/0.5 mL pen injector Active 5 MG SC SMALLS December 03, 2022 7:52pm Start: 12-03-2022 Tirzepatide (M ounjaro) 5 mg/0.5 mL pen injector Active 5 MG SC SMALLS December 03, 2022 6:52pm Start: 09-28-2022 End: 12-03-2022 Tirzepatide (Mounjaro) 5 mg/ 0.5 mL pen injector Discontinued 5 mg SC EVERY WEEK 2.5 12 11September 28, 2022 1:19pm December 03, 2022 7:52pm Start: 09-28-2022 End: 12-03-2022 Tirzepatide (Mounjaro) 5 mg/ 0.5 mL pen injector Discontinued 5 mg SC EVERY WEEK 2.5 September 28, 2022 1:19pm December 03, 2022 7:52pm Start: 09-28-2022 End: 12-03-2022 Tirzepatide (Mounjaro) 5 mg/ 0.5 mL pen injector Discontinued 5 MG SC EVERY WEEK 2.5 September 28, 2022 1:19pm December 03, 2022 7:52pm Start: 09-28-2022 End: 12-03-2022 Tirzepatide (Mounjaro) 5 mg/ 0.5 mL pen injector Discontinued 5 MG SC EVERY WEEK 2.5 September 28, 2022 12:19pm December 03, 2022 6:52pm Start: 08-24-2022 End: 09-28-2022 Tirzepatide (Mounjaro) 5 mg/ 0.5 mL pen injector Discontinued 5 mg SC EVERY WEEK 2.5 12 11August 24, 2022 12:00am September 28, 2022 1:19pm Start: 08-24-2022 End: 09-28-2022 Tirzepatide (Mounjaro) 5 mg/ 0.5 mL pen injector Discontinued 5 mg SC EVERY WEEK 2.5 August 24, 2022 12:00am September 28, 2022 1:19pm Start: 08-24-2022 End: 09-28-2022 Tirzepatide (Mounjaro) 5 mg/ 0.5 mL pen injector Discontinued 5 MG SC EVERY WEEK 2.5 August 24, 2022 12:00am September 28, 2022 1:19pm Start: 08-24-2022 End: 09-28-2022 Tirzepatide (Mounjaro) 5 mg/ 0.5 mL pen injector Discontinued 5 MG SC EVERY WEEK 2.5 August 23, 2022 11:00pm September 28, 2022 12:19pm Start: 08-24-2022 Tirzepatide (Yumi monten[place]) 5 mg/0.5 mL pen injector Active 5 MG SC EVERY WEEK 2.04 12August 24, 2022 12:00am Problems Problem Classification Problem Date Documented Da te Episodic/Chronic Cardiac dysrhythmias (5 sources) Palpitations; Translations: [Palpitations] Onset: 07-02-2025 07-02-2025 Episodic Coronary atherosclerosis and other heart disease (20 sources) Acute coronary syndrome; Translations: [Acute ischemic heart disease, unspecified] Onset: 12-06-2022 12-03-2022 Chronic Comment on above: Received enhanced ex ternal counter pulsation EECP with good results Coronary atherosclerosis and other heart disease (20 sources) Presence of coronary angioplasty implant and graft; Translations: [Percutaneous transluminal coronary angioplasty status] Onset: 12-06-2022 12-29-2022 Episodic Diabetes mellitus with complications (20 sources) Type II diabetes mellitus uncontrolled; Translations: [Uncontrolled type 2 diabetes mellitus] Onset: 04-03-2025 04-06-2021 Chronic Diabetes mellitus without complication (20 sources) Diabetes mellitus; Translations: [Type 2 diabetes mellitus without complications] Onset: 12-07-2022 12-03-2022 Chronic Disorders of lipid metabolism (20 sources) Hyperlipidemia; Translations: [Hyperlipidemia, unspecified] Onset: 12-07-2022 12-03-2022 Chronic Inflammatory diseases of female pelvic organs (20 sources) Bacterial vaginosis; Translations: [Acute vaginitis] 05-19-2021 Episodic Intestinal infection (3 sources) Clostridium difficile colitis; Translations: [Enterocolitis due to Clostridium difficile, not specified as recurrent] Onset: 07-12-2025 07-03-2025 Episodic Malaise and fatigue (9 sources) Fatigue; Translations: [Other fatigue] 04-02-2025 Episodic Mycoses (20 sources) Mycosis; Translations: [Candidiasis, unspecified] 05-19-2021 Episodic Nonspecific chest pain (20 sources) Chest pain; Translations: [Chest pain, unspecified] 12-03-2022 Episodic Other connective tissue disease (18 sources) Pain in bilateral lower legs; Translations: [Pain in right lower leg] 05-11-2023 Episodic Other connective tissue disease (12 sources) Pain in right lower leg; Translations: [Pain in limb] 05-11-2023 Episodic Other diseases of kidney and ureters (20 sources) Small kidney; Translations: [Small kidney, unilateral] 06-13-2018 Episodic Other gastrointestinal disorders (20 sources) Irritable bowel syndrome; Translations: [Irritable bowel syndrome without diarrhea] 06-13-2018 Chronic Other gastrointestinal disorders (1 source) Irritable bowel syndrome without diarrhea; Translations: [Irritable bowel syndrome, unspecified] Onset: 07-11-2025 Chronic Other hematologic conditions (20 sources) Raised cardiac enzyme or marker; Translations: [Other specified abnormalities of plasma proteins] 12-03-2022 Episodic Other hematologic conditions (8 sources) Other specified abnormalities of plasma proteins; Translations: [Other abnormal blood chemistry] 12-03-2022 Episodic Other lower respiratory disease (20 sources) Dyspnea on exertion; Translations: [Other forms of dyspnea] 06-13-2018 Episodic Other nutritional; endocrine; and metabolic disorders (20 sources) Weight loss; Translations: [Abnormal weight loss] 12-29-2020 Episodic Other nutritional; endocrine; and metabolic disorders (5 sources) Weight decreased; Translations: [Abnormal weight loss] 12-29-2020 Episodic Residual codes; unclassified (20 sources) Obstructive sleep apnea syndrome; Translations: [Obstructive sleep apnea (adult) (pediatric)] Onset: 12-07-2022 06-13-2018 Chronic Spondylosis; intervertebral disc disorders; other back problems (5 sources) Backache; Translations: [Dorsalgia, unspecified] 06-01-2024 Episodic Thyroid disorders (1 source) Nontoxic single thyroid nodule; Translations: [Nontoxic single thyroid nodule] Onset: 12-30-2024 Chronic Thyroid disorders (20 sources) Mass of thyroid gland; Translations: [Disorder of thyroid, unspecified] 06-13-2018 Episodic Urinary tract infections (20 sources) Cystitis; Translations: [Cystitis, unspecified without hematuria] 10-28-2020 Episodic Results Test Name Value Interpretation Reference Range Facility CDIFF (PCR)on 07-11-2025 CDIFF Pending 027 [id number] NAP1-B1 Presumptive Negative *for epidemiolologic???use C. Diff PCR Negative- No toxigenic C. Diff Detected Normal [facility] Comment on above: Performed By: #### M 100.637, M146.6796 #### [facility] [address] [place], [place], [id number] ENTERIC PATHOGEN PANEL STOOL on 07-05-2025 EP PANEL Normal Reference Range = Not Detected Not detected for Campylobacter group, Salmonella species, Shigella species, Vibrio Group, Yersinia enterocolitica, EHEC (Shiga Toxin 1, Shiga Toxin 2), Norovirus Gl/Gll, and Rotavirus A. Other common stool pathogens are not detected on this panel include: Aeromonas/Plesiomonas or parasites. Order testing for these organisms separately if suspected. This is an amplified DNA test which makes it both specific and sensitive. CAMPYLOBACTER Not Detected Norovirus Not Detected Rotavirus Not Detected Salmonella Not Detected Shiga Toxin Not Detected Shigella sp. Not Detected VIBRIO Not Detected Yersinia Not Detected Normal [facility] Comment on above: Performed By: #### M 100.637, M100.6796 #### [facility] [address] [place], [place], [address] Clostridium difficile detect ion by polymerase chain reactionOrdered By: Joshua Kurtz on 07-04-2025 C. difficile DNA KEITH+probe Ql (Unsp spec) [facility] Cardiology Visit Reporton Cardiology Visit Report [facility] [address] [place] [address]. [address] [place], [place] [address] OFFICE VISIT Date of Service: 07/02/25 MR#: [id number] Acct: [id number] Name: PATRICIA LOPEZ Rep #: [id number] : 1970 Provider: ARMANDO prince Age/Sex: 54/F [place] [facility] [place] Status: Signed HPI HPI History of Present Illness Details: Galina Lopez is a 54-year-old female who presents here today for a cardiovascular follow-up. She did have an stress echocardiogram done in 2019 which was a normal adequate treadmill stress echocardiogram. It was negative for ischemia by EKG and echocardiogram criteria. She presented to [facility] on 12/04/2022 with chest tightness. Her cardiac enzymes were noted to be elevated. She does not have any ST changes. She was admitted to PCU. She did remain pain-free. She did undergo a diagnostic heart catheterization on 12/06/2022. She was noted to have triple- vessel disease involving the LAD, circumflex and RCA with a low normal ejection fraction. She was being referred for surgery consult for coronary revascularization. She was transferred to [facility]. Pt notes that she underwent stenting instead by bypass. She tells me that she had stenting to her LAD and RCA. Circumflex was treated medically. She was started on EECP which helped significantly and she continues to do well she tells me that she is on Mounjaro at this particular time. From a cardiac standpoint, the patient is doing well. She does acknowledge left sided chest pain, with radiation to her left shoulder and jaw. She states that this is nothing new or worsening. She does acknowledge palpitations. She describes this as a fluttering sensation. She denies pressure or heaviness. She denies SOB, Orthopnea, and PND. She does wear her CPAP nightly. She does not have bleeding issues; no blood in urine, stool, or nosebleeds. She does acknowledge occasional fatigue. She denies myalgias, or claudication. She does not have edema, or sudden weight gain. She does have occasional lightheadedness with standing up. She denies dizziness, syncopal or near syncopal episodes, and headaches. 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 Is patient in pain?: No Allergies No Known Allergies Allergy (Verified 07/02/25 14:21) Medications ???Medication ???Instructions ???Recorded ???Confirmed ???Type levonorgestrel (Mirena) 1 insert intrauterine ONCE 0 06/13/18 07/02/25 History CONTROL blood sugar diagnostic (PingMD #50 ea 04/08/23 04/02/25 Rx Verio test strips) lancets 33 gauge ([employer] #100 ea 04/08/23 04/02/25 Rx Plus Lancet) cholecalciferol (vitamin D3) 125 125 mcg PO DAILY 08/25/23 07/02/25 History mcg (5,000 unit) capsule nitroglycerin 0.4 mg sublingual 0.4 mg sublingual Q5-15M PRN chest 08/25/23 07/02/25 Rx tablet (Nitrostat) pain #25 tabs evolocumab 140 mg/mL subcutaneous 140 mg subcut Q2W PA has been 04/0607/02/25 Rx pen injector (Repatha SureClick) APPROVED 12/08/2023 #2 mL tirzepatide 12.5 mg/0.5 mL 12.5 mg subcut QWEEK 06/01/2406/14 History subcutaneous pen injector ranolazine 1,000 mg 1,000 mg PO BID #180 TABLETS 06/0607/02/25 Rx tablet,extended release,12 hr atorvastatin 80 mg tablet 80 mg PO DAILY #90 tabs 10/02/24 0 07/02/25 Rx famotidine 40 mg tablet See Rx Instructions .Route 5 07/02/25 Rx .COMPLEX #90 TABLETS ticagrelor 90 mg tablet (Brilinta) 90 mg PO BID #180 tabs 01/17/25 07/02/25 Rx aspirin 81 mg tablet,delayed 81 mg PO DAILY #90 tabs 04/12/25 0 07/02/25 Rx release amlodipine 2.5 mg tablet 2.5 mg PO QDAY 07/02/25 07/02/25 H istory isosorbide mononitrate 30 mg 60 mg (2 x 30 mg) PO BID 90 days 0 07/02/25 07/02/25 Rx tablet,extended release 24 hr #270 TABLETS metoprolol succinate 25 mg 25 mg PO QHS 07/02/25 07/02/25 His tory tablet,extended release 24 hr vitamin B complex 1 tab PO QDAY 07/02/25 07/02/25 Hi story Ejection fraction %: 50 Have you fallen in the past year?: No [facility] Medical History Normal echocardiogram CAD (coronary artery disease), [place] coronary artery Hypercholesterolemia Diabetes Diabetes type 2, uncontrolled Small kidney, unilateral Hyperlipidemia Obstructive sleep apnea Dyspnea on exertion Thyroid mass Surgical History H/O left heart catheterization by ventricular puncture History of heart artery stent History of chol (more content not included)... Normal [facility] Microalb:Creat Ratio,Random URon 05-07-2025 MALB:CREAT 5.0 mg/g CRE Normal [facility] Comment on above: Result Comment: AMENDED REPORT 05/07/25 1028 MALB:CREAT previously reported as: 49.8 mg/g CRE Performed By: #### L 502.0250, L501.9985, L501.9520, L506.0400, L500.4050, L506.1001, L501.22684 ####[facility] [address] [place], [place], [address] Cardiology Visit Reporton Cardiology Visit Report [facility] [address] [place] [address] OFFICE VISIT Date of Service: 04/02/25 MR#: [id number] Acct: [id number] Name: PATRICIA LOPEZ Rep #: [id number] : 1970 Provider: ARMANDO prince Age/Sex: 54/F [place] [facility] [place] Status: Signed HPI HPI History of Present Illness Details: Galina Lopez is a 54-year-old female who presents here today for a cardiovascular follow-up. She did have an stress echocardiogram done in 2019 which was a normal adequate treadmill stress echocardiogram. It was negative for ischemia by EKG and echocardiogram criteria. She presented to [facility] on 12/04/2022 with chest tightness. Her cardiac enzymes were noted to be elevated. She does not have any ST changes. She was admitted to PCU. She did remain pain-free. She did undergo a diagnostic heart catheterization on 12/06/2022. She was noted to have triple- vessel disease involving the LAD, circumflex and RCA with a low normal ejection fraction. She was being referred for surgery consult for coronary revascularization. She was transferred to [facility]. Pt notes that she underwent stenting instead by bypass. She tells me that she had stenting to her LAD and RCA. Circumflex was treated medically. She was started on EECP which helped significantly and she continues to do well she tells me that she is on Mounjaro at this particular time. She only occasionally has any chest discomfort. She no longer has any palpitations. From a cardiac standpoint, the patient is doing well. She does have occasional left sided chest pain. She states that this is nothing new or worsening. She denies any palpitations, pressure or heaviness. She denies SOB, Orthopnea, and PND. She does wear her CPAP nightly. She does not have bleeding issues; no blood in urine, stool, or nosebleeds. She does acknowledge fatigue. She denies myalgias, or claudication. She does not have edema, or sudden weight gain. She does have occasional lightheadedness with standing up. She denies dizziness, syncopal or near syncopal episodes, and headaches. 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 Is patient in pain?: No Allergies No Known Allergies Allergy (Verified 04/02/25 14:03) Medications ???Medication ???Instructions ???Recorded ???Confirmed ???Type levonorgestrel (Mirena) 1 insert intrauterine ONCE 0 06/13/18 04/02/25 History CONTROL blood sugar diagnostic ([employer] #50 ea 04/08/23 04/02/25 Rx Verio test strips) lancets 33 gauge ([employer] Delica #100 ea 04/08/23 04/02/25 Rx Plus Lancet) cholecalciferol (vitamin D3) 125 125 mcg PO DAILY 08/25/23 04/02/25 History mcg (5,000 unit) capsule nitroglycerin 0.4 mg sublingual 0.4 mg sublingual Q5-15M PRN chest 08/25/23 04/02/25 Rx tablet (Nitrostat) pain #25 tabs evolocumab 140 mg/mL subcutaneous 140 mg subcut Q2W PA has been 04/0604/02/25 Rx pen injector (Brendana Cesario) APPROVED 12/08/2023 #2 mL aspirin 81 mg tablet,delayed 81 mg PO DAILY #90 tabs 02/28/24 0 04/02/25 Rx release tirzepatide 12.5 mg/0.5 mL 12.5 mg subcut QWEEK 06/01/2403/15 History subcutaneous pen injector ranolazine 1,000 mg 1,000 mg PO BID #180 TABLETS 06/0604/02/25 Rx tablet,extended release,12 hr atorvastatin 80 mg tablet 80 mg PO DAILY #90 tabs 10/02/24 0 04/02/25 Rx isosorbide mononitrate 30 mg 30 mg PO BID 90 days #180 TABLETS 01/16/25 04/02/25 Rx tablet,extended release 24 hr famotidine 40 mg tablet See Rx Instructions .Route 5 04/02/25 Rx .COMPLEX #90 TABLETS ticagrelor 90 mg tablet (Brilinta) 90 mg PO BID #180 tabs 01/17/25 04/02/25 Rx metoprolol succinate 25 mg See Rx Instructions .Route 5 04/02/25 Rx tablet,extended release 24 hr .COMPLEX #90 tabs Ejection fraction %: 50 Have you fallen in the past year?: No PFSH Medical History Normal echocardiogram CAD (coronary artery disease), [place] coronary artery Hypercholesterolemia Diabetes Diabetes type 2, uncontrolled Small kidney, unilateral Hyperlipidemia Obstructive sleep apnea Dyspnea on exertion Thyroid mass Surgical History H/O left heart catheterization by ventricular puncture History of heart artery stent History of cholecystectomy Family History Mother Ovarian cancer Grandmother Thyroid disorder Arrhythmia (more content not included)... Normal [facility] Anion gap in Serum or Plasma Ordered By: Jodee Muniz on 04-01-2025 Anion gap [Moles/Vol] 11 mmol/L 5-15 [facility] BUN/creatinine ratioOrdered By: Jodee Muniz on 04-01-2025 Urea nitrogen/Creatinine [Mass ratio] 14.0 mg/mg 10- [facility] Bilirubin, totalOrdered By: Jodee Muniz on 04-01-2025 Bilirubin [Mass/Vol] 0.28 mg/dL 0.00-1.30 [facility] Carbon dioxide, total [Moles /volume] in Central venous bloodOrdered By: Jodee Muniz on 04-01-2025 CO2 [Moles/Vol] 23.1 mmol/L 21.0-32.0 [facility] Chloride assayOrdered By: Debi Muniz on 04-01-2025 Chloride [Moles/Vol] 107 mmol/L 98-108 [facility] Comprehensive Metabolic Prof ilon 04-01-2025 Albumin [Mass/Vol] 4.3 g/dL Normal 3.5-5.0 [facility] Comment on above: Performed By: #### L 502.0250, L501.9985, L501.9520, L506.0400, L500.4050, L506.1001, L501.63359 ####[facility] [address] [place], [place], [id number] Albumin/Globulin [Mass ratio] 1.4 {ratio} Normal 0.9-2.4 [facility] Comment on above: Performed By: #### L 502.0250, L501.9985, L501.9520, L506.0400, L500.4050, L506.1001, L501.37724 ####[facility] [address] [place], [place], [phone] ALK PHOS 109 U/L High 35-104 [facility] Comment on above: Performed By: #### L 502.0250, L501.9985, L501.9520, L506.0400, L500.4050, L506.1001, L501.32537 ####[facility] [address] [place], [address] ALT [Catalytic activity/Vol] 20 U/L Normal <=34 [facility] Comment on above: Performed By: #### L 502.0250, L501.9985, L501.9520, L506.0400, L500.4050, L506.1001, L501.44179 ####[facility] [address] [place], [address] AST [Catalytic activity/Vol] 19 U/L Normal <=31 [facility] Comment on above: Performed By: #### L 502.0250, L501.9985, L501.9520, L506.0400, L500.4050, L506.1001, L501.22235 ####[facility] [address] [place], [address] Bilirubin [Mass/Vol] 0.28 mg/dL Normal 0.00-1.30 [facility] Comment on above: Performed By: #### L 502.0250, L501.9985, L501.9520, L506.0400, L500.4050, L506.1001, L501.10109 ####[facility] [address] [place], [address] BUN/CRE 14.0 RATIO Normal 10-20 [facility] Comment on above: Performed By: #### L 502.0250, L501.9985, L501.9520, L506.0400, L500.4050, L506.1001, L501.79938 ####[facility] [address] [place], [address] Calcium [Mass/Vol] 9.4 mg/dL Normal 7.6-11.0 [facility] Comment on above: Performed By: #### L 502.0250, L501.9985, L501.9520, L506.0400, L500.4050, L506.1001, L501.92808 ####[facility] [address] [place], [address] Chloride [Moles/Vol] 107 mmol/L Normal 98-108 [facility] Comment on above: Performed By: #### L 502.0250, L501.9985, L501.9520, L506.0400, L500.4050, L506.1001, L501.03251 ####[facility] [address] [place], [address] CO2 [Moles/Vol] 23.1 mmol/L Normal 21.0-32.0 [facility] Comment on above: Performed By: #### L 502.0250, L501.9985, L501.9520, L506.0400, L500.4050, L506.1001, L501.57856 ####[facility] [address] [place], [address] Creatinine [Mass/Vol] 0.92 mg/dL Normal 0.70-1.20 [facility] Comment on above: Performed By: #### L 502.0250, L501.9985, L501.9520, L506.0400, L500.4050, L506.1001, L501.05713 ####[facility] [address] [place], [address] GAP 11 Normal 5-15 [facility] Comment on above: Performed By: #### L 502.0250, L501.9985, L501.9520, L506.0400, L500.4050, L506.1001, L501.69349 ####[facility] [address] [place], [address] GFR/1.73 sq M.predicted among non-blacks MDRD (S/P/Bld) [Vol rate/Area] 74 mL/min/{1.73_m2} Normal >60 [facility] Comment on above: Result Comment: mL/m in/1.73m2 CKD-EPI Creatinine Equation (2020) Performed By: #### L 502.0250, L501.9985, L501.9520, L506.0400, L500.4050, L506.1001, L501.85359 ####[facility] [address] [place], [address] Globulin (S) [Mass/Vol] 3.1 g/dL Normal 2.2-4.2 [facility] Comment on above: Performed By: #### L 502.0250, L501.9985, L501.9520, L506.0400, L500.4050, L506.1001, L501.09357 ####[facility] [address] [place], [address] Glucose [Mass/Vol] 112 mg/dL High 70-99 [facility] Comment on above: Performed By: #### L 502.0250, L501.9985, L501.9520, L506.0400, L500.4050, L506.1001, L501.03562 ####[facility] [address] [place], [address] Potassium [Moles/Vol] 4.3 mmol/L Normal 3.3-5.1 [facility] Comment on above: Performed By: #### L 502.0250, L501.9985, L501.9520, L506.0400, L500.4050, L506.1001, L501.92159 ####[facility] [address] [place], [address] Sodium [Moles/Vol] 141 mmol/L Normal 133-145 [facility] Comment on above: Performed By: #### L 502.0250, L501.9985, L501.9520, L506.0400, L500.4050, L506.1001, L501.09528 ####[facility] [address] [place], [place], [id number] T PROT 7.4 g/dL Normal 5.9-8.4 [facility] Comment on above: Performed By: #### L 502.0250, L501.9985, L501.9520, L506.0400, L500.4050, L506.1001, L501.11765 ####[facility] [address] [place], [address] Urea nitrogen [Mass/Vol] 13 mg/dL Normal 4-19 [facility] Comment on above: Performed By: #### L 502.0250, L501.9985, L501.9520, L506.0400, L500.4050, L506.1001, L501.66997 ####[facility] [address] [place], [place], [phone] Free T3on 04-01-2025 Free T3 [Mass/Vol] 2.7 pg/mL Normal 2.18-3.98 [facility] Comment on above: Performed By: #### L 502.0250, L501.9985, L501.9520, L506.0400, L500.4050, L506.1001, L501.07159 ####[facility] [address] [place], [place], [id number] Free T2Jwwqnir By: Jodee fink on 04-01-2025 Free T3 [Mass/Vol] 2.7 pg/mL 2.18-3.98 [facility] Glomerular filtration rate ( GFR) estimation/1.73 sq m using serum, plasma, or whole bOrdered By: Jodee Muniz on 04-01-2025 GFR/1.73 sq M.predicted among non-blacks MDRD (S/P/Bld) [Vol rate/Area] 74 mL/min/{1.73_m2} >60 [facility] Comment on above: mL/min/1.73m2 CKD-EP I Creatinine Equation (2020) Hemoglobin A1con 04-01-2025 HbA1c (Bld) [Mass fraction] 5.3 % Normal <=5.6 [facility] Comment on above: Result Comment: Norm al < 5.7 % Prediabetic 5.7 - 6.4 % Diabetic >or= 6.5 % Please note range changes. Performed By: #### L 502.0250, L501.9985, L501.9520, L506.0400, L500.4050, L506.1001, L501.89890 ####[facility] [address] [place], [address] Hemoglobin A1c percentageOrd ered By: Jodee Muniz on 04-01-2025 HbA1c (Bld) [Mass fraction] 5.3 % <5.7 [facility] [facility] Comment on above: Normal < 5.7 % Predi abetic 5.7 - 6.4 % Diabetic >or= 6.5 % Please note range changes. Laboratory - Chemistry and C hemistry - challengeOrdered By: Jodee Muniz on 04-01-2025 AST [Catalytic activity/Vol] 19 U/L <32 [facility] Potassium measurement (mass/ volume)Ordered By: Jodee Muniz on 04-01-2025 Potassium (Unsp spec) [Mass/Vol] 4.3 mmol/L 3.3-5.1 [facility] Random urine creatinine nathan urement (mass/volume)Ordered By: Jodee Muniz on 04-01-2025 Creatinine Unsp time (U) [Mass/Vol] 277.00 mg/dL High 28.00-217.00 [facility] Serum creatinine measurement (mass/volume)Ordered By: Jodee Muniz on 04-01-2025 Creatinine [Mass/Vol] 0.92 mg/dL 0.70-1.20 [facility] Serum globulin measurementOr dered By: Jodee Muniz on 04-01-2025 Globulin (S) [Mass/Vol] 3.1 g/dL 2.2-4.2 [facility] Serum glucose measurement (m ass/volume)Ordered By: Jodee Muniz on 04-01-2025 Glucose [Mass/Vol] 112 mg/dL High 70-99 [facility] Serum or plasma alanine blank otransferase (ALT) measurementOrdered By: Jodee Muniz on 04-01-2025 ALT [Catalytic activity/Vol] 20 U/L <35 [facility] Serum or plasma albumin nathan urement (mass/volume)Ordered By: Jodeeshona Muniz on 04-01-2025 Albumin [Mass/Vol] 4.3 g/dL 3.5-5.0 [facility] Serum or plasma albumin/glob ulin mass ratioOrdered By: Jodee [facility] on 04-01-2025 Albumin/Globulin [Mass ratio] 1.4 {ratio} 0.9-2.4 [facility] Serum or plasma alkaline tyson sphatase measurementOrdered By: Jodeeshona Muniz on 04-01-2025 ALP [Catalytic activity/Vol] 109 U/L High 35-104 [facility] Serum or plasma calcium nathan urement (mass/volume)Ordered By: Jodeeshona Muniz on 04-01-2025 Calcium [Mass/Vol] 9.4 mg/dL 7.6-11.0 [facility] Serum or plasma urea nitroge n measurement (mass/volume)Ordered By: Jodee Muniz on 04-01-2025 Urea nitrogen [Mass/Vol] 13 mg/dL 4-19 [facility] Sodium levelOrdered By: Angie Muniz on 04-01-2025 Sodium [Moles/Vol] 141 mmol/L 133-145 [facility] T4 Free Directon 04-01-2025 T4 FREE DIRECT 1.20 ng/dL Normal 0.76-1.46 [facility] Comment on above: Performed By: #### L 502.0250, L501.2497, L501.3120, L506.0400, L500.4050, L506.1001, L501.33419 ####[facility] [address] [place], [place], [id number] T4 freeOrdered By: Jodee mccormickamiranamrata on 04-01-2025 Free T4 [Mass/Vol] 1.20 ng/dL 0.76-1.46 [facility] TSH DL <= 0.005 mIU/L QnOrde red By: Jodee Muniz on 04-01-2025 TSH Qn 1.140 uIU/mL 0.300-4.200 [facility] Thyroid Stim Hormone (TSH)on 04-01-2025 TSH 1.140 uIU/mL Normal 0.300-4.200 [facility] Comment on above: Performed By: #### L 502.0250, L501.9985, L501.9520, L506.0400, L500.4050, L506.1001, L501.42825 ####[facility] [address] [place], [address] Total proteinOrdered By: Wellington Muniz on 04-01-2025 Protein [Mass/Vol] 7.4 g/dL 5.9-8.4 [facility] Urine albumin measurement [facility] detection limit of 20 mg/L or less (mass/volume)Ordered By: Jodee Muniz on 04-01-2025 Albumin DL <= 20 mg/L (U) [Mass/Vol] 13.8 mg/L NO RANGE EST. [facility] Vitamin D,25 Hydroxyon 04-01 Vitamin D 25-OH 41.2 ng/mL Normal 30-100 [facility] Comment on above: Result Comment: Maame min D Status Deficiency: <20 ng/mL (50nmol/L) Insufficiency: 20-30 ng/mL (50-75 nmol/L) Sufficiency: 30-100 ng/mL (75-250 nmol/L) Toxicity: >100 ng/mL (>250 nmol/L) Performed By: #### L 502.0250, L501.9985, L501.9520, L506.0400, L500.4050, L506.1001, L501.59919 ####[facility] [address] [place], [address] Thyroidon 12-13-2024 Thyroid [facility] Imaging Services [address] [place], [place] [address] Thyroid MR#: [id number] Acct: [id number] Name: PATRICIA LOPEZ Rep #: [id number] : 1970 F 54 From: Taras Rosenbaum MD PCP: JENELLE JackmanC Status: REG CLI Study: Thyroid Date of Exam: 12/13/24 Exam# [id number] Ordering Dr: Jodee Muniz MD PROCEDURE: THYROID REASON FOR EXAM: THYROID NODULE TECHNIQUE: Routine grayscale and color flow imaging of the thyroid gland with routine image documentation. COMPARISON: No relevant prior FINDINGS: Right thyroid lobe measures 5.3 x 3.0 x 2.2 cm.. Left thyroid lobe measures 4.6 x 1.9 x 1.9 cm.. Isthmus thickness is0.4 cm.. Thyroid Size: Normal Background Echotexture: Heterogeneous. Thyroid Nodules: Bilateral. Right: Superior pole, 0.6 x 0.6 x 2.5 the cm, mixed cystic and solid, hypoechoic, wider than tall, no calcifications, TR 3. Mid pole, predominantly solid, 2.3 x 1.9 x 1.7 cm, isoechoic, wider than tall, no calcifications, TR 2. Inferior pole, mixed cystic and solid, 1.2 x 1.1 x 0.8 cm, isoechoic, wider than tall, no calcifications, TR 2. Inferior pole, predominantly solid, 1.4 x 1.7 x 1.4 cm, isoechoic, wider than tall, no calcifications, TR 2. Left: Superior pole, solid, 0.4 x 0.4 x 0.3 cm, hypoechoic, wider than tall, no calcifications, TR 4. Inferior pole, solid, 0.5 x 0.4 x 0.4 cm, hypoechoic, wider than tall, no calcifications, TR 4. Inferior pole, solid, 0.5 x 0.6 x 0.4 cm, hypoechoic, wider than tall, no calcifications, TR 4. US/Thyroid IMPRESSION: 1. Heterogeneous thyroid gland. 2. TR 3 and TR 2 category nodules in the right thyroid lobe. No FNA warranted. 3. TR 4 category micro nodules in the left thyroid lobe. No FNA warranted. 4. Follow-up ultrasound recommended in 12 months for surveillance. Reading Location: [facility] CC: ARMANDO Kurtz; Dr. Jodee Muniz MD Beverage Manager: Signed Normal [facility] Comprehensive Metabolic Prof ilon 11-20-2024 Albumin [Mass/Vol] 4.0 g/dL Normal 3.2-5.0 [facility] Comment on above: Performed By: #### L 501.9985, L501.9520, L506.0400, L500.4100, L500.4050, L502.0250 #### [facility] Laboratory [address] [place], [address] Albumin/Globulin [Mass ratio] 1.0 {ratio} Normal 0.9-2.4 [facility] Comment on above: Performed By: #### L 501.9985, L501.9520, L506.0400, L500.4100, L500.4050, L502.0250 #### [facility] [address] [place], [address] ALK P 128 U/L High 45-117 [facility] Comment on above: Performed By: #### L 501.9985, L501.9520, L506.0400, L500.4100, L500.4050, L502.0250 #### [facility] [address] [place], [address] ALT [Catalytic activity/Vol] 58 U/L High 13-56 [facility] Comment on above: Performed By: #### L 501.9985, L501.9520, L506.0400, L500.4100, L500.4050, L502.0250 #### [facility] [address] [place], [address] AST [Catalytic activity/Vol] 22 U/L Normal 15-37 [facility] Comment on above: Performed By: #### L 501.9985, L501.9520, L506.0400, L500.4100, L500.4050, L502.0250 #### [facility] [address] [place], [address] Bilirubin [Mass/Vol] 0.60 mg/dL Normal 0.20-1.00 [facility] Comment on above: Result Comment: For patients on eltrombopag therapy, use of Dimension [place] TBIL is not recommended. Performed By: #### L 501.9985, L501.9520, L506.0400, L500.4100, L500.4050, L502.0250 #### [facility] [address] [place], [address] BUN/CRE 15.1 RATIO Normal 10-20 [facility] Comment on above: Performed By: #### L 501.9985, L501.9520, L506.0400, L500.4100, L500.4050, L502.0250 #### [facility] [address] [place], [address] CA,Total 9.3 mg/dL Normal 8.5-10.1 [facility] Comment on above: Performed By: #### L 501.9985, L501.9520, L506.0400, L500.4100, L500.4050, L502.0250 #### [facility] [address] [place], [address] Chloride [Moles/Vol] 109 mmol/L High 98-107 [facility] Comment on above: Performed By: #### L 501.9985, L501.9520, L506.0400, L500.4100, L500.4050, L502.0250 #### [facility] [address] [place], [address] CO2 [Moles/Vol] 23.0 mmol/L Normal 21.0-32.0 [facility] Comment on above: Performed By: #### L 501.9985, L501.9520, L506.0400, L500.4100, L500.4050, L502.0250 #### [facility] [address] [place], [place], [phone] ([phone]) Creatinine [Mass/Vol] 0.99 mg/dL Normal 0.55-1.02 [facility] Comment on above: Result Comment: The validity of the calculated GFR GFRAA in patients over 70 years has not been determined. Clinical correlation is essential. Performed By: #### L 501.9985, L501.9520, L506.0400, L500.4100, L500.4050, L502.0250 #### [facility] [address] [place], [place], [phone] (388 EST GFR - AA 75 mL/min Normal >60 [facility] Comment on above: Result Comment: Afri can Cymraes GFR Calc Performed By: #### L 501.9985, L501.9520, L506.0400, L500.4100, L500.4050, L502.0250 #### [facility] [address] [place], [place], [phone] (486) GAP 8 Normal 5-15 [facility] Comment on above: Performed By: #### L 501.9985, L501.9520, L506.0400, L500.4100, L500.4050, L502.0250 #### [facility] [address] [place], [place], [phone] ([address] GFR/1.73 sq M.predicted among non-blacks MDRD (S/P/Bld) [Vol rate/Area] 62 mL/min/{1.73_m2} Normal >60 [facility] Comment on above: Result Comment: Non- GFR Calc Performed By: #### L 501.9985, L501.9520, L506.0400, L500.4100, L500.4050, L502.0250 #### [facility] [address] [place], [address] Globulin (S) [Mass/Vol] 4.1 g/dL Normal 2.2-4.2 [facility] Comment on above: Performed By: #### L 501.9985, L501.9520, L506.0400, L500.4100, L500.4050, L502.0250 #### [facility] [address] [place], [address] Glucose [Mass/Vol] 116 mg/dL High 74-106 [facility] Comment on above: Result Comment: Fast ing Glucose result from 100 to 125 mg/dL suggests IMPAIRED HOMEOSTASIS per A.D.A. criteria. Performed By: #### L 501.9985, L501.9520, L506.0400, L500.4100, L500.4050, L502.0250 #### [facility] [address] [place], [address] Potassium [Moles/Vol] 4.0 mmol/L Normal 3.5-5.1 [facility] Comment on above: Performed By: #### L 501.9985, L501.9520, L506.0400, L500.4100, L500.4050, L502.0250 #### [facility] [address] [place], [address] Sodium [Moles/Vol] 140 mmol/L Normal 136-145 [facility] Comment on above: Performed By: #### L 501.9985, L501.9520, L506.0400, L500.4100, L500.4050, L502.0250 #### [facility] [address] [place], [address] T PROT 8.1 g/dL Normal 6.4-8.2 [facility] Comment on above: Performed By: #### L 501.9985, L501.9520, L506.0400, L500.4100, L500.4050, L502.0250 #### [facility] [address] [place], [address] Urea nitrogen [Mass/Vol] 15 mg/dL Normal 7-18 [facility] Comment on above: Performed By: #### L 501.9985, L501.9520, L506.0400, L500.4100, L500.4050, L502.0250 #### [facility] [address] [place], [address] Hemoglobin A1con 11-20-2024 HbA1c (Bld) [Mass fraction] 5.2 % Normal 3.8-5.6 [facility] Comment on above: Result Comment: Norm al < 5.7 % Prediabetic 5.7 - 6.4 % Diabetic >or= 6.5 % Please note range changes. Performed By: #### L 501.9985, L501.9520, L506.0400, L500.4100, L500.4050, L502.0250 #### [facility] [address] [place], [address] Lipid Profileon 11-20-2024 Cholesterol [Mass/Vol] 98 mg/dL Normal 200 [facility] Comment on above: Result Comment: <200 mg/dL Desirable 200-240 mg/dL Borderline >240 mg/dL High Risk Performed By: #### L 501.9985, L501.9520, L506.0400, L500.4100, L500.4050, L502.0250 #### [facility] [address] [place], [address] Cholesterol in HDL [Mass/Vol] 53 mg/dL Normal [facility] Comment on above: Result Comment: The drugs N-Acetylcysteine and Metamizole may falsely depress this assay. Reference Range HDL <40 mg/dL Low HDL Cholesterol HDL >or= 60 mg/dL High HDL Cholesterol Performed By: #### L 501.9985, L501.9520, L506.0400, L500.4100, L500.4050, L502.0250 #### [facility] [address] [place], [address] Cholesterol in LDL [Mass/Vol] 23 mg/dL Normal 0-130 [facility] Comment on above: Performed By: #### L 501.9985, L501.9520, L506.0400, L500.4100, L500.4050, L502.0250 #### [facility] [address] [place], [address] Cholesterol in VLDL [Mass/Vol] 22 mg/dL Normal 5-40 [facility] Comment on above: Performed By: #### L 501.9985, L501.9520, L506.0400, L500.4100, L500.4050, L502.0250 #### [facility] [address] [place], [address] Triglyceride [Mass/Vol] 110 mg/dL Normal [facility] Comment on above: Result Comment: The drugs N-Acetylcysteine and Metamizole may falsely depress this assay. Serum Triglycerides Reference Interval Normal <150 mg/dL Borderline high 150 - 199 mg/dL High 200 - 499 mg/dL Very High > or = 500 mg/dL Performed By: #### L 501.9985, L501.9520, L506.0400, L500.4100, L500.4050, L502.0250 #### [facility] [address] [place], [address] Microalb:Creat Ratio,Random URon 11-20-2024 Creatinine [Mass/Vol] 197.00 mg/dL Normal NO RAN GE EST. [facility] Comment on above: Performed By: #### L 501.9985, L501.9520, L506.0400, L500.4100, L500.4050, L502.0250 ####[facility] [address] [place], [place], [id number] MALB:CRE 9.1 mg/g CRE Normal <30 mg/g CRE [facility] Comment on above: Performed By: #### L 501.9985, L501.9520, L506.0400, L500.4100, L500.4050, L502.0250 ####[facility] [address] [place], [address] MICROALBUMIN,UR 18.0 mg/L Normal NO RANGE EST. [facility] Comment on above: Performed By: #### L 501.9985, L501.9520, L506.0400, L500.4100, L500.4050, L502.0250 ####[facility] [address] [place], [place], [phone] T4 Free Directon 11-20-2024 T4 FREE DIRECT 1.11 ng/dL Normal 0.76-1.46 [facility] Comment on above: Performed By: #### L 501.9985, L501.9520, L506.0400, L500.4100, L500.4050, L502.0250 ####[facility] [address] [place], [place], [id number] Thyroid Stim Hormone (TSH)on 11-20-2024 TSH 1.790 uIU/mL Normal 0.358-3.740 [facility] Comment on above: Performed By: #### L 501.9985, L501.9520, L506.0400, L500.4100, L500.4050, L502.0250 #### [facility] [address] [place], [place], [id number] Cardiology Visit Reporton Cardiology Visit Report [facility] [address] [place] [address] OFFICE VISIT Date of Service: 10/02/24 MR#: [id number] Acct: [id number] Name: PATRICIA LOPEZ Rep #: [id number] : 1970 Provider: Dr. Ronak Burt MD Age/Sex: 54/F [place] [facility] [place] Status: Signed HPI HPI History of Present Illness Details: Galina Lopez is a 54-year-old female that presents here today for a cardiovascular follow-up. She did have an stress echocardiogram done in 2019 which was a normal adequate treadmill stress echocardiogram. It was negative for ischemia by EKG and echocardiogram criteria. She presented to [facility] on 12/04/2022 with chest tightness. Her cardiac enzymes were noted to be elevated. She does not have any ST changes. She was admitted to PCU. She did remain pain-free. She did undergo a diagnostic heart catheterization on 12/06/2022. She was noted to have triple- vessel disease involving the LAD, circumflex and RCA with a low normal ejection fraction. She was being referred for surgery consult for coronary revascularization. She was transferred to [facility]. Pt notes that she underwent stenting instead by bypass. She tells me that she had stenting to her LAD and RCA. Circumflex was treated medically. She was started on EECP which helped significantly and she continues to do well she tells me that she is on Mounjaro at this particular time. She only occasionally has any chest discomfort. She no longer has any palpitations. 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 Accompanied by: Self Is patient in pain?: No Allergies No Known Allergies Allergy (Verified 10/02/24 14:52) Medications ???Medication ???Instructions ???Recorded ???Confirmed ???Type levonorgestrel (Mirena) 1 insert intrauterine ONCE 06/13/18 10/02/24 History CONTROL blood sugar diagnostic (OneTouch #50 ea 04/08/23 06/01/24 Rx Verio test strips) lancets 33 gauge (OneTouch Delica #100 ea 04/08/23 06/01/24 Rx Plus Lancet) cholecalciferol (vitamin D3) 125 125 mcg PO DAILY 08/25/23 10/02/24 History mcg (5,000 unit) capsule nitroglycerin 0.4 mg sublingual 0.4 mg sublingual Q5-15M PRN chest 08/25/23 10/02/24 Rx tablet (Nitrostat) pain #25 tabs famotidine 40 mg tablet See Rx Instructions .Route 12/13/23 10/02/24 Rx .COMPLEX #90 TABLETS metoprolol succinate 25 mg See Rx Instructions .Route 01/06/24 10/02/24 Rx tablet,extended release 24 hr .COMPLEX #90 tabs evolocumab 140 mg/mL subcutaneous 140 mg subcut Q2W PA has been 01/17/24 10/02/24 Rx pen injector (Ran Nassar) APPROVED 12/08/2023 #2 mL aspirin 81 mg tablet,delayed 81 mg PO DAILY #90 tabs 02/28/24 10/02/24 Rx release ticagrelor 90 mg tablet (Brilinta) 90 mg PO BID #180 tabs 02/28/24 10/02/24 Rx tirzepatide 12.5 mg/0.5 mL 12.5 mg subcut QWEEK 06/01/24 10/02/24 History subcutaneous pen injector ranolazine 1,000 mg 1,000 mg PO BID #180 TABLETS 06/06/24 10/02/24 Rx tablet,extended release,12 hr amlodipine 2.5 mg tablet (Norvasc) 2.5 mg PO BID #180 tabs 07/23/24 10/02/24 Rx atorvastatin 80 mg tablet 80 mg PO DAILY #90 tabs 10/02/24 10/02/24 Rx empagliflozin 10 mg tablet 25 mg PO DAILY 10/02/24 10/02/24 History (Jardiance) isosorbide mononitrate 30 mg 30 mg PO BID 10/02/24 History tablet,extended release 24 hr tirzepatide 5 mg/0.5 mL 12.5 mg subcut QWEEK 11/19/24 11/19/24 History subcutaneous pen injector (Mounjaro) Have you fallen in the past year?: No PFSH Medical History Normal echocardiogram CAD (coronary artery disease), [place] coronary artery Hypercholesterolemia Diabetes Diabetes type 2, uncontrolled Small kidney, unilateral Hyperlipidemia Obstructive sleep apnea Dyspnea on exertion Thyroid mass Surgical History H/O left heart catheterization by ventricular puncture History of heart artery stent History of cholecystectomy Family History Mother Ovarian cancer Grandmother Thyroid disorder Arrhythmia Grandfather Thyroid disorder had thyroid removed for cancer Uncle Thyroid disorder Aunt Thyroid disorder thyroid cancer and had removed Brother Hypertension Social History Smoking Status: Former smoker ROS Const Const: Positive for fatigue, weakness, headache(s) and difficulty sleeping; Negative for d (more content not included)... Normal [facility] Basophil percentageOrdered B y: Jodee Muniz on 02-16-2024 Bilirubin [Mass/Vol] 0.40 mg/dL 0.20-1.00 [facility] Comment on above: For patients on eltr ombopag therapy, use of Dimension [place] TBIL is not recommended. Chloride [Moles/Vol] 110 mmol/L 98-107 [facility] Glucose [Mass/Vol] 131 mg/dL 74-106 [facility] Comment on above: Fasting Glucose resu lt greater than or equal to 126 mg/dL suggests DIABETES MELLITUS per A.D.A. criteria. Potassium [Moles/Vol] 4.8 mmol/L 3.5-5.1 [facility] Protein [Mass/Vol] 7.9 g/dL 6.4-8.2 [facility] Sodium [Moles/Vol] 141 mmol/L 136-145 [facility] - Chemistry and C hemistry - challengeOrdered By: Jodee Muniz on 02-16-2024 Albumin/Globulin [Mass ratio] 1.0 {ratio} 0.9-2.4 [facility] ALP [Catalytic activity/Vol] 111 U/L 45-117 [facility] ALT [Catalytic activity/Vol] 34 U/L 13-56 [facility] CO2 [Moles/Vol] 28.0 mmol/L 21.0-32.0 [facility] Globulin (S) [Mass/Vol] 3.9 g/dL 2.2-4.2 [facility] Urea nitrogen/Creatinine [Mass ratio] 13.6 mg/mg 10-20 [facility] No Panel InformationOrdered By: Jodee Muniz on 02-16-2024 Estimated GFR (MDRD) Amer 72 mL/min >60 [facility] Comment on above: GFR Calc Estimated GFR (MDRD) Non-Af Amer 60 mL/min >60 [facility] Comment on above: Non- GFR Calc Urine Microalbumin/Creatinin e Ratio 6.1 mg/g CRE <30 [facility] Vitamin D 25-Hydroxy 44.5 ng/mL [facility] Comment on above: Vitamin D 25(OH) Sta tus Range Deficiency <20 ng/mL (50nmol/L) Insufficiency 20 - 30 ng/mL (50 - 75 nmol/L) Sufficiency 30 - 100 ng/mL (75 - 250 nmol/L) Toxicity >100 ng/mL (>250 nmol/L) Serum or plasma calcium nathan urement (mass/volume)Ordered By: Jodee Muniz on 02-16-2024 Calcium [Mass/Vol] 9.6 mg/dL 8.5-10.1 [facility] Serum or plasma creatinine m easurement (mass/volume)Ordered By: Jodee Muniz on 02-16-2024 Creatinine [Mass/Vol] 1.03 mg/dL 0.55-1.02 [facility] Comment on above: The validity of the calculated GFR & GFRAA in patients over 70 years has not been determined. Clinical correlation is essential. Serum or plasma urea nitroge n measurement (mass/volume)Ordered By: Jodee Muniz on 02-16-2024 Urea nitrogen [Mass/Vol] 14 mg/dL 7-18 [facility] Thin prep Papanicolaou smear with manual screeningOrdered By: Jodee Muniz on 02-16-2024 Thin prep Papanicolaou smear with manual screening 4.0 g/dL 3.2-5.0 [facility] Thin prep Papanicolaou smear with manual screening 15 U/L 15-37 [facility] Thin prep Papanicolaou smear with manual screening 3 5-15 [facility] Thin prep Papanicolaou smear with manual screening 7.0 mg/L NO RANGE EST. [facility] Urine creatinine measurement (mass/volume)Ordered By: Jodee Muniz on 02-16-2024 Creatinine (U) [Mass/Vol] 114.00 mg/dL NO RANGE EST. [facility] Whole blood hemoglobin A1c/t otal hemoglobin ratio (mass fraction)Ordered By: Jodee Muniz on 02-16-2024 HbA1c (Bld) [Mass fraction] 5.7 % 3.8-5.6 [facility] Comment on above: Normal < 5.7 % Predi abetic 5.7 - 6.4 % Diabetic >or= 6.5 % Please note range changes. Basophil percentageOrdered B y: Jodee Muniz on 10-14-2023 Bilirubin [Mass/Vol] 0.40 mg/dL 0.20-1.00 [facility] Comment on above: For patients on eltr ombopag therapy, use of Dimension [place] TBIL is not recommended. Chloride [Moles/Vol] 106 mmol/L 98-107 [facility] Cholesterol [Mass/Vol] 175 mg/dL <200 [facility] Comment on above: <200 mg/dL Desirable 200-240 mg/dL Borderline >240 mg/dL High Risk Glucose [Mass/Vol] 103 mg/dL 74-106 [facility] Comment on above: Fasting Glucose resu lt from 100 to 125 mg/dL suggests IMPAIRED HOMEOSTASIS per A.D.A. criteria. Potassium [Moles/Vol] 4.3 mmol/L 3.5-5.1 [facility] Protein [Mass/Vol] 8.0 g/dL 6.4-8.2 [facility] Sodium [Moles/Vol] 139 mmol/L 136-145 [facility] Triglyceride [Mass/Vol] 121 mg/dL <199 [facility] Comment on above: The drugs N-Acetylcy steine and Metamizole may falsely depress this assay.Serum Triglycerides Reference Interval Normal <150 mg/dL Borderline high 150 - 199 mg/dL High 200 - 499 mg/dL Very High > or = 500 mg/dL Laboratory - Chemistry and C hemistry - challengeOrdered By: Jodee Muniz on 10-14-2023 ALP [Catalytic activity/Vol] 120 U/L 45-117 [facility] ALT [Catalytic activity/Vol] 35 U/L 13-56 [facility] CO2 [Moles/Vol] 26.0 mmol/L 21.0-32.0 [facility] Free T4 [Mass/Vol] 1.09 ng/dL 0.76-1.46 [facility] Globulin (S) [Mass/Vol] 4.1 g/dL 2.2-4.2 [facility] Urea nitrogen/Creatinine [Mass ratio] 12.1 mg/mg 10-20 [facility] No Panel InformationOrdered By: Jodee Muniz on 10-14-2023 Estimated GFR (MDRD) Amer 83 mL/min >60 [facility] Comment on above: GFR Calc Estimated GFR (MDRD) Non-Af Amer 69 mL/min >60 [facility] Comment on above: Non- GFR Calc Thyroid Stimulating Hormone (TSH) 1.21 uIU/mL 0.358-3.74 [facility] Serum or plasma albumin nathan urement (mass/volume)Ordered By: Jodee Muniz on 10-14-2023 Albumin [Mass/Vol] 3.9 g/dL 3.2-5.0 [facility] Serum or plasma albumin/glob ulin mass ratioOrdered By: Jodee Muniz on 10-14-2023 Albumin/Globulin [Mass ratio] 1.0 {ratio} 0.9-2.4 [facility] Serum or plasma calcium nathan urement (mass/volume)Ordered By: Jodee Muniz on 10-14-2023 Calcium [Mass/Vol] 9.3 mg/dL 8.5-10.1 [facility] Serum or plasma cholesterol in HDL measurement (mass/volume)Ordered By: Jodee Muniz on 10-14-2023 Cholesterol in HDL [Mass/Vol] 49 mg/dL >40 [facility] Comment on above: The drugs N-Acetylcy steine and Metamizole may falsely depress this assay. Reference Range HDL <40 mg/dL Low HDL Cholesterol HDL >or= 60 mg/dL High HDL Cholesterol Serum or plasma cholesterol in VLDL measurement (mass/volume)Ordered By: Jodee Muniz on 10-14-2023 Cholesterol in VLDL [Mass/Vol] 24 mg/dL 5-40 [facility] Serum or plasma creatinine m easurement (mass/volume)Ordered By: Jodee Muniz on 10-14-2023 Creatinine [Mass/Vol] 0.91 mg/dL 0.55-1.02 [facility] Comment on above: The validity of the calculated GFR & GFRAA in patients over 70 years has not been determined. Clinical correlation is essential. Serum or plasma low density lipoprotein (LDL) cholesterol measurement (mass/volume)Ordered By: Jodee Muniz on 10-14-2023 Cholesterol in LDL [Mass/Vol] 102 mg/dL 0-130 [facility] Serum or plasma urea nitroge n measurement (mass/volume)Ordered By: Jodeeshona Muniz on 10-14-2023 Urea nitrogen [Mass/Vol] 11 mg/dL 7-18 [facility] Thin prep Papanicolaou smear with manual screeningOrdered By: Jodee Ragnamrata on 10-14-2023 Thin prep Papanicolaou smear with manual screening 20 U/L 15-37 [facility] Thin prep Papanicolaou smear with manual screening 7 5-15 [facility] Whole blood hemoglobin A1c/t otal hemoglobin ratio (mass fraction)Ordered By: Jodee Muniz on 10-14-2023 HbA1c (Bld) [Mass fraction] 5.4 % 3.8-5.6 [facility] Comment on above: Normal < 5.7 % Predi abetic 5.7 - 6.4 % Diabetic >or= 6.5 % Please note range changes. Serum or plasma cortisol karlie surement (mass/volume)Ordered By: Jodee Muniz on 07-28-2023 Cortisol [Mass/Vol] 1.30 ug/dL 3.44-22.45 [facility] Comment on above: Adult (AM) 5.27 - 22 .45 ug/dL Adult (PM) 3.44 - 16.76 ug/dLPlease note revised CORTISOL reference range effective 2020. Basophil percentageOrdered B y: Jodee Muniz on 07-15-2023 Bilirubin [Mass/Vol] 0.40 mg/dL 0.20-1.00 [facility] Comment on above: For patients on eltr ombopag therapy, use of Dimension [place] TBIL is not recommended. Chloride [Moles/Vol] 108 mmol/L 98-107 [facility] Cholesterol [Mass/Vol] 166 mg/dL <200 [facility] Comment on above: <200 mg/dL Desirable 200-240 mg/dL Borderline >240 mg/dL High Risk Glucose [Mass/Vol] 108 mg/dL 74-106 [facility] Comment on above: Fasting Glucose resu lt from 100 to 125 mg/dL suggests IMPAIRED HOMEOSTASIS per A.D.A. criteria. Potassium [Moles/Vol] 4.0 mmol/L 3.5-5.1 [facility] Protein [Mass/Vol] 8.0 g/dL 6.4-8.2 [facility] Sodium [Moles/Vol] 140 mmol/L 136-145 [facility] Triglyceride [Mass/Vol] 124 mg/dL <199 [facility] Comment on above: The drugs N-Acetylcy steine and Metamizole may falsely depress this assay.Serum Triglycerides Reference Interval Normal <150 mg/dL Borderline high 150 - 199 mg/dL High 200 - 499 mg/dL Very High > or = 500 mg/dL WBC (Bld) [#/Vol] 8.5 10*3/uL 4.4-11.0 [facility] Blood erythrocytes count (nu mber/volume)Ordered By: Jodee Muniz on 07-15-2023 RBC (Bld) [#/Vol] 4.23 10*6/uL 4.2-5.4 [facility] Blood hemoglobin measurement (mass/volume)Ordered By: Jodee Muniz on 07-15-2023 Hemoglobin (Bld) [Mass/Vol] 12.8 g/dL 12.0-15.0 [facility] Blood platelet mean volumeOr dered By: Jodee Muniz on 07-15-2023 Platelet mean volume (Bld) [Entitic vol] 9.0 fL 6.2-12.0 [facility] Determination of erythrocyte mean corpuscular volume (MCV)Ordered By: Jodeeshona Muniz on 07-15-2023 MCV (RBC) [Entitic vol] 94.8 fL 81-99 [facility] Hematocrit Auto (Bld) [Volum e fraction]Ordered By: [facility] Tariqnamrata on 07-15-2023 Hematocrit (Bld) [Volume fraction] 40.1 % 37-47 [facility] Iron measurement (mass/mass) Ordered By: Jodee Ragnamrata on 07-15-2023 Iron (Unsp spec) [Mass/Mass] 56 ug/dL 50-170 [facility] Laboratory - Chemistry and C hemistry - challengeOrdered By: [facility] on 07-15-2023 ALP [Catalytic activity/Vol] 113 U/L 45-117 [facility] ALT [Catalytic activity/Vol] 33 U/L 13-56 [facility] CO2 [Moles/Vol] 26.0 mmol/L 21.0-32.0 [facility] Cobalamin (Vitamin B12) [Mass/Vol] 420 pg/mL 211-911 [facility] Free T4 [Mass/Vol] 1.07 ng/dL 0.76-1.46 [facility] Globulin (S) [Mass/Vol] 4.1 g/dL 2.2-4.2 [facility] Urea nitrogen/Creatinine [Mass ratio] 14.8 mg/mg 10-20 [facility] Laboratory - Hematology and Cell countsOrdered By: [facility] on 07-15-2023 Erythrocyte distribution width (RBC) [Entitic vol] 48.9 fL 35.1-43.9 [facility] Erythrocyte distribution width (RBC) [Ratio] 14.2 % 11.6-14.6 [facility] MCH (RBC) [Entitic mass] 30.3 pg 27.0-32.0 [facility] MCHC Auto (RBC) [Mass/Vol]Or dered By: Jodeeshona Muniz on 07-15-2023 MCHC (RBC) [Mass/Vol] 31.9 g/dL 32-36 [facility] No Panel InformationOrdered By: Jodee Muniz on 07-15-2023 Miscellaneous Test See comment [facility] Comment on above: TEST RESULTS LIMITS Anti-TPO Ab (RDL) <9.0 IU/mL <9.0 TESTING PERFORMED AT [facility]. ORIGINAL REPORT ON FILE IN LAB CONTAINS ADDITIONAL TEST SITE INFORMATION. Estimated GFR (MDRD) Amer 86 mL/min >60 [facility] Comment on above: GFR Calc Estimated GFR (MDRD) Non-Af Amer 71 mL/min >60 [facility] Comment on above: Non- GFR Calc Free Triiodothyronine (T3) pg/dL 2.2 pg/mL 2.18-3.98 [facility] Homocysteine 7.3 umol/L 3.2-10.7 [facility] Thyroid Stimulating Hormone (TSH) 1.67 uIU/mL 0.358-3.74 [facility] Total Iron Binding Capacity 349 ug/dL 250-450 [facility] Urine Microalbumin/Creatinin e Ratio 10.5 mg/g CRE <30 [facility] Vitamin D 25-Hydroxy 51.8 ng/mL [facility] Comment on above: Vitamin D 25(OH) Sta tus Range Deficiency <20 ng/mL (50nmol/L) Insufficiency 20 - 30 ng/mL (50 - 75 nmol/L) Sufficiency 30 - 100 ng/mL (75 - 250 nmol/L) Toxicity >100 ng/mL (>250 nmol/L) Platelets bldOrdered By: Wellington Muniz on 07-15-2023 Platelets (Bld) [#/Vol] 353 10*3/uL 150-450 [facility] Serum or plasma albumin nathan urement (mass/volume)Ordered By: Jodee Muniz on 07-15-2023 Albumin [Mass/Vol] 3.9 g/dL 3.2-5.0 [facility] Serum or plasma albumin/glob ulin mass ratioOrdered By: Jodee Muniz on 07-15-2023 Albumin/Globulin [Mass ratio] 1.0 {ratio} 0.9-2.4 [facility] Serum or plasma calcium nathan urement (mass/volume)Ordered By: Jodeeshona Muniz on 07-15-2023 Calcium [Mass/Vol] 9.0 mg/dL 8.5-10.1 [facility] Serum or plasma cholesterol in HDL measurement (mass/volume)Ordered By: Jodee Muniz on 07-15-2023 Cholesterol in HDL [Mass/Vol] 48 mg/dL >40 [facility] Comment on above: The drugs N-Acetylcy steine and Metamizole may falsely depress this assay. Reference Range HDL <40 mg/dL Low HDL Cholesterol HDL >or= 60 mg/dL High HDL Cholesterol Serum or plasma cholesterol in VLDL measurement (mass/volume)Ordered By: Jodee Muniz on 07-15-2023 Cholesterol in VLDL [Mass/Vol] 25 mg/dL 5-40 [facility] Serum or plasma creatinine m easurement (mass/volume)Ordered By: Jodee Muniz on 07-15-2023 Creatinine [Mass/Vol] 0.88 mg/dL 0.55-1.02 [facility] Comment on above: The validity of the calculated GFR & GFRAA in patients over 70 years has not been determined. Clinical correlation is essential. Serum or plasma ferritin karlie surement (mass/volume)Ordered By: Jodee Muniz on 07-15-2023 Ferritin [Mass/Vol] 97 ng/mL 8-252 [facility] Serum or plasma folate measu rement (mass/volume)Ordered By: Jodee Muniz on 07-15-2023 Folate [Mass/Vol] 30.90 ng/mL 3.1-55.4 [facility] Serum or plasma iron saturat ion measurement (mass fraction)Ordered By: Jodeeshona Muniz on 07-15-2023 Iron saturation [Mass fraction] 16.0 % 15.0-55.0 [facility] Serum or plasma low density lipoprotein (LDL) cholesterol measurement (mass/volume)Ordered By: Jodeeshona Muniz on 07-15-2023 Cholesterol in LDL [Mass/Vol] 93 mg/dL 0-130 [facility] Serum or plasma methylmalona te measurement (moles/volume)Ordered By: Jodeeshona Muniz on 07-15-2023 Methylmalonate [Moles/Vol] 107 nmol/L 0-378 [facility] Comment on above: Performed at: [facility] [place], [place] [id number] Director: Supriya Muñoz MD, Phone: [phone] Serum or plasma urea nitroge n measurement (mass/volume)Ordered By: Jodeeshona Muniz on 07-15-2023 Urea nitrogen [Mass/Vol] 13 mg/dL 7-18 [facility] Thin prep Papanicolaou smear with manual screeningOrdered By: [facility] Tariqnamrata on 07-15-2023 Thin prep Papanicolaou smear with manual screening 15 U/L 15-37 [facility] Thin prep Papanicolaou smear with manual screening 6 5-15 [facility] Thin prep Papanicolaou smear with manual screening 16.2 mg/L NO RANGE EST. [facility] Thyroid stimulating immunogl obulins detectionOrdered By: Jodeeshona Muniz on 07-15-2023 Thyroid stimulating immunoglobulins Ql (S) <0.10 IU/L 0.00-0.55 [facility] Comment on above: Performed at: [id number] [place], [place] [id number] Director: Supriya Muñoz MD, Phone: [phone] Urine creatinine measurement (mass/volume)Ordered By: Jodee Muniz on 07-15-2023 Creatinine (U) [Mass/Vol] 154.00 mg/dL NO RANGE EST. [facility] Basophil percentageOrdered B y: Evie Miller on 02-16-2023 Bilirubin [Mass/Vol] 0.30 mg/dL 0.20-1.00 [facility] Comment on above: For patients on eltr ombopag therapy, use of Dimension [place] TBIL is not recommended. Cholesterol [Mass/Vol] 167 mg/dL <200 [facility] Comment on above: <200 mg/dL Desirable 200-240 mg/dL Borderline >240 mg/dL High Risk Protein [Mass/Vol] 7.7 g/dL 6.4-8.2 [facility] Triglyceride [Mass/Vol] 123 mg/dL <199 [facility] Comment on above: The drugs N-Acetylcy steine and Metamizole may falsely depress this assay.Serum Triglycerides Reference Interval Normal <150 mg/dL Borderline high 150 - 199 mg/dL High 200 - 499 mg/dL Very High > or = 500 mg/dL Direct bilirubinOrdered By: Evie Miller on 02-16-2023 Bilirubin.direct [Mass/Vol] 0.07 mg/dL 0.00-0.30 [facility] Laboratory - Chemistry and C hemistry - challengeOrdered By: Evie Miller on 02-16-2023 ALP [Catalytic activity/Vol] 97 U/L 45-117 [facility] ALT [Catalytic activity/Vol] 29 U/L 13-56 [facility] Globulin (S) [Mass/Vol] 4.0 g/dL 2.2-4.2 [facility] Serum or plasma albumin nathan urement (mass/volume)Ordered By: Evie Miller on 02-16-2023 Albumin [Mass/Vol] 3.7 g/dL 3.2-5.0 [facility] Serum or plasma cholesterol in HDL measurement (mass/volume)Ordered By: Evie Miller on 02-16-2023 Cholesterol in HDL [Mass/Vol] 40 mg/dL >40 [facility] Comment on above: The drugs N-Acetylcy steine and Metamizole may falsely depress this assay. Reference Range HDL <40 mg/dL Low HDL Cholesterol HDL >or= 60 mg/dL High HDL Cholesterol Serum or plasma cholesterol in VLDL measurement (mass/volume)Ordered By: Evie Miller on 02-16-2023 Cholesterol in VLDL [Mass/Vol] 25 mg/dL 5-40 [facility] Serum or plasma low density lipoprotein (LDL) cholesterol measurement (mass/volume)Ordered By: Evie Miller on 02-16-2023 Cholesterol in LDL [Mass/Vol] 102 mg/dL 0-130 [facility] Thin prep Papanicolaou smear with manual screeningOrdered By: Evie Miller on 02-16-2023 Thin prep Papanicolaou smear with manual screening 13 U/L 15-37 [facility] No Panel InformationOrdered By: Vishal Joseph on 12-10-2022 P Castine 34 degrees [employer] Work Phone: MO Interval 160 ms [facility] Work Phone: QRS Castine -19 degrees [employer] Work Phone: QRSD Interval 90 ms [employer] Work Phone: QT Interval 433 ms [employer] [facility] Work Phone: QTC Interval 419 ms [facility] Work Phone: T Wave Castine 92 degrees [employer] Work Phone: [employer] Work Phone: No Panel Informationon 12-10 Sinus bradycardia Borderline left axis deviation Left anterior fasicular block Nonspecific ST and T wave changes Poor R Wave progression Electronically Signed On 12-10-2022 9:20:53 EST by Vishal Joseph CV Vishal Padilla MD - 12/10/2022 IMPRESSION: Sinus bradycardia Borderline left axis deviation Left anterior fasicular block Nonspecific ST and T wave changes Poor R Wave progression Electronically Signed On 12-10-2022 9:20:53 EST by Vishal Joseph [facility] Vital signsOrdered By: Vishal Joseph on 12-10-2022 Heart rate 56 /min bpm [employer] Phone: [phone] 12-09-2022 [id number] PACC signing off, pe r pt, planning on going to Cardiac Rehab in [place]. Normal [facility] Basic metabolic 1998 panelon 12-09-2022 Anion gap [Moles/Vol] 6 mmol/L 3 - 13 mmol/L [facility] Calcium [Mass/Vol] 9.0 mg/dL 8.4 - 10. 4 mg/dL [facility] Chloride [Moles/Vol] 106 mmol/L 98 - 10 7 mmol/L [facility] CO2 [Moles/Vol] 24 mmol/L 22 - 30 mmol/L [facility] Creatinine [Mass/Vol] 0.60 mg/dL 0.52 - 1.04 mg/dL [facility] GFR/1.73 sq M.predicted MDRD (S/P/Bld) [Vol rate/Area] - PINF [facility] Comment on above: Calculation based on the Chronic Kidney Disease Epidemiology Collaboration (CKD-EPI) equation refit without adjustment for race Glucose [Mass/Vol] 99 mg/dL 70 - 100 mg/dL [facility] Interpretation and review of laboratory results Normal [facility] Potassium [Moles/Vol] 3.9 mmol/L 3.5 - 5.1 mmol/L [facility] Sodium [Moles/Vol] 135 mmol/L 135 - 145 mmol/L [facility] Urea nitrogen [Mass/Vol] 13 mg/dL 7 - 17 mg/dL [facility] CBC W Auto Differential pane l (Bld)on 12-09-2022 Basophils (Bld) [#/Vol] 0.1 10*3/uL 0.0 - 0.2 10*3/uL [facility] Basophils/100 WBC (Bld) 1.0 % 0.0 - 2.0 % [facility] Eosinophils (Bld) [#/Vol] 0.3 10*3/uL 0.0 - 0.5 10*3/uL [facility] Eosinophils/100 WBC (Bld) 2.6 % 1.0 - 6.0 % [facility] Erythrocyte distribution width (RBC) [Ratio] 13.2 % 11.5 - 14.5 % [facility] Hematocrit (Bld) [Volume fraction] 38.5 % 35.0 - 47.0 % [facility] Hemoglobin (Bld) [Mass/Vol] 13.0 g/dL 11.7 - 16.0 g/dL [facility] Interpretation and review of laboratory results Abnormal [facility] Lymphocytes (Bld) [#/Vol] 3.1 10*3/uL 1.0 - 4.3 10*3/uL [facility] Lymphocytes/100 WBC (Bld) 26.0 % 20.0 - 40.0 % [facility] MCH (RBC) [Entitic mass] 31.6 pg 26.0 - 34.0 pg [facility] MCHC (RBC) [Mass/Vol] 33.7 % 32.0 - 36.0 % [facility] MCV (RBC) [Entitic vol] 93.7 fL 80.0 - 98.0 fL [facility] Monocytes (Bld) [#/Vol] 0.9 10*3/uL High 0.0 - 0.8 10*3/uL [facility] Monocytes/100 WBC (Bld) 7.4 % 2.0 - 10.0 % [facility] Neutrophils (Bld) [#/Vol] 7.5 10*3/uL High 1.8 - 7.0 10*3/uL [facility] Neutrophils/100 WBC (Bld) 63.0 % 40.0 - 80.0 % [facility] Nucleated RBC/100 WBC (Bld) [Ratio] 0.1 % [facility] Platelet mean volume (Bld) [Entitic vol] 7.3 fL Low 7.4 - 12.4 fL [facility] Platelets (Bld) [#/Vol] 313 10*3/uL 140 - 440 10*3/uL [facility] RBC (Bld) [#/Vol] 4.11 10*6/uL 3.8 - 5.20 10*6/uL [facility] WBC (Bld) [#/Vol] 11.9 10*3/uL High 3.6 - 10.7 10*3/uL [facility] ECG 12-LEADon 12-09-2022 ECG 12-LEAD IMPRESSION: Sinus rhythm Borderline left axis deviation Abnormal T, consider ischemia, lateral leads Electronically Signed On 12-09-2022 15:29:24 EST by Steven Anna Normal [facility] Laboratory - Chemistry and C hemistry - challengeon 12-09-2022 Glucose [Mass/Vol] 152 mg/dL High 70 - 100 mg/dL [facility] Glucose [Mass/Vol] 102 mg/dL High 70 - 100 mg/dL [facility] No Panel InformationOrdered By: Steven Anna on 12-09-2022 P Castine 36 degrees [employer] Work Phone: MO Interval 154 ms [facility] Work Phone: QRS Castine -21 degrees [employer] Work Phone: QRSD Interval 94 ms [employer] Work Phone: QT Interval 410 ms [employer] Work Phone: QTC Interval 418 ms [facility] Work Phone: [phone] T Wave Castine 88 degrees [employer] Work Phone: [facility] Work Phone: No Panel Informationon 12-09 Sinus rhythm Borderline left axis deviation Abnormal T, consider ischemia, lateral leads Electronically Signed On 12-09-2022 15:29:24 EST by Steven Anna CV Steven Benson MD - 12/09/2022 IMPRESSION: Sinus rhythm Borderline left axis deviation Abnormal T, consider ischemia, lateral leads Electronically Signed On 12-09-2022 15:29:24 EST by Steven [facility] Interpretation and review of laboratory results Abnormal [employer] Performed by: [facility] ID: [id number] Otterology Interpretation and review of laboratory results Abnormal [employer] Performed by: [facility] ID: [id number] Otterology Nursing Noteon 12-09-2022 Nursing Note 1420: Patient discharged, PIV removed, catheter intact. Telemetry leads removed. Patient given discharge papers, went over with and pt. signed. Patient has medications in hand from [id number]. Patient taken by wheelchair down to be picked up by . Normal [employer] [facility] Progress Noteon 12-09-2022 Progress Note - Attestation signed by Gricelda Cortés MD at 12/09/2022 4:05 PM This patient was seen and personally examined by me on 12/09/2022. Labs, imaging studies and electronic medical record reviewed. See Discharge summary []progress note []H&P []Consult documented by [x]SARKIS which reflects my hpi, pmh, psh, ros, fh, sh as well with my additions, as I discussed with the [x]SARKIS. For my exam, assessment and plan see below. PHYSICAL EXAM: General Appearance: []WDWN [x]Obese []Cachectic []Thin []ill Neck: Jvd []Present [x]Absent Lungs: [x]Clear []Crackles []Wheezes []Rhonchi / Respiratory effort []Labored [x]Non-Labored Heart: [x]RRR []Irregularly Irregular []murmur present [x]murmur absent/ Peripheral Edema No pedal edema. Mild nonpitting edema in right hand and wrist. Mild tenderness at radial access site. Normal capillary refill. Normal radial pulse. Assessment/Plan 52 female with tobacco dependence, untreated hyperlipidemia, well-controlled DM 2, transferred from [place] with NSTEMI multivessel CAD. Overall preserved LV systolic function. Underwent multivessel PCI yesterday with extensive stenting of the RCA and proximal to mid LAD. Has done well overnight. -Mild right wrist discomfort post cath, recommended she keep her arm elevated to resolve the swelling. -Continue aspirin indefinitely, dual antiplatelet therapy uninterrupted for at least a year, but longer if tolerated given multiple stents. -She has agreed to a statin. I recommend increasing dose as tolerated to LDL under 70, and consideration of adding Zetia and or PCSK9 inhibitor if does not reach goal on max tolerated statin. -She has been counseled on tobacco cessation. Cardiac rehabilitation discussed with the patient as well, referral placed. She is on a very low-dose beta-rich, with systolic blood pressures in the 90s which she tells me is baseline. 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 I personally spoke with him and reviewed the hospital course. Gricelda Cortés MD Name: Patricia Lopez Date of : 1970 Date of Admission: 12/06/2022 Date of Discharge: 12/09/2022 Admitting physician: Gricelda Cortés MD Discharge Attending: Romelia Ferrer APRN - [employer]GER Primary Care Physician: JOSHUA KURTZ Review of Systems: Review of Systems Constitutional: Negative for activity change, chills, diaphoresis, fatigue and fever. HENT: Negative for nosebleeds and trouble swallowing. Eyes: Negative for discharge and visual disturbance. Respiratory: Negative for apnea, cough, chest tightness, shortness of breath and wheezing. Cardiovascular: Negative for chest pain, palpitations and leg swelling. Gastrointestinal: Negative for abdominal distention, abdominal pain, blood in stool, diarrhea, nausea and vomiting. Endocrine: Negative for cold intolerance and heat intolerance. Genitourinary: Negative for hematuria. Musculoskeletal: Negative for gait problem and myalgias. Skin: Negative for color change and rash. Neurological: Negative for seizures, syncope, facial asymmetry, speech difficulty, weakness, light-headedness, numbness and headaches. Hematological: Bruises/bleeds easily. Psychiatric/Behaviora l: Negative for dysphoric mood. Physical Exam: Physical Exam Vitals reviewed. Constitutional: Appearance: Normal appearance. She is normal weight. She is not ill-appearing. HENT: Head: Normocephalic and atraumatic. Nose: Nose normal. Cardiovascular: Rate and Rhythm: Normal rate and regular rhythm. Pulses: Radial pulses are 2+ on the right side and 2+ on the left side. Dorsalis pedis pulses are 2+ on the right side and 2+ on the left side. Heart sounds: Normal heart sounds. Comments: Right radial catheterization site well healed. Slight swelling to the site and tender to the touch. Right ulnar pulse 2+.Brisk Capillary refill. Warm to touch. Dressing removed and Band-Aid applied. Pulmonary: Effort: Pulmonary effort is normal. No respiratory distress. Breath sounds: Normal breath sounds. No stridor. No decreased breath sounds, wheezing, rhonchi or rales. Chest: Chest wall: No tenderness. Abdominal: General: Abdomen is flat. There is no distension. Tenderness: There is no abdominal tenderness. Musculoskeletal: General: Normal range of motion. Right lower leg: No edema. Left lower leg: No edema. Skin: General: Skin is warm and dry. Capillary Refill: Capillary refill takes less than 2 seconds. Findings: No rash. Neurological: Mental Status: She is alert and oriented to person, place, and time. Psychiatric: Mood and Affect: Mood normal. Behavior: Behavior normal. Thought Content: Thought content normal. Judgment: Judgment normal. Vitals: 12/09/22 03 (more content not included)... [facility] Vital signsOrdered By: Johanne Anna on 12-09-2022 Heart rate 63 /min bpm [facility] Work Phone: Anesthesia Noteon 12-08-2022 Anesthesia Note Sedation Plan ASA class 3 - patient with severe systemic disease Mallampati class: II - soft palate, uvula, fauces visible. Sedation plan: local anesthesia and minimal sedation Risks, benefits, and alternatives discussed with patient. Immediate reassessment prior to sedation: Patient's status reviewed and vital signs assessed; acceptable to perform procedure and proceed to administer sedation as planned. [facility] Basic metabolic 1998 panelon 12-08-2022 Anion gap [Moles/Vol] 10 mmol/L 3 - 13 mmol/L [facility] Calcium [Mass/Vol] 9.9 mg/dL 8.4 - 10. 4 mg/dL [facility] Chloride [Moles/Vol] 106 mmol/L 98 - 10 7 mmol/L [facility] CO2 [Moles/Vol] 21 mmol/L Low 22 - 30 mmol/L [facility] Creatinine [Mass/Vol] 0.63 mg/dL 0.52 - 1.04 mg/dL [facility] GFR/1.73 sq M.predicted MDRD (S/P/Bld) [Vol rate/Area] - PINF [facility] Comment on above: Calculation based on the Chronic Kidney Disease Epidemiology Collaboration (CKD-EPI) equation refit without adjustment for race Glucose [Mass/Vol] 100 mg/dL 70 - 100 mg/dL [facility] Interpretation and review of laboratory results Abnormal [facility] Potassium [Moles/Vol] 4.0 mmol/L 3.5 - 5.1 mmol/L [facility] Sodium [Moles/Vol] 137 mmol/L 135 - 145 mmol/L [facility] Urea nitrogen [Mass/Vol] 13 mg/dL 7 - 17 mg/dL [facility] CARECOORDon 12-08-2022 [facility] CTS and cardiology following for multivessel CAD. Plan for today ids PCI/stent to LAD and RCA. Remains on heparin gtt. Pt indep at baseline- from home with . Pt will not return to 4N after procedure d/t stent placement. [facility] CAREPLNon 12-08-2022 CAREPLN Problem: Pain - Adul t Goal: Verbalizes/displays adequate comfort level or baseline comfort level Outcome: Progressing Problem: Safety - Adult Goal: Free from fall injury Outcome: Progressing Problem: Discharge Planning Goal: Discharge to home or other facility with appropriate resources Outcome: Progressing Problem: Cardiovascular - Adult Goal: Maintains optimal cardiac output and hemodynamic stability Outcome: Progressing Goal: Absence of cardiac dysrhythmias or at baseline Outcome: Progressing The patient is Moderately Stable - Low risk of patient condition declining or worsening The patient's goals for the shift include vital signs stable, free from chest pain The clinical goals for the shift include pt remain safe and hemodynamically stable [facility] CAREPLN Problem: Pain - Adul t Goal: Verbalizes/displays adequate comfort level or baseline comfort level Outcome: Progressing Problem: Safety - Adult Goal: Free from fall injury Outcome: Progressing Problem: Discharge Planning Goal: Discharge to home or other facility with appropriate resources Outcome: Progressing Problem: Cardiovascular - Adult Goal: Maintains optimal cardiac output and hemodynamic stability Outcome: Progressing Goal: Absence of cardiac dysrhythmias or at baseline Outcome: Progressing The patient is Moderately Stable - Low risk of patient condition declining or worsening The patient's goals for the shift include vital signs stable, free from chest pain The clinical goals for the shift include pt remain safe and hemodynamically stable [facility] CBC W Auto Differential pane l (Bld)Ordered By: Tala Henson on 12-08-2022 Basophils (Bld) [#/Vol] 0.1 10*3/uL 0.0 - 0.2 10*3/uL [facility] Basophils/100 WBC (Bld) 0.8 % 0.0 - 2.0 % [facility] Eosinophils (Bld) [#/Vol] 0.5 10*3/uL 0.0 - 0.5 10*3/uL [facility] Eosinophils/100 WBC (Bld) 4.5 % 1.0 - 6.0 % [facility] Erythrocyte distribution width (RBC) [Ratio] 13.5 % 11.5 - 14.5 % [facility] Hematocrit (Bld) [Volume fraction] 43.2 % 35.0 - 47.0 % [facility] Hemoglobin (Bld) [Mass/Vol] 14.7 g/dL 11.7 - 16.0 g/dL [facility] Interpretation and review of laboratory results Abnormal [facility] Lymphocytes (Bld) [#/Vol] 4.0 10*3/uL 1.0 - 4.3 10*3/uL [facility] Lymphocytes/100 WBC (Bld) 36.0 % 20.0 - 40.0 % [facility] MCH (RBC) [Entitic mass] 31.9 pg 26.0 - 34.0 pg [facility] MCHC (RBC) [Mass/Vol] 34.0 % 32.0 - 36.0 % [facility] MCV (RBC) [Entitic vol] 93.8 fL 80.0 - 98.0 fL [facility] Monocytes (Bld) [#/Vol] 0.7 10*3/uL 0.0 - 0.8 10*3/uL [facility] Monocytes/100 WBC (Bld) 5.9 % 2.0 - 10.0 % [facility] Neutrophils (Bld) [#/Vol] 5.9 10*3/uL 1.8 - 7.0 10*3/uL [facility] Neutrophils/100 WBC (Bld) 52.8 % 40.0 - 80.0 % [facility] Nucleated RBC/100 WBC (Bld) [Ratio] 0.1 % [facility] Platelet mean volume (Bld) [Entitic vol] 7.5 fL 7.4 - 12.4 fL [facility] Platelets (Bld) [#/Vol] 345 10*3/uL 140 - 440 10*3/uL [facility] RBC (Bld) [#/Vol] 4.61 10*6/uL 3.8 - 5.20 10*6/uL [facility] WBC (Bld) [#/Vol] 11.2 10*3/uL High 3.6 - 10.7 10*3/uL [facility] Cardiac catheterization stud rhiannan 12-08-2022 Addendum by Gricelda Cortés MD on 12/10/2022 7:51 AM EST 52F with DM2, HLD, tobacco dependence, admitted with NSTEMI, found to have multivessel CAD. After Heart Team consultation, patient opted for PCI. Access: R radial artery was cannulated for the procedure and a radial band was placed at the end for hemostasis. Coronary Angiography: It is a right dominant system. The left main has mild disease. The proximal LAD has 80% lesion. It gives rise to small caliber diagonal branches. The LCx has mild ds. It gives rise to medium caliber OM branch which bifurcates into two small branches. The inferior branch has 70-80% lesion in the proximal segment. The ostial/proximal RCA has moderate diffuseds. The distal RCA also has moderate ds. The ostial RPDA has 80% ostial lesion. The RPL banch is small. Hemodynamic Results: LVEDP is 18 mm Hg; there is no aortic valve gradient. Intervention: LCA: The LCA was engaged with a 6 Fr EBU 3.5 guide and a pro-water wire was advanced to the distal LAD. We pre-dilated the lesion first. We obtained IVUS images to assess the vessel size and lesion. We treated the mid LAD lesion with 2.5 mm X 12 mm. We used another 3.25 mm X 23 mm ANAI and covered the lesion in the proximal LAD. We used another 3.0 mm X 12 mm ANAI and overlapped with the previously placed stent. We post dilated the stent with 3.5 mm X 12 mm NC balloon. IVUS images showed well apposed, well expanded stent. Final PCI angiogram showed there was no residual lesion at the end with ALBERT III flow. There was no evidence of perforation or dissection. RCA: The RCA was engaged with 6F JR-4 guide catheter. We used pro-water to cross the lesion and positioned into the distal RPDA. We obtained IVUS images, and we noted dissection in the RCA possibly with guide catheter vs guide wire advance. Angiogram and IVUS showed wire was still intraluminal. She did not have any chest pain and hemodynamics stable. We covered the lesion in distal RCA/RPDA with 2.5 mm x 38 mm ANAI X 1. We covered lesion in mid RCA using 3.0 mm X 38 mm ANAI overlapped with the previous stent. We used another 3.25 mm X 28 mm ANAI, covered from ostium to proximal segment and overlapped with mid RCA stent. Final PCI angiogram showed there was no residual lesion at the end with ALBERT III flow. There was no evidence of perforation or dissection. Impressions: Mildly elevated left heart filling pressure. No significant aortic valve gradient noted. Successful IVUS-guided PCI of proximal/mid LAD using 3 overlapping Xience ANAI (3.25 x 23, 3.0 X 12, and 2.5 X 12 mm) Successful IVUS-guided PCI from ostium through distal RCA into RPDA with 3 overlapping Xience ANAI (3.25 X 28, 3.0 x 38, and 2.5 X 38mm). Although initial plans were PCI of only the mid and distal segments of the RCA, the proximal segment was also stented due wire or guide dissection. Residual CAD -small inferior branch of OM1 Recommendations: Aggressive medical management of CAD. Aspirin indefinitely, dual antiplatelet therapy uninterrupted for at least a year, longer if tolerated given multiple stents. High-dose statin, add beta-rich and or GARY inhibitor as tolerated. Cardiac rehabilitation was recommended. Tobacco cessation also discussed with the patient. Coronary Findings Diagnostic Dominance: Right Left Anterior Descending: Prox LAD to Mid LAD lesion, 80% stenosed. Lateral First Obtuse Marginal Branch: Lat 1st Mrg lesion, 70% stenosed. Right Coronary Artery: Prox RCA lesion, 70% stenosed. Mid RCA lesion, 50% stenosed. Dist RCA lesion, 60% stenosed with 80% stenosed side branch in RPDA. Intervention Prox LAD to Mid LAD lesion: Angioplasty: Angioplasty was performed prior to stent deployment. Balloon inserted, inflated, placed across lesion and removed. The balloon used was a CATHETER CORDIL 2.44F54LO RX. Balloon inflated using mutiple inflation technique. Balloon 1: Inflation#1: Pressure = 14 angelique; Duration = 15 sec. Inflation#2: Pressure = 14 angelique; Duration = 6 sec. Supplies Used: CATHETER CORDIL 2.48R25QN RX Stent: The stent used was a STENT COR SKYPOINT 2.68U01WG. Actions taken: stent inserted, stent placed across lesion and balloon removed. Inflation#1: Pressure = 16 angelique; Duration = 19 sec. Supplies Used: STENT COR SKYPOINT 2.60S04BO Stent: Actions taken: stent inserted, stent placed across lesion and balloon removed. Inflation#1: Pressure = 14 angelique; Duration = 17 sec. Supplies Used: STENT COR SKYPOINT 3.35A96CD Angioplasty: Balloon inserted, placed across lesion and removed. Balloon inflated using mutiple inflation technique. Balloon 1: Inflation#1: Pressure = 18 angelique; Duration = 9 sec. Inflation#2: Pressure = 18 angelique; Duration = 9 sec. Supplies Used: CATH NC TREK IRENE 3.82H91BU Stent: Actions taken: stent inserted, stent placed across lesion and balloon removed. 3.0x12 Inflation#1: Pressure = 18 angelique; Duration = 10 sec. Inflation#2: Pressure = 20 angelique; Duratio (more content not included)... [facility] Laboratory - Chemistry and C hemistry - challengeon 12-08-2022 Glucose [Mass/Vol] 94 mg/dL 70 - 100 mg/dL [facility] Glucose [Mass/Vol] 110 mg/dL High 70 - 100 mg/dL [facility] Glucose [Mass/Vol] 109 mg/dL High 70 - 100 mg/dL [facility] No Panel Informationon 12-08 Interpretation and review of laboratory results Normal [facility] Performed by: CLIA ID: [id number] [facility] Interpretation and review of laboratory results Abnormal [facility] POCT ACT [facility] POCT ACT 389 High 90 - 134 [facility] Performed by: [facility], [address] [place] [address] CLIA ID: [id number] [facility] Interpretation and review of laboratory results Abnormal [facility] Performed by: CLIA ID: [id number] [facility] Interpretation and review of laboratory results Abnormal [facility] Performed by: CLIA ID: [id number] [facility] Nursing Noteon 12-08-2022 Nursing Note No bleeding noted from radial site after removal [facility] Nursing Note Patient radial band removed. Site benign. Instructed not to bend wrist or anything. 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 Oriented to room and call light. Instructed on bedrest until 1700. Right radial site with radial band intact. Site benign, no bleeding or hematoma. Fingers warm and brisk refill, denies numbness. Denies chest pain or shortness of breath. Call light in reach [facility] Progress Noteon 12-08-2022 Progress Note Cardiothoracic Surgery Interval Note PATIENT NAME: Patricia Lopez : 1970 (52 y.o.) TODAY'S DATE: 12/08/2022 Interval History: Cards to PCI; CTS to sign off; discussed with Cardiology SARKIS - will accept patient to service. [facility] Progress Note Nutrition rescreen completed. Chart reviewed. Patient to be monitored and followed by the diet gis technician. KARIN Higuera [facility] aPTT Coag (Bld) [Time]on aPTT Coag (PPP) [Time] 36.9 s High 20.0 - 30.5 s [facility] Interpretation and review of laboratory results Abnormal [facility] NOTE: The therapeuti c time for Heparin anticoagulation, based on Xa activity inhibition, is an APTT of 46-80 seconds. [facility] aPTT Coag (PPP) [Time] 35.6 s High 20.0 - 30.5 s [facility] Interpretation and review of laboratory results Abnormal [facility] NOTE: The therapeuti c time for Heparin anticoagulation, based on Xa activity inhibition, is an APTT of 46-80 seconds. [facility] [id number] 12-07-2022 [id number] Game Developer following case for Discharge Needs. [facility] Basic metabolic 1998 panelon 12-07-2022 Anion gap [Moles/Vol] 8 mmol/L 3 - 13 mmol/L [facility] Calcium [Mass/Vol] 9.0 mg/dL 8.4 - 10. 4 mg/dL [facility] Chloride [Moles/Vol] 105 mmol/L 98 - 10 7 mmol/L [facility] CO2 [Moles/Vol] 22 mmol/L 22 - 30 mmol/L [facility] Creatinine [Mass/Vol] 0.64 mg/dL 0.52 - 1.04 mg/dL [facility] GFR/1.73 sq M.predicted MDRD (S/P/Bld) [Vol rate/Area] - PINF [facility] Comment on above: Calculation based on the Chronic Kidney Disease Epidemiology Collaboration (CKD-EPI) equation refit without adjustment for race Glucose [Mass/Vol] 102 mg/dL High 70 - 100 mg/dL [facility] Interpretation and review of laboratory results Abnormal [facility] Potassium [Moles/Vol] 4.0 mmol/L 3.5 - 5.1 mmol/L [facility] Sodium [Moles/Vol] 136 mmol/L 135 - 145 mmol/L [facility] Urea nitrogen [Mass/Vol] 15 mg/dL 7 - 17 mg/dL [facility] CARECOORDon 12-07-2022 [facility] Care Managment Initial Assessment Date: 12/07/2022 Patient Name: Patricia Lopez : 1970 Patient Information Source of Information: Patient Cognition/Language: WFL - Within Functional Limits Permission given to speak with patient paper sales representative/rockyi simon as indicated: Confirmation of Payer with patient/family: Payer Name: aetna [place]: No Confirmation of Primary Care Physician: Confirmed PCP Name: [facility] Seen in last 2 years?: Yes Primary Caregiver: Self If assistance needed, confirmed caregiver ready, willing and able to care for patient at discharge: Confirmed with: Living Arrangements Current Residence: House Number of Floors 1 Number of Entry Steps: (2-3) Bed/Bath Levels: Both first floor Facility: Facility Name: Plan to Return: Lives with: Spouse/significant other Support Systems: Spouse/significant other, Family members Activities of Daily Living Ambulation: Independent Bathing/Dressing: Independent Elimination/Continenc e/Toileting: Independent Feeding: Independent Who Assists with Activities of Daily Living: Instrumental Activities of Daily Living Prescription Coverage: Yes Pharmacy Used: [facility] Medication Management: Independent Transportation/Shoppi ng: Independent Transportation Mode: Car Needs Assistance with Transportation at Discharge: No Meal Preparation: Independent Laundry/Cleaning: Independent Finances/Bill Paying: Independent Communication: Independent Types of Care Services/Equipment Utilized Care Services: Dialysis Type: NA Durable Medical Equipment: (none) Patient's Goal/Discharge Plan Patient expects to be discharged to: home Discharge Planning Actions: Continue to follow Patient's Choice Rights and [employer] and Collaborative Relationships Disclosed as Indicated for Post-Acute Care: NA Interdisciplinary Team Engagement: Home Health Care Social Work Referral for: Additional Information: Pt adm for tx/evaluation of CAD in [place] artery. Pt transferred from [facility] for CTS/cardiology consult for CABG. Remains on heparin gtt. Carotid duplex and vein mapping ordered. Met with pt- introduced self and role. Pt from home indep with Rah. Pt drives, has insurance and able to obtain meds. [facility] following for HC services for post op open heart. Pt has FMLA paperwork at bedside- [facility] with CTS aware of need for completion pending plan for surgery. Camilla Rodriges RN [facility] CAREPLNon 12-07-2022 CAREPLN Problem: Pain - Adul t Goal: Verbalizes/displays adequate comfort level or baseline comfort level Outcome: Progressing Problem: Safety - Adult Goal: Free from fall injury Outcome: Progressing Problem: Discharge Planning Goal: Discharge to home or other facility with appropriate resources Outcome: Progressing Problem: Cardiovascular - Adult Goal: Maintains optimal cardiac output and hemodynamic stability Outcome: Progressing Goal: Absence of cardiac dysrhythmias or at baseline Outcome: Progressing The patient is Moderately Stable - Low risk of patient condition declining or worsening The patient's goals for the shift include vital signs stable, free from chest pain The clinical goals for the shift include remain hemodynamically stable [facility] CBC W Auto Differential pane l (Bld)Ordered By: Micha Toscano on 12-07-2022 Basophils (Bld) [#/Vol] 0.1 10*3/uL 0.0 - 0.2 10*3/uL [facility] Basophils/100 WBC (Bld) 0.6 % 0.0 - 2.0 % [facility] Eosinophils (Bld) [#/Vol] 0.5 10*3/uL 0.0 - 0.5 10*3/uL [facility] Eosinophils/100 WBC (Bld) 4.9 % 1.0 - 6.0 % [facility] Erythrocyte distribution width (RBC) [Ratio] 13.2 % 11.5 - 14.5 % [facility] Hematocrit (Bld) [Volume fraction] 43.5 % 35.0 - 47.0 % [facility] Hemoglobin (Bld) [Mass/Vol] 14.8 g/dL 11.7 - 16.0 g/dL [facility] Interpretation and review of laboratory results Abnormal [facility] Lymphocytes (Bld) [#/Vol] 3.8 10*3/uL 1.0 - 4.3 10*3/uL [facility] Lymphocytes/100 WBC (Bld) 34.3 % 20.0 - 40.0 % [facility] MCH (RBC) [Entitic mass] 31.6 pg 26.0 - 34.0 pg [facility] MCHC (RBC) [Mass/Vol] 34.0 % 32.0 - 36.0 % [facility] MCV (RBC) [Entitic vol] 92.9 fL 80.0 - 98.0 fL [facility] Monocytes (Bld) [#/Vol] 0.6 10*3/uL 0.0 - 0.8 10*3/uL [facility] Monocytes/100 WBC (Bld) 5.3 % 2.0 - 10.0 % [facility] Neutrophils (Bld) [#/Vol] 6.0 10*3/uL 1.8 - 7.0 10*3/uL [facility] Neutrophils/100 WBC (Bld) 54.9 % 40.0 - 80.0 % [facility] Nucleated RBC/100 WBC (Bld) [Ratio] 0.1 % [facility] Platelet mean volume (Bld) [Entitic vol] 7.6 fL 7.4 - 12.4 fL [facility] Platelets (Bld) [#/Vol] 340 10*3/uL 140 - 440 10*3/uL [facility] RBC (Bld) [#/Vol] 4.68 10*6/uL 3.8 - 5.20 10*6/uL [facility] WBC (Bld) [#/Vol] 11.0 10*3/uL High 3.6 - 10.7 10*3/uL [facility] Consulton 12-07-2022 Consult - Attestation signed by Gricelda Cortés MD at 12/07/2022 4:32 PM I, Dr. Gricelda Cortés, saw and evaluated the patient 01/07/23. I personally obtained the cormier and critical portions of the history and physical exam. I reviewed the chart and discussed the patient with the Fellow. I agree with the Fellow's medical decision making. In summary, 52F with obesity, DM2, HLP with statin intolerance, tobacco dependence, transferred here for heart team approach to revascularization after presenting with NSTEMI and diagnosis of multivessel CAD, preserved LV systolic function. Has percutaneous revascularization options with likely long stents to distal RCA and proximal LAD. Low SYNTAX I score, but potential CABG mortality benefit per SYNTAX II. Risks, benefits, alternatives to PCI discussed. Will discuss with CTS [facility] [place] Cardiology/ Electrophysiology Consult Note Reason for Consult/Chief Complaint: multivessel ds Consulting MD:Dr Ulloa History of Present Illness: Ms Lopez is a 52 y.o. female with PMH significant for nicotine dependence, DM-II, HLD, KATRINA who presents as a transfer from [facility] for CABG evaluation. She was initially admitted 12/03 after experiencing ongoing chest pain with intermittent radiation to her jaw, shoulder, and L arm for several hours last Tuesday, prompting her present to Emergency Department. She was found to have a high sensitivity troponin of 85 and was treated with therapeutic lovenox until she underwent LHC on 12/06 and was found to have triple-vessel diseasse As such, she was transferred to [facility] for CABG evaluation. She was having vague symptoms of arm pain, chest discomfort, dyspnea for the last two years unrelated to exertion. But her symptoms on last Tuesday were very prominent. In regard to her cardiac history, the patient reports that she underwent a cardiac stress test in 2019 after experiencing frequent episodes of lightheadedness and says that the stress test revealed no significant problems. She had never undergone cardiac catheterization prior to her procedure on 12/06. Past Medical History: Past Medical History: Diagnosis Date Diabetes mellitus, type 2 (HCC) Hyperlipidemia KATRINA (obstructive sleep apnea) Thyroid mass Past Surgical History: Past Surgical History: Procedure Laterality Date CHOLECYSTECTOMY Family History: Family History Problem Relation Name Age of Onset Ovarian cancer Mother Hypertension Brother Social History: Social History Tobacco Use Smoking status: Every Day Packs/day: 0.25 Types: Cigarettes Smokeless tobacco: Never Substance Use Topics Alcohol use: Not Currently Drug use: Never Medications: aspirin, 81 mg, Oral, Daily atorvastatin, 40 mg, Oral, Daily influenza, 0.5 mL, IntraMUSCular, Once insulin lispro, 0-6 Units, SubCUTAneous, TID WC And insulin lispro, 0-6 Units, SubCUTAneous, Nightly Allergies: Reviewed Review of Systems: All other systems were reviewed and are negative other than as noted in the HPI. Physical Examination: Vitals: Blood pressure 109/73, pulse 65, temperature 36.2 ?C (97.2 ?F), temperature source Temporal, resp. rate 16, height 5' 5 (1.651 m), weight 203 lb 14.4 oz (92.5 kg), SpO2 96 %. @IODETAILS@ @[id number]@ Constitutional: No acute distress. Well-nourished. Well hydrated. Psychiatric: A &O x 3. Mood is normal. Affect is appropriate. Eyes: Pupils are equal and round; Conjunctiva are not injected; Sclera are non-icteric. ENMT: Ears/nose without external abnormalities. Oral mucosa is pink and moist. Neck: No JVD. No carotid bruits; No thyromegaly. Respiratory: Lungs are clear. No rales or wheezes. Respiratory effort is normal and symmetrical bilaterally; Good air movement bilaterally. Heart: regular ; Normal S1 and S2. no murmur; No rub; no gallop. Vasc: Peripheral pulses 3+. Abdomen: Normal BS, soft, non-tender, non-distended; no hepatomegaly. Extremities/Skin: no LE edema; Skin warm to touch and well perfused; skin coloration is pink. Musculoskeletal: Head - normocephalic. Neck - supple Laboratory Tests: @[id number](WBC:5,H GB:5,HCT:5,MCV:5,PLT: 5)@ @[id number](NA:5,K: 5,CL:5,CO2:5,BUN:5,Cr eatinine:5, GLU:5)@ Lab Results Component Value Date HGBA1C 6.2 (H) 12/06/2022 No results found for: TSH No results found for: CHOL No results found for: HDL No results found for: LDLCALC No results found for: TRIG No results found for: CHOLHDL @[id number](CKTOTAL :5,CKMB:5,CKMBINDEX:5 ,TROPONINI:5)@ No components found for: NTPROBNP No components found for: LVEF, LVEFMODE Radiology: CXR: personally reviewed: Cardiac Tests Personally Reviewed: ECG: NSR with possible anterior infract Last cardiac catheterization: personally reviewed. (more content not included)... Normal [facility] Consult [facility] [place] [facility] Cardiology /Electrophysiology Consult Note Reason for Consult/Chief Complaint: Evaluation for CABG v PCI Consulting provider: Artemio Established slab miller operator: N/A Assessment/Plan NSTEMI Triple Vessel Coronary Artery Disease - will heparinize at this time in the setting of troponinemia, recent chest pain, known disease burden - [facility] films obtained via CD, plan to upload to PACS today, Interventional Team to review anatomy - will discuss candidacy for PCI vs. CABG with CT surgery team and patient, patient informed about her disease burden and made aware that her case will be vetted using a team approach Rest per Dr. Cortés's attestation History of Present Illness: Patricia Lopez is a 52 y.o. female with PMH significant for tobacco use, DMT2, HLD, KATRINA who presents as a transfer from [facility] for CABG evaluation. She was initially admitted 12/03 after experiencing ongoing chest pain with intermittent radiation to her jaw, shoulder, and L arm for several hours, prompting her present to [facility]. She was found to have a HS troponin of 85 and was treated with therapeutic lovenox until she underwent LHC on 12/06 and was found to have triple-vessel disease, with full description of findings below. As such, she was transferred to [facility] for CABG evaluation. Interventional Cardiology was consulted in regard to possible PCI v. CABG. In regard to her cardiac history, the patient reports that she underwent a cardiac stress test in 2019 after experiencing frequent episodes of lightheadedness and says that the stress test revealed no significant problems. She had never undergone cardiac catheterization prior to her procedure on 12/06. Past Medical History: DMT2 HLD KATRINA Thyroid Mass Past Surgical History: CCY Family History: Brother - HTN GM - arrhythmia Social History: Current smoker, estimates that she smokes 5 cigarettes/day Medications: aspirin, 81 mg, Oral, Daily atorvastatin, 40 mg, Oral, Daily influenza, 0.5 mL, IntraMUSCular, Once insulin lispro, 0-6 Units, SubCUTAneous, TID WC And insulin lispro, 0-6 Units, SubCUTAneous, Nightly Home Meds: Synjardy XR 25-1000 ER tablet daily Rosuvastatin 10 mg daily Trulicity 0.75 mg injection weekly Allergies: Reviewed - no allergy to contrast Review of Systems: All other systems were reviewed and are negative other than as noted in the HPI. Physical Examination: Vitals: 12/06/22 1702 12/06/22 2023 12/06/22 2243 12/06/22 2359 BP: 119/80 116/67 Pulse: 82 73 Resp: 18 16 Temp: 36.2 ?C (97.1 ?F) 36.1 ?C (97 ?F) TempSrc: Temporal Temporal SpO2: 95% 97% 97% Weight: 208 lb (94.3 kg) Height: 5' 5 (1.651 m) Intake/Output Summary (Last 24 hours) at 12/07/2022 0120 Last data filed at 12/06/2022 1700 Gross per 24 hour Intake 360 ml Output -- Net 360 ml Wt Readings from Last 3 Encounters: 12/06/22 208 lb (94.3 kg) Constitutional: No acute distress. Well-nourished. Well hydrated. Psychiatric: A &O x 3. Mood is calm. Affect is appropriate. Eyes: Pupils are equal and round; Conjunctiva are not injected; Sclera are non-icteric. ENMT: Ears/nose without external abnormalities. Oral mucosa is pink and moist. Neck: no JVD. No carotid bruits; No thyromegaly. Respiratory: Lungs are clear to auscultation bilaterally. No rales or wheezes. Respiratory effort is normal and symmetrical bilaterally; Good air movement bilaterally. Heart: RRR ; Normal S1 and S2. no murmur; No rub; no gallop. Vasc: Peripheral pulses 2+ and intact. Abdomen: Normal BS, soft, non-tender, non-distended; no hepatomegaly. Extremities/Skin: no LE edema; Skin warm to touch and well perfused; skin coloration is normal. Musculoskeletal: Head - normocephalic. Neck - supple Laboratory Tests: Recent Labs 12/06/22185112/06/22 2358 NA 138 136 K 4.2 4.0 CL 104 105 CO2 25 22 BUN 13 15 CREATININE 0.64 0.64 EGFR >90.0 >90.0 Recent Labs 12/06/22185112/06/22 2358 TROPONINI 0.498* 0.436* No results for input(s): BNP in the last 72 hours. Recent Labs 12/06/221851 WBC 11.2* HGB 14.6 HCT 45.2 MCV 94.6 PLT 361 Lab Results Component Value Date HGBA1C 6.2 (H) 12/06/2022 No results found for: TSH No results found for: CHOL No results found for: HDL No results found for: LDLCALC No results found for: TRIG No results found for: CHOLHDL No results for input(s): INR in the last 72 hours. No results found for: IRON, TIBC, FERRITIN Radiology: CXR image reviewed: no acute cardiopulmonary process Cardiac Tests Personally Reviewed: Last EKG 12/06/22 Impression Sinus rhythm Left axis deviation Probable anterolateral infarct, age indeterminate Telemetry findings: NSR Reports reviewed: Last Echo OSH ECHO 12/03 - EF 50%, S1DD, hypokinetic mid-anterior wall and apex, RV with normal systolic function, no signifi (more content not included)... Normal [facility] Laboratory - Chemistry and C hemistry - challengeon 12-07-2022 Glucose [Mass/Vol] 128 mg/dL High 70 - 100 mg/dL [facility] Glucose [Mass/Vol] 97 mg/dL 70 - 100 mg/dL [facility] Glucose [Mass/Vol] 120 mg/dL High 70 - 100 mg/dL [facility] Glucose [Mass/Vol] 103 mg/dL High 70 - 100 mg/dL [facility] Troponin I.cardiac [Mass/Vol] 0.447 ng/mL Critically high 0.000 - 0.034 ng/mL [facility] Laboratory - Chemistry and C hemistry - challengeOrdered By: Mel Velasco on 12-07-2022 Troponin I.cardiac [Mass/Vol] 0.261 ng/mL Critically high 0.000 - 0.034 ng/mL [facility] Laboratory - Chemistry and C hemistry - challengeOrdered By: Stephen Joy on 12-07-2022 Troponin I.cardiac [Mass/Vol] 0.436 ng/mL Critically high 0.000 - 0.034 ng/mL [facility] No Panel Informationon 12-07 Interpretation and review of laboratory results Abnormal [facility] Performed by: CLIA ID: [id number] [facility] Interpretation and review of laboratory results Normal [facility] Performed by: CLIA ID: [id number] [facility] Sinus rhythm Left anterior fascilular block Probable anterior infarct, age indeterminate Poor R wave progression Electronically Signed On 12-07-2022 16:40:56 EST by Mario Allison DO - 12/07/2022 IMPRESSION: Sinus rhythm Left anterior fascilular block Probable anterior infarct, age indeterminate Poor R wave progression Electronically Signed On 12-07-2022 16:40:56 EST by Mario Duenas [facility] Interpretation and review of laboratory results Abnormal [facility] Performed by: CLIA ID: [id number] [facility] <50% stenosis in the right internal carotid artery. Heterogeneous plaque (proximal) in the right internal carotid artery. <50% stenosis in the left internal carotid artery. Heterogeneous plaque (proximal) in the left internal carotid artery. Normal antegrade flow involving the right vertebral artery. Normal antegrade flow involving the left vertebral artery. Right Carotid Common Carotid Artery: Patent. Minimal and heterogeneous plaque (distal). Flow is antegrade. Internal Carotid Artery: <50% stenosis. Minimal and heterogeneous plaque (proximal). Flow is antegrade. External Carotid Artery: Patent. Flow is antegrade. Vertebral Artery: Flow is antegrade. Subclavian Artery: Normal. Left Carotid Common Carotid Artery: Patent. Minimal and heterogeneous plaque (distal). Flow is antegrade. Internal Carotid Artery: <50% stenosis in the proximal ICA. Minimal and heterogeneous plaque (proximal). Flow is antegrade. External Carotid Artery: Patent. Vertebral Artery: Flow is antegrade. Subclavian Artery: Normal. Internist Medical Doctor Md Details A moctezuma scale, color Doppler imaging and spectral Doppler analysis ultrasound was performed. During the study longitudinal and transverse views were obtained. Pulsed wave doppler was performed. The exam was performed with the patient in the supine position. Overall the study quality was adequate. Study was technically difficult due to: body habitus. CV CPACS Left GSV at Knee Diam 3 mm [facility] Left GSV BK Dist Diam 2.6 mm [facility] Left GSV BK Mid Diam 2 mm [facility] Left GSV BK Prox Diam 2 mm [facility] Left GSV Junc Diam 10 mm [facility] Left GSV Thigh Dist Diam 3 mm [facility] Left GSV Thigh Mid Diam 5 mm [facility] Left GSV Thigh Prox Diam 4 mm [facility] Right GSV at Knee Diam 3.0 mm [facility] Right GSV BK Dist Diam 2.8 mm [facility] Right GSV BK Mid Diam 2.3 mm [facility] Right GSV BK Prox Diam 2.6 mm [facility] Right GSV Junc Diam 10.8 mm [facility] Right GSV Thigh Dist Diam 3.4 mm [facility] Right GSV Thigh Mid Diam 3.9 mm [facility] Right GSV Thigh Prox Diam 3.5 mm [facility] Vessel diameters as noted in the table below. Internist Medical Doctor Md Details A moctezuma scale, color Doppler imaging and spectral Doppler analysis ultrasound was performed. During the study transverse views were obtained. Pulsed wave doppler was performed. The exam was performed with the patient in the reverse Trendelenburg position. Overall the study quality was good. CV CPACS Interpretation and review of laboratory results Abnormal [facility] Performed by: CLIA ID: [id number] [facility] No Panel InformationOrdered By: Mario Travismariamannawei on 12-07-2022 P Castine 30 degrees [facility] Work Phone: MO Interval 157 ms [facility] Work Phone: QRS Castine -30 degrees [facility] Work Phone: QRSD Interval 90 ms [facility] Work Phone: QT Interval 429 ms [facility] Work Phone: QTC Interval 465 ms [facility] Work Phone: T Wave Castine 76 degrees [facility] Work Phone: [facility] Work Phone: No Panel InformationOrdered By: Oxana Sweeney on 12-07-2022 Left CCA dist EDV 32.2 cm/s [facility] Work Phone: Left CCA dist PSV 90.5 cm/s [facility] Work Phone: Left CCA mid EDV 31.10 cm/s [facility] Work Phone: [phone] Left CCA mid PSV 92.70 cm/s [facility] Work Phone: [phone] Left CCA prox EDV 36.1 cm/s [facility] Work Phone: [phone] Left CCA prox PSV 114.1 cm/s [facility] Work Phone: [phone] Left ECA EDV 12.70 cm/s [facility] Work Phone: [phone] Left ECA PSV 97.4 cm/s [facility] Work Phone: [phone] Left ICA dist EDV 20.2 cm/s [facility] Work Phone: [phone] Left ICA dist PSV 55.5 cm/s [facility] Work Phone: [phone] Left ICA mid EDV 33.6 cm/s [facility] Work Phone: [phone] Left ICA mid PSV 80.9 cm/s [facility] Work Phone: Left ICA prox EDV 24.8 cm/s [facility] Work Phone: Left ICA prox PSV 71.0 cm/s [facility] Work Phone: Left ICA/CCA PSV 0.87 [facility] Work Phone: Left subclavian mid EDV 6.8 cm/s [facility] Work Phone: Left subclavian mid PSV 80.8 cm/s [facility] Work Phone: Left vertebral EDV 12.00 cm/s [facility] Work Phone: Left vertebral PSV 38.3 cm/s [facility] Work Phone: Right CCA dist EDV 33.3 cm/s [facility] Work Phone: Right cca dist PSV 92.1 cm/s [facility] Work Phone: Right CCA mid EDV 24.60 cm/s [facility] Work Phone: Right CCA mid PSV 89.90 cm/s [facility] Work Phone: Right CCA prox EDV 24.6 cm/s [facility] Work Phone: Right CCA prox PSV 91.0 cm/s [facility] Work Phone: Right ECA EDV 12.70 cm/s [facility] Work Phone: Right ECA PSV 99.8 cm/s [facility] Work Phone: Right ICA dist EDV 30.7 cm/s [facility] Work Phone: Right ICA dist PSV 82.4 cm/s [facility] Work Phone: Right ICA mid EDV 39.1 cm/s [facility] Work Phone: Right ICA mid PSV 87.0 cm/s [facility] Work Phone: Right ICA prox EDV 26.0 cm/s [employer] Work Phone: [phone] Right ICA prox PSV 63.0 cm/s [employer] Work Phone: [phone] Right ICA/CCA PSV 0.97 [employer] Work Phone: [phone] Right subclavian prox EDV 0.0 cm/s [employer] Work Phone: [phone] Right subclavian prox PSV 156.2 cm/s [employer] Work Phone: [phone] Right vertebral EDV 19.40 cm/s [employer] Work Phone: [phone] Right vertebral PSV 57.1 cm/s [employer] Work Phone: [phone] Troponin I.cardiac [Mass/Vol ]Ordered By: Mel Velasco on 12-07-2022 Interpretation and review of laboratory results Abnormal [facility] Patients with high levels of Biotin oral intake (ie >5 mg/day) may have falsely decreased Troponin levels. [facility] [employer] [place] Troponin I.cardiac [Mass/Vol ]on 12-07-2022 Interpretation and review of laboratory results Abnormal [facility] Patients with high levels of Biotin oral intake (ie >5 mg/day) may have falsely decreased Troponin levels. [facility] [place] Troponin I.cardiac [Mass/Vol ]Ordered By: Stephen Joy on 12-07-2022 Interpretation and review of laboratory results Abnormal [facility] Patients with high levels of Biotin oral intake (ie >5 mg/day) may have falsely decreased Troponin levels. [facility] [employer] [place] Vital signsOrdered By: John Duenas on 12-07-2022 Heart rate 70 /min bpm [employer] Work Phone: aPTT Coag (Bld) [Time]on aPTT Coag (PPP) [Time] 30.2 s 20.0 - 30.5 s [facility] Interpretation and review of laboratory results Normal [facility] NOTE: The therapeuti c time for Heparin anticoagulation, based on Xa activity inhibition, is an APTT of 46-80 seconds. [facility] aPTT Coag (PPP) [Time] 32.2 s High 20.0 - 30.5 s [facility] Interpretation and review of laboratory results Abnormal [facility] NOTE: The therapeuti c time for Heparin anticoagulation, based on Xa activity inhibition, is an APTT of 46-80 seconds. [facility] aPTT Coag (PPP) [Time] 34.1 s High 20.0 - 30.5 s [facility] Interpretation and review of laboratory results Abnormal [facility] NOTE: The therapeuti c time for Heparin anticoagulation, based on Xa activity inhibition, is an APTT of 46-80 seconds. [facility] aPTT Coag (PPP) [Time] 27.8 s 20.0 - 30.5 s [facility] Interpretation and review of laboratory results Normal [facility] NOTE: The therapeuti c time for Heparin anticoagulation, based on Xa activity inhibition, is an APTT of 46-80 seconds. [facility] ABO and Rh group Confirm Nom (Bld)on 12-06-2022 ABO group Nom (Bld) A [facility] D Ag Ql (RBC) Positive [facility] Basic metabolic 1998 panelon 12-06-2022 Anion gap [Moles/Vol] 9 mmol/L 3 - 13 mmol/L [facility] Calcium [Mass/Vol] 9.7 mg/dL 8.4 - 10. 4 mg/dL [facility] Chloride [Moles/Vol] 104 mmol/L 98 - 10 7 mmol/L [facility] CO2 [Moles/Vol] 25 mmol/L 22 - 30 mmol/L [facility] Creatinine [Mass/Vol] 0.64 mg/dL 0.52 - 1.04 mg/dL [facility] GFR/1.73 sq M.predicted MDRD (S/P/Bld) [Vol rate/Area] - PINF [facility] Comment on above: Calculation based on the Chronic Kidney Disease Epidemiology Collaboration (CKD-EPI) equation refit without adjustment for race Glucose [Mass/Vol] 105 mg/dL High 70 - 100 mg/dL [facility] Interpretation and review of laboratory results Abnormal [facility] Potassium [Moles/Vol] 4.2 mmol/L 3.5 - 5.1 mmol/L [facility] Sodium [Moles/Vol] 138 mmol/L 135 - 145 mmol/L [facility] Urea nitrogen [Mass/Vol] 13 mg/dL 7 - 17 mg/dL [facility] Blood type and Crossmatch reji bradshawl (Bld)on 12-06-2022 ABO group Nom (Bld) A [facility] Blood group antibody screen GEL Ql Negative [facility] D Ag Ql (RBC) Positive [facility] CAREPLNon 12-06-2022 CAREPLN The patient is Moderately Unstable - Medium risk of patient condition declining or worsening The patient's goals for the shift include vital signs stable, free from chest pain The clinical goals for the shift include remain hemodynamically stable Normal [facility] SHS CBC W Auto Differential pane l (Bld)Ordered By: Maira Aleman on 12-06-2022 Basophils (Bld) [#/Vol] 0.0 10*3/uL 0.0 - 0.2 10*3/uL [facility] Basophils/100 WBC (Bld) 0.2 % 0.0 - 2.0 % [facility] Eosinophils (Bld) [#/Vol] 0.5 10*3/uL 0.0 - 0.5 10*3/uL [facility] Eosinophils/100 WBC (Bld) 4.1 % 1.0 - 6.0 % [facility] Erythrocyte distribution width (RBC) [Ratio] 13.4 % 11.5 - 14.5 % [facility] Hematocrit (Bld) [Volume fraction] 45.2 % 35.0 - 47.0 % [facility] Hemoglobin (Bld) [Mass/Vol] 14.6 g/dL 11.7 - 16.0 g/dL [facility] Interpretation and review of laboratory results Abnormal [facility] Lymphocytes (Bld) [#/Vol] 3.2 10*3/uL 1.0 - 4.3 10*3/uL [facility] Lymphocytes/100 WBC (Bld) 28.2 % 20.0 - 40.0 % [facility] MCH (RBC) [Entitic mass] 30.5 pg 26.0 - 34.0 pg [facility] MCHC (RBC) [Mass/Vol] 32.3 % 32.0 - 36.0 % [facility] MCV (RBC) [Entitic vol] 94.6 fL 80.0 - 98.0 fL [facility] Monocytes (Bld) [#/Vol] 0.6 10*3/uL 0.0 - 0.8 10*3/uL [facility] Monocytes/100 WBC (Bld) 5.3 % 2.0 - 10.0 % [facility] Neutrophils (Bld) [#/Vol] 7.0 10*3/uL 1.8 - 7.0 10*3/uL [facility] Neutrophils/100 WBC (Bld) 62.2 % 40.0 - 80.0 % [facility] Nucleated RBC/100 WBC (Bld) [Ratio] 0.0 % [facility] Platelet mean volume (Bld) [Entitic vol] 7.3 fL Low 7.4 - 12.4 fL [facility] Platelets (Bld) [#/Vol] 361 10*3/uL 140 - 440 10*3/uL [facility] RBC (Bld) [#/Vol] 4.78 10*6/uL 3.8 - 5.20 10*6/uL [facility] WBC (Bld) [#/Vol] 11.2 10*3/uL High 3.6 - 10.7 10*3/uL [facility] Glucose Glucometer (BldC) [M ass/Vol]Ordered By: Dr. Shay on 12-06-2022 Glucose [Mass/Vol] 103 mg/dL 74-106 [facility] Comment on above: MANAGEMENT OF PATIEN T CARE PER NURSING PROTOCOL HbA1c (Bld) [Mass fraction]o n 12-06-2022 Glucose [Mass/Vol] 131 mg/dL [facility] HbA1c (Bld) [Mass/Vol] 6.2 % High NINF - 5.7 % [facility] Comment on above: Normal less than 5.7 % Prediabetes 5.7% to 6.4% Diabetes 6.5% or higher --HgbA1C levels may not be accurate in patients who have renal disease, received recent blood transfusions, are anemic, or who have dyshemoglobinemia. Interpretation and review of laboratory results Abnormal [facility] Laboratory - Chemistry and C hemistry - challengeon 12-06-2022 Glucose [Mass/Vol] 135 mg/dL High 70 - 100 mg/dL [facility] Magnesium [Mass/Vol] 2.1 mg/dL 1.6 - 2 .3 mg/dL [facility] [facility] Glucose [Mass/Vol] 100 mg/dL 70 - 100 mg/dL [facility] Laboratory - Chemistry and C hemistry - challengeOrdered By: Amrita Steen on 12-06-2022 Beta HCG ( test) Ql Negative Negative [facility] Comment on above: Please note: Very di lute urine specimens, as indicated by a low specific gravity, may not contain paper sales representative levels of hCG. If is still suspected, a first morning urine specimen should be collected 48 hours later and tested. Beta HCG ( test) Ql (U) is the most common reason for HCG in urine, although choriocarcinoma, hydatidiform mole, and certain nontrophoblastic malignancies also result in detectable urinary HCG levels. Sensitivity = 20mIU/mL. [facility] Laboratory - Chemistry and C hemistry - challengeOrdered By: Angela Robles on 12-06-2022 Troponin I.cardiac [Mass/Vol] 0.498 ng/mL Critically high 0.000 - 0.034 ng/mL [facility] No Panel Informationon 12-06 Interpretation and review of laboratory results Abnormal [facility] Performed by: CLIA ID: [id number] [facility] Interpretation and review of laboratory results Normal [facility] Interpretation and review of laboratory results Normal [facility] Performed by: CLIA ID: [id number] [facility] No Panel InformationOrdered By: Amrita Dye on 12-06-2022 [facility] Nursing Noteon 12-06-2022 Nursing Note Pt has an order in for cpap at night. Per patient's request and respiratory's approval, pt would like to be put on nasal cannula @ 2 liters instead. Pt does not have her home cpap with her, and is worried about the face fitting of the hospitals cpap. Will put pt on 2 liters nasal canula at bedtime. Normal [facility] Phosphate [Moles/Vol]on 11-15 Phosphate [Mass/Vol] 4.2 mg/dL 2.5 - 4 .5 mg/dL [facility] Progress Noteon 12-06-2022 Progress Note Cardiothoracic Surgery Interval Note PATIENT NAME: Patricia Lopez : 1970 (52 y.o.) TODAY'S DATE: 12/06/2022 Interval History: Patient transferred from [facility] for CABG workup. Chest pain free, no hep or nitro drip running on admission. She denies any pain. - Admission orders placed - ASA/Statin ordered - Preop orders placed - Will place full note in am Normal [facility] Troponin I.cardiac [Mass/Vol ]Ordered By: Angela Robles on 12-06-2022 Interpretation and review of laboratory results Abnormal [facility] Patients with high levels of Biotin oral intake (ie >5 mg/day) may have falsely decreased Troponin levels. [facility] Urinalysis complete panel (U )on 12-06-2022 Bilirubin Ql (U) Negative Negative mg/dL [facility] Clarity (U) Clear Clear [facility] Color (U) Light Yellow Lt. Yellow [facility] Glucose Ql (U) Normal Normal (<70) mg/dL [facility] Hemoglobin Ql (U) Negative Negative mg/dL [facility] Interpretation and review of laboratory results Abnormal [facility] Ketones (U) [Mass/Vol] Trace Abnormal Negat kirill mg/dL [facility] Leukocyte esterase Test strip Ql (U) Negative Negative Axel/uL [facility] Nitrite Ql (U) Negative Negative [facility] th pH (U) 5.5 [pH] 5.0 - 8.0 pH [facility] Protein (U) [Mass/Vol] Negative Negat kirill mg/dL [facility] Specific gravity (U) [Rel density] 1.026 1.005 - 1.030 [facility] Urobilinogen (U) [Mass/Vol] Normal Normal (0-1) mg/dL [facility] XR CHEST 1 VIEWon 12-06-2022 XR CHEST 1 VIEW Patient Name: PATRICIA LOPEZ Exam Date/Time: 12/06/2022 18:36 Procedure: XR CHEST 1 VIEW Ordering Provider: BARBA JENNIFER Reason For Exam: PORTABLE CHEST X-RAY CLINICAL INDICATION: Preoperative examination A portable frontal view of the chest was obtained. COMPARISON: None FINDINGS: The cardiac silhouette is within normal limits. No focal consolidation is seen within the lungs. There is no large pleural effusion or pneumothorax. The bony structures of the chest are unremarkable as visualized. IMPRESSION: No acute cardiopulmonary disease. Report Dictated on Electronically Signed By: Bhargav Carpio Electronically Signed Date/Time: 12/06/2022 7:17 PM EST Normal [facility] XR Chest Single viewon 12-06 No acute cardiopulmonary disease. Report Dictated on Electronically Signed By: Bhargav Carpio Electronically Signed Date/Time: 12/06/2022 7:17 PM EST [facility] Patient Name: PATRICIA LOPEZ Exam Date/Time: 12/06/2022 18:36 Procedure: XR CHEST 1 VIEW Ordering Provider: BARBA JENNIFER Reason For Exam: PORTABLE CHEST X-RAY CLINICAL INDICATION: Preoperative examination A portable frontal view of the chest was obtained. COMPARISON: None FINDINGS: The cardiac silhouette is within normal limits. No focal consolidation is seen within the lungs. There is no large pleural effusion or pneumothorax. The bony structures of the chest are unremarkable as visualized. [facility] Bhargav Carpio MD - 12/06/2022 Patient Name: PATRICIA LOPEZ Exam Date/Time: 12/06/2022 18:36 Procedure: XR CHEST 1 VIEW Ordering Provider: BARBA JENNIFER Reason For Exam: PORTABLE CHEST X-RAY CLINICAL INDICATION: Preoperative examination A portable frontal view of the chest was obtained. COMPARISON: None FINDINGS: The cardiac silhouette is within normal limits. No focal consolidation is seen within the lungs. There is no large pleural effusion or pneumothorax. The bony structures of the chest are unremarkable as visualized. IMPRESSION: No acute cardiopulmonary disease. Report Dictated on Electronically Signed By: Bhargav Carpio Electronically Signed Date/Time: 12/06/2022 7:17 PM EST [facility] Radiology Study observation (narrative) [employer] XR Chest Single viewOrdered By: Bhargav Carpio on 12-06-2022 [employer] Work Phone: Absolute lymphocyte countOrd ered By: Dr. Norton on 12-05-2022 Lymphocytes Auto (Unsp spec) [#/Vol] 3.06 10*3/uL 0.83-4.51 [facility] Basophil percentageOrdered B y: Dr. Norton on 12-05-2022 Basophils/100 WBC (Bld) 0.8 % 0-1 [facility] Bilirubin [Mass/Vol] 0.50 mg/dL 0.20-1.00 [facility] Comment on above: For patients on eltr ombopag therapy, use of Dimension [place] TBIL is not recommended. Chloride [Moles/Vol] 106 mmol/L 98-107 [facility] Eosinophils/100 WBC (Bld) 5.1 % 0-5 [facility] Glucose [Mass/Vol] 96 mg/dL 74-106 [facility] Neutrophils (Bld) [#/Vol] 4.7 10*3/uL 2.0-7.7 [facility] Neutrophils/100 WBC (Bld) 53.1 % 47-70 [facility] Potassium [Moles/Vol] 3.9 mmol/L 3.5-5.1 [facility] Protein [Mass/Vol] 7.1 g/dL 6.4-8.2 [facility] Sodium [Moles/Vol] 137 mmol/L 136-145 [facility] WBC (Bld) [#/Vol] 8.9 10*3/uL 4.4-11.0 [facility] Blood erythrocytes count (nu mber/volume)Ordered By: Dr. Norton on 12-05-2022 RBC (Bld) [#/Vol] 4.47 10*6/uL 4.2-5.4 [facility] Blood hemoglobin measurement (mass/volume)Ordered By: Dr. Norton on 12-05-2022 Hemoglobin (Bld) [Mass/Vol] 13.9 g/dL 12.0-15.0 [facility] Blood lymphocytes/100 leukoc ytesOrdered By: Dr. Norton on 12-05-2022 Lymphocytes/100 WBC (Bld) 34.3 % 19-41 [facility] Blood monocytes/100 leukocyt esOrdered By: Dr. Norton on 12-05-2022 Monocytes/100 WBC (Bld) 6.5 % 0-10 [facility] Blood platelet mean volumeOr dered By: Dr. Norton on 12-05-2022 Platelet mean volume (Bld) [Entitic vol] 9.2 fL 6.2-12.0 [facility] Determination of erythrocyte mean corpuscular volume (MCV)Ordered By: Dr. Norton on 12-05-2022 MCV (RBC) [Entitic vol] 95.5 fL 81-99 [facility] Hematocrit Auto (Bld) [Volum e fraction]Ordered By: Dr. Norton on 12-05-2022 Hematocrit (Bld) [Volume fraction] 42.7 % 37-47 [facility] Laboratory - Chemistry and C hemistry - challengeOrdered By: Dr. Norton on 12-05-2022 ALP [Catalytic activity/Vol] 74 U/L 45-117 [facility] ALT [Catalytic activity/Vol] 30 U/L 13-56 [facility] CO2 [Moles/Vol] 24.0 mmol/L 21.0-32.0 [facility] Globulin (S) [Mass/Vol] 3.7 g/dL 2.2-4.2 [facility] Urea nitrogen/Creatinine [Mass ratio] 16.0 mg/mg 10-20 [facility] Laboratory - Hematology and Cell countsOrdered By: Dr. Norton on 12-05-2022 Erythrocyte distribution width (RBC) [Entitic vol] 44.8 fL 35.1-43.9 [facility] Erythrocyte distribution width (RBC) [Ratio] 12.7 % 11.6-14.6 [facility] Immature granulocytes/100 WBC (Bld) 0.200 % 0.0-0.9 [facility] Comment on above: IG% - Immature Granu locytes (promyelocytes, myelocytes and metamyelocytes) > 1% indicates that a LEFT SHIFT is Present. MCH (RBC) [Entitic mass] 31.1 pg 27.0-32.0 [facility] Nucleated RBC/100 WBC (Bld) [Ratio] 0 % 0-5 [facility] Auto (RBC) [Mass/Vol]Or dered By: Dr. Norton on 12-05-2022 MCHC (RBC) [Mass/Vol] 32.6 g/dL 32-36 [facility] No Panel InformationOrdered By: Dr. Norton on 12-05-2022 Estimated Creatinine Clearance Calc 93.99 ml/min [facility] Estimated GFR (MDRD) Amer 128 mL/min >60 [facility] Comment on above: GFR Calc Estimated GFR (MDRD) Non-Af Amer 106 mL/min >60 [facility] Comment on above: Non- GFR Calc Platelets bldOrdered By: Dr. Norton on 12-05-2022 Platelets (Bld) [#/Vol] 324 10*3/uL 150-450 [facility] Serum or plasma albumin nathan urement (mass/volume)Ordered By: Dr. Norton on 12-05-2022 Albumin [Mass/Vol] 3.4 g/dL 3.2-5.0 [facility] Serum or plasma albumin/glob ulin mass ratioOrdered By: Dr. Norton on 12-05-2022 Albumin/Globulin [Mass ratio] 0.9 {ratio} 0.9-2.4 [facility] Serum or plasma calcium nathan urement (mass/volume)Ordered By: Dr. Norton on 12-05-2022 Calcium [Mass/Vol] 9.0 mg/dL 8.5-10.1 [facility] Serum or plasma creatinine m easurement (mass/volume)Ordered By: Dr. Norton on 12-05-2022 Creatinine [Mass/Vol] 0.63 mg/dL 0.55-1.02 [facility] Comment on above: The validity of the calculated GFR & GFRAA in patients over 70 years has not been determined. Clinical correlation is essential. Serum or plasma urea nitroge n measurement (mass/volume)Ordered By: Dr. Norton on 12-05-2022 Urea nitrogen [Mass/Vol] 10 mg/dL 7-18 [facility] Thin prep Papanicolaou smear with manual screeningOrdered By: Dr. Norton on 12-05-2022 Thin prep Papanicolaou smear with manual screening 23 U/L 15-37 [facility] Thin prep Papanicolaou smear with manual screening 7 5-15 [facility] Basophil percentageOrdered B y: Dr. Witt on 12-04-2022 Cholesterol [Mass/Vol] 254 mg/dL <200 [facility] Comment on above: <200 mg/dL Desirable 200-240 mg/dL Borderline >240 mg/dL High Risk Triglyceride [Mass/Vol] 299 mg/dL <199 [facility] Comment on above: The drugs N-Acetylcy steine and Metamizole may falsely depress this assay.Serum Triglycerides Reference Interval Normal <150 mg/dL Borderline high 150 - 199 mg/dL High 200 - 499 mg/dL Very High > or = 500 mg/dL Serum or plasma cholesterol in HDL measurement (mass/volume)Ordered By: Dr. Witt on 12-04-2022 Cholesterol in HDL [Mass/Vol] 30 mg/dL >40 [facility] Comment on above: The drugs N-Acetylcy steine and Metamizole may falsely depress this assay. Reference Range HDL <40 mg/dL Low HDL Cholesterol HDL >or= 60 mg/dL High HDL Cholesterol Serum or plasma cholesterol in VLDL measurement (mass/volume)Ordered By: Dr. Witt on 12-04-2022 Cholesterol in VLDL [Mass/Vol] 60 mg/dL 5-40 [facility] Serum or plasma low density lipoprotein (LDL) cholesterol measurement (mass/volume)Ordered By: Dr. Witt on 12-04-2022 Cholesterol in LDL [Mass/Vol] 164 mg/dL 0-130 [facility] Absolute lymphocyte countOrd ered By: Dr. Daniel on 12-03-2022 Lymphocytes Auto (Unsp spec) [#/Vol] 3.48 10*3/uL 0.83-4.51 [facility] Basophil percentageOrdered B y: Dr. Daniel on 12-03-2022 Basophils/100 WBC (Bld) 0.6 % 0-1 [facility] Chloride [Moles/Vol] 107 mmol/L 98-107 [facility] Eosinophils/100 WBC (Bld) 5.3 % 0-5 [facility] Glucose [Mass/Vol] 135 mg/dL 74-106 [facility] Comment on above: Fasting Glucose resu lt greater than or equal to 126 mg/dL suggests DIABETES MELLITUS per A.D.A. criteria. Neutrophils (Bld) [#/Vol] 7.1 10*3/uL 2.0-7.7 [facility] Neutrophils/100 WBC (Bld) 59.6 % 47-70 [facility] Potassium [Moles/Vol] 3.6 mmol/L 3.5-5.1 [facility] Sodium [Moles/Vol] 141 mmol/L 136-145 [facility] WBC (Bld) [#/Vol] 12.0 10*3/uL 4.4-11.0 [facility] Blood erythrocytes count (nu mber/volume)Ordered By: Dr. Daniel on 12-03-2022 RBC (Bld) [#/Vol] 4.85 10*6/uL 4.2-5.4 [facility] Blood hemoglobin measurement (mass/volume)Ordered By: Dr. Daniel on 12-03-2022 Hemoglobin (Bld) [Mass/Vol] 15.0 g/dL 12.0-15.0 [facility] Blood lymphocytes/100 leukoc ytesOrdered By: Dr. Daniel on 12-03-2022 Lymphocytes/100 WBC (Bld) 29.1 % 19-41 [facility] Blood monocytes/100 leukocyt esOrdered By: Dr. Daniel on 12-03-2022 Monocytes/100 WBC (Bld) 5.0 % 0-10 [facility] Blood platelet mean volumeOr dered By: Dr. Daniel on 12-03-2022 Platelet mean volume (Bld) [Entitic vol] 9.2 fL 6.2-12.0 [facility] Determination of erythrocyte mean corpuscular volume (MCV)Ordered By: Dr. Daniel on 12-03-2022 MCV (RBC) [Entitic vol] 95.9 fL 81-99 [facility] Hematocrit Auto (Bld) [Volum e fraction]Ordered By: Dr. Daniel on 12-03-2022 Hematocrit (Bld) [Volume fraction] 46.5 % 37-47 [facility] Laboratory - Chemistry and C hemistry - challengeOrdered By: Dr. Daniel on 12-03-2022 CO2 [Moles/Vol] 28.0 mmol/L 21.0-32.0 [facility] Urea nitrogen/Creatinine [Mass ratio] 11.7 mg/mg 10-20 [facility] Laboratory - Hematology and Cell countsOrdered By: Dr. Daniel on 12-03-2022 Erythrocyte distribution width (RBC) [Entitic vol] 46.6 fL 35.1-43.9 [facility] Erythrocyte distribution width (RBC) [Ratio] 13.2 % 11.6-14.6 [facility] Immature granulocytes/100 WBC (Bld) 0.400 % 0.0-0.9 [facility] Comment on above: IG% - Immature Granu locytes (promyelocytes, myelocytes and metamyelocytes) > 1% indicates that a LEFT SHIFT is Present. MCH (RBC) [Entitic mass] 30.9 pg 27.0-32.0 [facility] Nucleated RBC/100 WBC (Bld) [Ratio] 0 % 0-5 [facility] MCHC Auto (RBC) [Mass/Vol]Or dered By: Dr. Daniel on 12-03-2022 MCHC (RBC) [Mass/Vol] 32.3 g/dL 32-36 [facility] No Panel InformationOrdered By: Dr. Witt on 12-03-2022 Troponin I High Sensitivity 990 pg/mL 3.0-54.0 [facility] Comment on above: Critical Result(s) C alled at: 00:06:32 12/04/2022 by: RAYMON PATTON TO [employer]. Results read back by same. Please Note: New Test Units and Gender Specific Reference Ranges. For more information see Policy Stat Procedure [place] High Sensitivity Troponin (TNIH) and attachments. No Panel InformationOrdered By: Dr. Daniel on 12-03-2022 Estimated Creatinine Clearance Calc 76.90 ml/min [facility] Estimated GFR (MDRD) Amer 101 mL/min >60 [facility] Comment on above: GFR Calc Estimated GFR (MDRD) Non-Af Amer 84 mL/min >60 [facility] Comment on above: Non- GFR Calc Troponin I High Sensitivity 85 pg/mL 3.0-54.0 [facility] Comment on above: Please Note: [place] t Units and Gender Specific Reference Ranges. For more information see Policy Stat Procedure [place] High Sensitivity Troponin (TNIH) and attachments. Platelets bldOrdered By: Dr. Daniel on 12-03-2022 Platelets (Bld) [#/Vol] 367 10*3/uL 150-450 [facility] Serum or plasma calcium nathan urement (mass/volume)Ordered By: Dr. Daniel on 12-03-2022 Calcium [Mass/Vol] 9.5 mg/dL 8.5-10.1 [facility] Serum or plasma creatinine m easurement (mass/volume)Ordered By: Dr. Daniel on 12-03-2022 Creatinine [Mass/Vol] 0.77 mg/dL 0.55-1.02 [facility] Comment on above: The validity of the calculated GFR & GFRAA in patients over 70 years has not been determined. Clinical correlation is essential. Serum or plasma urea nitroge n measurement (mass/volume)Ordered By: Dr. Daniel on 12-03-2022 Urea nitrogen [Mass/Vol] 9 mg/dL 7-18 [facility] Thin prep Papanicolaou smear with manual screeningOrdered By: Dr. Daniel on 12-03-2022 Thin prep Papanicolaou smear with manual screening 6 5-15 [facility] Culture, urineOrdered By: Do ra Kurtz on 08-26-2022 Bacteria identified Cx Nom (U) Presumptive Lactobacillus sp. [facility] Laboratory - Chemistry and C hemistry - challengeon 08-24-2022 Bilirubin Ql (U) Negative [facility] Glucose Ql (U) 500 g/dL [facility] Ketones Ql (U) Trace (5) [facility] pH (U) 5.5 [pH] [facility] Specific gravity (U) [Rel density] 1.030 [facility] Urobilinogen (U) [Mass/Vol] 0.7793591 mg/dL [facility] Laboratory - Hematology and Cell countson 08-24-2022 Hemoglobin Ql (U) Negative [facility] HbA1c (Bld) [Mass fraction] 5.8 % 4.2-6.3 [facility] Laboratory - Specimen inform ationon 08-24-2022 Clarity (U) Clear [facility] Color (U) Yellow [facility] Laboratory - Urinalysison Nitrite Ql (U) Negative [facility] Protein Ql (U) Negative [facility] No Panel Informationon 08-24 Urine Leukocytes Negatve [facility] Urine Non-Hemolyzed Blood [facility] Laboratory - Chemistry and C hemistry - challengeon 07-22-2022 Bilirubin Ql (U) Negative [facility] Work Phone: Glucose Ql (U) 500 g/dL [facility] Work Phone: Ketones Ql (U) Negative [facility] Work Phone: pH (U) 5.5 [pH] [facility] Work Phone: Specific gravity (U) [Rel density] 1.020 [facility] Work Phone: Urobilinogen (U) [Mass/Vol] 0.3113886 mg/dL [facility] Work Phone: Laboratory - Hematology and Cell countson 07-22-2022 Hemoglobin Ql (U) Negative [facility] Work Phone: Laboratory - Specimen inform ationon 07-22-2022 Clarity (U) Cloudy [facility] Work Phone: Color (U) Colorless [facility] Work Phone: Laboratory - Urinalysison Nitrite Ql (U) Positive [facility] Work Phone: Protein Ql (U) Negative [facility] Work Phone: No Panel Informationon 07-22 Urine Leukocytes Negatve [facility] Work Phone: Urine Non-Hemolyzed Blood [facility] Work Phone: Absolute lymphocyte counton 06-23-2022 Lymphocytes Auto (Unsp spec) [#/Vol] 3.55 10*3/uL 0.83-4.51 [facility] Work Phone: Basophil percentageon 2021 Basophils/100 WBC (Bld) 0.6 % 0-1 [facility] Work Phone: Bilirubin [Mass/Vol] 0.40 mg/dL 0.20-1.00 [facility] Work Phone: Comment on above: For patients on eltr ombopag therapy, use of Dimension [place] TBIL is not recommended. Chloride [Moles/Vol] 108 mmol/L 98-107 [facility] Work Phone: Cholesterol [Mass/Vol] 263 mg/dL <200 [facility] Work Phone: Comment on above: <200 mg/dL Desirable 200-240 mg/dL Borderline >240 mg/dL High Risk Eosinophils/100 WBC (Bld) 6.0 % 0-5 [facility] Work Phone: Glucose [Mass/Vol] 107 mg/dL 74-106 [facility] Work Phone: Comment on above: Fasting Glucose resu lt from 100 to 125 mg/dL suggests IMPAIRED HOMEOSTASIS per A.D.A. criteria. Neutrophils (Bld) [#/Vol] 5.6 10*3/uL 2.0-7.7 [facility] Work Phone: Neutrophils/100 WBC (Bld) 53.7 % 47-70 [facility] Work Phone: Potassium [Moles/Vol] 4.0 mmol/L 3.5-5.1 [facility] Work Phone: Protein [Mass/Vol] 7.6 g/dL 6.4-8.2 [facility] Work Phone: Sodium [Moles/Vol] 139 mmol/L 136-145 [facility] Work Phone: Triglyceride [Mass/Vol] 249 mg/dL <199 [facility] Work Phone: Comment on above: The drugs N-Acetylcy steine and Metamizole may falsely depress this assay.Serum Triglycerides Reference Interval Normal <150 mg/dL Borderline high 150 - 199 mg/dL High 200 - 499 mg/dL Very High > or = 500 mg/dL WBC (Bld) [#/Vol] 10.4 10*3/uL 4.4-11.0 [facility] Work Phone: Blood erythrocytes count (nu mber/volume)on 06-23-2022 RBC (Bld) [#/Vol] 4.65 10*6/uL 4.2-5.4 [facility] Work Phone: Blood hemoglobin measurement (mass/volume)on 06-23-2022 Hemoglobin (Bld) [Mass/Vol] 14.6 g/dL 12.0-15.0 [facility] Work Phone: Blood lymphocytes/100 leukoc yteson 06-23-2022 Lymphocytes/100 WBC (Bld) 34.2 % 19-41 [facility] Work Phone: Blood monocytes/100 leukocyt eson 06-23-2022 Monocytes/100 WBC (Bld) 5.1 % 0-10 [facility] Work Phone: Blood platelet mean volumeon 06-23-2022 Platelet mean volume (Bld) [Entitic vol] 10.2 fL 6.2-12.0 [facility] Work Phone: Determination of erythrocyte mean corpuscular volume (MCV)on 06-23-2022 MCV (RBC) [Entitic vol] 94.0 fL 81-99 [facility] Work Phone: Hematocrit Auto (Bld) [Volum e fraction]on 06-23-2022 Hematocrit (Bld) [Volume fraction] 43.7 % 37-47 [facility] Work Phone: Laboratory - Chemistry and C hemistry - challengeon 06-23-2022 ALP [Catalytic activity/Vol] 79 U/L 45-117 [facility] Work Phone: ALT [Catalytic activity/Vol] 31 U/L 13-56 [facility] Work Phone: CO2 [Moles/Vol] 26.0 mmol/L 21.0-32.0 [facility] Work Phone: Globulin (S) [Mass/Vol] 4.0 g/dL 2.2-4.2 [facility] Work Phone: Urea nitrogen/Creatinine [Mass ratio] 18.3 mg/mg 10-20 [facility] Work Phone: Laboratory - Hematology and Cell countson 06-23-2022 Erythrocyte distribution width (RBC) [Entitic vol] 45.6 fL 35.1-43.9 [facility] Work Phone: Erythrocyte distribution width (RBC) [Ratio] 13.2 % 11.6-14.6 [facility] Work Phone: Immature granulocytes/100 WBC (Bld) 0.400 % 0.0-0.9 [facility] Work Phone: Comment on above: IG% - Immature Granu locytes (promyelocytes, myelocytes and metamyelocytes) > 1% indicates that a LEFT SHIFT is Present. MCH (RBC) [Entitic mass] 31.4 pg 27.0-32.0 [facility] Work Phone: Nucleated RBC/100 WBC (Bld) [Ratio] 0 % 0-5 [facility] Work Phone: MCHC Auto (RBC) [Mass/Vol]on 06-23-2022 MCHC (RBC) [Mass/Vol] 33.4 g/dL 32-36 [facility] Work Phone: No Panel Informationon 06-23 Estimated GFR (MDRD) Amer 122 mL/min >60 [facility] Work Phone: Comment on above: GFR Calc Estimated GFR (MDRD) Non-Af Amer 101 mL/min >60 [facility] Work Phone: Comment on above: Non- GFR Calc Platelets bldon 06-23-2022 Platelets (Bld) [#/Vol] 323 10*3/uL 150-450 [facility] Work Phone: Serum or plasma albumin nathan urement (mass/volume)on 06-23-2022 Albumin [Mass/Vol] 3.6 g/dL 3.2-5.0 [facility] Work Phone: Serum or plasma albumin/glob ulin mass ratioon 06-23-2022 Albumin/Globulin [Mass ratio] 0.9 {ratio} 0.9-2.4 [facility] Work Phone: Serum or plasma calcium nathan urement (mass/volume)on 06-23-2022 Calcium [Mass/Vol] 9.1 mg/dL 8.5-10.1 [facility] Work Phone: Serum or plasma cholesterol in HDL measurement (mass/volume)on 06-23-2022 Cholesterol in HDL [Mass/Vol] 37 mg/dL >40 [facility] Work Phone: Comment on above: The drugs N-Acetylcy steine and Metamizole may falsely depress this assay. Reference Range HDL <40 mg/dL Low HDL Cholesterol HDL >or= 60 mg/dL High HDL Cholesterol Serum or plasma cholesterol in VLDL measurement (mass/volume)on 06-23-2022 Cholesterol in VLDL [Mass/Vol] 50 mg/dL 5-40 [facility] Work Phone: Serum or plasma creatinine m easurement (mass/volume)on 06-23-2022 Creatinine [Mass/Vol] 0.65 mg/dL 0.55-1.02 [facility] Work Phone: Comment on above: The validity of the calculated GFR & GFRAA in patients over 70 years has not been determined. Clinical correlation is essential. Serum or plasma low density lipoprotein (LDL) cholesterol measurement (mass/volume)on 06-23-2022 Cholesterol in LDL [Mass/Vol] 176 mg/dL 0-130 [facility] Work Phone: Serum or plasma urea nitroge n measurement (mass/volume)on 06-23-2022 Urea nitrogen [Mass/Vol] 12 mg/dL 7-18 [facility] Work Phone: Thin prep Papanicolaou smear with manual screeningon 06-23-2022 Thin prep Papanicolaou smear with manual screening 14 U/L 15-37 [facility] Work Phone: Thin prep Papanicolaou smear with manual screening 5 5-15 [facility] Work Phone: Whole blood hemoglobin A1c/t otal hemoglobin ratio (mass fraction)on 06-23-2022 HbA1c (Bld) [Mass fraction] 5.9 % 3.8-5.6 [facility] Work Phone: Comment on above: Normal < 5.7 % Predi abetic 5.7 - 6.4 % Diabetic >or= 6.5 % Please note range changes. Jomar 12-04-2021 CNPN Telephone (OBGYWM) PATRICIA LOPEZ ([id number]) 1970 F Date Time Provider Department 12/04/21 FREIDA MONTALVO During your visit today, we recorded the following information about you: Myriam Ellis RN 12/04/2021 10:00 AM Signed ----- Message from Freida Montalvo MD sent at 12/04/2021 8:53 AM EST ----- needs colp for +HRHPV. Order in. MD Myriam Tran RN 12/04/2021 10:01 AM Signed Left message to call office. Myriam Ellis RN 12/07/2021 12:07 PM Signed 2nd attempt made to reach patient. Left message to call office. Myriam Price LPN 12/08/2021 3:10 PM Signed mychart message sent to patient Myriam Ellis RN 12/14/2021 2:26 PM Signed 3rd attempt made to contact patient. Left message to call office. Letter mailed. Myriam Ellis RN Allergies As of Date: 12/04/2021 (No Known Allergies) Date Reviewed: 11/27/2021 Reviewed by: Freida Montalvo MD - Fully Assessed Reason for Visit: Abnormal Pap [273] Prescriptions as of 12/14/2021 - OZEMPIC 0.25 mg or 0.5 mg(2 mg/1.5 mL) pen injector - SYNJARDY XR 25-1,000 mg XR tab - modafinil (PROVIGIL) 100 mg tablet - rosuvastatin (CRESTOR) 10 mg tablet - estradiol (ESTRACE) 1 mg tablet Take 1 tablet by mouth once daily. - levonorgestrel (MIRENA) 20 mcg/24 hr (5 years) IUD Inserted in office - CPAP Problem List As Of Date 12/04/2021 Noted Resolved DM (diabetes mellitus), type 2, uncontrolled wi*12/12/2012 Cigarette smoker [F17.210] 12/12/2012 Obesity (BMI 30-39.9) [E66.9] 04/25/2013 HSIL (high grade squamous intraepithelial lesio*06/22/2018 Letter Text Encounter Status:Closed by MYRIAM ELLIS RN on 12/14/21 [facility] CNOVon 11-27-2021 CNOV Office Visit (OBGYWM ) PATRICIA LOPEZ ([id number]) 1970 F Date Time Provider Department 11/27/21 11:30 AM FREIDA MONTALVO [facility] During your visit today, we recorded the following information about you: Blood pressure Weight Height 124/82 92.1 kg 1.664 m Freida Montalvo MD 11/27/2021 11:41 AM Signed Patricia is a 51 year old who presents for an annual gynecologic exam with complaints, hot flashes . Worsening over past year. Trouble sleeping. night sweats. Vaginal dryness senior care problem, but stopped Yuvafem. Has mirena IUD and no menses at all w/ this. Postmenopausal: likely HRT use: No. 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 PAST MEDICAL HISTORY Diagnosis Date - ASCUS on Pap smear 01/2014,08/2015, 6 - Diabetes (HCC) diet controled - HPV test positive 01/2014,08/2015, 6 - Hyperlipemia - Sleep apnea 2003 - Thyroid nodule PAST SURGICAL HISTORY Procedure Laterality Date - GALLBLADDER/EF - INSERTION OF IUD - OFFICE LEEP 04/2014 CIN2 - STRESS TEST EXERCISE 06/2018 w/o contrast - VAGINOSCOPY 02/2014, 12/2014 FAMILY HISTORY Problem Relation Age of Onset - None Mother - None Father SOCIAL HISTORY Social History Tobacco Use - Smoking status: Current Every Day Smoker Packs/day: 0.30 Years: 20.00 Pack years: 6.00 Types: Cigarettes - Smokeless tobacco: Never Used Vaping Use - Vaping Use: Never used Substance Use Topics - Alcohol use: No - Drug use: No REVIEW OF SYSTEMS Abdomen: No abdominal pain, nausea, vomiting, diarrhea, or constipation. No bloating, early satiety, indigestion, or increased flatulence. Bladder: No dysuria, gross hematuria, urinary frequency, urinary urgency, or incontinence Breast: No breast lumps, nipple d/c, overlying skin changes, redness or skin retraction Allergies and current medication updated:Yes EXAM: BP 124/82 Ht 5' 5.5 (1.66m) Wt 203 lb (92.1kg) LMP 10/09/2016 BMI 33.26 kg/(m2). GENERAL: pleasant, female in no apparent distress [...] external genitalia normal, normal Bartholin's glands, urethra, [place]'s glands, no vulvar lesions, no cervical lesions, good vaginal support, physiologic discharge present, normal appearing perineal body and perianal region, IUD strings present BIMANUAL: uterus normal size, shape and consistency, no adnexal masses and non-tender RECTOVAGINAL: deferred. NEURO: alert and oriented x3,exam grossly non-focal EXTREMITIES: normal ASSESSMENT/PLAN: 1) Health maintenance: Pap done with HPV. Mammogram ordered cont. IUD for now r/ba/ to trial estrogen w/ mirena for uterine protection for menopausal symptoms reviewed. She desires rx other health screens per PCP, encouraged colon ca screening 2) Follow up one year or sooner as needed MD Freida Tran MD 12/04/2021 8:53 AM Signed Addended by: FREIDA MONTALVO on: 12/04/2021 08:53 AM Modules accepted: Orders Referring Provider: SELF [200] Allergies As of Date: 11/27/2021 (No Known Allergies) Date Reviewed: 11/27/2021 Reviewed by: Freida Montalvo MD - Fully Assessed Primary Visit Diagnosis:Cervical high risk HPV (human papillomavirus) test positive [R87.810] Other Visit Diagnoses:Encounter for gynecological examination (general) (routine) without abnormal findings [Z01.419] Encounter for screening for human papillomavirus (HPV) [Z11.51] Pap smear for cervical cancer screening [Z12.4] Encounter for screening mammogram for breast cancer [Z12.31] Order(s):PAP FLUID CERVICAL SCREENING [[id number]] Order #: [id number]. #:[id number] GLADIS SCREENING W RAMSES [[id number]] Order #: [id number] FUTURE estradiol (ESTRACE) 1 mg tabletTake 1 tablet by mouth once daily.Disp: 30 tabletRfl: 12 HPV W/GENOTYPE [[id number]] Order #: [id number]. #:[id number] COLPOSCOPY [[id number]] Reflex Order#: [id number] (Ord#:[id number]) Prescriptions as of 12/04/2021 - OZEMPIC 0.25 mg or 0.5 mg(2 mg/1.5 mL) pen injector - SYNJARDY XR 25-1,000 mg XR tab - modafin (more content not included)... Normal [facility] HPV w/Genotypeon 11-27-2021 HPV HighRisk Other Negative for HPV DNA high risk types: 31,33,35,39,45,51,52, 56,58,59,66,68 by PCR. Normal [facility] Comment on above: Result Comment: This test was developed and its performance characteristics determined by [facility] [place] ([facility] It has not been cleared or approved by the FDA. [facility] is regulated under CLIA as qualified to perform high-complexity testing. This test is used for clinical purposes. It should not be regarded as investigational or for research. Performed By: #### H PVHRR #### [facility] [address] [address] HPV HighRisk Type 16 Positive Critically abnormal [facility] Comment on above: Performed By: #### H PVHRR #### [facility] [address] [address] HPV HighRisk Type 18 Positive Critically abnormal [facility] Comment on above: Performed By: #### H PVHRR #### [facility] [address] [address] HGB A1Con 11-12-2019 HbA1c (Bld) [Mass fraction] 8.2 % High 4.0-6.0 [facility] Comment on above: Order Comment: Order ed on Fin# [id number] Performed By: #### 1 [id number] #### [facility] Services [address] [place] [address] Economic Consultant: Tejinder Felix MD Patient Letteron 08-15-2019 Patient Letter August 15, 2019 PATRICIA LOPEZ [address] [place] [address] To Whom It May Concern: The above-named patient has been seen in our office today 08/15/2019. If you have further questions regarding this patient?s health status, please call our office. A ANDRE BRUSH MD [facility] HGB A1Con 08-08-2019 HbA1c (Bld) [Mass fraction] 8.7 % High 4.0-6.0 [facility] Comment on above: Order Comment: Order ed on Fin# [id number] Performed By: #### 1 [id number] #### [facility] Services [address] [place] [address] Economic Consultant: Tejinder Felix MD US THYROID ECHOon 08-08-2019 US THYROID ECHO EXAM DESCRIPTION: US THYROID ECHO CLINICAL HISTORY: 49 years Female, . Thyroid nodule. COMPARISON: None. FINDINGS: Enlarged bilateral thyroid lobes greater on the right.. Right lobe measures 57 x 20 x 32 mm. Left lobe measures 51 x 20 x 15 mm. Dominant nodule right lobe measures 3.25 x 2.15 x 2.25 cm. Mean diameter of 2.55 cm. Solid inhomogenous echotexture. Cannot exclude presence of microcalcifications. Left lobe demonstrates two tiny nodules. One measures 5 x 4.5 x 4 mm. Second measures 6 x 5 x 6.5 mm. No suspicious appearance. Normal isthmus AP diameter of 4 mm. IMPRESSION: Enlarged thyroid especially the right lobe. Dominant lesion in the right thyroid gland. Consider ultrasound guided needle aspiration of the right thyroid nodule. Electronically signed by: Hector Cao MD 08/08/2019 1:51 PM CDT [facility] Comment on above: Order Comment: Order ed on Fin# [id number] Result Comment: Tech nologist: LUISITO Dictated By: HECTOR CAO MD Signed By: HECTOR CAO MD Signed Out: 08/08/19 14:51:23 VIT D 25 LEVELon 08-08-2019 Vit D 25 27 ng/mL Normal [facility] Comment on above: Order Comment: Order ed on Fin# [id number] Result Comment: Less than 20 ng/ml Deficient 20-30 ng/ml Insufficient 30-100 ng/ml Sufficient Greater than 100 ng/ml Potential toxicity Patients who have recently undergone fluorescein dye angiography in the past 48 to 72 hours (or longer if renal insufficient) may have falsely elevated results. Performed By: #### [id number] #### [facility] [address] [id number] Economic Consultant: MD Mayra Holder Office-Progress Notes-Pr ovideron 05-16-2019 [facility] Office-Progress Notes-Provider Chief Complaint FOLLOW UP LABS History of Present Illness pT DOING WELL Review of Systems Constitutional:well built Eye: no c/o Cardiovascular: no c/o Gastrointestinal:no c/o Skin: no c/o Neurologic: no c/o Physical Exam Vitals & Measurements Peripheral Pulse Rate: 85 bpm (05/16/19 14:26:00) Respiratory Rate: 18 br/min (05/16/19 14:26:00) Systolic Blood Pressure: 130 mmHg (05/16/19 14:26:00) Diastolic Blood Pressure: 60 mmHg (05/16/19 14:26:00) Height/Length Measured: 165 cm (05/16/19 14:26:00) Weight Measured: 111 kg (05/16/19 14:26:00) Body Mass Index Measured: 40.77 kg/m2 (05/16/19 14:26:00) Depression Screening Scores Initial Depression Screen Score: 0 (05/16/19 14:26:00) Fall Risk Assessment Is the patient ambulatory (mobile): Yes (05/16/19 14:26:00) Have you had a fall within the past: No (05/16/19 14:26:00) Have you had 2 or more falls in the past: No (05/16/19 14:26:00) Lab Results Last Months Labs No qualifying data available. Assessment/Plan 1. 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 group home current use of oral hypoglycemic drug Z79.84 The glimeperide 1 mg will be increased to 4 mg po BID F/U in 3 month Ordered: AMB Follow - Up Appt Amb, 05/16/2019 14:42:00 EDT, 3 months AMB Office/Outpt Est Pt (approx 10 min) 05/16/2019 14:41:00 EDT, Diabetes / group home current use of oral hypoglycemic drug / Multinodular goiter / Vitamin D deficiency / BMI 39.0-39.9,adult / Exogenous obesity 3. 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 Vitamin D deficiency E55.9 [place] [address]006 Iu of vit d Ordered: AMB Follow - Up Appt Amb, 05/16/2019 14:42:00 EDT, 3 months AMB Office/Outpt Est Pt (approx 10 min) 05/16/2019 14:41:00 EDT, Diabetes / group home current use of oral hypoglycemic drug / Multinodular goiter / Vitamin D deficiency / BMI 39.0-39.9,adult / Exogenous obesity 5. 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 08/08/2019 +/- 14 days, Order for future visit, Dx: Diabetes / group home current use of oral hypoglycemic drug / Multinodular goiter / Vitamin D deficiency / BMI 39.0-39.9,adult / Exogenous obesity Problem List/Past Medical History Ongoing BMI 39.0-39.9,adult Diabetes Exogenous obesity Lipids abnormal group home current use of oral hypoglycemic drug Multinodular goiter Prediabetes Vitamin D deficiency Historical No qualifying data Procedure/Surgical History MIRENA (IUD): 11/14/15 gallbaladder removal: 11/14/00 Medications glimepiride 1 mg oral tablet, 1 mg= 1 tabs, BID, Not taking glimepiride 1 mg oral tablet, 1 mg= 1 tabs, ORAL, BID, 3 refills rosuvastatin 10 mg oral tablet, 10 mg= 1 tabs, DAILY Vitamin D, 4000 units, ORAL, DAILY, Not taking Vitamin D3 50,000 intl units oral capsule, See Instructions, 1 refills Allergies No Known Allergies . Health Maintenance Pending (in the next year) Due Breast Cancer Screening due 05/16/19 and every 1 years Cervical Cancer Screening due 05/16/19 and every MMR Vaccine Dose 1 due 05/16/19 One-time only Tetanus Vaccine due 05/16/19 and every 10 years Varicella Vaccine Dose 1 due 05/16/19 One-time only Satisfied (in the past 1 year) There are no satisfied recommendations within the defined date range Normal [facility] Patient Letteron 05-16-2019 Patient Letter May 16, [address] [address] To Whom It May Concern: The above-named patient has been seen in our office today If you have further questions regarding this patient?s health status, please call our office. Shona BRUSH MD [facility] Phone [facility] 03-15-2019 Phone Msg - From: Ning Johnston To: Shona BRUSH MD; Sent: 03/13/2019 08:52:23 EDT Subject: 02/14/19 charge What is the E/M code Patricia should be billed for from her visit on 02/14/19? There are no charges in [facility]. I do have her diagnosis codes from your note though. Thank you. From: Shona BRUSH MD To: Ning Johnston; Sent: 03/13/2019 22:53:23 EDT Subject: RE: 02/14/19 charge [id number] ,thanks Josie in billing made aware. Normal [facility] Phone Msgon 02-15-2019 Phone Msg - From: Nieves Flores MA To: Shona BRUSH MD; Sent: 02/14/2019 17:13:36 EDT Subject: General Message General Message: PT MIS ASKING IF YOU CAN SEND RX FOR VIT D- NOT SURE HOW MMANY MG'S YOU WANT HER TO BE ON AND REFILL FOR GLIMIPERIDE PLEASE From: Shona BRUSH MD To: Nieves Flores MA; Sent: 02/14/2019 19:06:30 EDT Subject: RE: General Message done noted [facility] Amb Office-Progress Notes-Pr ovideron 02-14-2019 Amb Office-Progress Notes-Provider Chief Complaint NEW PATIENT History of Present Illness Pt doing well Review of Systems Constitutional:well built Eye: no c/o Cardiovascular:no c/o Gastrointestinal: no c/o Skin: dry Neurologic: no c/oo Physical Exam Vitals & Measurements Temperature Temporal (F): 99.1 degF (02/14/19 17:15:00) Peripheral Pulse Rate: 89 bpm (02/14/19 17:15:00) Respiratory Rate: 18 br/min (02/14/19 17:15:00) Systolic Blood Pressure: 110 mmHg (02/14/19 17:15:00) Diastolic Blood Pressure: 82 mmHg (02/14/19 17:15:00) Height/Length Measured: 165 cm (02/14/19 17:15:00) Weight Measured: 107 kg (02/14/19 17:15:00) Body Mass Index Measured: 39.3 kg/m2 (02/14/19 17:15:00) Depression Screening Scores Initial Depression Screen Score: 0 (02/14/19 17:15:00) Fall Risk Assessment Is the patient ambulatory (mobile): Yes (02/14/19 17:15:00) Have you had a fall within the past: No (02/14/19 17:15:00) Have you had 2 or more falls in the past: No (02/14/19 17:15:00) Lab Results Last Months Labs No qualifying data available. Assessment/Plan 1. Prediabetes R73.03 Doing very well and the HgbA1C went down to 6.4 Ordered: AMB Follow - Up Appt Amb, 02/14/2019 16:49:00 EDT, 3 months 2. 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 Multinodular goiter E04.2 Needs second opinion on the US and possible biopsy of the large thyroid nodule in the right lobe Ordered: AMB Follow - Up Appt Amb, 02/14/2019 16:49:00 EDT, 3 months 4. Vitamin D deficiency, unspecified E55.9 keep on 4000 IU of vit D Ordered: AMB Follow - Up Appt Amb, 02/14/2019 16:49:00 EDT, 3 months 5. Exogenous obesity E66.09 wants to loose wt Ordered: AMB Follow - Up Appt Amb, 02/14/2019 16:49:00 EDT, 3 months 6. Lipids abnormal E78.89 Almost normal lipid profile on medication 7. BMI 39.0-39.9,adult Z68.39 Watching the diet Orders: HGB A1C, ROUTINE, *Est. 05/09/2019 +/- 14 days, Order for future visit, Dx: Prediabetes / supervisor intermediates current use of oral hypoglycemic drug / Multinodular goiter / Vitamin D deficiency, unspecified / Exogenous obesity Problem List/Past Medical History Ongoing BMI 39.0-39.9,adult Exogenous obesity Lipids abnormal group home current use of oral hypoglycemic drug Multinodular goiter Prediabetes Vitamin D deficiency Historical No qualifying data Procedure/Surgical History No qualifying data available. Medications glimepiride 1 mg oral tablet, 1 mg= 1 tabs, BID rosuvastatin 10 mg oral tablet, 10 mg= 1 tabs, DAILY Vitamin D, 4000 units, ORAL, DAILY Allergies No Known Allergies . Health Maintenance Pending (in the next year) Due Breast Cancer Screening due 02/14/19 and every 1 years Cervical Cancer Screening due 02/14/19 and every Diabetes Screening due 02/14/19 and every 3 years Lipid Screening due 02/14/19 Variable frequency MMR Vaccine Dose 1 due 02/14/19 One-time only Tetanus Vaccine due 02/14/19 and every 10 years Varicella Vaccine Dose 1 due 02/14/19 One-time only Satisfied (in the past 1 year) There are no satisfied recommendations within the defined date range Normal [facility] Culture, urine Bacteria identified Cx Nom (U) Presumptive Lactobacillus sp. [facility] Work Phone: Vital Signs Date Time Vital Sign Value Performing Clinician Lio roberts 07-03-2025 18:01-0400 Body height 165.1 cm Joshua ALMANZARC Work Phone: [facility] 07-03-2025 18:01-0400 Body mass index (BMI) [Ratio] 34.9 kg/m2 Joshua ALMANZARC Work Phone: [facility] 07-03-2025 18:01-0400 Body temperature 97.7 [degF] Joshua ALMANZARC Work Phone: [facility] 07-03-2025 18:01-0400 Body weight 95.25 kg Joshua ALMANZARC Work Phone: [facility] 07-03-2025 18:01-0400 Diastolic blood pressure 60 mm[Hg] Joshuashona Kurtz [employer] Work Phone: [facility] 07-03-2025 18:01-0400 Heart rate 82 /min Joshuashona Kurtz [employer] Work Phone: [facility] 07-03-2025 18:01-0400 Respiratory rate 18 /min Joshuashona Kurtz [employer] Work Phone: [facility] 07-03-2025 18:01-0400 SaO2% (BldA) [Mass fraction] 98 % Joshuashona Kurtz [employer] Work Phone: [facility] 07-03-2025 18:01-0400 Systolic blood pressure 112 mm[Hg] Joshua Kurtz [employer] Work Phone: [facility] 07-02-2025 08:32-0400 Body height 165.1 cm Joshuashona Kurtz [employer] Work Phone: [facility] 07-02-2025 08:32-0400 Body mass index (BMI) [Ratio] 34.9 kg/m2 Joshuashona Kurtz [employer] Work Phone: [facility] 07-02-2025 08:32-0400 Body weight 95.25 kg Joshuashona Kurtz [employer] Work Phone: [facility] 07-02-2025 08:32-0400 Diastolic blood pressure 72 mm[Hg] Joshuashona Kurtz [employer] Work Phone: [facility] 07-02-2025 08:32-0400 Heart rate 79 /min Joshuashona Kurtz [employer] Work Phone: [facility] 07-02-2025 08:32-0400 Respiratory rate 18 /min Joshuashona Kurtz [employer] Work Phone: [facility] 07-02-2025 08:32-0400 SaO2% (BldA) [Mass fraction] 97 % Joshua Kurtz [employer] Work Phone: [facility] 07-02-2025 08:32-0400 Systolic blood pressure 119 mm[Hg] Joshua Kurtz [employer] Work Phone: [facility] 04-02-2025 07:21-0400 Body mass index (BMI) [Ratio] 33.4 kg/m2 Joshua Kurtz [employer] Work Phone: [facility] 04-02-2025 07:21-0400 Body weight 91.17 kg Joshua Kurtz [employer] Work Phone: [facility] 04-02-2025 07:21-0400 Diastolic blood pressure 72 mm[Hg] Joshua Kurtz [employer] Work Phone: [facility] 04-02-2025 07:21-0400 Heart rate 73 /min Joshua Kurtz [employer] Work Phone: [facility] 04-02-2025 07:21-0400 Respiratory rate 18 /min Joshua Kurtz [employer] Work Phone: [facility] 04-02-2025 07:21-0400 SaO2% (BldA) [Mass fraction] 98 % Joshua Kurtz [employer] Work Phone: [facility] 04-02-2025 07:21-0400 Systolic blood pressure 106 mm[Hg] Joshua Kurtz [employer] Work Phone: [facility] 11-17-2023 13:00-0500 Body height 165.1 cm [employer] Joshua Kurtz [employer] Work Phone: [facility] 11-17-2023 13:00-0500 Body mass index (BMI) [Ratio] 36.8 kg/m2 [employer] Joshua Kurtz [employer] Work Phone: [facility] 11-17-2023 13:00-0500 Body weight 100.24 kg [employer] Joshua Kurtz [employer] Work Phone: [facility] 11-17-2023 13:00-0500 Diastolic blood pressure 75 mm[Hg] [employer] Joshua Kurtz [employer] Work Phone: [facility] 11-17-2023 13:00-0500 Heart rate 80 /min [employer] Joshua Kurtz [employer] Work Phone: [facility] 11-17-2023 13:00-0500 Respiratory rate 18 /min [employer] Joshua Kurtz [employer] Work Phone: [facility] 11-17-2023 13:00-0500 SaO2% (BldA) [Mass fraction] 96 % [employer] Joshua Kurtz [employer] Work Phone: [facility] 11-17-2023 13:00-0500 Systolic blood pressure 112 mm[Hg] [employer] Joshua Robertsonson [employer] Work Phone: 9(568)284-106546 [place] [address] 08-25-2023 12:59-0400 Body height 165.1 cm [employer] Joshua Kurtz [employer] Work Phone: 1(204)261-246246 [place] [address] 08-25-2023 12:59-0400 Body mass index (BMI) [Ratio] 35.7 kg/m2 [employer] Joshua Kurtz [employer] Work Phone: [facility] 08-25-2023 12:59-0400 Body weight 97.52 kg [employer] Joshua Kurtz [employer] Work Phone: [facility] 08-25-2023 12:59-0400 Diastolic blood pressure 70 mm[Hg] [employer] Joshua Kurtz [employer] Work Phone: 4(183)499-093946 [place] [address] 08-25-2023 12:59-0400 Heart rate 76 /min [employer] Joshua Kurtz [employer] Work Phone: 2(899)899-090146 [place] [address] 08-25-2023 12:59-0400 Respiratory rate 18 /min [employer] Joshua Kurtz [employer] Work Phone: 1(915)882-387746 [place] [address] 08-25-2023 12:59-0400 SaO2% (BldA) [Mass fraction] 97 % [employer] Joshua Kurtz [employer] Work Phone: [facility] 08-25-2023 12:59-0400 Systolic blood pressure 101 mm[Hg] [employer] Joshua Kurtz [employer] Work Phone: [facility] 05-25-2023 08:33-0400 Body height 165.1 cm [employer] Joshua Kurtz [employer] Work Phone: [facility] 05-25-2023 08:33-0400 Body weight 99.56 kg [employer] Joshua Kurtz [employer] Work Phone: 0(247)654-957046 [place] [address] 05-11-2023 15:33-0400 Body height 165.1 cm [employer] Joshua Kurtz [employer] Work Phone: 1(774)679-612346 [place] [address] 05-11-2023 15:28-0400 Body mass index (BMI) [Ratio] 36.4 kg/m2 [employer] Joshua Kurtz [employer] Work Phone: [facility] 05-11-2023 15:28-0400 Body weight 99.33 kg [employer] Joshua Kurtz [employer] Work Phone: [facility] 05-11-2023 15:28-0400 Diastolic blood pressure 67 mm[Hg] [employer] Joshua Kurtz [employer] Work Phone: [facility] 05-11-2023 15:28-0400 Heart rate 82 /min [employer] Joshua Robertsonson [employer] Work Phone: [facility] 05-11-2023 15:28-0400 Respiratory rate 18 /min [employer] Joshua Robertsonson [employer] Work Phone: [facility] 05-11-2023 15:28-0400 SaO2% (BldA) [Mass fraction] 95 % [employer] Joshua Robertsonson [employer] Work Phone: [facility] 05-11-2023 15:28-0400 Systolic blood pressure 100 mm[Hg] [employer] Joshua Kurtz [employer] Work Phone: [facility] 04-19-2023 17:34-0400 Body weight 100.33 kg [employer] Joshua Kurtz [employer] Work Phone: [facility] 04-14-2023 00:36-0400 Body weight 99.33 kg [employer] Joshua Kurtz [employer] Work Phone: [facility] 03-25-2023 08:30-0400 Body height 165.1 cm [employer] Joshua Kurtz [employer] Work Phone: [facility] 03-25-2023 08:30-0400 Body weight 99.33 kg [employer] Joshua Kurtz [employer] Work Phone: [facility] 03-24-2023 17:54-0400 Body weight 98.7 kg [employer] Joshua Kurtz [employer] Work Phone: [facility] 03-10-2023 18:07-0400 Body weight 98.79 kg [employer] Joshua Kurtz [employer] Work Phone: [facility] 02-23-2023 10:07-0400 Body height 165.1 cm [employer] Joshua Kurtz [employer] Work Phone: [facility] 02-23-2023 10:07-0400 Body weight 99.33 kg [employer] Joshua Kurtz [employer] Work Phone: [facility] 02-14-2023 15:24-0400 Body height 165.1 cm [employer] Joshua Kurtz [employer] Work Phone: [facility] 02-14-2023 15:24-0400 Body mass index (BMI) [Ratio] 35.9 kg/m2 [employer] Joshua Robertsonson [employer] Work Phone: [facility] 02-14-2023 15:24-0400 Body weight 97.97 kg [employer] Joshua Kurtz [employer] Work Phone: 9(732)892-139446 [place] [address] 02-14-2023 15:24-0400 Diastolic blood pressure 68 mm[Hg] [employer] Joshua Kurtz [employer] Work Phone: 6(265)995-629346 [place] [address] 02-14-2023 15:24-0400 Heart rate 89 /min [employer] Joshua Kurtz [employer] Work Phone: 7(248)794-532546 [place] [address] 02-14-2023 15:24-0400 Respiratory rate 18 /min [employer] Joshua Kurtz [employer] Work Phone: 1(828)758-676846 [place] [address] 02-14-2023 15:24-0400 SaO2% (BldA) [Mass fraction] 96 % [employer] Joshua Kurtz [employer] Work Phone: 1(139)587-879746 [place] [address] 02-14-2023 15:24-0400 Systolic blood pressure 120 mm[Hg] [employer] Joshua Kurtz [employer] Work Phone: 8(955)734-988556 [place] [address] 01-24-2023 15:08-0400 Body height 165.1 cm [employer] Joshua Robertsonson [employer] Work Phone: 3(756)281-305056 [place] [address] 01-24-2023 15:08-0400 Body weight 96.16 kg [employer] Joshua Robertsonson [employer] Work Phone: 6(242)846-034456 [place] [address] 01-24-2023 13:57-0400 Body mass index (BMI) [Ratio] 36.3 kg/m2 [employer] Joshua Kurtz [employer] Work Phone: 0(033)275-221246 [place] [address] 01-24-2023 13:57-0400 Heart rate 93 /min [employer] Joshua Kurtz [employer] Work Phone: 9(778)576-308046 [place] [address] 01-24-2023 13:57-0400 SaO2% (BldA) [Mass fraction] 95 % [employer] Joshua Kurtz [employer] Work Phone: 4(083)589-750746 [place] [address] 12-29-2022 12:58-0500 Body height 162.56 cm [employer] Joshua Kurtz [employer] Work Phone: 5(208)571-823646 [place] [address] 12-29-2022 12:58-0500 Body mass index (BMI) [Ratio] 35.3 kg/m2 [employer] Joshua Kurtz [employer] Work Phone: [facility] 12-29-2022 12:58-0500 Body weight 96.16 kg [employer] Joshua Kurtz [employer] Work Phone: [facility] 12-29-2022 12:58-0500 Diastolic blood pressure 92 mm[Hg] [employer] Joshua Kurtz [employer] Work Phone: [facility] 12-29-2022 12:58-0500 Heart rate 93 /min [employer] Joshua Kurtz [employer] Work Phone: [facility] 12-29-2022 12:58-0500 Respiratory rate 18 /min [employer] Joshua Kurtz [employer] Work Phone: [facility] 12-29-2022 12:58-0500 SaO2% (BldA) [Mass fraction] 95 % [employer] Joshua Kurtz [employer] Work Phone: [facility] 12-29-2022 12:58-0500 Systolic blood pressure 128 mm[Hg] [employer] Joshua Kurtz [employer] Work Phone: [facility] 12-09-2022 11:15-0500 Body temperature 97.3 [degF] Taras Ulloa MD Work Phone: [facility] 12-09-2022 11:15-0500 Diastolic blood pressure 59 mm[Hg] Taras Ulloa MD Work Phone: [facility] 12-09-2022 11:15-0500 Heart rate 80 /min aTras Ulloa MD Work Phone: [facility] 12-09-2022 11:15-0500 Respiratory rate 18 /min Taras Ulloa MD Work Phone: [facility] 12-09-2022 11:15-0500 SaO2% (BldA) [Mass fraction] 95 % Taras Ulloa MD Work Phone: [facility] 12-09-2022 11:15-0500 Systolic blood pressure 102 mm[Hg] Taras Ulloa MD Work Phone: [facility] 12-08-2022 05:44-0500 Body mass index (BMI) [Ratio] 33.5 kg/m2 Taras Ulloa MD Work Phone: [facility] 12-08-2022 05:44-0500 Body weight 91.31 kg Taras Ulloa MD Work Phone: [facility] 12-06-2022 17:02-0500 Body height 165.1 cm Taras Ulloa MD Work Phone: [facility] 12-06-2022 15:25-0500 Body temperature 98.2 [degF] [facility] [facility] Joshua Kurtz [employer] Work Phone: [facility] 12-06-2022 15:25-0500 Diastolic blood pressure 74 mm[Hg] [facility] Joshua Kurtz [employer] Work Phone: [facility] 12-06-2022 15:25-0500 Heart rate 77 /min [employer] Joshua Kurtz [employer] Work Phone: [facility] 12-06-2022 15:25-0500 Respiratory rate 14 /min [employer] Joshua Kurtz [employer] Work Phone: [facility] 12-06-2022 15:25-0500 SaO2% (BldA) [Mass fraction] 97 % [employer] Joshua Kurtz [employer] Work Phone: [facility] 12-06-2022 15:25-0500 Systolic blood pressure 112 mm[Hg] [facility] Joshua Kurtz [employer] Work Phone: [facility] 12-06-2022 06:27-0500 Body height 165 cm [employer] Joshua Kurtz [employer] Work Phone: [facility] 12-06-2022 06:27-0500 Body mass index (BMI) [Ratio] 34.2 kg/m2 [employer] Joshua Kurtz [employer] Work Phone: [facility] 12-06-2022 06:27-0500 Body weight 93.2 kg [employer] Joshua Kurtz [employer] Work Phone: [facility] 12-03-2022 20:06-0500 Diastolic blood pressure 68 mm[Hg] [facility] Joshua Kurtz [employer] Work Phone: 5(740)711-480446 [place] [address] 12-03-2022 20:06-0500 Heart rate 70 /min [facility] Joshua Kurtz [employer] Work Phone: 4(594)157-422746 [place] [address] 12-03-2022 20:06-0500 Respiratory rate 18 /min [employer] Joshua Kurtz [employer] Work Phone: 8(606)756-268446 [place] [address] 12-03-2022 20:06-0500 SaO2% (BldA) [Mass fraction] 95 % [facility] Joshua Kurtz [employer] Work Phone: [facility] 12-03-2022 20:06-0500 Systolic blood pressure 114 mm[Hg] [facility] Joshua Kurtz [employer] Work Phone: 1(632)897-354791 [address] 12-03-2022 18:49-0500 Body temperature 98.2 [degF] [employer] Joshua Kurtz [employer] Work Phone: [facility] 12-03-2022 17:02-0500 Body height 165.1 cm [employer] Joshua Kurtz [employer] Work Phone: [facility] 12-03-2022 17:02-0500 Body mass index (BMI) [Ratio] 34.6 kg/m2 [employer] Joshua Kurtz [employer] Work Phone: 5(596)251-780246 [place] [address] 12-03-2022 17:02-0500 Body weight 94.34 kg [employer] Joshua Kurtz [employer] Work Phone: [facility] 08-24-2022 19:18-0400 Body height 165.1 cm [facility] Work Phone: 08-24-2022 19:18-0400 Body mass index (BMI) [Ratio] 34.4 kg/m2 [facility] 08-24-2022 19:18-0400 Body temperature 97.9 [degF] [facility] 08-24-2022 19:18-0400 Body weight 93.89 kg [facility] 08-24-2022 19:18-0400 Diastolic blood pressure 60 mm[Hg] [facility] 08-24-2022 19:18-0400 Heart rate 91 /min [facility] 08-24-2022 19:18-0400 Respiratory rate 18 /min [facility] 08-24-2022 19:18-0400 SaO2% (BldA) [Mass fraction] 96 % [facility] 08-24-2022 19:18-0400 Systolic blood pressure 100 mm[Hg] [facility] 06-22-2022 17:37-0400 Body height 165.1 cm [facility] Work Phone: 06-22-2022 17:37-0400 Body mass index (BMI) [Ratio] 33.7 kg/m2 [facility] Work Phone: 06-22-2022 17:37-0400 Body temperature 97.5 [degF] [facility] Work Phone: 06-22-2022 17:37-0400 Body weight 92.07 kg [facility] Work Phone: 06-22-2022 17:37-0400 Diastolic blood pressure 70 mm[Hg] [facility] Work Phone: 06-22-2022 17:37-0400 Heart rate 78 /min [facility] Work Phone: 06-22-2022 17:37-0400 Respiratory rate 18 /min [facility] Work Phone: 06-22-2022 17:37-0400 SaO2% (BldA) [Mass fraction] 97 % [facility] Work Phone: 06-22-2022 17:37-0400 Systolic blood pressure 118 mm[Hg] [facility] Work Phone: Encounters Encounter Date Encounter Type Care Provider Facility Start: 07-12-2025 ambulatory Joshua Kurtz [employer] [facility] Faci lity:[facility] Start: 07-10-2025 ambulatory Yenny Izquierdo [employer] Facili ty:[facility] Start: 07-10-2025 Registered Referred Yenny Izquierdo [facility] -C -Cardiovascular Services Work Phone: Start: 07-04-2025 End: 07-04-2025 ambulatory Joshua Kurtz [employer] [facility]-C Work Phone: -Laboratory Specimen Start: 07-04-2025 End: 07-04-2025 Patient encounter procedure Joshua Kurtz [facility]-C -Laboratory Specimen Work Phone: Start: 07-03-2025 End: 07-04-2025 ambulatory Joshua Kurtz [facility]-C Work Phone: -[facility] Start: 07-02-2025 End: 07-02-2025 Patient encounter procedure Yenny Izquierdo [facility]-C -[facility] Work Phone: Start: 07-02-2025 End: 07-02-2025 ambulatory Joshua Kurtz [facility] [facility]-C Work Phone: -[facility] Start: 04-02-2025 End: 04-02-2025 Patient encounter procedure Yenny Izquierdo [facility]-C -[facility] Work Phone: Start: 04-02-2025 End: 04-02-2025 ambulatory Joshua Kurtz [facility]-C Work Phone: [facility] Work Phone: Start: 04-01-2025 End: 04-01-2025 ambulatory Joshua Kurtz [employer]-C Work Phone: [facility] Work Phone: Start: 04-01-2025 End: 04-01-[address] Jodee Muniz MD -Laboratory Work Phone: Start: 04-01-2025 End: 04-01-2025 ambulatory Joshua Kurtz [employer] Facility:[facility] Start: 12-13-2024 End: 12-13-[address] Jodee Muniz MD -Ultrasound [facility] Work Phone: Start: 12-13-2024 End: 12-13-2024 ambulatory Jodee Muniz Facility:[facility] Start: 11-20-2024 End: 11-20-2024 ambulatory Jodee Muniz Facility:[facility] Start: 10-02-2024 End: 10-02-2024 ambulatory Joshua Kurtz [facility] [place] Start: 02-16-2024 End: 02-16-2024 ambulatory [facility] Joshua Kurtz [employer] Work Phone: [facility] Work Phone: Start: 02-16-2024 End: 02-16-2024 Patient encounter procedure [facility] Joshua Kurtz [employer] Work Phone: [facility]-Laboratory Work Phone: Start: 11-17-2023 End: 11-17-2023 Patient encounter procedure [facility] Joshua Kurtz [employer] Work Phone: [facility] Work Phone: Start: 11-02-2023 End: 11-13-2023 Discharged Recurring [employer] [facility] Joshua Kurtz [employer] Work Phone: [facility]-Cardiac Rehab Work Phone: Start: 10-20-2023 Registered Recurring [employer] Joshua Kurtz [employer] Work Phone: [facility]-Cardiac Rehab Work Phone: Start: 10-14-2023 End: 10-14-2023 ambulatory [facility] [facility] Joshua Kurtz [employer] Work Phone: [facility] Work Phone: Start: 10-14-2023 End: 10-14-2023 Patient encounter procedure [facility] Joshua Kurtz [employer] Work Phone: [facility]-Laboratory Work Phone: Start: 10-13-2023 End: 10-13-2023 ambulatory [facility] Joshua Kurtz [employer] Work Phone: [facility] Work Phone: Start: 10-13-2023 End: 10-13-2023 Discharged Recurring [employer] Joshua Kurtz [employer] Work Phone: [facility]-Cardiac Rehab Work Phone: Start: 10-03-2023 Registered Recurring [facility] [facility]-C Ojshua Kurtz [employer] Work Phone: [facility]-Cardiac Rehab Work Phone: Start: 09-28-2023 End: 09-28-2023 ambulatory [facility] [facility] Joshua Kurtz [employer] Work Phone: [facility] Work Phone: Start: 09-28-2023 End: 09-28-2023 Patient encounter procedure [facility] Joshua Kurtz [employer] Work Phone: [facility] [place] Work Phone: Start: 09-13-2023 End: 09-13-2023 ambulatory [facility] [facility] Joshua Kurtz [employer] Work Phone: [facility] Work Phone: Start: 09-13-2023 End: 09-13-2023 Discharged Recurring [employer] Joshua Kurtz [employer] Work Phone: [facility]-Cardiac Rehab Work Phone: Start: 09-13-2023 Registered Recurring [employer] Joshua Kurtz [employer] Work Phone: [facility]-Cardiac Rehab Work Phone: Start: 09-12-2023 Registered Recurring [facility] [facility]-[facility] Joshua Kurtz [employer] Work Phone: [facility]-Cardiac Rehab Work Phone: Start: 09-08-2023 Non-patient / Non-visit [facility] Rosi Kurtz [facility] Work Phone: [facility] Start: 09-08-2023 End: 09-08-2023 ambulatory [facility] Joshua Kurtz [facility] Work Phone: [facility] Work Phone: Start: 09-08-2023 End: 09-08-2023 Patient encounter procedure [facility] Joshua Kurtz [facility] Work Phone[facility] Work Phone: Start: 08-25-2023 End: 08-25-2023 Patient encounter procedure [facility] Joshua Kurtz [facility] Work Phone: [facility] Work Phone: Start: 07-28-2023 End: 07-28-2023 ambulatory [facility]-C Joshua Kurtz [employer] Work Phone: [facility] Work Phone: Start: 07-28-2023 End: 07-28-2023 Patient encounter procedure [facility] Joshua Kurtz [employer] Work Phone: [facility]-Laboratory Work Phone: Start: 07-19-2023 Non-patient / Non-visit [facility] Rosi Kurtz [facility] Work Phone: [facility] Start: 07-19-2023 End: 07-19-2023 ambulatory [facility] Joshua Kurtz [employer] Work Phone: [facility] Work Phone: Start: 07-19-2023 End: 07-19-2023 Patient encounter procedure [facility] Joshua Kurtz [facility] [employer] Work Phone: [facility] Work Phone: Start: 07-15-2023 End: 07-15-2023 Patient encounter procedure [facility]-Esteban Kurtz [facility] Work Phone: [facility]-Laboratory Work Phone: Start: 06-13-2023 End: 06-13-2023 ambulatory [facility]-C Joshua Kurtz [employer] Work Phone: [facility] Work Phone: Start: 06-13-2023 End: 06-13-2023 Discharged Recurring [facility]-C Joshua Jerardo [facility] Work Phone: [facility]-Cardiac Rehab Work Phone: Start: 06-09-2023 Non-patient / Non-visit [facility]-C Rosi Kurtz [facility] [employer] Work Phone: [facility] Start: 06-09-2023 End: 06-09-2023 ambulatory [facility] Joshua Kurtz [employer] Work Phone: [facility] Work Phone: Start: 06-09-2023 End: 06-09-2023 Patient encounter procedure [facility] Joshua Kurtz [facility] [employer] Work Phone: [facility] Work Phone: Start: 05-11-2023 End: 05-11-2023 Patient encounter procedure [facility]-C Joshua Kurtz [facility] Work Phone: [facility] Work Phone: Start: 05-09-2023 End: 05-13-2023 ambulatory [facility]-C Joshua Jerardo [facility] Work Phone: [facility] Work Phone: Start: 05-09-2023 End: 05-13-2023 Discharged Recurring [facility]-C Joshua Jerardo [facility] Work Phone: [facility]-Cardiac Rehab Work Phone: Start: 04-19-2023 End: 05-13-2023 ambulatory [facility] Joshua Kurtz [employer] Work Phone: [facility] Work Phone: Start: 04-19-2023 End: 05-13-2023 Discharged Recurring [facility]-C Joshua Kurtz [facility] Work Phone: Start: 04-08-2023 End: 04-13-2023 ambulatory [facility]-C Joshua Kurtz [employer] Work Phone: [facility] Work Phone: Start: 04-08-2023 End: 04-13-2023 Discharged Recurring [facility] [facility]-C Joshua Kurtz [facility] Work Phone: [facility]-Cardiac Rehab Start: 03-24-2023 End: 04-13-2023 ambulatory [facility]-C Joshua Kurtz [employer] Work Phone: [facility] Work Phone: Start: 03-24-2023 End: 04-13-2023 Discharged Recurring [facility]-C Joshua Kurtz [facility] Start: 03-24-2023 Registered Recurring [facility]-C Joshua Kurtz [facility] Start: 03-11-2023 End: 03-13-2023 ambulatory [facility] Joshua Kurtz [facility] Work Phone: [facility] Work Phone: Start: 03-11-2023 End: 03-13-2023 Discharged Recurring [facility]-C Joshua Kurtz [facility] Work Phone: [facility] Start: 03-10-2023 End: 03-13-2023 ambulatory [facility]-C Joshua Kurtz [facility]ENTER Work Phone: [facility] Work Phone: Start: 03-10-2023 End: 03-13-2023 Discharged Recurring [facility]-C Joshua Kurtz [facility] Start: 03-10-2023 Registered Recurring [facility]-C Joshua Kurtz [facility] Start: 02-16-2023 Registered Recurring [facility]-C Joshua Kurtz BO[facility]ENTER Work Phone: [facility] Start: 02-16-2023 End: 02-16-2023 ambulatory [facility]-C Joshua Kurtz [facility]ENTER Work Phone: [facility] Work Phone: Start: 02-16-2023 End: 02-16-2023 Patient encounter procedure [facility]-C Joshua Kurtz BO[facility]ENTER Work Phone: [facility]Laboratory Start: 02-14-2023 End: 02-14-2023 Patient encounter procedure [facility]-C Joshua Kurtz [facility] Work Phone: [facility] Start: 02-09-2023 End: 02-11-2023 ambulatory [facility]-C Joshua Kurtz BOATS [employer]ENTER Work Phone: [facility] Work Phone: Start: 02-09-2023 End: 02-11-2023 Discharged Recurring [facility]-C Joshua Kurtz BOATS [facility]ENTER Work Phone: [facility] Start: 01-24-2023 End: 01-24-2023 ambulatory [facility]-C Joshua Kurtz BOATS [employer]ENTER Work Phone: [facility] Work Phone: Start: 01-24-2023 End: 01-24-2023 Patient encounter procedure [facility]-C Joshua Kurtz [facility] Work Phone: [facility] Start: 01-13-2023 End: 01-13-2023 ambulatory [facility]-C Joshua Jerardo [facility]ENTER Work Phone: [facility] Work Phone: Start: 01-13-2023 End: 01-13-2023 Patient encounter procedure [facility]-C Joshua Kurtz BOATS RENTER Work Phone: [facility] Start: 12-29-2022 End: 12-29-2022 Patient encounter procedure [facility]-C Joshua Kurtz BOATS RENTER Work Phone: [facility] Start: 12-06-2022 End: 12-07-2022 Evaluation and management of inpatient JOSHUA KURTZ [facility] Start: 12-06-2022 End: 12-09-2022 [facility] Comment on above: Arrived Start: 12-06-2022 End: 12-09-2022 Evaluation and management of inpatient Taras Ulloa MD Work Phone: [facility] Comment on above: CAD in [place] artery (Primary Dx); S/P primary angioplasty with coronary stent Start: 12-06-2022 Non-patient / Non-visit [facility] Rosi Kurtz [facility] Work Phone: [facility] Start: 12-06-2022 Non-patient / Non-visit [facility]-C Rosi coatesa Kurtz [facility]ENTER Work Phone: [facility] Start: 12-05-2022 Non-patient / Non-visit [facility]-C D ora Kurtz [facility]ENTER Work Phone: [facility] Start: 12-04-2022 Non-patient / Non-visit [facility]C D ora Kurtz [facility] Work Phone: [facility] Start: 12-04-2022 Non-patient / Non-visit [facility]C D ora Kurtz [facility] Work Phone: [facility] Start: 12-03-2022 End: 12-03-2022 Non-patient / Non-visit [facility]C Joshua Kurtz BO[facility] Work Phone: [facility] Start: 12-03-2022 End: 12-06-2022 Evaluation and management of inpatient [facility]-C Joshua Kurtz BO[facility]ENTER Work Phone: [facility]-Progressive Care Unit Start: 12-03-2022 Non-patient / Non-visit [facility]C Rosi candida Kurtz [facility] Work Phone: [facility] Start: 10-12-2022 Non-patient / Non-visit [facility]-C D candida Robertsonson [facility]ENTER Work Phone: [facility]After [facility] Start: 08-24-2022 End: 08-24-2022 ambulatory [facility] Work Phone: Start: 08-24-2022 End: 08-24-2022 Patient encounter procedure [facility]Labor[facility], Specimen Start: 06-23-2022 End: 06-23-2022 Patient encounter procedure [facility] Start: 06-22-2022 Patient encounter status [facility] Procedures Date Procedure Procedure Detail Performing Clinician Start: 07-04-2025 Clostridium difficil e detection Joshua Kurtz [facility]-C Work Phone: Start: 07-04-2025 Nucleic acid assay Joshua Kurtz [facility]-C Work Phone: Start: 07-04-2025 Iadna-dna/rna gi pth gn multiplex probe tq -11 Joshua Kurtz [facility]-C Work Phone: Start: 04-01-2025 Urine microalbumin/creatinine ratio measurement Joshua Kurtz [facility]-C Work Phone: Comment on above: Previous reported re sult: 49.8 mg/g CREEdited by: JEROD on 05/07/25:1028 AMENDED REPORT 05/07/25 1028 MALB:CREAT previously reported as: 49.8 mg/g CRE Start: 04-01-2025 Vitamin D, 25-hydrox y measurement Joshua Kurtz [facility]-C Work Phone: Comment on above: Vitamin D StatusDefi ciency: <20 ng/mL (50nmol/L)Insufficiency: 20-30 ng/mL (50-75 nmol/L)Sufficiency: 30-100 ng/mL (75-250 nmol/L)Toxicity: >100 ng/mL (>250 nmol/L) Start: 12-13-2024 US scan of thyroid Joshua Kurtz [facility]-C Work Phone: Start: 09-28-2023 US scan of thyroid [facility] Joshua Kurtz [facility] Work Phone: Start: 07-19-2023 Radionuclide imaging of perfusion of myocardium under exercise stress [facility] Joshua Kurtz [facility] [employer] Work Phone: Start: 01-13-2023 US scan of thyroid [facility] Joshua Kurtz [facility] Work Phone: Start: 12-09-2022 Glucose quantitative blood xcpt reagent strip Gricelda Cortés MD Work Phone: Start: 12-09-2022 Glucose quantitative blood xcpt reagent strip Gricelda Cortés MD Work Phone: Start: 12-09-2022 Ecg routine ecg w/le ast 12 lds trcg only w/o i&r Gricelda Cortés MD Work Phone: Start: 12-09-2022 Basic metabolic pane l calcium total Katherine Esther Barba THERAPY TECHNICIAN - [employer]CH LENDING MANAGER Work Phone: Start: 12-08-2022 Glucose quantitative blood xcpt reagent strip Gricelda Cortés MD Work Phone: Start: 12-08-2022 Ecg routine ecg w/le ast 12 lds trcg only w/o i&r Devon Rodriguez MD Work Phone: Start: 12-08-2022 Cardiac catheterizat ion study Liya Huizar THERAPY TECHNICIAN - BRANCH LENDING MANAGER Work Phone: Start: 12-08-2022 Percutaneous coronar y intervention Liya Huizar APRN - [employer]CH LENDING MANAGER Work Phone: Start: 12-08-2022 End: 12-08-2022 POCT ACT Gricelda Cortés MD Work Phone: Start: 12-08-2022 End: 12-08-2022 POCT ACT Gricelda Cortés MD Work Phone: Start: 12-08-2022 Glucose quantitative blood xcpt reagent strip Gricelda Cortés MD Work Phone: Start: 12-08-2022 Glucose quantitative blood xcpt reagent strip Taras Ulloa MD Work Phone: Start: 12-08-2022 End: 12-08-2022 Basic metabolic panel calcium total Katherine Esther Barba THERAPY TECHNICIAN - BRANCH LENDING MANAGER Work Phone: Start: 12-07-2022 End: 12-07-2022 Thromboplastin time partial plasma/whole blood Taras Ulloa MD Work Phone: Start: 12-07-2022 Glucose quantitative blood xcpt reagent strip Taras Ulloa MD Work Phone: Start: 12-07-2022 Thromboplastin time partial plasma/whole blood Rae Castorena MD Work Phone: Start: 12-07-2022 BEDSIDE SPIROMETRY Daily lisa Esther Barba THERAPY TECHNICIAN - [employer] LENDING MANAGER Work Phone: Start: 12-07-2022 Dup-scan xtr veins complete bilateral study Katherine Esther Barba THERAPY TECHNICIAN - BRANCH LENDING MANAGER Work Phone: Start: 12-07-2022 Duplex scan extracra nial art compl bi study Katherine Esther Barba THERAPY TECHNICIAN - BRANCH LENDING MANAGER Work Phone: Start: 12-07-2022 End: 12-07-2022 Assay of troponin quantitative Katherine Esther Barba THERAPY TECHNICIAN - [employer]ANCH LENDING MANAGER Work Phone: Start: 12-07-2022 Thromboplastin time partial plasma/whole blood Rae Castorena MD Work Phone: Start: 12-07-2022 End: 12-07-2022 Assay of troponin quantitative Katherine Esther Barba THERAPY TECHNICIAN - [employer]AN[employer] LENDING MANAGER Work Phone: Start: 12-06-2022 End: 12-07-2022 Basic metabolic panel calcium total Katherine Barba THERAPY TECHNICIAN - BRAN[employer] LENDING MANAGER Work Phone: Start: 12-06-2022 Glucose quantitative blood xcpt reagent strip Taras Ulloa MD Work Phone: Start: 12-06-2022 Urnls dip stick/tabl et rgnt auto w/o microscopy Katherine Esther Barba [facility] Work Phone: Start: 12-06-2022 ABO and Rh group [Ty pe] in Blood by Confirmatory method Katherine Barab THERAPY TECHNICIAN [facility] Work Phone: Start: 12-06-2022 Basic metabolic pane l calcium total Katherine Ivoryalyssa THERAPY TECHNICIAN [facility] Work Phone: Start: 12-06-2022 Blood typing serolog ic rh (d) Katherine Esther Cachorroalyssa THERAPY TECHNICIAN [facility] Work Phone: Start: 12-06-2022 Radiologic exam ches t single view Katherine Ivorysantitavo THERAPY TECHNICIAN [facility] Work Phone: Start: 12-06-2022 Ecg routine ecg w/le ast 12 lds trcg only w/o i&r Katherine Ivoryalyssa THERAPY TECHNICIAN [facility] Work Phone: Start: 12-06-2022 Glucose quantitative blood xcpt reagent strip Taras Ulloa MD Work Phone: Start: 12-03-2022 Plain chest X-ray [facility]-Esteban Kurtz BOATS RENTER Work Phone: H/O: surgery History of loop electrical excision procedure (LEEP) History of cholecystectomy History of cholecystectomy History of placement of stent for coronary artery disease History of heart artery stent ARMANDO Kurtz [facility]ENTER Work Phone: Comment on above: PCI to proximal. Mid LAD with 3 overlapping stents, Proximal RCA, Mid RCA and distal RCA with side brand to the RPDA 12/06/2022ircumfles treated medically. History of placement of stent for coronary artery disease S/P primary angioplasty with coronary stent Taras Ulloa MD Work Phone: History of placement of stent for coronary artery disease History of heart artery stent Yenny Izquierdo [facility]-C History of placement of stent for coronary artery disease History of heart artery stent Yenny Izquierdo [facility]-C Urine culture Urine culture [facility]-C Joshua Kurtz [employer] RENTER Work Phone: Plan of Treatment Date Care Activity Detail Author Start: 03-06-2023 Hemoglobin A1c measurement Diabetes: Hemoglobin A1C [facility] Start: [facility]-23-[facility] Start[facility] 01-24-[facility]23 [facility] Start: 12-29-2022 Patient referral [facility] Work Phone: Start: 12-09-2022 End: 12-09-2022 Cabg w/arterial graft three arterial grafts CABG X3 ARTERIAL GRAFTS Atherosclerotic heart disease of [place] coronary artery without angina pectoris 12/09/2022 7:00 AM EST [facility] Start: 12-09-2022 End: 12-09-2022 Evaluation and management of inpatient 12/09/2022 Surgery Procedural Shawna Forbes MD [address] [place] [address] CABG X3 ARTERIAL GRAFTS [33772 (CPT )] [facility] Comment on above: CABG X3 ARTERIAL GRA FTS [69728 (CPT )] Start: 12-06-2022 Patient discharge [facility] Start: 12-06-2022 Notification of physician [facility] Start: 12-06-2022 Patient education [facility] Start: 12-06-2022 Provision of activit y privileges [facility] Start: 12-06-2022 Pulse taking [facility] Start: 12-06-2022 Taking patient vital signs [facility] Start: 12-06-2022 Wound care [facility] Start: 12-06-2022 [facility] Start: 12-05-2022 Catheterization of vein [facility] Start: 12-05-2022 Medication not administered [facility] Start: 12-05-2022 Notification of physician [facility] Start: 12-05-2022 [facility] Start: 12-03-2022 Ambulation without limitation [facility] Start: 12-03-2022 Assessment of risk o f venous thromboembolism [facility] Start: 12-03-2022 Care regimes management [facility] Start: 12-03-2022 Catheterization of vein [facility] Start: 12-03-2022 Insertion of cathete r into peripheral vein [facility] Start: 12-03-2022 Measuring intake and output [facility] Start: 12-03-2022 Providing care accor ding to standard [facility] Start: 12-03-2022 Referral to slab miller operator [facility] Start: 12-03-2022 [facility] Start: 12-03-2022 Verification routine [facility] Start: 12-03-2022 Admission procedure [facility] Start: 12-03-2022 Following clinical pathway protocol [facility] Start: 12-03-2022 [facility] Start: 09-09-2022 Pneumococcal Vaccine : Pediatrics (0 to 5 Years) and At-Risk Patients (6 to 64 Years) (2 - PCV) Pneumococcal Vaccine: Pediatrics (0 to 5 Years) and At-Risk Patients (6 to 64 Years) (2 - PCV) [facility] Start: 10-01-2021 Urine screening for protein Diabetes: Urine Protein Screening [facility] Start: 2010 Screening for malign ant neoplasm of breast Mammogram [facility] Start: 2000 Screening for malign ant neoplasm of cervix [facility] Start: 1991 Screening for malign ant neoplasm of cervix Pap Smear [facility] Start: 1989 DTaP/Tdap/Td Vaccine s (1 - Tdap) DTaP/Tdap/Td Vaccines (1 - Tdap) [facility] Start: 1988 Hepatitis C screening Hepatitis C Sc reening [facility] Start: 1980 Diabetic foot examination Diabetes: Foot Exam [facility] Start: 1980 Glaucoma screening Diabetes: R etinopathy Screening [facility] Start: 1980 Preventive dental service Diabetes: Dental Exam [facility] Start: 1971 MMR Vaccines (1 of 1 - Standard series) MMR Vaccines (1 of 1 - Standard series) [facility] Start: 1970 Hepatitis B Vaccines (1 of 3 - 3-dose series) Hepatitis B Vaccines (1 of 3 - 3-dose series) [facility] Start: 1970 HIV screening HIV Screening [facility] Start: 1970 Lipid panel [facility] Start: 1970 Screening for malign ant neoplasm of colon [facility] Ankle brachial press ure index [facility] Bedside spirometry Bedside dano metry Respiratory Care Routine 12/07/2022 1:32 PM EST [facility] Cardiac event recording [facility] Lipid 1996 panel - S poonam or Plasma [facility] End: 12-06-2022 Methicillin resistant Staphylococcus aureus (MRSA) DNA [Presence] in Nose by KEITH with probe detection MRSA by PCR Microbiology STAT STAT (Lab) for 1 Occurrences starting 12/06/2022 until 12/06/2022 [facility] Work Phone: Comment on above: STAT (Lab) for 1 Occ urrences starting 12/06/2022 until 12/06/2022 Nucleic acid assay [facility] Patient referral [facility] Work Phone: [facility] Immunizations Immunization Date Immunization Notes Care Provider Fa cility NEGATED: Highlighted row has not occurred!12-07-2022 Influenza, injectable, [place] Canine Kidney, preservative free, quadrivalent Taras Ulloa MD Work Phone: [facility] Comment on above: Deferred: Patient Re fused - already recieved out pt Payers Date Payer Category Payer Self-pay [id number] 2023 Private Health Insurance [id number] 2011 Private Health Insurance [id number] 2011 Private Health Insurance JOEY GREY PPO [id number] 2011-Present [address] [place] [address] Commercial [id number] Private Health Insurance [id number] Unknown [facility] *DO NOT USE* [id number] Unknown [id number] Unknown [id number] Unknown [id number] Unknown [id number] Unknown [id number] Unknown [id number] Unknown [id number] Unknown [id number] Unknown [id number] Social History Date Type Detail Facility Start: 06-22-2022 End: 11-17-2023 Tobacco smoking status MTIS Unknown if ever smoked [facility] Start: 1970 Sex Assigned At Female [facility] Start: 12-06-2022 History SDOH Alcohol Frequency 2 [facility] Start: 12-06-2022 History SDOH Alcohol Std Drinks 0 [facility] Start: 12-06-2022 History SDOH Alcohol Binge 1 [facility] Start: 1970 Sex Assigned At Not on file [facility] Start: 11-26-2022 End: 12-06-2022 Exposure to SARS-CoV-2 (event) Not sure [facility] Start: 12-07-2022 [facility] History of tobacco use Cigarette Smoker [facility] Start: 12-07-2022 Cigarettes smoked current (pack per day) - Reported 0.3 [facility] Start: 12-07-2022 Tobacco use and exposure Smokeless tobacco non-user [facility] Start: 12-09-2022 Alcohol intake Ex-drinker (finding) [facility] Start: 06-26-2024 Tobacco smoking stat [facility] Ex-smoker (finding) [facility] Medical Equipment Procedure Code Equipment Code Equipment Origin al Text Equipment Identifier Dates Blood Sugar Diagnostic (Onetouch Verio Test Strips) strip Start: 04-08-2023 Lancets (Onetouc h Delica Plus Lancet) 33 gauge mis Start: 04-08-2023 Blood Sugar Diagnostic (Onetouch Verio Test Strips) strip Start: 04-08-2023 Lancets (Onetouc h Delica Plus Lancet) 33 gauge misc Start: 04-08-2023 Blood Sugar Diagnostic (Onetouch Verio Test Strips) strip Start: 04-08-2023 Lancets (Onetouc h Delica Plus Lancet) 33 gauge misc Start: 04-08-2023 Blood Sugar Diagnostic (Onetouch Verio Test Strips) strip Start: 04-08-2023 Lancets (Onetouc h Delica Plus Lancet) 33 gauge misc Start: 04-08-2023 Blood Sugar Diagnostic (Onetouch Verio Test Strips) strip Start: 04-08-2023 Lancets (Onetouc h Delica Plus Lancet) 33 gauge misc Start: 04-08-2023 Blood Sugar Diagnostic (Onetouch Verio Test Strips) strip Start: 04-08-2023 Lancets (Onetouc h Delica Plus Lancet) 33 gauge misc Start: 04-08-2023 Blood Sugar Diagnostic (Onetouch Verio Test Strips) strip Start: 04-08-2023 Lancets (Onetouc h Delica Plus Lancet) 33 gauge misc Start: 04-08-2023 Blood Sugar Diagnostic (Onetouch Verio Test Strips) strip Start: 04-08-2023 Lancets (Onetouc h Delica Plus Lancet) 33 gauge misc Start: 04-08-2023 Blood Sugar Diagnostic (Onetouch Verio Test Strips) strip Start: 04-08-2023 Lancets (Onetouc h Delica Plus Lancet) 33 gauge misc Start: 04-08-2023 Blood Sugar Diagnostic (Onetouch Verio Test Strips) strip Start: 04-08-2023 Lancets (Onetouc h Delica Plus Lancet) 33 gauge misc Start: 04-08-2023 Blood Sugar Diagnostic (Onetouch Verio Test Strips) strip Start: 04-08-2023 Lancets (Onetouc h Delica Plus Lancet) 33 gauge misc Start: 04-08-2023 Blood Sugar Diagnostic (Onetouch Verio Test Strips) strip Start: 04-08-2023 Lancets (Onetouc h Delica Plus Lancet) 33 gauge misc Start: 04-08-2023 Blood Sugar Diagnostic (Onetouch Verio Test Strips) strip Start: 04-08-2023 Lancets (Onetouc h Delica Plus Lancet) 33 gauge misc Start: 04-08-2023 Blood Sugar Diagnostic (Onetouch Verio Test Strips) strip Start: 04-08-2023 Lancets (Onetouc h Delica Plus Lancet) 33 gauge misc Start: 04-08-2023 Blood Sugar Diagnostic (Onetouch Verio Test Strips) strip Start: 04-08-2023 Lancets (Onetouc h Delica Plus Lancet) 33 gauge misc Start: 04-08-2023 Stent Cor Skypoi nt 3.29v10pf - [id number] Start: 12-08-2022 Blood Sugar Diagnostic (Onetouch Verio Test Strips) strip Start: 04-08-2023 Lancets (Onetouc h Delica Plus Lancet) 33 gauge misc Start: 04-08-2023 Blood Sugar Diagnostic (Onetouch Verio Test Strips) strip Start: 04-08-2023 Lancets (Onetouc h Delica Plus Lancet) 33 gauge misc Start: 04-08-2023 Blood Sugar Diagnostic (Onetouch Verio Test Strips) strip Start: 04-08-2023 Lancets (Onetouc h Delica Plus Lancet) 33 gauge misc Start: 04-08-2023 Blood Sugar Diagnostic (Onetouch Verio Test Strips) strip Start: 04-08-2023 Lancets (Onetouc h Delica Plus Lancet) 33 gauge [facility] Start: 04-08-2023 Blood Sugar Diagnostic (Onetouch Verio Test Strips) strip Start: 04-08-2023 Lancets (Onetouc h Delica Plus Lancet) 33 gauge [facility] Start: 04-08-2023 Goals Date Patient Goal Desired Activity /State Functional Status Date Assessment Result Facility 12-06-2022 Functional status Ambulates [facility] Work Phone: Mental Status Date Assessment Result Facility 12-06-2022 Cognitive function Voice/Name [facility] Work Phone: 12-03-2022 Cognitive function Level Of Cons ciousness Awake;Alert;Appropriate;Follow s Commands [facility] Work Phone: Clinical Notes 11-27-2021 to 04-02-2025 Note Date & Type Note Facility 04-02-2025 Evaluation note Diagnosis Onset Date Resolution Fatigue acute April 02, 2025 1:49pm History of heart artery stent acute April 02, 2025 1:49pm Hyperlipidemia chronic April 02, 2025 1:49pm [facility] Work Phone: 1(909) 826-448905-20-2025 Evaluation note* Diagnosis Onset Date Resolution Status Admit Date Fatigue acute April 02, 2025 1:49pm History of heart artery stent acute April 02, 2025 1:49pm Hyperlipidemia chronic April 02, 2025 1:49pm Fatigue acute July 02, 2 025 2:10pm History of heart artery stent acute July 02, 2025 2:10pm Hyperlipidemia chronic June 2:10pm [facility] Work Phone: 1(754) 758-128905-20-2025 Evaluation note* Diagnosis Onset Date Resolution Status Admit Date Fatigue acute April 02, 2025 1:49pm History of heart artery stent acute April 02, 2025 1:49pm Hyperlipidemia chronic April 02, 2025 1:49pm History of heart artery stent acute July 02, 2025 2:10pm Palpitations acute July 02, 2025 2:10pm Hyperlipidemia chronic June 2:10pm C. difficile colitis acute 2024 5:44pm Fatigue acute July 03, 2 025 5:44[facility] Work Phone: 1(736) 466-648901-27-2023 NoteIMPRESSION: Sinus bradycardia Borderline left axis deviation Left anterior fasicular block Nonspecific ST and T wave changes Poor R Wave progression Electronically Signed On 12-10-2022 9:20:53 EST by [facility]01-26-2023 Nurse Note* Kirti Glass RN - 12/09/2022 2:37 PM EST 1420: Patient discharged, PIV removed, catheter intact. Telemetry leads removed. Patient given discharge papers, went over with and pt. signed. Patient has medications in hand from [id number]. Patient taken by wheelchair down to be picked up by . [id number] Nurse Note* Kirti Glass RN - 12/09/2022 2:37 PM EST 1420: Patient discharged, PIV removed, catheter intact. Telemetry leads removed. Patient given discharge papers, went over with and pt. signed. Patient has medications in hand from [id number]. Patient taken by wheelchair down to be picked up by . * Mariposa Brewer RN - 12/08/2022 6:28 PM EST No bleeding noted from radial site after removal * Mariposa Brewer RN - 12/08/2022 6:14 PM EST Patient radial band removed. Site benign. Instructed not to bend wrist or anything. She agreed * Mariposa Brewer RN - 12/08/2022 6:07 PM EST Patient arrived to 144 from labor/excavator. Oriented to room and call light. Instructed on bedrest until 1700. Right radial site with radial band intact. Site benign, no bleeding or hematoma. Fingers warm and brisk refill, denies numbness. Denies chest pain or shortness of breath. Call light in reach * Sheree Rees RN - 12/06/2022 9:53 PM EST Pt has an order in for cpap at night. Per patient's request and respiratory's approval, pt would like to be put on nasal cannula @ 2 liters instead. Pt does not have her home cpap with her, and is worried about the face fitting of the hospitals cpap. Will put pt on 2 liters nasal canula at bedtime. documented in this [facility]01-26-2023 Note* Home Care - Jory Osborne RN - 12/09/2022 1:59 PM EST PACC signing off, per pt, planning on going to Cardiac Rehab in [place]. [id number] Note* Home Care - Jory Osborne RN - 12/09/2022 1:59 PM EST PACC signing off, per pt, planning on going to Cardiac Rehab in [place]. [id number] Miscellaneous Notes* Home Care - Jory Osborne RN - 12/09/2022 1:59 PM EST PACC signing off, per pt, planning on going to Cardiac Rehab in [place]. * Pre-Sedation Documentation - Gricelda Cortés MD - 12/08/2022 1:03 PM EST Sedation Plan ASA class 3 - patient with severe systemic disease Mallampati class: II - soft palate, uvula, fauces visible. Sedation plan: local anesthesia and minimal sedation Risks, benefits, and alternatives discussed with patient. Immediate reassessment prior to sedation: Patient's status reviewed and vital signs assessed; acceptable to perform procedure and proceed to administer sedation as planned. * Care Coordination - Camilla Rodriges RN - 12/08/2022 10:43 AM EST CTS and cardiology following for multivessel CAD. Plan for today ids PCI/stent to LAD and RCA. Remains on heparin gtt. Pt indep at baseline- from home with . Pt will not return to 4N after procedure d/t stent placement. * Care Plan - Nika Mason RN - 12/08/2022 7:45 AM EST Problem: Pain - Adult Goal: Verbalizes/displays adequate comfort level or baseline comfort level Outcome: Progressing Problem: Safety - Adult Goal: Free from fall injury Outcome: Progressing Problem: Discharge Planning Goal: Discharge to home or other facility with appropriate resources Outcome: Progressing Problem: Cardiovascular - Adult Goal: Maintains optimal cardiac output and hemodynamic stability Outcome: Progressing Goal: Absence of cardiac dysrhythmias or at baseline Outcome: Progressing The patient is Moderately Stable - Low risk of patient condition declining or worsening The patient's goals for the shift include vital signs stable, free from chest pain The clinical goals for the shift include pt remain safe and hemodynamically stable * Care Plan - Vel Murray RN - 12/07/2022 10:26 PM EST Problem: Pain - Adult Goal: Verbalizes/displays adequate comfort level or baseline comfort level Outcome: Progressing Problem: Safety - Adult Goal: Free from fall injury Outcome: Progressing Problem: Discharge Planning Goal: Discharge to home or other facility with appropriate resources Outcome: Progressing Problem: Cardiovascular - Adult Goal: Maintains optimal cardiac output and hemodynamic stability Outcome: Progressing Goal: Absence of cardiac dysrhythmias or at baseline Outcome: Progressing The patient is Moderately Stable - Low risk of patient condition declining or worsening The patient's goals for the shift include vital signs stable, free from chest pain The clinical goals for the shift include pt remain safe and hemodynamically stable * Home Care - Jory Osborne RN - 12/07/2022 2:11 PM EST Game Developer following case for Discharge Needs. * Care Coordination - Cmailla Rodriges RN - 12/07/2022 2:04 PM EST Care Managment Initial Assessment Date: 12/07/2022 Patient Name: Patricia Lopez : 1970 Patient Information Source of Information: Patient Cognition/Language: WFL - Within Functional Limits Permission given to speak with patient paper sales representative/caregiver as indicated: Confirmation of Payer with patient/family: Payer Name: gangatdavid [place]: No Confirmation of Primary Care Physician: Confirmed PCP Name: jerardo cummings [place] Seen in last 2 years?: Yes Primary Caregiver: Self If assistance needed, confirmed caregiver ready, willing and able to care for patient at discharge: Confirmed with: Living Arrangements Current Residence: House Number of Floors 1 Number of Entry Steps: (2-3) Bed/Bath Levels: Both first floor Facility: Facility Name: Plan to Return: Lives with: Spouse/significant other Support Systems: Spouse/significant other, Family members Activities of Daily Living Ambulation: Independent Bathing/Dressing: Independent Elimination/Continence/Toileting: Independent Feeding: Independent Who Assists with Activities of Daily Living: Instrumental Activities of Daily Living Prescription Coverage: Yes Pharmacy Used: [facility] Medication Management: Independent Transportation/Shopping: Independent Transportation Mode: Car Needs Assistance with Transportation at Discharge: No Meal Preparation: Independent Laundry/Cleaning: Independent Finances/Bill Paying: Independent Communication: Independent Types of Care Services/Equipment Utilized Care Services: Dialysis Type: NA Durable Medical Equipment: (none) Patient's Goal/Discharge Plan Patient expects to be discharged to: home Discharge Planning Actions: Continue to follow Patient's Choice Rights and [employer] and Collaborative Relationships Disclosed as Indicated for Post-Acute Care: NA Interdisciplinary Team Engagement: Home Health Care Social Work Referral for: Additional Information: Pt adm for tx/evaluation of CAD in [place] artery. Pt transferred from [facility] for CTS/cardiology consult for CABG. Remains on heparin gtt. Carotid duplex and vein mapping ordered. Met with pt- introduced self and role. Pt from home indep with Rah. Pt drives, has insurance and able to obtain meds. [facility] following for HC services for post op open heart. Pt has FMLA paperwork atbedside- [facility] with CTS aware of need for completion pending plan for surgery. Camilla Rodriges RN * Care Plan - Nika Mason RN - 12/07/2022 10:46 AM EST Problem: Pain - Adult Goal: Verbalizes/displays adequate comfort level or baseline comfort level Outcome: Progressing Problem: Safety - Adult Goal: Free from fall injury Outcome: Progressing Problem: Discharge Planning Goal: Discharge to home or other facility with appropriate resources Outcome: Progressing Problem: Cardiovascular - Adult Goal: Maintains optimal cardiac output and hemodynamic stability Outcome: Progressing Goal: Absence of cardiac dysrhythmias or at baseline Outcome: Progressing The patient is Moderately Stable - Low risk of patient condition declining or worsening The patient's goals for the shift include vital signs stable, free from chest pain The clinical goals for the shift include remain hemodynamically stable * Care Plan - Angela Abrams RN - 12/06/2022 5:44 PM EST The patient is Moderately Unstable - Medium risk of patient condition declining or worsening The patient's goals for the shift include vital signs stable, free from chest pain The clinical goals for the shift include remain hemodynamically stable documented in this [facility]01-26-2023 Hospital Discharge instructions* Discharge Instructions* Romelia Leija APRN - BRANCH LENDING MANAGER - 12/09/2022 12:19 PM EST Call your doctor with any medication questions or if you notice any side effects from your medications. If you are unable to fill your medications, please call your Promotional Marketing Analyst immediately. The office number is located with your follow-up appointment information. Call your doctor if any redness or drainage from the wound site. DO NOT stop taking your medication unless instructed to do so by your doctor. Read the drug information material that were given to you and take medications as instructed by your doctor. New drugs may have been added to your medications, that will strengthen your heart and prevent re-stenosis of the coronary arteries. Drink 6 glasses of water (8 ounces each) over the next 24 hours. Water helps clear the dye from your body. No alcoholic beverages for 24 hours. It may interfere with healing. No exercise or sex for 5 days. Call 911 for chest pain, arm pain, nausea, neck pain, dizziness or unusual sweating AND your pain has not relieved with 2 doses of Nitroglycerin. Call your doctor if a lump at the puncture site enlarges or is larger than marble size. Call your doctor for numbness, tingling, or swelling of the fingers, hand or wrist. Call your doctor for increased area or bruising with discoloration extending into the arm. If bleeding occurs, hold pressure with your thumb against the puncture site and your finger againstthe back of the wrist for 10 minutes, if BLEEDING continues CALL 911. OK to shower. No tub baths, swimming pools or hot tub soaking for three days. Wash site daily with soap and water, dry gently. The healing wound should remain soft and dry. Keepsite clean and dry, no soaking of wrist for three days (no cleaning or dish washing). Remove band aid the day after procedure and leave open to air. No bending of affected wrist for 24 hours. DO NOT lift more than three pounds for 3-5 days[address] driving for 24 hours. GIVE PCI PACKET (FROM SOFTWARE PROJECT LEAD) TO PATIENT Give Coronary Artery Discharge Booklet PLEASE CALL YOUR HEART DOCTOR IF YOU CANNOT GET YOUR MEDICATIONS. THE NUMBER IS LISTED WITH YOUR FOLLOW-UP APPOINTMENT. Procedure Sedation Instructions If you have received sedation: you must have someone drive you home You should not drive a car, operate machinery, drink alcohol or perform any activity that requires alertness for the rest of the day. The effects of the sedative should be gone by tomorrow. Cardiac Rehab The Cardiac Rehab team at [facility] consists of highly skilled exercise physiologists, nurses, respiratory therapists and physicians working together with you. Our purpose is to help you have a full recovery and achieve the goals you set for yourself. Over the years many of our patients have returned to activities they assumed they would never do again! We can help restore your confidence and motivation to make lifestyle changes that can have a significant impact on your health and quality of life! We can help answer questions and concerns you may have about exercise, lifestyle, medications, diet, stress and anxiety which are common following a hospitalization. We monitor ECG and vital signs during exercise and discuss your progress with you and report to your physician. Cardiac Rehab is proven to help reduce readmissions, improve functional capacity and lower recurrence of problems with your heart. We have facilities at both [facility] and [facility]. At both locations we have street level parking which is free and our sites are easily accessible. For both [facility] you can contact us at . We invite you to call us with your questions or to get started in our program. If you have other questions or concerns be sure to ask your provider during your follow up visit. We look forward to seeing you there. Our locations: [facility] [address] Floor [id number] - Ground floor documented in this [place] [id number] NoteReceived referral and reviewed chart. Phase II Cardiac Rehab Referral discussed with Patricia Lopez. Patient prefers cardiac rehab at [facility]. Given information on cardiac rehab at preferred location. [facility] Note Attestation signed by Gricelda Cortés MD at 12/09/2022 4:05 PM This patient was seen and personally examined by me on 12/09/2022. Labs, imaging studies and electronic medical record reviewed. See Discharge summary []progress note []H&P []Consult documented by [x]SARKIS which reflects my hpi, pmh, psh, ros, fh, sh as well with my additions, as I discussed with the [x]SARKIS. For my exam, assessment and plan see below. PHYSICAL EXAM: General Appearance: []WDWN [x]Obese []Cachectic []Thin []ill Neck: Jvd []Present [x]Absent Lungs: [x]Clear []Crackles []Wheezes []Rhonchi / Respiratory effort []Labored [x]Non-Labored Heart: [x]RRR []Irregularly Irregular []murmur present [x]murmur absent/ Peripheral Edema No pedal edema. Mild nonpitting edema in right hand and wrist. Mild tenderness at radial access site. Normal capillary refill. Normal radial pulse. Assessment/Plan 52 female with tobacco dependence, untreated hyperlipidemia, well-controlled DM 2, transferred from [place] with NSTEMI multivessel CAD. Overall preserved LV systolic function. Underwent multivessel PCI yesterday with extensive stenting of the RCA and proximal to mid LAD. Has done well overnight. -Mild right wrist discomfort post cath, recommended she keep her arm elevated to resolve the swelling. -Continue aspirin indefinitely, dual antiplatelet therapy uninterrupted for at least a year, but longer if tolerated given multiple stents. -She has agreed to a statin. I recommend increasing dose as tolerated to LDL under 70, and consideration of adding Zetia and or PCSK9 inhibitor if does not reach goal on max tolerated statin. -She has been counseled on tobacco cessation. Cardiac rehabilitation discussed with the patient as well, referral placed. She is on a very low-dose beta-rich, with systolic blood pressures in the 90s which she tells me is baseline. 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 I personally spoke with him and reviewed the hospital course. Gricelda Cortés MD Name: Patricia Lopez Date of : 1970 Date of Admission: 12/06/2022 Date of Discharge: 12/09/2022 Admitting physician: Gricelda Cortés MD Discharge Attending: Romelia Ferrer APRN - [facility] Primary Care Physician: JOSHUA KURTZ Review of Systems: Review of Systems Constitutional: Negative for activity change, chills, diaphoresis, fatigue and fever. HENT: Negative for nosebleeds and trouble swallowing. Eyes: Negative for discharge and visual disturbance. Respiratory: Negative for apnea, cough, chest tightness, shortness of breath and wheezing. Cardiovascular: Negative for chest pain, palpitations and leg swelling. Gastrointestinal: Negative for abdominal distention, abdominal pain, blood in stool, diarrhea, nausea and vomiting. Endocrine: Negative for cold intolerance and heat intolerance. Genitourinary: Negative for hematuria. Musculoskeletal: Negative for gait problem and myalgias. Skin: Negative for color change and rash. Neurological: Negative for seizures, syncope, facial asymmetry, speech difficulty, weakness, light-headedness, numbness and headaches. Hematological: Bruises/bleeds easily. Psychiatric/Behavioral: Negative for dysphoric mood. Physical Exam: Physical Exam Vitals reviewed. Constitutional: Appearance: Normal appearance. She is normal weight. She is not ill-appearing. HENT: Head: Normocephalic and atraumatic. Nose: Nose normal. Cardiovascular: Rate and Rhythm: Normal rate and regular rhythm. Pulses: Radial pulses are 2+ on the right side and 2+ on the left side. Dorsalis pedis pulses are 2+ on the right side and 2+ on the left side. Heart sounds: Normal heart sounds. Comments: Right radial catheterization site well healed. Slight swelling to the site and tender to the touch. Right ulnar pulse 2+.Brisk Capillary refill. Warm to touch. Dressing removed and Band-Aid applied. Pulmonary: Effort: Pulmonary effort is normal. No respiratory distress. Breath sounds: Normal breath sounds. No stridor. No decreased breath sounds, wheezing, rhonchi or rales. Chest: Chest wall: No tenderness. Abdominal: General: Abdomen is flat. There is no distension. Tenderness: There is no abdominal tenderness. Musculoskeletal: General: Normal range of motion. Right lower leg: No edema. Left lower leg: No edema. Skin: General: Skin is warm and dry. Capillary Refill: Capillary refill takes less than 2 seconds. Findings: No rash. Neurological: Mental Status: She is alert and oriented to person, place, and time. Psychiatric: Mood and Affect: Mood normal. Behavior: Behavior normal. Thought Content: Thought content normal. Judgment: Judgment normal. Vitals: 12/09/22 03 (more content not included)...[facility]01-26-2023 Consult note* Suni Barriga - 12/09/2022 9:10 AM ESTAssociated Order(s): IP CONSULT TO CARDIAC REHAB; IP CONSULT TO CARDIAC REHAB Received referral and reviewed chart. Phase II Cardiac Rehab Referral discussed with Patricia Lopez. Patient prefers cardiac rehab at [facility]. Given information on cardiac rehab at preferred location. [id number] Consult note* Suni Barriga - 12/09/2022 9:10 AM EST Associated Order(s): IP CONSULT TO CARDIAC REHAB; IP CONSULT TO CARDIAC REHAB Received referral and reviewed chart. Phase II Cardiac Rehab Referral discussed with Patricia Lopez. Patient prefers cardiac rehab at [facility]. Given information on cardiac rehab at preferred location. * Devon Rodriguez MD - 12/07/2022 11:10 AM EST [facility] [place] Cardiology/ Electrophysiology Consult Note Reason for Consult/Chief Complaint: multivessel ds Consulting MD:Dr Ulloa History of Present Illness: Ms Lopez is a 52 y.o. female with PMH significant for nicotine dependence, DM- II, HLD, KATRINA who presents as a transfer from [facility] for CABG evaluation. She was initially admitted12/03 after experiencing ongoing chest pain with intermittent radiation to her jaw, shoulder, and L arm for several hours last Tuesday, prompting her present to Emergency Department. She was found to have a high sensitivity troponin of 85 and was treated with therapeutic lovenox until she underwent LHC on 12/06 and was found to have triple-vessel diseasse As such, she was transferred [facility] for CABGevaluation. She was having vague symptoms of arm pain, chest discomfort, dyspnea for the last two years unrelated to exertion. But her symptoms on last Tuesday were very prominent. In regard to her cardiac history, the patient reports that she underwent a cardiac stress test in 2018 after experiencing frequent episodes of lightheadedness and says that the stress test revealed no significant problems. She had never undergone cardiac catheterization prior to her procedure on 12/06. Past Medical History: Past Medical History: Diagnosis Date Diabetes mellitus, type 2 (HCC) Hyperlipidemia KATRINA (obstructive sleep apnea) Thyroid mass Past Surgical History: Past Surgical History: Procedure Laterality Date CHOLECYSTECTOMY Family History: Family History Problem Relation Name Age of Onset Ovarian cancer Mother Hypertension Brother Social History: Social History Tobacco Use Smoking status: Every Day Packs/day: 0.25 Types: Cigarettes Smokeless tobacco: Never Substance Use Topics Alcohol use: Not Currently Drug use: Never Medications: aspirin, 81 mg, Oral, Daily atorvastatin, 40 mg, Oral, Daily influenza, 0.5 mL, IntraMUSCular, Once insulin lispro, 0-6 Units, SubCUTAneous, TID WC And insulin lispro, 0-6 Units, SubCUTAneous, Nightly Allergies: Reviewed Review of Systems: All other systems were reviewed and are negative other than as noted in the HPI. Physical Examination: Vitals: Blood pressure 109/73, pulse 65, temperature 36.2 C (97.2 F), temperature source Temporal, resp. rate 16, height 5' 5 (1.651 m), weight 203 lb 14.4 oz (92.5 kg), SpO2 96 %. @IODETAILS@ @[id number]@ Constitutional: No acute distress. Well-nourished. Well hydrated. Psychiatric: A &O x 3. Mood is normal. Affect is appropriate. Eyes: Pupils are equal and round; Conjunctiva are not injected; Sclera are non-icteric. ENMT: Ears/nose without external abnormalities. Oral mucosa is pink and moist. Neck: No JVD. No carotid bruits; No thyromegaly. Respiratory: Lungs are clear. No rales or wheezes. Respiratory effort is normal and symmetrical bilaterally; Good air movement bilaterally. Heart: regular ; Normal S1 and S2. no murmur; No rub; no gallop. Vasc: Peripheral pulses 3+. Abdomen: Normal BS, soft, non-tender, non-distended; no hepatomegaly. Extremities/Skin: no LE edema; Skin warm to touch and well perfused; skin coloration is pink. Musculoskeletal: Head - normocephalic. Neck - supple Laboratory Tests: @[id number](WBC:5,HGB:5,HCT:5,MCV:5,PLT:5)@ @[id number](NA:5,K:5,CL:5,CO2:5,BUN:5,Creatinine:5, GLU:5)@ Lab Results Component Value Date HGBA1C 6.2 (H) 12/06/2022 No results found for: TSH No results found for: CHOL No results found for: HDL No results found for: LDLCALC No results found for: TRIG No results found for: CHOLHDL @[id number](CKTOTAL:5,CKMB:5,CKMBINDEX:5,TROPONINI:5)@ No components found for: NTPROBNP No components found for: LVEF, LVEFMODE Radiology: CXR: personally reviewed: Cardiac Tests Personally Reviewed: ECG: NSR with possible anterior infract Last cardiac catheterization: personally reviewed. Non STEMI Multivessel CAD Nicotine dependence DM _II Hyperlipidemia - Cath films uploaded in PACS, personally reviewed. Multivessel CAD- significant proximal LAD, ostial PDA and OM inferior branch lesion. LV gram- normal LV systolic function with estimated EF 65% - Syntax I score is 14, which is low. PCI SYNTAX Score II is 24.3 and PCI 4 Year Mortality- 4.3 %. However, for CABG SYNTAX Score II- 8.4 and CABG 4 Year Mortality: 1.1 % - Had long conversation with the patient, considering multivessel CAD, and diabetes history- she will benefit from CABG with NAIDU graft (mortality benefit). She is also willing to undergo CABG if beneficial. - Continue with aspirin, statin - Aggressive secondary risk factor modifications - Heparin gtt for non-STEMI - Smoking cessation counseling done Rest as per primary. Devon Rodriguez MD DATE of SERVICE: 12/07/2022 Associated attestation - Gricelda Cortés MD - 12/07/2022 4:32 PM EST I, Dr. Gricelda Cortés, saw and evaluated the patient 01/07/23. I personally obtained the cormier and critical portions of the history and physical exam. I reviewed the chart and discussed the patient with the Fellow. I agree with the Fellow's medical decision making. In summary, 52F with obesity, DM2, HLP with statin intolerance, tobacco dependence, transferred here for heart team approach to revascularization after presenting with NSTEMI and diagnosis of multivessel CAD, preserved LV systolic function. Has percutaneous revascularization options with likely long stents to distal RCA and proximal LAD. Low SYNTAX I score, but potential CABG mortality benefit per SYNTAX II. Risks, benefits, alternatives to PCI discussed. 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 CABG with CT surgery team and patient, patient informed about her disease burden and made aware that her case will be vetted using a team approach Rest per Dr. Cortés's attestation History of Present Illness: Patricia Lopez is a 52 y.o. female with PMH significant for tobacco use, DMT2, HLD, KATRINA who presents as a transfer from [facility] for CABG evaluation. She was initially admitted 12/03 after experiencing ongoing chest pain with intermittent radiation to her jaw, shoulder, and L arm for several hours, prompting her present to [facility] Emergency Department.She was found to have a HS troponin of 85 and was treated with therapeutic lovenox until she underwent LHC on 12/06 and was found to have triple-vessel disease, with full description of findings below. As such, she was transferred to [facility] for CABG evaluation. Interventional Cardiology was consulted in regard to possible PCI v. CABG. In regard to her cardiac history, the patient reports that she underwent a cardiac stress test in 2018 after experiencing frequent episodes of lightheadedness and says that the stress test revealed no significant problems. She had never undergone cardiac catheterization prior to her procedure on 12/06. Past Medical History: DMT2 HLD KATRINA Thyroid Mass Past Surgical History: CCY Family History: Brother - HTN GM - arrhythmia Social History: Current smoker, estimates that she smokes 5 cigarettes/day Medications: aspirin, 81 mg, Oral, Daily atorvastatin, 40 mg, Oral, Daily influenza, 0.5 mL, IntraMUSCular, Once insulin lispro, 0-6 Units, SubCUTAneous, TID WC And insulin lispro, 0-6 Units, SubCUTAneous, Nightly Home Meds: Synjardy XR 25-1000 ER tablet daily Rosuvastatin 10 mg daily Trulicity 0.75 mg injection weekly Allergies: Reviewed - no allergy to contrast Review of Systems: All other systems were reviewed and are negative other than as noted in the HPI. Physical Examination: Vitals: 12/06/22 1702 12/06/22202212/06/22224212/06/222358 BP: 119/80 116/67 Pulse: 82 73 Resp: 18 16 Temp: 36.2 C (97.1 F) 36.1 C (97 F) TempSrc: Temporal Temporal SpO2: 95% 97% 97% Weight: 208 lb (94.3 kg) Height: 5' 5 (1.651 m) Intake/Output Summary (Last 24 hours) at 12/07/2022 0120 Last data filed at 12/06/2022 1700 Gross per 24 hour Intake 360 ml Output -- Net 360 ml Wt Readings from Last 3 Encounters: 12/06/22 208 lb (94.3 kg) Constitutional: No acute distress. Well-nourished. Well hydrated. Psychiatric: A &O x 3. Mood is calm. Affect is appropriate. Eyes: Pupils are equal and round; Conjunctiva are not injected; Sclera are non-icteric. ENMT: Ears/nose without external abnormalities. Oral mucosa is pink and moist. Neck: no JVD. No carotid bruits; No thyromegaly. Respiratory: Lungs are clear to auscultation bilaterally. No rales or wheezes. Respiratory effort is normal and symmetrical bilaterally; Good air movement bilaterally. Heart: RRR ; Normal S1 and S2. no murmur; No rub; no gallop. Vasc: Peripheral pulses 2+ and intact. Abdomen: Normal BS, soft, non-tender, non-distended; no hepatomegaly. Extremities/Skin: no LE edema; Skin warm to touch and well perfused; skin coloration is normal. Musculoskeletal: Head - normocephalic. Neck - supple Laboratory Tests: Recent Labs 12/06/22185112/06/222357 NA 138 136 K 4.2 4.0 CL 104 105 CO2 25 22 BUN 13 15 CREATININE 0.64 0.64 EGFR >90.0 >90.0 Recent Labs 12/06/22185112/06/222357 TROPONINI 0.498* 0.436* No results for input(s): BNP in the last 72 hours. Recent Labs 12/06/22 1852 WBC 11.2* HGB 14.6 HCT 45.2 MCV 94.6 PLT 361 Lab Results Component Value Date HGBA1C 6.2 (H) 12/06/2022 No results found for: TSH No results found for: CHOL No results found for: HDL No results found for: LDLCALC No results found for: TRIG No results found for: CHOLHDL No results for input(s): INR in the last 72 hours. No results found for: IRON, TIBC, FERRITIN Radiology: CXR image reviewed: no acute cardiopulmonary process Cardiac Tests Personally Reviewed: Last EKG 12/06/22 Impression Sinus rhythm Left axis deviation Probable anterolateral infarct, age indeterminate Telemetry findings: NSR Reports reviewed: Last Echo OSH ECHO 12/03 - EF 50%, S1DD, hypokinetic mid-anterior wall and apex, RV with normal systolic function, no significant valvular disease or pericardial effusion Last Cath 12/06 at OSH LM: angiographically normal LAD: 80-90% stenosis of two segments of the first diagonal branch, ostial lesion with 80% stenosis,diffuse disease throughout vessel LCX: mild diffuse disease, OM with proximal 70% stenosis RCA: dominant vessel, PDA with 80% ostial stenosis and Acute marginal with 70% stenosis Last Stress Test No results found for this or any previous visit. Last EP study No results found for this or any previous visit. No results found for: EFBP, PLVEF, LVEFPHYS, LVEF2D, EF Rae Castorena MD DATE of SERVICE: 12/07/2022 documented in this [facility]01-26-2023 History of Present illness Narrative* SANTO Simmons CNP - 12/09/2022 8:50 AM EST Name: Patricia Lopez Date of : 1970 Date of Admission: 12/06/2022 Date of Discharge: 12/09/2022 Admitting physician: Gricelda Cortés MD Discharge Attending: Romelia Ferrer APRN - CNP Primary Care Physician: JOSHUA KURTZ Review of Systems: Review of Systems Constitutional: Negative for activity change, chills, diaphoresis, fatigue and fever. HENT: Negative for nosebleeds and trouble swallowing. Eyes: Negative for discharge and visual disturbance. Respiratory: Negative for apnea, cough, chest tightness, shortness of breath and wheezing. Cardiovascular: Negative for chest pain, palpitations and leg swelling. Gastrointestinal: Negative for abdominal distention, abdominal pain, blood in stool, diarrhea, nausea and vomiting. Endocrine: Negative for cold intolerance and heat intolerance. Genitourinary: Negative for hematuria. Musculoskeletal: Negative for gait problem and myalgias. Skin: Negative for color change and rash. Neurological: Negative for seizures, syncope, facial asymmetry, speech difficulty, weakness, light-headedness, numbness and headaches. Hematological: Bruises/bleeds easily. Psychiatric/Behavioral: Negative for dysphoric mood. Physical Exam: Physical Exam Vitals reviewed. Constitutional: Appearance: Normal appearance. She is normal weight. She is not ill-appearing. HENT: Head: Normocephalic and atraumatic. Nose: Nose normal. Cardiovascular: Rate and Rhythm: Normal rate and regular rhythm. Pulses: Radial pulses are 2+ on the right side and 2+ on the left side. Dorsalis pedis pulses are 2+ on the right side and 2+ on the left side. Heart sounds: Normal heart sounds. Comments: Right radial catheterization site well healed. Slight swelling to the site and tender to the touch. Right ulnar pulse 2+.Brisk Capillary refill. Warm to touch. Dressing removed and Band-Aidapplied. Pulmonary: Effort: Pulmonary effort is normal. No respiratory distress. Breath sounds: Normal breath sounds. No stridor. No decreased breath sounds, wheezing, rhonchi or rales. Chest: Chest wall: No tenderness. Abdominal: General: Abdomen is flat. There is no distension. Tenderness: There is no abdominal tenderness. Musculoskeletal: General: Normal range of motion. Right lower leg: No edema. Left lower leg: No edema. Skin: General: Skin is warm and dry. Capillary Refill: Capillary refill takes less than 2 seconds. Findings: No rash. Neurological: Mental Status: She is alert and oriented to person, place, and time. Psychiatric: Mood and Affect: Mood normal. Behavior: Behavior normal. Thought Content: Thought content normal. Judgment: Judgment normal. Vitals: 12/09/22 0330 12/09/22 0400 12/09/22 0500 12/09/22 0835 BP: 108/57 107/69 112/63 93/53 BP Location: Left arm Left arm Patient Position: Lying Lying Pulse: 61 58 60 62 Resp: 14 16 14 18 Temp: 36.2 C (97.1 F) 36.4 C (97.6 F) TempSrc: Axillary Temporal SpO2: 96% 95% 95% 92% Weight: Height: Reason for Admission: CAD, S/P PCI with ANAI to the LAD and RCA Consultants: Cardiac Rehab HOSPITAL ADMISSION PROBLEM LIST: Patient Active Problem List Diagnosis CAD in [place] artery Diabetes mellitus, type 2 (HCC) KATRINA (obstructive sleep apnea) Hyperlipidemia Procedures: Cath Summary: 12/08/2022: Dr. Cortés Impressions: Mildly elevated left heart filling pressure. No significant aortic valve gradient noted. Successful IVUS-guided PCI of proximal/mid LAD using 3 overlapping Xience ANAI (3.25 x 23, 3.0 X 12,and 2.5 X 12 mm) Successful IVUS-guided PCI from ostium through distal RCA into RPDA with 3 overlapping Xience ANAI (3.25 X 28, 3.0 x 38, and 2.5 X 38mm). Although initial plans were PCI of only the mid and distal segments of the RCA, the proximal segment was also stented due wire or guide dissection. Residual CAD -small inferior branch of OM1 Recommendations: Aggressive medical management of CAD. Aspirin indefinitely, dual antiplatelet therapy uninterruptedfor at least a year, longer if tolerated given multiple stents. High-dose statin, add beta-rich and or GARY inhibitor as tolerated. Cardiac rehabilitation was recommended. Tobacco cessation also discussed with the patient. HOSPITAL COURSE : Patricia Lopez is a 52F with DM2, HLD, tobacco dependence, admitted with NSTEMI to [facility], completed a LHC on 12/06/2022 and was found to have multivessel CAD. She was transferred to [facility] for a heart team approach to revascularization after presenting with NSTEMI and diagnosis of multivessel CAD, preserved LV systolic function. After her Heart Teamconsultation, patient opted for PCI. On 12/08/2022 she underwent a LHC via the right radial artery and had a successful PCI wjth ANAI to LAD and RCA. She stayed overnight in 1 central and denies any difficulties. This am she was sitting at the side of bed in [facility]. She denies any complaints of CP, palpi tations or SOB. Discharge teaching done including medication, diet, activity, care of cath site andparticipation in cardiac rehab. She was instructed to complete follow up with [place] cardiology team in 1-2 weeks. She was ordered DAPT and will remain on ASA and Brilinta uninterrupted for the next12 months. Last Labs: Lab Results Component Value Date WBC 11.9 (H) 12/09/2022 HGB 13.0 12/09/2022 HCT 38.5 12/09/2022 MCV 93.7 12/09/2022 PLT 313 12/09/2022 Lab Results Component Value Date NA 135 12/09/2022 K 3.9 12/09/2022 CL 106 12/09/2022 CO2 24 12/09/2022 BUN 13 12/09/2022 CREATININE 0.60 12/09/2022 GLUCOSE 99 12/09/2022 CALCIUM 9.0 12/09/2022 No results found for: CHLPL, CHOL No results found for: TRIG No results found for: HDL No results found for: LDLCALC Final Principle Discharge Diagnosis:Multivessel CAD, S/P PCI with AANI to the LAD and RCA. Denies any complaints of CP On DAPT with ASA and Brilinta will plan to continue uninterrupted for 12 months. BMP reviewed post cath and WNL Discharge teaching done including medication, diet, activity, care of cath site and participation in cardiac rehab. Will continue Toprol, Brilinta, asa, PPI, and statin on discharge. Meds to beds used for access of medications. F/U scheduled with [place] cardiology office Cardiac rehab ordered. Secondary Discharge diagnosis: 2.Obesity Body mass index is 33.5 kg/m . 3. KATRINA Compliant with CPAP Management per primary 4. HLD Should remain on high intensity statin due to CAD Will continue Lipitor 40 mg oral daily -statin therapy to be managed per cardiology team as OP -lifestyle modifications encouraged Goal LDL <70 Recommend F/U lipid profile, patient reports primary care manages lipid levels. 5. DM - Managed by PCP. On Insulin during hospitalization, will resume po meds as OP Instructed to hold Metformin dose for 48 hours after cath, patient verbalized understanding. -patient reports compliance to medications Lab Results Component Value Date HGBA1C 6.2 (H) 12/06/2022 6. Tobacco abuse Encouraged to quit smoking. Offered smoking cessation counseling. Discharge Medications: Medication List CONTINUE taking these medications CareTouch 2 CPAP Hose Nail Sticker misc ASK your doctor about these medications D3 Maximum Strength 125 MCG (5000 UT) capsule Generic drug: cholecalciferol estradiol 1 MG tablet Commonly known as: Estrace modafinil 100 MG tablet Commonly known as: Provigil rosuvastatin 5 MG tablet Commonly known as: Crestor Synjardy XR 25-1000 MG 24 hr tablet Generic drug: empagliflozin-metFORMIN ER ICD Registry Information/AMI Registry Information NYHA Functional Classification: Class 0 Medical Therapy Aspirin: Yes If NO reason for omission GARY/ARB: No If NO reason for omission soft BP readings Statin: Yes If NO reason for omission Beta Rich: Yes If NO reason for omission P2Y12 Inhibitors: Yes If NO reason for omission Aldosterone inhibitor: No If NO reason for omission not indicated Cardiac rehab Discussed with patient: Yes If NO reason for omission Cardiac Rehab The Cardiac Rehab team at [facility] consists of highly skilled exercise physiologists, nurses, respiratory therapists and physicians working together with you. Our purpose is to help you have a full recovery and achieve the goals you set for yourself. Over the years many of our patients have returned to activities they assumed they would never do again! We can help restore your confidence and motivation to make lifestyle changes that can have a significant impact on your health and quality of life! We can help answer questions and concerns you may have about exercise, lifestyle, medications, diet, stress and anxiety which are common following a hospitalization. We monitor ECG and vital signs during exercise and discuss your progress with you and report to your physician. Cardiac Rehab is proven to help reduce readmissions, improve functional capacity and lower recurrence of problems with your heart. We have facilities at both [facility] and [facility]. At both locations we have street level parking which is free and our sites are easily accessible. For both [place] you can contact us at . We invite you to call us with your questions or to get started in our program. If you have other questions or concerns be sure to ask your provider during your follow up visit. We look forward to seeing you there. Our locations: [facility] [address] [facility] [address] [facility] Ground Floor [id number] - Ground floor BMI Classification: Obese (BMI 30.0-39.9) DIET: A lowfat, low cholesterol diet was discussed with the patient. Discharge to Home Condition at Discharge: good Follow up with cardiology 1-2 weeks with [place] cardiology office If any questions call [facility] Cardiology-[facility] office [phone] Total time spent for Discharge time greater than 31 minutes Discussed plan of care with Dr. Cortés Associated attestation - Gricelda Cortés MD - 12/09/2022 4:05 PM EST This patient was seen and personally examined by me on 12/09/2022. Labs, imaging studies and electronic medical record reviewed. See Discharge summary []progress note []H&P []Consult documented by[x]SARKIS which reflects my hpi, pmh, psh, ros, fh, sh as well with my additions, as I discussed with the [x]SARKIS. For my exam, assessment and plan see below. PHYSICAL EXAM: General Appearance: []WDWN [x]Obese []Cachectic []Thin []ill Neck: Jvd []Present [x]Absent Lungs: [x]Clear []Crackles []Wheezes []Rhonchi / Respiratory effort []Labored [x]Non-Labored Heart: [x]RRR []Irregularly Irregular []murmur present [x]murmur absent/ Peripheral Edema No pedal edema. Mild nonpitting edema in right hand and wrist. Mild tenderness at radial access site. Normal capillary refill. Normal radial pulse. Assessment/Plan 52 female with tobacco dependence, untreated hyperlipidemia, well-controlled DM 2[place]. Overall preserved LV systolic function. Underwent multivessel PCI yesterday with extensive stenting of the RCA and proximal to mid LAD. Has done well overnight. -Mild right wrist discomfort post cath, recommended she keep her arm elevated to resolve the swelling. -Continue aspirin indefinitely, dual antiplatelet therapy uninterrupted for at least a year, but longer if tolerated given multiple stents. -She has agreed to a statin. I recommend increasing dose as tolerated to LDL under 70, and consideration of adding Zetia and or PCSK9 inhibitor if does not reach goal on max tolerated statin. -She has been counseled on tobacco cessation. Cardiac rehabilitation discussed with the patient as well, referral placed. She is on a very low-dose beta-rich, with systolic blood pressures in the 90s which she tells meis baseline. 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 I personally spoke with him and reviewed the hospital course. Gricelda Cortés MD * SANTO Hopkins CNP - 12/08/2022 11:41 AM EST Images from the original note were not included. Cardiothoracic Surgery Interval Note PATIENT NAME: Patricia Lopez : 1970 (52 y.o.) TODAY'S DATE: 12/08/2022 Interval History: Cards to PCI; CTS to sign off; discussed with Cardiology SARKIS - will accept patient to service. * Chyna Perry - 12/08/2022 9:49 AM EST Nutrition rescreen completed. Chart reviewed. Patient to be monitored and followed by the diet gis technician. KARIN Higuera * SANTO Washington CNP - 12/08/2022 9:05 AM EST [facility] [place] [facility] Cardiology /Electrophysiology Progress Note HPI / Interval History: Ms. Lopez is a 52F with obesity, DM2, HLP with statin intolerance, tobacco dependence, transferred here for heart team approach to revascularization after presenting with NSTEMI and diagnosis of multivessel CAD, preserved LV systolic function. It has been decided to proceed with PCI /Stent to LADand RCA. Risks and benefits reviewed. Right radial site stable, 2+ radial pulse, 1+ ulnar, brisk capillary refill. She asked about FMLA paperwork, which can be completed once procedure completed. Loading dose of Brilinta given at 0932. She was on coreg in [facility]. She also has a dental appt on 12/23, which I advised to post-pone. Medications: aspirin, 81 mg, Oral, Daily atorvastatin, 40 mg, Oral, Daily influenza, 0.5 mL, IntraMUSCular, Once insulin lispro, 0-6 Units, SubCUTAneous, TID WC And insulin lispro, 0-6 Units, SubCUTAneous, Nightly ticagrelor, 180 mg, Oral, Once Followed by ticagrelor, 90 mg, Oral, BID Infusion Medications: heparin, 5-30 Units/kg/hr, Last Rate: 14.6 Units/kg/hr (12/08/22 0531) Physical Examination: Vitals: 12/08/22 0001 12/08/22 0354 12/08/22 0544 12/08/22 0700 BP: 114/69 118/80 105/72 BP Location: Right arm Patient Position: Sitting Pulse: 77 80 76 Resp: 17 18 16 Temp: 36.1 C (97 F) 36.1 C (96.9 F) 36.2 C (97.2 F) TempSrc: Temporal Temporal Temporal SpO2: 99% 94% 96% Weight: 201 lb 4.8 oz (91.3 kg) Height: Intake/Output Summary (Last 24 hours) at 12/08/2022 0906 Last data filed at 12/07/2022 1622 Gross per 24 hour Intake 162.36 ml Output -- Net 162.36 ml Wt Readings from Last 3 Encounters: 12/08/22 201 lb 4.8 oz (91.3 kg) Physical Exam Constitutional: NAD Psychiatric: Alert. Medical insight good. Neck: No JVD, no bruit Respiratory: Lungs are clear Heart: regular ; Nl S1 and S2, no murmur, no rub, gallop Abdomen: NABS; soft, non-tender, non-distended Extremities: no LE edema , Right radial catheterization site well healed. Right ulnar pulse 1+.Brisk Capillary refill. Warm to touch. Skin: Warm to touch and well perfused Laboratory Tests: Recent Labs 12/06/22185112/06/22235712/08/22 0345 NA 138 136 137 K 4.2 4.0 4.0 CL 104 105 106 CO2 25 22 21* BUN 13 15 13 CREATININE 0.64 0.64 0.63 Recent Labs 12/06/22185112/07/227 12/08/22 0345 WBC 11.2* 11.0* 11.2* HGB 14.6 14.8 14.7 HCT 45.2 43.5 43.2 MCV 94.6 92.9 93.8 PLT 361 340 345 Recent Labs 12/06/22185112/06/22235712/07/227 12/07/22 0840 TROPONINI 0.498* 0.436* 0.447* 0.261* Other reports reviewed: Cardiac Tests: ECG: NSR Tracing reviewed. Telemetry findings reviewed: NSR EF ~50% off echo from [facility]. Assessment/Plan NSTEMI, CAD : Plan for PCI/ANAI to RCA/LAD, continue Heparin drip, ASA 81 mg daily and brilinta. Will add coreg post procedure. DM: on Insulin in house. HLP: Atorvastatin 40 mg daily. SANTO Washington CNP Date Of Service 12/08/2022 * SANTO Gann CNP - 12/06/2022 5:58 PM EST Images from the original note were not included. Cardiothoracic Surgery Interval Note PATIENT NAME: Patricia Lopez : 1970 (52 y.o.) TODAY'S DATE: 12/06/2022 Interval History: Patient transferred from [facility] for CABG workup. Chest pain free, no hep or nitro drip running on admission. She denies any pain. - Admission orders placed - ASA/Statin ordered - Preop orders placed - Will place full note in am documented in this [facility]01-25-2023 Nurse Note* Mariposa Brewer RN - 12/08/2022 6:28 PM EST No bleeding noted from radial site after removal [id number] Nurse Note* Mariposa Brewer RN - 12/08/2022 6:14 PM EST Patient radial band removed. Site benign. Instructed not to bend wrist or anything. She agreed [id number] Nurse Note* Mariposa Brewer RN - 12/08/2022 6:07 PM EST Patient arrived to 144 from labor/excavator. Oriented to room and call light. Instructed on bedrest until 1700. Right radial site with radial band intact. Site benign, no bleeding or hematoma. Fingers warm and brisk refill, denies numbness. Denies chest pain or shortness of breath. Call light in reach [id number] Note* Pre-Sedation Documentation - Gricelda Cortés MD - 12/08/2022 1:03 PM EST Sedation Plan ASA class 3 - patient with severe systemic disease Mallampati class: II - soft palate, uvula, fauces visible. Sedation plan: local anesthesia and minimal sedation Risks, benefits, and alternatives discussed with patient. Immediate reassessment prior to sedation: Patient's status reviewed and vital signs assessed; acceptable to perform procedure and proceed to administer sedation as planned. INTERNATIONAL Phone: 1(378) 117-260801-25-2023 Note* Pre-Sedation Documentation - Gricelda Cortés MD - 12/08/2022 1:03 PM EST Sedation Plan ASA class 3 - patient with severe systemic disease Mallampati class: II - soft palate, uvula, fauces visible. Sedation plan: local anesthesia and minimal sedation Risks, benefits, and alternatives discussed with patient. Immediate reassessment prior to sedation: Patient's status reviewed and vital signs assessed; acceptable to perform procedure and proceed to administer sedation as planned. INTERNATIONAL Phone: 1([phone] 122-531301-25-2023 [facility] Cardiology /Electrophysiology Progress Note HPI / Interval History: Ms. Lopez is a 52F with obesity, DM2, HLP with statin intolerance, tobacco dependence, transferred here for heart team approach to revascularization after presenting with NSTEMI and diagnosis of multivessel CAD, preserved LV systolic function. It has been decided to proceed with PCI /Stent to LAD and RCA. Risks and benefits reviewed. Right radial site stable, 2+ radial pulse, 1+ ulnar, brisk capillary refill. She asked about FMLA paperwork, which can be completed once procedure completed. Loading dose of Brilinta given at 0932. She was on coreg in [facility]. She also has a dental appt on 12/23, which I advised to post-pone. Medications: aspirin, 81 mg, Oral, Daily atorvastatin, 40 mg, Oral, Daily influenza, 0.5 mL, IntraMUSCular, Once insulin lispro, 0-6 Units, SubCUTAneous, TID WC And insulin lispro, 0-6 Units, SubCUTAneous, Nightly ticagrelor, 180 mg, Oral, Once Followed by ticagrelor, 90 mg, Oral, BID Infusion Medications: heparin, 5-30 Units/kg/hr, Last Rate: 14.6 Units/kg/hr (12/08/22 0531) Physical Examination: Vitals: 12/08/22 0001 12/08/22 0354 12/08/22 0544 12/08/22 0700 BP: 114/69 118/80 105/72 BP Location: Right arm Patient Position: Sitting Pulse: 77 80 76 Resp: 17 18 16 Temp: 36.1 ?C (97 ?F) 36.1 ?C (96.9 ?F) 36.2 ?C (97.2 ?F) TempSrc: Temporal Temporal Temporal SpO2: 99% 94% 96% Weight: 201 lb 4.8 oz (91.3 kg) Height: Intake/Output Summary (Last 24 hours) at 12/08/2022 0906 Last data filed at 12/07/2022 1622 Gross per 24 hour Intake 162.36 ml Output -- Net 162.36 ml Wt Readings from Last 3 Encounters: 12/08/22 201 lb 4.8 oz (91.3 kg) Physical Exam Constitutional: NAD Psychiatric: Alert. Medical insight good. Neck: No JVD, no bruit Respiratory: Lungs are clear Heart: regular ; Nl S1 and S2, no murmur, no rub, gallop Abdomen: NABS; soft, non-tender, non-distended Extremities: no LE edema , Right radial catheterization site well healed. Right ulnar pulse 1+.Brisk Capillary refill. Warm to touch. Skin: Warm to touch and well perfused Laboratory Tests: Recent Labs 12/06/22 18512/06/228 12/08/22 0345 NA 138 136 137 K 4.2 4.0 4.0 CL 104 105 106 CO2 25 22 21* BUN 13 15 13 CREATININE 0.64 0.64 0.63 Recent Labs 12/06/22 1852 12/07/22 0347 12/08/22 0345 WBC 11.2* 11.0* 11.2* HGB 14.6 14.8 14.7 HCT 45.2 43.5 43.2 MCV 94.6 92.9 93.8 PLT 361 340 345 Recent Labs 12/06/22 1852 12/06/22235712/07/22 0347 12/07/22 0840 TROPONINI 0.498* 0.436* 0.447* 0.261* Other reports reviewed: Cardiac Tests: ECG: NSR Tracing reviewed. Telemetry findings reviewed: NSR EF ~50% off echo from [facility]. Assessment/Plan NSTEMI, CAD : Plan for PCI/ANAI to RCA/LAD, continue Heparin drip, ASA 81 mg daily and brilinta. Will add coreg post procedure. DM: on Insulin in house. HLP: Atorvastatin 40 mg daily. Liya Hiuzar APRN - BRANCH LENDING MANAGER Date Of Service 12/08/2022[facility]01-25-2023 Note* Care Coordination - Camilla Rodriges RN - 12/08/2022 10:43 AM EST CTS and cardiology following for multivessel CAD. Plan for today ids PCI/stent to LAD and RCA. Remains on heparin gtt. Pt indep at baseline- from home with . Pt will not return to 4N after procedure d/t stent placement. [facility]01-25-2023 Note* Care Coordination - Camilla Rodriges RN - 12/08/2022 10:43 AM EST CTS and cardiology following for multivessel CAD. Plan for today ids PCI/stent to LAD and RCA. Remains on heparin gtt. Pt indep at baseline- from home with . Pt will not return to 4N after procedure d/t stent placement. [facility]01-25-2023 Plan of care note* Care Plan - Nika Mason RN - 12/08/2022 7:45 AM EST Problem: Pain - Adult Goal: Verbalizes/displays adequate comfort level or baseline comfort level Outcome: Progressing Problem: Safety - Adult Goal: Free from fall injury Outcome: Progressing Problem: Discharge Planning Goal: Discharge to home or other facility with appropriate resources Outcome: Progressing Problem: Cardiovascular - Adult Goal: Maintains optimal cardiac output and hemodynamic stability Outcome: Progressing Goal: Absence of cardiac dysrhythmias or at baseline Outcome: Progressing The patient is Moderately Stable - Low risk of patient condition declining or worsening The patient's goals for the shift include vital signs stable, free from chest pain The clinical goals for the shift include pt remain safe and hemodynamically stable [id number] Plan of care note* Care Plan - Vel Murray RN - 12/07/2022 10:26 PM EST Problem: Pain - Adult Goal: Verbalizes/displays adequate comfort level or baseline comfort level Outcome: Progressing Problem: Safety - Adult Goal: Free from fall injury Outcome: Progressing Problem: Discharge Planning Goal: Discharge to home or other facility with appropriate resources Outcome: Progressing Problem: Cardiovascular - Adult Goal: Maintains optimal cardiac output and hemodynamic stability Outcome: Progressing Goal: Absence of cardiac dysrhythmias or at baseline Outcome: Progressing The patient is Moderately Stable - Low risk of patient condition declining or worsening The patient's goals for the shift include vital signs stable, free from chest pain The clinical goals for the shift include pt remain safe and hemodynamically stable [id number] NoteIMPRESSION: Sinus rhythm Left anterior fascilular block Probable anterior infarct, age indeterminate Poor R wave progression Electronically Signed On 12-07-2022 16:40:56 EST by [facility]01-24-2023 Note* Home Care - Jory Osborne RN - 12/07/2022 2:11 PM EST Game Developer following case for Discharge Needs. [id number] Note* Home Care - Jory Osborne RN - 12/07/2022 2:11 PM EST Game Developer following case for Discharge Needs. [id number] Note* Care Coordination - Camilla Rodriges RN - 12/07/2022 2:04 PM EST Care Managment Initial Assessment Date: 12/07/2022 Patient Name: Patricia Lopez : 1970 Patient Information Source of Information: Patient Cognition/Language: WFL - Within Functional Limits Permission given to speak with patient paper sales representative/caregiver as indicated: Confirmation of Payer with patient/family: Payer Name: joey : No Confirmation of Primary Care Physician: Confirmed PCP Name: jerardo in [place] Seen in last 2 years?: Yes Primary Caregiver: Self If assistance needed, confirmed caregiver ready, willing and able to care for patient at discharge: Confirmed with: Living Arrangements Current Residence: House Number of Floors 1 Number of Entry Steps: (2-3) Bed/Bath Levels: Both first floor Facility: Facility Name: Plan to Return: Lives with: Spouse/significant other Support Systems: Spouse/significant other, Family members Activities of Daily Living Ambulation: Independent Bathing/Dressing: Independent Elimination/Continence/Toileting: Independent Feeding: Independent Who Assists with Activities of Daily Living: Instrumental Activities of Daily Living Prescription Coverage: Yes Pharmacy Used: [facility] Medication Management: Independent Transportation/Shopping: Independent Transportation Mode: Car Needs Assistance with Transportation at Discharge: No Meal Preparation: Independent Laundry/Cleaning: Independent Finances/Bill Paying: Independent Communication: Independent Types of Care Services/Equipment Utilized Care Services: Dialysis Type: NA Durable Medical Equipment: (none) Patient's Goal/Discharge Plan Patient expects to be discharged to: home Discharge Planning Actions: Continue to follow Patient's Choice Rights and [employer] and Collaborative Relationships Disclosed as Indicated for Post-Acute Care: NA Interdisciplinary Team Engagement: Home Health Care Social Work Referral for: Additional Information: Pt adm for tx/evaluation of CAD in [place] artery. Pt transferred from [facility] for CTS/cardiology consult for CABG. Remains on heparin gtt. Carotid duplex and vein mapping ordered. Met with pt- introduced self and role. Pt from home indep with Rah. Pt drives, has insurance and able to obtain meds. [facility] following for HC services for post op open heart. Pt has FMLA paperwork [employer]- [employer] with CTS aware of need for completion pending plan for surgery. Camilla Rodriges RN [id number] Note* Care Coordination - Camilla Rodriges RN - 12/07/2022 2:04 PM EST Care Managment Initial Assessment Date: 12/07/2022 Patient Name: Patricia Lopez : 1970 Patient Information Source of Information: Patient Cognition/Language: WFL - Within Functional Limits Permission given to speak with patient paper sales representative/caregiver as indicated: Confirmation of Payer with patient/family: Payer Name: [email or web address] : No Confirmation of Primary Care Physician: Confirmed PCP Name: jerardo [facility] Seen in last 2 years?: Yes Primary Caregiver: Self If assistance needed, confirmed caregiver ready, willing and able to care for patient at discharge: Confirmed with: Living Arrangements Current Residence: House Number of Floors 1 Number of Entry Steps: (2-3) Bed/Bath Levels: Both first floor Facility: Facility Name: Plan to Return: Lives with: Spouse/significant other Support Systems: Spouse/significant other, Family members Activities of Daily Living Ambulation: Independent Bathing/Dressing: Independent Elimination/Continence/Toileting: Independent Feeding: Independent Who Assists with Activities of Daily Living: Instrumental Activities of Daily Living Prescription Coverage: Yes Pharmacy Used: [facility] Medication Management: Independent Transportation/Shopping: Independent Transportation Mode: Car Needs Assistance with Transportation at Discharge: No Meal Preparation: Independent Laundry/Cleaning: Independent Finances/Bill Paying: Independent Communication: Independent Types of Care Services/Equipment Utilized Care Services: Dialysis Type: NA Durable Medical Equipment: (none) Patient's Goal/Discharge Plan Patient expects to be discharged to: home Discharge Planning Actions: Continue to follow Patient's Choice Rights and [employer] and Collaborative Relationships Disclosed as Indicated for Post-Acute Care: NA Interdisciplinary Team Engagement: Home Health Care Social Work Referral for: Additional Information: Pt adm for tx/evaluation of CAD in [place] artery. Pt transferred from [facility] for CTS/cardiology consult for CABG. Remains on heparin gtt. Carotid duplex and vein mapping ordered. Met with pt- introduced self and role. Pt from home indep with Rah. Pt drives, has insurance and able to obtain meds. [facility] following for services for post op open heart. Pt has FMLA paperwork [employer]- [employer] with CTS aware of need for completion pending plan for surgery. Camilla Rodriges RN [id number] Consult note* Devon Rodriguez MD - 12/07/2022 11:10 AM EST [facility] Cardiology/ Electrophysiology Consult Note Reason for Consult/Chief Complaint: multivessel ds Consulting MD:Dr Ulloa History of Present Illness: Ms Lopez is a 52 y.o. female with PMH significant for nicotine dependence, DM- II, HLD, KATRINA who presents as a transfer from [facility] for CABG evaluation. She was initially admitted12/03 after experiencing ongoing chest pain with intermittent radiation to her jaw, shoulder, and L arm for several hours last Tuesday, prompting her present to Emergency Department. She was found to have a high sensitivity troponin of 85 and was treated with therapeutic lovenox until she underwent LHC on 12/06 and was found to have triple-vessel diseasse As such, she was transferred to [facility] for CABGevaluation. She was having vague symptoms of arm pain, chest discomfort, dyspnea for the last two years unrelated to exertion. But her symptoms on last Tuesday were very prominent. In regard to her cardiac history, the patient reports that she underwent a cardiac stress test in 2018 after experiencing frequent episodes of lightheadedness and says that the stress test revealed no significant problems. She had never undergone cardiac catheterization prior to her procedure on 12/06. Past Medical History: Past Medical History: Diagnosis Date Diabetes mellitus, type 2 (HCC) Hyperlipidemia KATRINA (obstructive sleep apnea) Thyroid mass Past Surgical History: Past Surgical History: Procedure Laterality Date CHOLECYSTECTOMY Family History: Family History Problem Relation Name Age of Onset Ovarian cancer Mother Hypertension Brother Social History: Social History Tobacco Use Smoking status: Every Day Packs/day: 0.25 Types: Cigarettes Smokeless tobacco: Never Substance Use Topics Alcohol use: Not Currently Drug use: Never Medications: aspirin, 81 mg, Oral, Daily atorvastatin, 40 mg, Oral, Daily influenza, 0.5 mL, IntraMUSCular, Once insulin lispro, 0-6 Units, SubCUTAneous, TID WC And insulin lispro, 0-6 Units, SubCUTAneous, Nightly Allergies: Reviewed Review of Systems: All other systems were reviewed and are negative other than as noted in the HPI. Physical Examination: Vitals: Blood pressure 109/73, pulse 65, temperature 36.2 C (97.2 F), temperature source Temporal, resp. rate 16, height 5' 5 (1.651 m), weight 203 lb 14.4 oz (92.5 kg), SpO2 96 %. @IODETAILS@ @[id number]@ Constitutional: No acute distress. Well-nourished. Well hydrated. Psychiatric: A &O x 3. Mood is normal. Affect is appropriate. Eyes: Pupils are equal and round; Conjunctiva are not injected; Sclera are non-icteric. ENMT: Ears/nose without external abnormalities. Oral mucosa is pink and moist. Neck: No JVD. No carotid bruits; No thyromegaly. Respiratory: Lungs are clear. No rales or wheezes. Respiratory effort is normal and symmetrical bilaterally; Good air movement bilaterally. Heart: regular ; Normal S1 and S2. no murmur; No rub; no gallop. Vasc: Peripheral pulses 3+. Abdomen: Normal BS, soft, non-tender, non-distended; no hepatomegaly. Extremities/Skin: no LE edema; Skin warm to touch and well perfused; skin coloration is pink. Musculoskeletal: Head - normocephalic. Neck - supple Laboratory Tests: @[id number](WBC:5,HGB:5,HCT:5,MCV:5,PLT:5)@ @[id number](NA:5,K:5,CL:5,CO2:5,BUN:5,Creatinine:5, GLU:5)@ Lab Results Component Value Date HGBA1C 6.2 (H) 12/06/2022 No results found for: TSH No results found for: CHOL No results found for: HDL No results found for: LDLCALC No results found for: TRIG No results found for: CHOLHDL @[id number](CKTOTAL:5,CKMB:5,CKMBINDEX:5,TROPONINI:5)@ No components found for: NTPROBNP No components found for: LVEF, LVEFMODE Radiology: CXR: personally reviewed: Cardiac Tests Personally Reviewed: ECG: NSR with possible anterior infract Last cardiac catheterization: personally reviewed. Non STEMI Multivessel CAD Nicotine dependence DM _II Hyperlipidemia - Cath films uploaded in PACS, personally reviewed. Multivessel CAD- significant proximal LAD, ostial PDA and OM inferior branch lesion. LV gram- normal LV systolic function with estimated EF 65% - Syntax I score is 14, which is low. PCI SYNTAX Score II is 24.3 and PCI 4 Year Mortality- 4.3 %. However, for CABG SYNTAX Score II- 8.4 and CABG 4 Year Mortality: 1.1 % - Had long conversation with the patient, considering multivessel CAD, and diabetes history- she will benefit from CABG with NAIDU graft (mortality benefit). She is also willing to undergo CABG if beneficial. - Continue with aspirin, statin - Aggressive secondary risk factor modifications - Heparin gtt for non-STEMI - Smoking cessation counseling done Rest as per primary. Devon Rodriguez MD DATE of SERVICE: 12/07/2022 Associated attestation - Gricelda Cortés MD - 12/07/2022 4:32 PM EST I, Dr. Gricelda Cortés, saw and evaluated the patient 01/07/23. I personally obtained the cormier and critical portions of the history and physical exam. I reviewed the chart and discussed the patient with the Fellow. I agree with the Fellow's medical decision making. In summary, 52F with obesity, DM2, HLP with statin intolerance, tobacco dependence, transferred here for heart team approach to revascularization after presenting with NSTEMI and diagnosis of multivessel CAD, preserved LV systolic function. Has percutaneous revascularization options with likely long stents to distal RCA and proximal LAD. Low SYNTAX I score, but potential CABG mortality benefit per SYNTAX II. Risks, benefits, alternatives to PCI discussed. Will discuss with [facility] [employer] Work Phone: [phone] Plan of care note* Care Plan - Nika Mason RN - 12/07/2022 10:46 AM EST Problem: Pain - Adult Goal: Verbalizes/displays adequate comfort level or baseline comfort level Outcome: Progressing Problem: Safety - Adult Goal: Free from fall injury Outcome: Progressing Problem: Discharge Planning Goal: Discharge to home or other facility with appropriate resources Outcome: Progressing Problem: Cardiovascular - Adult Goal: Maintains optimal cardiac output and hemodynamic stability Outcome: Progressing Goal: Absence of cardiac dysrhythmias or at baseline Outcome: Progressing The patient is Moderately Stable - Low risk of patient condition declining or worsening The patient's goals for the shift include vital signs stable, free from chest pain The clinical goals for the shift include remain hemodynamically stable [id number] Note Attestation signed by Shawna Forbes MD at 12/08/2022 8:59 AM (Updated) DOS: 12/07/22 I personally performed a face to face diagnostic evaluation on this patient. I agree with the findings and plan of care as documented by the SARKIS, there has been no change in the physical exam or findings unless otherwise noted below. 52 F with three vessel CAD, NSTEMI, diabetes. She has elevated troponin with prior chest pain. This is an acute condition needing treatment. Coronary artery disease: I discussed with her and her spouse the indications, risks, benefits, and perioperative course of a coronary artery bypass grafting. I discussed alternatives including no intervention, medical therapy only, and percutaneous coronary intervention with medications. A surgical revascularization is recommended in her case. On my review of the coronary angiogram, she does have good targets and will need 2-3 vessel bypass grafts. She is quite functional and is of low risk. I discussed total arterial revascularization given her age. She was seen by interventional cardiology and she opts for percutaneous coronary intervention. I have discussed her case with the referring slab miller operator and the electrical controls assembler. A total of 80 minutes were spent between the face to face encounter, physical exam, reviewing the medical history, coordinating the patient's care, counseling/educating the patient, ordering prescriptions/medications/tests/procedures, interpreting results and documenting clinical information in the patient's electronic health record on the day of the encounter. The patient was seen and examined independently and relevant data reviewed by myself. A full chart review was performed. Shawna Forbes MD Cardiothoracic Surgery [facility]: Cardiothoracic Surgery H&P Note PATIENT NAME: Patricia Lopez : 1970 (52 y.o.) TODAY'S DATE: 12/07/2022 DATE OF ADMISSION: 12/06/2022 4:44 PM Subjective: CC: Chest Pain HPI: 52 y.o female with pmHx of T2DM, hyperlipidemia, KATRINA, small kidney, unilateral and thyroid mass presented to outside facility ([place]) with ongoing substernal chest pain. Per paper chart, patient has had pain off and on for the past 2 years with associated symptoms: arm pain, numbness in jaw. Trops slightly elevated and Cardiology was consulted. TTE completed which showed: EF 50%, mild segmental systolic dysfunction with the apex and mid-anterior hypokinetic. No valvular concerns. Cardiac cath showed MVCAD and she was transferred to [facility] for CABG evaluation. Currently patient is sitting in bed with no cardiac signs or symptoms. She endorsed chest pain for 2 years but states she hasn't had any since [place]. She lives at home with her in a one story ranch. 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 Cardiology consulted here at [facility]. Complete ROS documented and completed below. Review of Systems Constitutional: Negative for appetite change, diaphoresis, fatigue, fever and unexpected weight change. HENT: Negative for congestion and dental problem. Eyes: Negative for pain, redness and visual disturbance. Respiratory: Negative for cough, choking, chest tightness, shortness of breath and wheezing. Gastrointestinal: Negative for abdominal distention, abdominal pain, blood in stool, constipation, diarrhea, nausea and vomiting. Endocrine: Negative for cold intolerance and heat intolerance. Genitourinary: Negative for difficulty urinating and frequency. Musculoskeletal: Negative for arthralgias, back pain, gait problem and joint swelling. Skin: Negative for color change, pallor, rash and wound. Allergic/Immunologic: Negative for immunocompromised state. Neurological: Negative for dizziness, seizures, syncope, speech difficulty, weakness, light-headedness and numbness. Hematological: Does not bruise/bleed easily. Psychiatric/Behavioral: Negative for confusion, decreased concentration and sleep disturbance. The patient is not nervous/anxious. Allergies: Patient has no known allergies. Past Medical History: has a past medical history of Diabetes mellitus, type 2 (HCC), Hyperlipidemia, KATRINA (obstructive sleep apnea), and Thyroid mass. Past Surgical History: has a past surgical history that includes Cholecystectomy. Social History: reports that she has been smoking cigarettes. She has been smoking an average of .25 packs per day. She has never used smokeless tobacco. She reports that she does not currently use alcohol. She reports that she does not use drugs. Family History: family history includes Hypertension in her brother; Ovarian cancer in her mother. Thyroid disorder in grandmother and grandfather, Uncle and Aunt. Medications: Medication Documentation (more content not included)...[facility] 12-07-2022 History and physical note* Avtar Galindo APRN - BRANCH LENDING MANAGER - 12/07/2022 7:15 AM EST Images from the original note were not included. [facility]: Cardiothoracic Surgery H&P Note PATIENT NAME: Patricia Lopez : 1970 (52 y.o.) TODAY'S DATE: 12/07/2022 DATE OF ADMISSION: 12/06/2022 4:44 PM Subjective: CC: Chest Pain HPI: 52 y.o female with pmHx of T2DM, hyperlipidemia, KATRINA, small kidney, unilateral and thyroid mass presented to outside facility ([place]) with ongoing substernal chest pain. Per paper chart, patient has had pain off and on for the past 2 years with associated symptoms: arm pain, numbness in jaw.Trops slightly elevated and Cardiology was consulted. TTE completed which showed: EF 50%, mild segmental systolic dysfunction with the apex and mid-anterior hypokinetic. No valvular concerns. Cardiaccath showed MVCAD and she was transferred to [facility] for CABG evaluation. Currently patient is sitting in bed with no cardiac signs or symptoms. She endorsed chest pain for 2 years but states she hasn't had any since [place]. She lives at home with her in a one story ranch. 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 Cardiology consulted here at [facility]. Complete ROS documented and completed below. Review of Systems Constitutional: Negative for appetite change, diaphoresis, fatigue, fever and unexpected weight change. HENT: Negative for congestion and dental problem. Eyes: Negative for pain, redness and visual disturbance. Respiratory: Negative for cough, choking, chest tightness, shortness of breath and wheezing. Gastrointestinal: Negative for abdominal distention, abdominal pain, blood in stool, constipation, diarrhea, nausea and vomiting. Endocrine: Negative for cold intolerance and heat intolerance. Genitourinary: Negative for difficulty urinating and frequency. Musculoskeletal: Negative for arthralgias, back pain, gait problem and joint swelling. Skin: Negative for color change, pallor, rash and wound. Allergic/Immunologic: Negative for immunocompromised state. Neurological: Negative for dizziness, seizures, syncope, speech difficulty, weakness, light-headedness and numbness. Hematological: Does not bruise/bleed easily. Psychiatric/Behavioral: Negative for confusion, decreased concentration and sleep disturbance. The patient is not nervous/anxious. Allergies: Patient has no known allergies. Past Medical History: has a past medical history of Diabetes mellitus, type 2 (HCC), Hyperlipidemia, KATRINA (obstructive sleep apnea), and Thyroid mass. Past Surgical History: has a past surgical history that includes Cholecystectomy. Social History: reports that she has been smoking cigarettes. She has been smoking an average of .25 packs per day.She has never used smokeless tobacco. She reports that she does not currently use alcohol. She reports that she does not use drugs. Family History: family history includes Hypertension in her brother; Ovarian cancer in her mother. Thyroid disorderin grandmother and grandfather, Uncle and Aunt. Medications: Medication Documentation Review Audit Reviewed by SANTO Hopkins CNP (Nurse Practitioner) on 12/07/22 at 0807 Medication Order Taking? Sig Documenting Provider Last Dose Status cholecalciferol (D3 Maximum Strength) 125 MCG (5000 UT) capsule [id number] as directed Historical Provider, Active estradiol (Estrace) 1 MG tablet [id number] Take 1 mg by mouth daily. Historical Provider, Active modafinil (Provigil) 100 MG tablet [id number] No Take 100 mg by mouth daily. Historical Provider, Past Week Active Respiratory Therapy Supplies (CareTouch 2 CPAP Hose Nail Sticker) [facility] [id number] Historical Provider, Active rosuvastatin (Crestor) 5 MG tablet [id number] No Take 5 mg by mouth with evening meal. Historical Provider, 12/05/2022 Active Synjardy XR 25-1000 MG 24 hr tablet [id number] Take 1 tablet by mouth daily. Historical Provider, Active Objective: BP 109/73 Comment: covering nurse notified Pulse 65 Temp 36.2 C (97.2 F) (Temporal) Resp 16 Ht 5' 5 (1.651 m) Wt 203 lb 14.4 oz (92.5 kg) LMP (LMP Unknown) Comment: no menstrual period within last [address] SpO2 96% BMI 33.93 kg/m Intake/Output Summary (Last 24 hours) at 12/07/2022 0807 Last data filed at 12/07/2022 0300 Gross per 24 hour Intake 840 ml Output -- Net 840 ml Physical Exam Constitutional: General: She is not in acute distress. Appearance: Normal appearance. HENT: Head: Normocephalic and atraumatic. Right Ear: External ear normal. Left Ear: External ear normal. Nose: Nose normal. Mouth/Throat: Lips: [place]. Dentition: Normal dentition. Tongue: No lesions. Tongue does not deviate from midline. Eyes: General: Lids are normal. Conjunctiva/sclera: Conjunctivae normal. Neck: Thyroid: No thyroid mass or thyromegaly. Trachea: Trachea normal. Cardiovascular: Rate and Rhythm: Normal rate and regular rhythm. Pulses: No decreased pulses. Heart sounds: Normal heart sounds. Heart sounds not distant. No murmur heard. No friction rub. Pulmonary: Effort: Pulmonary effort is normal. No accessory muscle usage. Breath sounds: Normal breath sounds and air entry. No stridor or decreased air movement. Abdominal: General: Bowel sounds are normal. Palpations: There is no mass. Tenderness: There is no abdominal tenderness. Hernia: No hernia is present. Musculoskeletal: Cervical back: Full passive range of motion without pain. No rigidity or crepitus. No pain with movement. Right lower leg: No edema. Left lower leg: No edema. Skin: General: Skin is warm. Capillary Refill: Capillary refill takes less than 2 seconds. Findings: No lesion, rash or wound. Comments: Color normal for ethnicity Neurological: Mental Status: She is alert. Psychiatric: Attention and Perception: Attention normal. Mood and Affect: Mood and affect normal. Behavior: Behavior is cooperative. Cognition and Memory: She does not exhibit impaired recent memory or impaired remote memory. Judgment: Judgment normal. Diagnostics: Reviewed in EMR Labs: Reviewed in EMR BMP: Recent Labs 12/06/22 1852 12/06/22 2358 NA 138 136 K 4.2 4.0 CL 104 105 CO2 25 22 BUN 13 15 CREATININE 0.64 0.64 CALCIUM 9.7 9.0 MG 2.1 -- PHOS 4.2 -- CBC: Recent Labs 12/06/22 1852 12/07/22 0347 WBC 11.2* 11.0* HGB 14.6 14.8 HCT 45.2 43.5 PLT 361 340 MCV 94.6 92.9 RDW 13.4 13.2 Cardiac Injury Profile: Recent Labs 12/06/22 1852 12/06/22 2358 12/07/22 0347 TROPONINI 0.498* 0.436* 0.447* HgbA1c: 6.2 12/06/22 Assessment: MVCAD NSTEMI T2DM HLD KATRINA Thyroid Mass Plan: Continue ASA, statin and Heparin gtt Cards consulted appreciate input Consult endo - T2DM, thyroid mass Check A1c Check carotids, CT chest with no con Will discuss with CT Surgeon STS Score: Personally Reviewed: [x]Epic notes [x]Radiology studies [x]Labs [x]EKG []Other Spent total time 42 reviewing encounter including notes, diagnostic studies, counseling or coordinating care, and provided discussion regarding open heart surgery Associated attestation - Shawna Forbes MD - 12/08/2022 8:59 AM EST DOS: 12/07/22 I personally performed a face to face diagnostic evaluation on this patient. I agree with the findings and plan of care as documented by the SARKIS, there has been no change in the physical exam or findings unless otherwise noted below. 52 F with three vessel CAD, NSTEMI, diabetes. She has elevated troponin with prior chest pain. Thisis an acute condition needing treatment. Coronary artery disease: I discussed with her and her spouse the indications, risks, benefits, and perioperative course of a coronary artery bypass grafting. I discussed alternatives including no intervention, medical therapy only, and percutaneous coronary intervention with medications. A surgicalrevascularization is recommended in her case. On my review of the coronary angiogram, she does havegood targets and will need 2-3 vessel bypass grafts. She is quite functional and is of low risk. I discussed total arterial revascularization given her age. She was seen by interventional cardiology and she opts for percutaneous coronary intervention. I have discussed her case with the referring slab miller operator and the electrical controls assembler. A total of 80 minutes were spent between the face to face encounter, physical exam, reviewing the medical history, coordinating the patient's care, counseling/educating the patient, ordering prescript ions/medications/tests/procedures, interpreting results and documenting clinical information in thepatient's electronic health record on the day of the encounter. The patient was seen and examined independently and relevant data reviewed by myself. A full chart review was performed. Shawna Forbes MD [facility]othoracic [id number] History and physical note* SANTO Hopkins CNP - 12/07/2022 7:15 AM EST Images from the original note were not included. [facility]: Cardiothoracic Surgery H&P Note PATIENT NAME: Patricia WOLF: 1970 (52 y.o.) TODAY'S DATE: 12/07/2022 DATE OF ADMISSION: 12/06/2022 4:44 PM Subjective: CC: Chest Pain HPI: 52 y.o female with pmHx of T2DM, hyperlipidemia, KATRINA, small kidney, unilateral and thyroid mass presented to outside facility ([place]) with ongoing substernal chest pain. Per paper chart, patient has had pain off and on for the past 2 years with associated symptoms: arm pain, numbness in jaw.Trops slightly elevated and Cardiology was consulted. TTE completed which showed: EF 50%, mild segmental systolic dysfunction with the apex and mid-anterior hypokinetic. No valvular concerns. Cardiaccath showed MVCAD and she was transferred to [facility] for CABG evaluation. Currently patient is sitting in bed with no cardiac signs or symptoms. She endorsed chest pain for 2 years but states she hasn't had any since [place]. She lives at home with her in a one story ranch. 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 Cardiology consulted here at [facility]. Complete ROS documented and completed below. Review of Systems Constitutional: Negative for appetite change, diaphoresis, fatigue, fever and unexpected weight change. HENT: Negative for congestion and dental problem. Eyes: Negative for pain, redness and visual disturbance. Respiratory: Negative for cough, choking, chest tightness, shortness of breath and wheezing. Gastrointestinal: Negative for abdominal distention, abdominal pain, blood in stool, constipation, diarrhea, nausea and vomiting. Endocrine: Negative for cold intolerance and heat intolerance. Genitourinary: Negative for difficulty urinating and frequency. Musculoskeletal: Negative for arthralgias, back pain, gait problem and joint swelling. Skin: Negative for color change, pallor, rash and wound. Allergic/Immunologic: Negative for immunocompromised state. Neurological: Negative for dizziness, seizures, syncope, speech difficulty, weakness, light-headedness and numbness. Hematological: Does not bruise/bleed easily. Psychiatric/Behavioral: Negative for confusion, decreased concentration and sleep disturbance. The patient is not nervous/anxious. Allergies: Patient has no known allergies. Past Medical History: has a past medical history of Diabetes mellitus, type 2 (HCC), Hyperlipidemia, KATRINA (obstructive sleep apnea), and Thyroid mass. Past Surgical History: has a past surgical history that includes Cholecystectomy. Social History: reports that she has been smoking cigarettes. She has been smoking an average of .25 packs per day.She has never used smokeless tobacco. She reports that she does not currently use alcohol. She reports that she does not use drugs. Family History: family history includes Hypertension in her brother; Ovarian cancer in her mother. Thyroid disorderin grandmother and grandfather, Uncle and Aunt. Medications: Medication Documentation Review Audit Reviewed by SANTO Hopkins CNP (Nurse Practitioner) on 12/07/22 at 0807 Medication Order Taking? Sig Documenting Provider Last Dose Status cholecalciferol (D3 Maximum Strength) 125 MCG (5000 UT) capsule [id number] as directed Historical Provider, Active estradiol (Estrace) 1 MG tablet [id number] Take 1 mg by mouth daily. Historical Provider, Active modafinil (Provigil) 100 MG tablet [id number] No Take 100 mg by mouth daily. Historical Provider, Past Week Active Respiratory Therapy Supplies (CareTouch 2 CPAP Hose Nail Sticker) [facility] [id number] Historical Provider, Active rosuvastatin (Crestor) 5 MG tablet [id number] No Take 5 mg by mouth with evening meal. Historical Provider, 12/05/2022 Active Synjardy XR 25-1000 MG 24 hr tablet [id number] Take 1 tablet by mouth daily. Historical Provider, Active Objective: BP 109/73 Comment: covering nurse notified Pulse 65 Temp 36.2 C (97.2 F) (Temporal) Resp 16 Ht 5' 5 (1.651 m) Wt 203 lb 14.4 oz (92.5 kg) LMP (LMP Unknown) Comment: no menstrual period within last [address] SpO2 96% BMI 33.93 kg/m Intake/Output Summary (Last 24 hours) at 12/07/2022 0807 Last data filed at 12/07/2022 0300 Gross per 24 hour Intake 840 ml Output -- Net 840 ml Physical Exam Constitutional: General: She is not in acute distress. Appearance: Normal appearance. HENT: Head: Normocephalic and atraumatic. Right Ear: External ear normal. Left Ear: External ear normal. Nose: Nose normal. Mouth/Throat: Lips: [place]. Dentition: Normal dentition. Tongue: No lesions. Tongue does not deviate from midline. Eyes: General: Lids are normal. Conjunctiva/sclera: Conjunctivae normal. Neck: Thyroid: No thyroid mass or thyromegaly. Trachea: Trachea normal. Cardiovascular: Rate and Rhythm: Normal rate and regular rhythm. Pulses: No decreased pulses. Heart sounds: Normal heart sounds. Heart sounds not distant. No murmur heard. No friction rub. Pulmonary: Effort: Pulmonary effort is normal. No accessory muscle usage. Breath sounds: Normal breath sounds and air entry. No stridor or decreased air movement. Abdominal: General: Bowel sounds are normal. Palpations: There is no mass. Tenderness: There is no abdominal tenderness. Hernia: No hernia is present. Musculoskeletal: Cervical back: Full passive range of motion without pain. No rigidity or crepitus. No pain with movement. Right lower leg: No edema. Left lower leg: No edema. Skin: General: Skin is warm. Capillary Refill: Capillary refill takes less than 2 seconds. Findings: No lesion, rash or wound. Comments: Color normal for ethnicity Neurological: Mental Status: She is alert. Psychiatric: Attention and Perception: Attention normal. Mood and Affect: Mood and affect normal. Behavior: Behavior is cooperative. Cognition and Memory: She does not exhibit impaired recent memory or impaired remote memory. Judgment: Judgment normal. Diagnostics: Reviewed in EMR Labs: Reviewed in EMR BMP: Recent Labs 12/06/222 12/06/228 NA 138 136 K 4.2 4.0 CL 104 105 CO2 25 22 BUN 13 15 CREATININE 0.64 0.64 CALCIUM 9.7 9.0 MG 2.1 -- PHOS 4.2 -- CBC: Recent Labs 12/06/222 12/07/22 0347 WBC 11.2* 11.0* HGB 14.6 14.8 HCT 45.2 43.5 PLT 361 340 MCV 94.6 92.9 RDW 13.4 13.2 Cardiac Injury Profile: Recent Labs 12/06/22185112/06/228 12/07/22 0347 TROPONINI 0.498* 0.436* 0.447* HgbA1c: 6.2 12/06/22 Assessment: MVCAD NSTEMI T2DM HLD KATRINA Thyroid Mass Plan: Continue ASA, statin and Heparin gtt Cards consulted appreciate input Consult endo - T2DM, thyroid mass Check A1c Check carotids, CT chest with no con Will discuss with CT Surgeon STS Score: Personally Reviewed: [x]Epic notes [x]Radiology studies [x]Labs [x]EKG []Other Spent total time 42 reviewing encounter including notes, diagnostic studies, counseling or coordinating care, and provided discussion regarding open heart surgery Associated attestation - Shawna Forbes MD - 12/08/2022 8:59 AM EST DOS: 12/07/22 I personally performed a face to face diagnostic evaluation on this patient. I agree with the findings and plan of care as documented by the SARKIS, there has been no change in the physical exam or findings unless otherwise noted below. 52 F with three vessel CAD, NSTEMI, diabetes. She has elevated troponin with prior chest pain. Thisis an acute condition needing treatment. Coronary artery disease: I discussed with her and her spouse the indications, risks, benefits, and perioperative course of a coronary artery bypass grafting. I discussed alternatives including no intervention, medical therapy only, and percutaneous coronary intervention with medications. A surgicalrevascularization is recommended in her case. On my review of the coronary angiogram, she does havegood targets and will need 2-3 vessel bypass grafts. She is quite functional and is of low risk. I discussed total arterial revascularization given her age. She was seen by interventional cardiology and she opts for percutaneous coronary intervention. I have discussed her case with the referring slab miller operator and the electrical controls assembler. A total of 80 minutes were spent between the face to face encounter, physical exam, reviewing the medical history, coordinating the patient's care, counseling/educating the patient, ordering prescript ions/medications/tests/procedures, interpreting results and documenting clinical information in thepatient's electronic health record on the day of the encounter. The patient was seen and examined independently and relevant data reviewed by myself. A full chart review was performed. Shawna Forbes MD Cardiothoracic Surgery documented in this [facility]01-24-2023 Consult note* Rae Castorena MD - 12/07/2022 1:20 AM ESTAssociated Order(s): IP CONSULT TO CARDIOLOGY [facility] Cardiology /Electrophysiology Consult Note Reason for Consult/Chief Complaint: Evaluation for CABG v PCI Consulting provider: Artemio Established slab miller operator: N/A Assessment/Plan NSTEMI Triple Vessel Coronary Artery Disease - will heparinize at this time in the setting of troponinemia, recent chest pain, known disease burden - [facility] films obtained via CD, plan to upload to PACS today, Interventional Team to review anatomy - will discuss candidacy for PCI vs. CABG with CT surgery team and patient, patient informed about her disease burden and made aware that her case will be vetted using a team approach Rest per Dr. Cortés's attestation History of Present Illness: Patricia Lopez is a 52 y.o. female with PMH significant for tobacco use, DMT2, HLD, KATRINA who presents as a transfer from [facility] for CABG evaluation. She was initially admitted 12/03 after experiencing ongoing chest pain with intermittent radiation to her jaw, shoulder, and L arm for several hours, prompting her present to [facility].She was found to have a HS troponin of 85 and was treated with therapeutic lovenox until she underwent LHC on 12/06 and was found to have triple-vessel disease, with full description of findings below. As such, she was transferred to [facility] for CABG evaluation. Interventional Cardiology was consulted in regard to possible PCI v. CABG. In regard to her cardiac history, the patient reports that she underwent a cardiac stress test in 2018 after experiencing frequent episodes of lightheadedness and says that the stress test revealed no significant problems. She had never undergone cardiac catheterization prior to her procedure on 12/06. Past Medical History: DMT2 HLD KATRINA Thyroid Mass Past Surgical History: CCY Family History: Brother - HTN GM - arrhythmia Social History: Current smoker, estimates that she smokes 5 cigarettes/day Medications: aspirin, 81 mg, Oral, Daily atorvastatin, 40 mg, Oral, Daily influenza, 0.5 mL, IntraMUSCular, Once insulin lispro, 0-6 Units, SubCUTAneous, TID WC And insulin lispro, 0-6 Units, SubCUTAneous, Nightly Home Meds: Synjardy XR 25-1000 ER tablet daily Rosuvastatin 10 mg daily Trulicity 0.75 mg injection weekly Allergies: Reviewed - no allergy to contrast Review of Systems: All other systems were reviewed and are negative other than as noted in the HPI. Physical Examination: Vitals: 12/06/22 1702 12/06/223 12/06/22 2243 12/06/22 2359 BP: 119/80 116/67 Pulse: 82 73 Resp: 18 16 Temp: 36.2 C (97.1 F) 36.1 C (97 F) TempSrc: Temporal Temporal SpO2: 95% 97% 97% Weight: 208 lb (94.3 kg) Height: 5' 5 (1.651 m) Intake/Output Summary (Last 24 hours) at 12/07/2022 0120 Last data filed at 12/06/2022 1700 Gross per 24 hour Intake 360 ml Output -- Net 360 ml Wt Readings from Last 3 Encounters: 12/06/22 208 lb (94.3 kg) Constitutional: No acute distress. Well-nourished. Well hydrated. Psychiatric: A &O x 3. Mood is calm. Affect is appropriate. Eyes: Pupils are equal and round; Conjunctiva are not injected; Sclera are non-icteric. ENMT: Ears/nose without external abnormalities. Oral mucosa is pink and moist. Neck: no JVD. No carotid bruits; No thyromegaly. Respiratory: Lungs are clear to auscultation bilaterally. No rales or wheezes. Respiratory effort is normal and symmetrical bilaterally; Good air movement bilaterally. Heart: RRR ; Normal S1 and S2. no murmur; No rub; no gallop. Vasc: Peripheral pulses 2+ and intact. Abdomen: Normal BS, soft, non-tender, non-distended; no hepatomegaly. Extremities/Skin: no LE edema; Skin warm to touch and well perfused; skin coloration is normal. Musculoskeletal: Head - normocephalic. Neck - supple Laboratory Tests: Recent Labs 12/06/22185112/06/228 NA 138 136 K 4.2 4.0 CL 104 105 CO2 25 22 BUN 13 15 CREATININE 0.64 0.64 EGFR >90.0 >90.0 Recent Labs 01/23/23 1852 01/23/23 2358 TROPONINI 0.498* 0.436* No results for input(s): BNP in the last 72 hours. Recent Labs 12/06/22 1852 WBC 11.2* HGB 14.6 HCT 45.2 MCV 94.6 PLT 361 Lab Results Component Value Date HGBA1C 6.2 (H) 12/06/2022 No results found for: TSH No results found for: CHOL No results found for: HDL No results found for: LDLCALC No results found for: TRIG No results found for: CHOLHDL No results for input(s): INR in the last 72 hours. No results found for: IRON, TIBC, FERRITIN Radiology: CXR image reviewed: no acute cardiopulmonary process Cardiac Tests Personally Reviewed: Last EKG 12/06/22 Impression Sinus rhythm Left axis deviation Probable anterolateral infarct, age indeterminate Telemetry findings: NSR Reports reviewed: Last Echo [facility] ECHO 12/03 - EF 50%, S1DD, hypokinetic mid-anterior wall and apex, RV with normal systolic function, no significant valvular disease or pericardial effusion Last Cath 12/06 at OSH LM: angiographically normal LAD: 80-90% stenosis of two segments of the first diagonal branch, ostial lesion with 80% stenosis,diffuse disease throughout vessel LCX: mild diffuse disease, OM with proximal 70% stenosis RCA: dominant vessel, PDA with 80% ostial stenosis and Acute marginal with 70% stenosis Last Stress Test No results found for this or any previous visit. Last EP study No results found for this or any previous visit. No results found for: EFBP, PLVEF, LVEFPHYS, LVEF2D, EF Rae Castorena MD DATE of SERVICE: 12/07/2022 [employer] Work Phone: [phone] 341-181001-23-2023 Nurse Note* Sheree Rees RN - 12/06/2022 9:53 PM EST Pt has an order in for cpap at night. Per patient's request and respiratory's approval, pt would like to be put on nasal cannula @ 2 liters instead. Pt does not have her home cpap with her, and is worried about the face fitting of the hospitals cpap. Will put pt on 2 liters nasal canula at bedtime. [facility]01-23-2023 Plan of care note* Care Plan - Angela Abrams RN - 12/06/2022 5:44 PM EST The patient is Moderately Unstable - Medium risk of patient condition declining or worsening The patient's goals for the shift include vital signs stable, free from chest pain The clinical goals for the shift include remain hemodynamically stable [facility]01-23-[address] Shay [facility] December 06, 2022 11:05am Note Date/Time December 06, 2022 1 0:51am [facility] Medical Records Department [address] [place] [id number] Discharge Summary 12/06/22 1050 MR#: [id number] Acct: [id number] Name: PATRICIA LOPEZ Rep #:[id number] : 1970 52 From: Lucia Shay DO PCP: ARMANDO Jackman Status:[facility] Date of Admission: 12/03/22 Date of Discharge: 12/06/22 Primary Care Physician: ARMANDO Jackman Consultations 12/03/22 20:25 Consult: Cardiology Routine Consulting Provider: Ronak Burt Reason for Consult: NSTEMI EMERGENT Consult: No MD Notified: Yes Date Notified: 12/03/22 Time Notified: 19:31 Method of Notification: Verbal Reason For Visit: NON-STEMI Diagnosis Discharge Diagnosis (1) ACS (acute coronary syndrome): Status: Acute Code(s): I24.9 - Acute ischemic heart disease, unspecified (2) Hyperlipidemia: Status: Chronic Code(s): E78.5 - Hyperlipidemia, unspecified Medications at Discharge Home Medications levonorgestrel 20 mcg/24 hours (8 yrs) 52 mg intrauterine device (Mirena) 1 insert intrauterine ONCE CONTROL 06/13/18 empagliflozin 25 mg-metformin ER 1,000 mg tablet,extended release 24hr (SynjardyXR) 1 tab PO DAILY blood sugars 12/03/22 modafinil 100 mg tablet 100 mg PO DAILY SLEEP APNEA 12/03/22 rosuvastatin 10 mg tablet 10 mg PO DAILY cholesterol 12/03/22 tirzepatide 5 mg/0.5 mL subcutaneous pen injector (Mounjaro) 5 mg subcut SMALLS DIABETES 12/03/22 Hospital Course Procedures 2-D Echocardiogram, Cardiac catheterization and EKG Summary of Care Provided Minutes Spent on Discharge: 33 Hospital Course: Mrs. Lopez is a 52-year-old lady male who presented to emergency department [facility] on 12/03/2022 with complaints substernal chest pain that started at 11 AM on the day of presentation. She reported that it had beenhappening on and off since that time. She reported the pain was squeezing in nature and radiated to her throat and both arms. Her vital signs on presentation were stable and her lab work was overall unremarkable other than a mildly elevated white count at 12,000, glucose of 135, and her initial troponin was 85. Her EKG showed normal sinus rhythm without evidence of acute ischemia. She was admitted to telemetry and placed on subcu Lovenox therapeutic dosing as well as Nitropaste. She was maintained on aspirin, beta-rich, high-dose statin was initiated and an echocardiogram was performed on the day of admissionand showed an EF of 50% with stage I diastolic dysfunction and mild segmental systolic dysfunction at the apex and mid anterior region of the LV. Cardiac enzymes were cycled and increased from 85-4 76 and her third troponin was 990. She was evaluated by cardiology on 12/04/2022. Lipid panel was performed finding a total cholesterol of 254/LDL 164/HDL 30/triglyceride 299. Cardiac catheterization was performed on the a.m. of 12/06/2021 at which time triple-vessel disease involving the LAD, circumflex, and RCA with a low normal ejectionfraction was identified. With these findings transfer to tertiary center for cardiothoracic surgery intervention was recommended and Dr. Burt spoke to Dr. Ulloa at [facility] and he accepted for transfer. Her most recent hemoglobin A1c was done on 08/24/2022 and was 5.8. A bed was available for transfer on 12/06/2022 the patient was transferred to [facility] chest pain-free on this day. Discharge diagnoses: NSTEMI Triple-vessel cardiovascular disease Hyperlipidemia DM-2 KATRINA Tobacco abuse Physical Exam Const alert, oriented x3, no apparent distress and well nourished Constitutional Narrative: Obese, middle-aged, white female lying in bed, nursing and at bedside, patient appears comfortable, has just returned from the [facility] General Appearance: cooperative, comfortable, well kempt and well developed Orientation / Consciousness: awake, oriented to person, oriented to place and oriented to time Exam Limitations: no limitations Nutritional Appearance: obese HEENT normocephalic, head/scalp atraumatic, hearing grossly normal bilaterally and moist oral mucous membranes HEENT Narrative: Mallampati 3, no thrush Resp normal respiratory effort, no retractions, no use of accessory muscles and clearto auscultation bilaterally Auscultation: Negative for crackles, rales, rhonchi or wheezes Cardio regular rate, regular rhythm, S1 normal heart sound, S2 normal heart sound, no murmurs, no rub, no gallops and no clicks GI normal to inspection, nondistended, normoactive bowel sounds, soft to palpation and non-tender Extremity no clubbing, cyanosis or edema Extremity Narrative: Right radial post catheterization compressive device in place with good cap refill bilateral upper extremities, 2+ pedal pulses Neuro oriented x3, CN's II-XII intact bilaterally, moves all extremities and no focal motor deficits Speech: speech normal Psych affect normal Psych Narrative: Very pleasant, appropriately interactive Weight / BMI Weight Weight: 93.2 kg Body Mass Index (BMI) 34.2 ABG / Lab / Microbiology Data Result Diagrams: 12/05/22 06:21 12/05/22 06:21 Laboratory: Laboratory Results - last 24 hr 12/05/22 11:28: POC Glucose 167 H 12/05/22 16:39: POC Glucose 98 12/05/22 20:28: POC Glucose 120 H 12/06/22 06:33: POC Glucose 111 H Meaningful Use Info Meaningful Use Diagnoses (Choose all that apply): None applicable Discharge Plan Admission Admit Date/Time: 12/03/22 19:22 Primary Reason for Your Visit: Chest Pain Attending Provider: Lucia Shay Primary Care Provider: Joshua Kurtz NP Consulting Providers: Ronak Burt ; Supa Witt ; Shilpa Norton Discharge Orders/Prescriptions Prescriptions: No Action levonorgestrel [Mirena] 20 mcg/24 hr (5 years) intrauterine device 1 insert Intrauterine ONCE modafinil 100 mg tablet 100 mg PO DAILY rosuvastatin 10 mg tablet 10 mg PO DAILY Synjardy XR 25-1,000 mg tablet, IR - ER, biphasic 24hr 1 tab PO DAILY Mounjaro 5 mg/0.5 mL pen injector 5 mg subcut SMALLS Referrals / Follow Up: Joshua Kurtz [facility] [Primary Care Provider] - Arvind Rothman [facility], [facility] [Med Staff - [facility] Practice Prof] - 01/03/23 10:00 am Disposition Disposition (needs filled in before D/C Order can be placed): Acute Care Hospital Charges/Coding Visit Charges Inpatient E&M: 68158 Disch Hosp 12/06/22 110 <Electronically signed by Lucia Shay DO> Cosigner Signature (if applicable): CC: ARMANDO Kurtz; Dr. Lucia Shay DO~ Signed [facility] Work Phone: 1(501) 182-805201-22-[address] Norton [facility] December 05, 2022 12:45pm Note Date/Time December 05, 2022 8 :00am [facility] Medical Records Department [address] [place] [id number] Progress Note - Hospitalist 12/05/22 0800 MR#: [id number] Acct: [id number] Name: PATRICIA LOPEZ Rep #:[id number] : 1970 52 From: Shilpa Norton MD PCP: ARMANDO Jackman Status:ADM IN Location: [place] [address] Subjective Subjective Follow-up on acute non-STEMI: Patient was seen and examined.?She denied any chest pain at time of being seen.?Denied any dizziness or palpitations. Patient will be going for [facility] in am. Objective Data Objective Data Vital Signs: Vital Signs Temp Pulse Resp BP Pulse Ox O2 Del Method 97.6 F L 65 18 98/52 L 94 Room Air 12/05/22 05:42 12/05/22 05:42 12/05/22 05:42 12/05/22 05:52 12/05/22 05:42 12/05/22 06:51 Oxygen Delivery Method Room Air Weight: 93.2 kg Body Mass Index (BMI) 34.2 Intake & Output: Intake and Output for Last 24 Hours 12/03/22 12/04/22 12/05/22 23:59 23:59 23:59 Intake Total 640 / 640 120 / 120 Balance 640 / 640 120 / 120 Lab / Micro Data Result Diagrams: 12/05/22 06:21 12/05/22 06:21 Labs: Laboratory Results - last 24 hr 12/04/22 11:25: POC Glucose 103 12/04/22 16:44: POC Glucose 102 12/04/22 20:43: POC Glucose 108 H 12/05/22 06:21: WBC 8.9, RBC 4.47, Hgb 13.9, Hct 42.7, MCV 95.5, MCH 31.1, MCHC 32.6, RDW Std Deviation 44.8 H, RDW Coeff of Lakesha 12.7, Plt Count 324, MPV 9.2, Immature Gran % (Auto) 0.200, Neut % (Auto) 53.1, Lymph % (Auto) 34.3, Collier % (Auto) 6.5, Eos % (Auto) 5.1 H, Baso % (Auto) 0.8, Absolute Neuts (auto) 4.7, Absolute Lymphs (auto) 3.06, Nucleated RBC % 0 12/05/22 06:21: Sodium 137, Potassium 3.9, Chloride 106, Carbon Dioxide 24.0, Anion Gap 7, BUN 10, Creatinine 0.63, Estim Creat Clear Calc 93.99, Est GFR (MDRD) Af Amer 128, Est GFR (MDRD) Non-Af 106, BUN/Creatinine Ratio 16.0, Glucose 96, Calcium 9.0, Total Bilirubin 0.50, AST 23, ALT 30, Alkaline Phosphatase 74, Total Protein 7.1, Albumin 3.4, Globulin 3.7, Albumin/Globulin Ratio 0.9 12/05/22 06:27: POC Glucose 102 Radiography Diagnostic Testing: Radiology Impression Echocardiogram 12/03/22 20:25 Interpretation Summary Normal LV size. The estimated ejection fraction is 50 %. Stage 1 diastolic dysfunction. Mild segmental systolic dysfunction (see wall motion). Ordering Physician: Supa Witt Referring Physician: Joshua Kurtz Performed By: Kelsi Lafleur, LOUIE, RVT Physical Exam Narrative Physical exam: General: Alert, Oriented x3, Cooperative HEENT: Atraumatic Oral: Moist Mucosa Neck: Supple Lungs: Clear to auscultation Cardiovascular: HS I+II, regular, no murmurs Abdomen: Bowel Sounds Present, Soft, Non Tender Extremities: No edema Skin: No rashes, No breakdown Neurological: Grossly intact Psych/Mental Status: Appropriate Assessment & Plan Assessment/Plan (1) Elevated troponin: (2) Hypercholesterolemia: (3) Diabetes: PLAN: Plan 1, Acute NSTEMI, going for [facility] in am Continue on Lovenox therapeutic dosing, aspirin, statin Cardiology following 2. Type II DM, continue insulin sliding scale with blood glucose Continue to hold empagliflozin/metformin,mounjaro 3. Hyperlipidemia, continue on statin 4. KATRINA, continue on Provigil 5. DVT PPx- on therapeutic Lovenox Charges/Coding Visit Charges Inpatient E&M: 50545 Subs Hosp L2 12/05/22 1245 <Electronically signed by Shilpa Norton MD> Cosigner Signature (if applicable): CC: ~ Signed [facility] Work Phone: 1(722) 666-765801-22-[address] Burt [facility] December 05, 2022 9:39am Note Date/Time December 05, 2022 9 :39am [facility] Medical Records Department [address] [place] [address] [place] [address] Progress Note - Cardiology 12/05/22 0938 MR#: [id number] Acct: [id number] Name: PATRICIA LOPEZ Rep #:[id number] : 1970 52 From: Ronak Burt MD PCP: Joshua Kurtz NP-Esteban Status:ADM IN Location: [place] [address] Subjective Subjective Patient seen and evaluated no chest pain since admission. Objective Data Vital Signs: Vital Signs Temp Pulse Resp BP Pulse Ox O2 Del Method 97.6 F L 65 18 98/52 L 94 Room Air 12/05/22 05:42 12/05/22 05:42 12/05/22 05:42 12/05/22 05:52 12/05/22 05:42 12/05/22 06:51 Oxygen Delivery Method Room Air Weight: 205 lb 7.533 oz Body Mass Index (BMI) 34.2 Intake & Output: Intake and Output for Last 24 Hours 12/03/22 12/04/22 12/05/22 23:59 23:59 23:59 Intake Total 640 / 640 120 / 120 Balance 640 / 640 120 / 120 Lab / Micro Data Result Diagrams: 12/05/22 06:21 12/05/22 06:21 Labs: Laboratory Results - last 24 hr 12/04/22 11:25: POC Glucose 103 12/04/22 16:44: POC Glucose 102 12/04/22 20:43: POC Glucose 108 H 12/05/22 06:21: WBC 8.9, RBC 4.47, Hgb 13.9, Hct 42.7, MCV 95.5, MCH 31.1, MCHC 32.6, RDW Std Deviation 44.8 H, RDW Coeff of Lakesha 12.7, Plt Count 324, MPV 9.2, Immature Gran % (Auto) 0.200, Neut % (Auto) 53.1, Lymph % (Auto) 34.3, Collier % (Auto) 6.5, Eos % (Auto) 5.1 H, Baso % (Auto) 0.8, Absolute Neuts (auto) 4.7, Absolute Lymphs (auto) 3.06, Nucleated RBC % 0 12/05/22 06:21: Sodium 137, Potassium 3.9, Chloride 106, Carbon Dioxide 24.0, Anion Gap 7, BUN 10, Creatinine 0.63, Estim Creat Clear Calc 93.99, Est GFR (MDRD) Af Amer 128, Est GFR (MDRD) Non-Af 106, BUN/Creatinine Ratio 16.0, Glucose 96, Calcium 9.0, Total Bilirubin 0.50, AST 23, ALT 30, Alkaline Phosphatase 74, Total Protein 7.1, Albumin 3.4, Globulin 3.7, Albumin/Globulin Ratio 0.9 12/05/22 06:27: POC Glucose 102 Cardiology Labs/Tests 12/05/22 06:21: WBC 8.9, RBC 4.47, Hgb 13.9, Hct 42.7, MCV 95.5, MCH 31.1, MCHC 32.6, Plt Count 324, MPV 9.2, Immature Gran % (Auto) 0.200, Neut % (Auto) 53.1, Lymph % (Auto) 34.3, Collier % (Auto) 6.5, Eos % (Auto) 5.1 H, Baso % (Auto) 0.8, Absolute Neuts (auto) 4.7, Nucleated RBC % 0 12/05/22 06:21: Sodium 137, Potassium 3.9, Chloride 106, Carbon Dioxide 24.0, Anion Gap 7, BUN 10, Creatinine 0.63, Est GFR (MDRD) Af Amer 128, Est GFR (MDRD)Non-Af 106, BUN/Creatinine Ratio 16.0, Glucose 96, Calcium 9.0, Total Bilirubin 0.50 Rhythm: EKG: ECHO: Stress Test: Cardiac Cath: PCI: CT Surgery: Holter monitor: EPS: PPM: CXR: Chest CT Scan: Radiography Diagnostic Testing: Radiology Impression Echocardiogram 12/03/22 20:25 Interpretation Summary Normal LV size. The estimated ejection fraction is 50 %. Stage 1 diastolic dysfunction. Mild segmental systolic dysfunction (see wall motion). Ordering Physician: Supa Witt Referring Physician: Joshua Kurtz Performed By: Kelsi Lafleur, RDKYLIE, RVT Physical Exam Const alert, oriented x3 and no apparent distress General Appearance: cooperative HEENT hearing grossly normal bilaterally Head and Scalp: atraumatic Eyes EOMs intact bilaterally Neck General: normal visual inspection Chest inspection of chest normal and palpation of chest normal Resp normal respiratory effort Auscultation: clear to auscultation bilaterally Cardio regular rate, regular rhythm, S1 normal heart sound and S2 normal heart sound Jugular Venous Distention: JVD GI normal to inspection, nondistended, normoactive bowel sounds Extremity normal capillary refill and no pedal edema Peripheral Pulses: Yes pulses 2+ throughout and femoral pulses present Skin no rashes or lesions noted Neuro oriented x3 and CN's II-XII intact bilaterally Psych Appearance: grossly normal and appropriate Assessment & Plan Assessment/Plan (1) ACS (acute coronary syndrome): PLAN: She presents with chest discomfort and is noted to have evidence of a non- ST elevation myocardial infarction. * Will continue aspirin * Continue beta-rich * Start high intensity statin * Lovenox 1 mg/kg twice a day * Patient at this moment is pain-free with preserved ejection fraction noted on the echocardiogram with anteroapical hypokinesis. * Will scheduled for left heart catheterization Tuesday a.m. (2) Hyperlipidemia: PLAN: Continue aggressive risk factor modification Thank you for allowing me to participate in the care of your patient. Please don't hesitate to call if any issues arise. 12/05/22 0939 <Electronically signed by Ronak Burt MD> Cosigner Signature (if applicable): CC: ~ Signed [facility] Work Phone: 1(651) 318-481601-21-[address] Norton [facility] December 04, 2022 3:40pm Note Date/Time December 04, 2022 1 2:22pm [facility] Medical Records Department [address] [place] [address] Progress Note - Hospitalist 12/04/22 1222 MR#: [id number] Acct: [id number] Name: PATRICIA LOPEZ Rep #:[id number] : 1970 52 From: Shilpa Norton MD PCP: ARMANDO Jackman Status:ADM IN Location: [place] [address] Subjective Subjective Follow-up on acute non-STEMI: Patient was seen and examined. She denied any pain at time of being seen. Denied any dizziness or palpitations Objective Data Objective Data Vital Signs: Vital Signs Temp Pulse Resp BP Pulse Ox O2 Del Method 97.6 F L 62 20 H 123/84 H 97 Room Air 12/04/22 10:57 12/04/22 10:57 12/04/22 10:57 12/04/22 10:57 12/04/22 10:57 12/04/22 10:57 Oxygen Delivery Method Room Air Weight: 93.2 kg Body Mass Index (BMI) 34.2 Lab / Micro Data Result Diagrams: 12/03/22 17:15 12/04/22 06:39 Labs: Laboratory Results - last 24 hr 12/03/22 17:15: WBC 12.0 H, RBC 4.85, Hgb 15.0, Hct 46.5, MCV 95.9, MCH 30.9, MCHC 32.3, RDW Std Deviation 46.6 H, RDW Coeff of Lakesha 13.2, Plt Count 367, MPV 9.2, Immature Gran % (Auto) 0.400, Neut % (Auto) 59.6, Lymph % (Auto) 29.1, Collier% (Auto) 5.0, Eos % (Auto) 5.3 H, Baso % (Auto) 0.6, Absolute Neuts (auto) 7.1, Absolute Lymphs (auto) 3.48, Nucleated RBC % 0 12/03/22 17:15: Sodium 141, Potassium 3.6, Chloride 107, Carbon Dioxide 28.0, Anion Gap 6, BUN 9, Creatinine 0.77, Estim Creat Clear Calc 76.90, Est GFR (MDRD) Af Amer 101, Est GFR (MDRD) Non-Af 84, BUN/Creatinine Ratio 11.7, [id number] H, Calcium 9.5, Troponin I High Sens 85 H 12/03/22 20:40: Troponin I High Sens 476 H* 12/03/22 21:55: POC Glucose 104 12/03/22 22:48: Troponin I High Sens 990 H* 12/04/22 06:23: POC Glucose 81 12/04/22 06:39: Sodium 141, Potassium 3.9, Chloride 111 H, Carbon Dioxide 25.0, Anion Gap 5, BUN 10, Creatinine 0.63, Estim Creat Clear Calc 93.99, Est GFR (MDRD) Af Amer 127, Est GFR (MDRD) Non-Af 105, BUN/Creatinine Ratio 15.9, Glucose 101, Calcium 8.9, Triglycerides 299 H, Cholesterol 254 H, LDL Cholesterol 164 H, VLDL Cholesterol 60 H, HDL Cholesterol 30 L Radiography Diagnostic Testing: Radiology Impression Chest X-Ray 12/03/22 17:21 IMPRESSION: 1. No evidence of acute cardiopulmonary process Electronically Signed: Marcelo Huston MD at 17:52 EST , Echocardiogram 12/03/22 20:25 Interpretation Summary Normal LV size. The estimated ejection fraction is 50 %. Stage 1 diastolic dysfunction. Mild segmental systolic dysfunction (see wall motion). Ordering Physician: Supa Witt Referring Physician: Joshua Kurtz Performed By: Kelsi Lafleur RDCS, RVT Physical Exam Narrative Physical exam: General: Alert, Oriented x3, Cooperative HEENT: Atraumatic Oral: Moist Mucosa Neck: Supple Lungs: Clear to auscultation Cardiovascular: HS I+II, regular, no murmurs Abdomen: Bowel Sounds Present, Soft, Non Tender Extremities: No edema Skin: No rashes, No breakdown Neurological: Grossly intact Psych/Mental Status: Appropriate Assessment & Plan Assessment/Plan (1) Elevated troponin: (2) Hypercholesterolemia: (3) Diabetes: PLAN: Plan 1, Acute NSTEMI, likely type I Patient with multiple comorbidities cardiovascular risk factors have been known history of heart disease Troponins went from 85-->990 Patient is currently on Lovenox therapeutic dosing, aspirin, statin Cardiology consulted, cardiac cath planned for Tuesday morning 2. Type II DM, continue insulin sliding scale with blood glucose Continue to hold empagliflozin/metformin,mounjaro 3. Hyperlipidemia, continue on statin 4. KATRINA, continue on Provigil 5. DVT PPx- on therapeutic Lovenox Charges/Coding Visit Charges Inpatient E&M: 60553 Subs Hosp L2 12/04/22 1540 <Electronically signed by Shilpa Norton MD> Cosigner Signature (if applicable): CC: ~ Signed [facility] Work Phone: 1(224) 548-670901-21-[address] Burt [facility] December 04, 2022 11:12am Note Date/Time December 04, 2022 1 1:02am [facility] Medical Records Department [address] [place] [address] Consultation - Cardiology 12/04/22 1058 MR#: [id number] Acct: [id number] Name: PATRICIA LOPEZ Rep #:[id number] : 1970 52 From: Ronak Burt MD PCP: ARMANDO Jackman Status:ADM IN Location: [place] [address] Assessment & Plan Assessment/Plan (1) ACS (acute coronary syndrome): PLAN: She presents with chest discomfort and is noted to have evidence of a non- ST elevation myocardial infarction. * Will continue aspirin * Continue beta-rich * Start high intensity statin * Lovenox 1 mg/kg twice a day * Patient at this moment is pain-free with preserved ejection fraction noted on the echocardiogram with anteroapical hypokinesis. * Will scheduled for left heart catheterization Tuesday a.m. (2) Hyperlipidemia: PLAN: Continue aggressive risk factor modification Thank you for allowing me to participate in the care of your patient. Please don't hesitate to call if any issues arise. HPI Consult Data Date of Consult: 12/04/22 HPI Narrative HPI Narrative: PATRICIA LOPEZ, is a 52 F who presents to the emergency room with chest discomfort which she describes as a tightness and squeezing sensation and occasional sharp discomfort. She says that she has had on and off discomfort since 2019. She had previously been investigated in the hospital with an echocardiogram which was noted to be normal. At this time the discomfort started at about 11:00 was squeezing and she did have a little bit of jaw discomfort. She had no dizziness or diaphoresis no near syncope or syncope but it seemed to come with activity or with movement. She presented to the emergency room and her initial cardiac enzymes were noted to be mildly abnormal. Her EKG demonstrated normal sinus rhythm with no acute changes. [facility] Medical History Diabetes type 2, uncontrolled Dyspnea on exertion Hyperlipidemia Obstructive sleep apnea Small kidney, unilateral Thyroid mass Home Medications levonorgestrel 20 mcg/24 hours (8 yrs) 52 mg intrauterine device (Mirena) 1 insert intrauterine ONCE CONTROL 06/13/18 [History Last Taken Unknown] empagliflozin 25 mg-metformin ER 1,000 mg tablet,extended release 24hr (SynjardyXR) 1 tab PO DAILY blood sugars 12/03/22 [History Last Taken 12/03/22] modafinil 100 mg tablet 100 mg PO DAILY SLEEP APNEA 12/03/22 [History Last Taken 12/03/22] rosuvastatin 10 mg tablet 10 mg PO DAILY cholesterol 12/03/22 [History Last Taken 12/03/22] tirzepatide 5 mg/0.5 mL subcutaneous pen injector (Mounjaro) 5 mg subcut SMALLS DIABETES 12/03/22 [History Last Taken 11/28/22] Allergy/AdvReac Type Severity Reaction Status Date / Time No Known Allergies Allergy Verified 12/03/22 17:05 Family History Mother Ovarian cancer Grandmother Thyroid disorder Arrhythmia Grandfather Thyroid disorder had thyroid removed for cancer Uncle Thyroid disorder Aunt Thyroid disorder thyroid cancer and had removed Brother Hypertension Surgical History History of cholecystectomy Social History Smoking Status: Current every day smoker tobacco type: cigarettes ROS Constitutional Constitutional: Denies anorexia, change in weight, chills, fatigue, fever(s), malaise, night sweats or weakness Eyes Eyes: Denies blurry vision, change in eye color, change in vision, discharge from eye(s), double vision or eye pain ENT HEENT: Denies abnormal hearing, dysphagia or ear pain Cardiovascular Cardiovascular: Reports chest pain; Denies claudication, dyspnea on exertion, edema, palpitations or rapid heart rate Respiratory/Chest Respiratory/Chest: Denies cough, dyspnea, excessive phlegm production, hemoptysis, productive cough, shortness of breath at rest or shortness of breathwith exertion Gastrointestinal Gastrointestinal: Denies abdominal pain, coffee ground emesis, constipation, diarrhea, dyspepsia, hematemesis, hematochezia, loose stools, melena, nausea or vomiting Genitourinary Genitourinary: Denies dysuria, hematuria, urinary frequency, urinary hesitancy, urinary incontinence or urinary urgency Musculoskeletal Musculoskeletal: Denies back pain, joint pain, joint stiffness, joint swelling, myalgias or neck pain Neurologic Neurologic: Denies abnormal gait, abnormal speech, dizziness, focal weakness, headache(s), loss of vision, numbness, other visual disturbances, paresthesias, syncope or tingling Psychiatric Psychiatric: Denies anxiety, cognitive impairment, depression, irritability, mood swings or suicidal ideation Endocrine Endocrinology: Denies change in body appearance, cold intolerance, excessive sweating, heat intolerance, polydipsia or polyuria Hematologic/Lymphatic Hematologic/Lymphatic: Denies none, anemia, easy bleeding, easy bruising or lymphadenopathy Allergic/Immunologic Allergic/Immunologic: Denies rhinitis, urticaria, eczemia or asthma Physical Exam Const alert, oriented x3 and no apparent distress General Appearance: cooperative HEENT hearing grossly normal bilaterally Head and Scalp: atraumatic Eyes EOMs intact bilaterally Neck General: normal visual inspection Chest inspection of chest normal and palpation of chest normal Resp normal respiratory effort Auscultation: clear to auscultation bilaterally Cardio regular rate, regular rhythm, S1 normal heart sound and S2 normal heart sound Jugular Venous Distention: JVD GI normal to inspection, nondistended, normoactive bowel sounds Extremity normal capillary refill and no pedal edema Peripheral Pulses: Yes pulses 2+ throughout and femoral pulses present Skin no rashes or lesions noted Neuro oriented x3 and CN's II-XII intact bilaterally Psych Appearance: grossly normal and appropriate Risk Stratification Risk Stratification Applicable: Yes Age >/= 65: No >/= 3 CAD Risk Factors (HTN, HLD, DM, family hx of CAD, or current smoker): Yes Aspirin Use in the Past 7 Days: No Severe Angina (>/= episodes in 24 hours): Yes EKG ST Changes >/= 0.5mm: No Positive Cardiac Marker: Yes ALBERT Risk Stratification Score: 3 ALBERT % Risk: 13% Risk Objective Data Vital Signs: Vital Signs Temp Pulse Resp BP Pulse Ox O2 Del Method 97.6 F L 62 20 H 123/84 H 97 Room Air 12/04/22 10:57 12/04/22 10:57 12/04/22 10:57 12/04/22 10:57 12/04/22 10:57 12/04/22 10:57 Oxygen Delivery Method Room Air Weight: 205 lb 7.533 oz Body Mass Index (BMI) 34.2 Lab / Micro Data Result Diagrams: 12/03/22 17:15 12/04/22 06:39 Labs: Laboratory Results - last 24 hr 12/03/22 17:15: WBC 12.0 H, RBC 4.85, Hgb 15.0, Hct 46.5, MCV 95.9, MCH 30.9, MCHC 32.3, RDW Std Deviation 46.6 H, RDW Coeff of Lakesha 13.2, Plt Count 367, MPV 9.2, Immature Gran % (Auto) 0.400, Neut % (Auto) 59.6, Lymph % (Auto) 29.1, Collier% (Auto) 5.0, Eos % (Auto) 5.3 H, Baso % (Auto) 0.6, Absolute Neuts (auto) 7.1, Absolute Lymphs (auto) 3.48, Nucleated RBC % 0 12/03/22 17:15: Sodium 141, Potassium 3.6, Chloride 107, Carbon Dioxide 28.0, Anion Gap 6, BUN 9, Creatinine 0.77, Estim Creat Clear Calc 76.90, Est GFR (MDRD) Af Amer 101, Est GFR (MDRD) Non-Af 84, BUN/Creatinine Ratio 11.7, [id number] H, Calcium 9.5, Troponin I High Sens 85 H 12/03/22 20:40: Troponin I High Sens 476 H* 12/03/22 21:55: POC Glucose 104 12/03/22 22:48: Troponin I High Sens 990 H* 12/04/22 06:23: POC Glucose 81 12/04/22 06:39: Sodium 141, Potassium 3.9, Chloride 111 H, Carbon Dioxide 25.0, Anion Gap 5, BUN 10, Creatinine 0.63, Estim Creat Clear Calc 93.99, Est GFR (MDRD) Af Amer 127, Est GFR (MDRD) Non-Af 105, BUN/Creatinine Ratio 15.9, Glucose 101, Calcium 8.9, Triglycerides 299 H, Cholesterol 254 H, LDL Cholesterol 164 H, VLDL Cholesterol 60 H, HDL Cholesterol 30 L Cardiology Labs/Tests 12/03/22 17:15: WBC 12.0 H, RBC 4.85, Hgb 15.0, Hct 46.5, MCV 95.9, MCH 30.9, MCHC 32.3, Plt Count 367, MPV 9.2, Immature Gran % (Auto) 0.400, Neut % (Auto) 59.6, Lymph % (Auto) 29.1, Collier % (Auto) 5.0, Eos % (Auto) 5.3 H, Baso % (Auto) 0.6, Absolute Neuts (auto) 7.1, Nucleated RBC % 0 12/03/22 17:15: Sodium 141, Potassium 3.6, Chloride 107, Carbon Dioxide 28.0, Anion Gap 6, BUN 9, Creatinine 0.77, Est GFR (MDRD) Af Amer 101, Est GFR (MDRD) Non-Af 84, BUN/Creatinine Ratio 11.7, Glucose 135 H, Calcium 9.5 12/04/22 06:39: Sodium 141, Potassium 3.9, Chloride 111 H, Carbon Dioxide 25.0, Anion Gap 5, BUN 10, Creatinine 0.63, Est GFR (MDRD) Af Amer 127, Est GFR (MDRD)Non-Af 105, BUN/Creatinine Ratio 15.9, Glucose 101, Calcium 8.9, Triglycerides 299 H, Cholesterol 254 H, LDL Cholesterol 164 H, VLDL Cholesterol 60 H, HDL Cholesterol 30 L Rhythm: EKG: ECHO: Stress Test: Cardiac Cath: PCI: CT Surgery: Holter monitor: EPS: PPM: CXR: Chest CT Scan: Radiography Diagnostic Testing: Radiology Impression Chest X-Ray 12/03/22 17:21 IMPRESSION: 1. No evidence of acute cardiopulmonary process Electronically Signed: Marcelo Huston MD at 17:52 EST , Echocardiogram 12/03/22 20:25 Interpretation Summary Normal LV size. The estimated ejection fraction is 50 %. Stage 1 diastolic dysfunction. Mild segmental systolic dysfunction (see wall motion). Ordering Physician: Supa Witt Referring Physician: Joshua Kurtz Performed By: Kelsi Lafleur, RDCS, RVT 12/04/22 1112 <Electronically signed by Ronak Burt MD> Cosigner Signature (if applicable): CC: [facility] Joshua Kurtz; Dr. Ronak Burt MD; Dr. Supa Witt, ~ Signed [facility] Work Phone: 1(521) 433-701001-20-2023 History and physical note Author Dr. Witt [facility] December 03, 2022 7:19pm Note Date/Time December 03, 2022 7 :19pm [facility] Medical Records Department [address] [place] [id number] H&P Exam - Hospitalist 12/03/22 1911 MR#: [id number] Acct: [id number] Name: PATRICIA LOPEZ Rep #:[id number] : 1970 52 From: Supa Witt DO PCP: Joshua Kurtz, [facility] Status:ADM IN [facility] HPI - General General Date of Admission: 12/03/22 Date of Service: 12/03/22 Chief Complaint: Chest pain HPI Narrative PATRICIA LOPEZ, is a 52 F who presents to the emergency room at [facility] with complaints of substernal chest discomfort which started at 11 AM today, its been off and on since that time, she describes the chest discomfort as squeezing in nature and radiating into her throat and down both arms. At thetime of my examination, she states her chest pain is a 1 out of 10 in intensity with 10 being the greatest intensity. Patient's work-up in the emergency room included a chest x-ray which was unremarkable, white blood cell count was 12,000, chemistry profile was remarkable for glucose of 135 and troponin was 85. Patient's EKG showed a normal sinus rhythm without evidence of ischemic changes. Patient will be admitted for non-STEMI to the PCU, she will have an echocardiogram performed tomorrow, she was given subcu Lovenox for anticoagulation, and she was placed on Nitropaste. She will be seen by cardiology tomorrow, I had a brief conversation with Dr. Burt about her care. Cardiac enzymes will be cycled [facility] Medical History Diabetes type 2, uncontrolled Dyspnea on exertion Hyperlipidemia Obstructive sleep apnea Small kidney, unilateral Thyroid mass Home Medications levonorgestrel 20 mcg/24 hours (8 yrs) 52 mg intrauterine device (Mirena) 1 insert intrauterine ONCE CONTROL 06/13/18 [History Last Taken Unknown] empagliflozin 25 mg-metformin ER 1,000 mg tablet,extended release 24hr (SynjardyXR) 1 tab PO DAILY blood sugars 12/03/22 [History Last Taken 12/03/22] modafinil 100 mg tablet 100 mg PO DAILY SLEEP APNEA 12/03/22 [History Last Taken 12/03/22] rosuvastatin 10 mg tablet 10 mg PO DAILY cholesterol 12/03/22 [History Last Taken 12/03/22] tirzepatide 5 mg/0.5 mL subcutaneous pen injector (Mounjaro) 5 mg subcut SMALLS DIABETES 12/03/22 [History Last Taken 11/28/22] Allergy/AdvReac Type Severity Reaction Status Date / Time No Known Allergies Allergy Verified 12/03/22 17:05 Family History Mother Ovarian cancer Grandmother Thyroid disorder Arrhythmia Grandfather Thyroid disorder had thyroid removed for cancer Uncle Thyroid disorder Aunt Thyroid disorder thyroid cancer and had removed Brother Hypertension Surgical History History of cholecystectomy Social History Smoking Status: Current every day smoker tobacco type: cigarettes ROS Constitutional Constitutional: Denies anorexia, change in weight, chills, fatigue, fever(s), malaise, night sweats or weakness Eyes Eyes: Denies blurry vision, change in eye color, change in vision, discharge from eye(s), double vision or eye pain ENT HEENT: Denies abnormal hearing, dysphagia or ear pain Cardiovascular Cardiovascular: Reports chest pain; Denies claudication, dyspnea on exertion, edema, palpitations or rapid heart rate Respiratory/Chest Respiratory/Chest: Denies cough, dyspnea, excessive phlegm production, hemoptysis, productive cough, shortness of breath at rest or shortness of breathwith exertion Gastrointestinal Gastrointestinal: Denies abdominal pain, coffee ground emesis, constipation, diarrhea, dyspepsia, hematemesis, hematochezia, loose stools, melena, nausea or vomiting Genitourinary Genitourinary: Denies dysuria, hematuria, urinary frequency, urinary hesitancy, urinary incontinence or urinary urgency Musculoskeletal Musculoskeletal: Denies back pain, joint pain, joint stiffness, joint swelling, myalgias or neck pain Neurologic Neurologic: Denies abnormal gait, abnormal speech, dizziness, focal weakness, headache(s), loss of vision, numbness, other visual disturbances, paresthesias, syncope or tingling Psychiatric Psychiatric: Denies anxiety, cognitive impairment, depression, irritability, mood swings or suicidal ideation Endocrine Endocrinology: Denies change in body appearance, cold intolerance, excessive sweating, heat intolerance, polydipsia or polyuria Hematologic/Lymphatic Hematologic/Lymphatic: Denies none, anemia, easy bleeding, easy bruising or lymphadenopathy Allergic/Immunologic Allergic/Immunologic: Denies rhinitis, urticaria, eczemia or asthma Vital Signs Vital Signs Vital Signs: 12/03/22 17:02 12/03/22 17:13 12/03/22 18:03 Temperature 97.6 F L Temperature Source Temporal Pulse Rate 78 66 Respiratory Rate 19 H 15 Blood Pressure 127/65 H Blood Pressure Mean 85 Pulse Ox 99 97 98 Oxygen Delivery Method Room Air Room Air Room Air 12/03/22 18:49 Temperature 98.2 F Temperature Source Oral Pulse Rate 68 Respiratory Rate 14 Blood Pressure 125/70 H Blood Pressure Mean 88 Pulse Ox 97 Oxygen Delivery Method Room Air Weight Weight: 94.347 kg Body Mass Index (BMI) 34.6 Physical Exam Const alert, oriented x3, no apparent distress and healthy appearing General Appearance: cooperative, well kempt and well developed Orientation / Consciousness: awake, oriented to person, oriented to place and oriented to time HEENT normocephalic, head/scalp atraumatic, hearing grossly normal bilaterally and moist oral mucous membranes Eyes PERRL, EOMs intact bilaterally and conjunctivae normal Neck supple, no JVD, thyroid normal and no carotid bruits General: trachea midline Resp normal respiratory effort, no retractions, no use of accessory muscles and clearto auscultation bilaterally Auscultation: Negative for rales, rhonchi or wheezes Cardio regular rate, regular rhythm, S1 normal heart sound, S2 normal heart sound, no murmurs, no rub and no gallops GI normal to inspection, nondistended, normoactive bowel sounds, soft to palpation,non-tender and non-distended Extremity no clubbing, cyanosis or edema Skin no rashes or lesions noted General Skin Exam: no breakdown Neuro oriented x3, CN's II-XII intact bilaterally, moves all extremities, no focal motor deficits and no sensory deficits noted Sensorium / Orientation: awake and alert Speech: speech normal Psych affect normal Results Lab / Micro Data Result Diagrams: 12/03/22 17:15 12/03/22 17:15 Labs: Laboratory Results - last 24 hr 12/03/22 17:15: WBC 12.0 H, RBC 4.85, Hgb 15.0, Hct 46.5, MCV 95.9, MCH 30.9, MCHC 32.3, RDW Std Deviation 46.6 H, RDW Coeff of Lakesha 13.2, Plt Count 367, MPV 9.2, Immature Gran % (Auto) 0.400, Neut % (Auto) 59.6, Lymph % (Auto) 29.1, Collier% (Auto) 5.0, Eos % (Auto) 5.3 H, Baso % (Auto) 0.6, Absolute Neuts (auto) 7.1, Absolute Lymphs (auto) 3.48, Nucleated RBC % 0 12/03/22 17:15: Sodium 141, Potassium 3.6, Chloride 107, Carbon Dioxide 28.0, Anion Gap 6, BUN 9, Creatinine 0.77, Estim Creat Clear Calc 76.90, Est GFR (MDRD) Af Amer 101, Est GFR (MDRD) Non-Af 84, BUN/Creatinine Ratio 11.7, [id number] H, Calcium 9.5, Troponin I High Sens 85 H Radiology Impression Chest X-Ray 12/03/22 17:21 IMPRESSION: 1. No evidence of acute cardiopulmonary process Electronically Signed: Marcelo Huston MD at 17:52 EST Reading Location ID and State: [facility] / [place] Tel , Service support , Assessment & Plan Assessment/Plan (1) ACS (acute coronary syndrome): PLAN: Plan 1. [id number] will be admitted to PCU, Lovenox subcu will be administered for full anticoagulation, patient will have an echocardiogram performed tomorrow, she will be seen by cardiology, cardiac enzymes will be cycled. Patient will be placed on a baby aspirin a day. #2 type 2 diabetes-patient's blood sugars will be monitored, sliding scale insulin will be administered as needed #3 hyperlipidemia-patient states that she does not take her cholesterol medications on a routine basis, she will be placed on a statin #4 sleep apnea-patient states that she takes Provigil, this will be continued here Total clinical time spent by myself addressing the patient's medical problems, reviewing the medical data, and collaborating with patient's care team: 55 minutes 12/03/221918 <Electronically signed by Supa Witt DO> Cosigner Signature (if applicable): CC: ARMANDO Kurtz; Dr. Supa Witt DO~ Signed [facility] Work Phone: 1(595) 263-477601-20-[address] Daniel [facility] December 03, 2022 6:29pm Note Date/Time December 03, 2022 5 :31pm [facility] Medical Records Department [address] [place] [address] Emergency Department Summary 12/03/22 MR#: [id number] Acct: [id number] Name: PATRICIA LOPEZ Rep #:[id number] : 1970 52 From: Dante Daniel MD PCP: Joshua Kurtz, [facility] Status:REG ER Location: ED HPI History of Present Illness Chief Complaint: Chest Pain Narrative Narrative: Patient presents with chest pain. It has been ongoing for about 6 hours, it is on and off, it is in her chest and lasts just a few minutes. It has been however constant over the past 2 hours and its somewhat squeezing and pressure-like. She has no radiation of the pain she has no back pain or tearing sensation no upper extremity symptoms. She has no pleuritic component. She hasno DVT or PE risk factors. [facility] Medical History Diabetes type 2, uncontrolled Dyspnea on exertion Hyperlipidemia Obstructive sleep apnea Small kidney, unilateral Thyroid mass Home Medications levonorgestrel 20 mcg/24 hours (8 yrs) 52 mg intrauterine device (Mirena) 1 insert intrauterine ONCE 06/13/18 [History Last Taken Unknown] empagliflozin 25 mg-metformin ER 1,000 mg tablet,extended release 24hr (SynjardyXR) 1 tab PO DAILY #90 ea 06/22/22 [Rx Last Taken Unknown] rosuvastatin 10 mg tablet 10 mg PO DAILY #90 tabs 06/22/22 [Rx Last Taken Unknown] fluconazole 150 mg tablet 150 mg PO Q3D 2 doses #2 tabs 07/22/22 [Rx Last Taken Unknown] phenazopyridine 200 mg tablet (Pyridium) 200 mg PO TID PRN pain #9 tabs 08/24/22[Rx Last Taken Unknown] dulaglutide 0.75 mg/0.5 mL subcutaneous pen injector (Trulicity) 0.75 mg (0.5 mL) subcut QWEEK 3 months #6.5 mL 09/23/22 [Rx Last Taken Unknown] tirzepatide 5 mg/0.5 mL subcutaneous pen injector (Mounjaro) 5 mg (0.5 mL) subcut QWEEK 30 days #2.5 mL 09/28/22 [Rx Last Taken Unknown] Allergy/AdvReac Type Severity Reaction Status Date / Time No Known Allergies Allergy Verified 12/03/22 17:05 Family History Mother Ovarian cancer Grandmother Thyroid disorder Arrhythmia Grandfather Thyroid disorder had thyroid removed for cancer Uncle Thyroid disorder Aunt Thyroid disorder thyroid cancer and had removed Brother Hypertension Surgical History History of cholecystectomy Social History Smoking Status: Current every day smoker tobacco type: cigarettes ROS ROS ED ROS Narrative Past medical history: Reviewed Medications: Reviewed Social history: Noncontributory Review of systems: All systems negative except as indicated General: No fever Eyes: No visual changes ENT: No upper airway congestion, normal voice Neck: No neck pain Cardiovascular: Chest pain as in HPI Respiratory: No shortness of breath or cough Gastrointestinal: No abdominal pain, nausea vomiting or diarrhea Genitourinary: No dysuria Musculoskeletal: Denies myalgias no difficulty with ambulation Skin: No rash Neurological: No memory loss, confusion or any focal weakness Psych: No recent behavioral changes Hematologic: No easy bleeding or easy bruising EXAM Physical Exam Narrative Exam Narrative: Physical exam General: Well nourished, Well developed, No Acute Distress Head: Normocephalic, Atraumatic Eyes: Conjunctiva not pale ENT: Moist mucous membranes Neck: Supple, Nontender, No lymphadenopathy Cardiovascular: Regular rate, Regular rhythm Respiratory: No distress, CTA bilaterally Abdomen: Soft, Nontender, Nondistended Back: Nontender, Normal Inspection. Negative for: CVA tenderness Extremities: Nontender, No edema Skin: Normal color, No rash Neurological: Alert, Normal Strength, Normal Sensation Psychological: Normal affect Const Vital Signs: 12/03/22 17:02 12/03/22 17:13 12/03/22 18:03 Temperature 97.6 F L Temperature Source Temporal Pulse Rate 78 66 Respiratory Rate 19 H 15 Blood Pressure 127/65 H Blood Pressure Mean 85 Pulse Ox 99 97 98 Oxygen Delivery Method Room Air Room Air Room Air Heart Score History: Highly Suspicious ECG: Nonspecific Repolarization Age: >45 - <65 years Risk Factors: >/= 3 Risk Factors or History of CAD Troponin: >/=3 x Normal Limit Score: 8 MDM MDM MDM Narrative Medical decision making narrative: A. Problems addressed Chest pain, acute coronary syndrome. B. Amount and/or complexity of the data 1. CBC, CMP, troponin ordered and interpreted by me. I discussed the patient with who was in the room 2. Independent interpretation of test Sinus rhythm with a rate in the 70s without any ectopy. 3. Discussion of management with cardiology, Dr. Burt, and the medicine admitting doctor. C. Patient is found to have quite an elevated troponin. Her heart score is an 8. Her EKG is however unremarkable other than nonspecific changes. I discussed with cardiology since the patient has acute coronary syndrome. We will give nitroglycerin and Lovenox. At this time there is no indication for emergent intervention. We will get the pain controlled and patient will be admitted Lab Data Labs: Laboratory Results - last 24 hr 12/03/22 12/03/22 17:15 17:15 WBC 12.0 H RBC 4.85 Hgb 15.0 Hct 46.5 MCV 95.9 MCH 30.9 MCHC 32.3 RDW Std Deviation 46.6 H RDW Coeff of Lakesha 13.2 Plt Count 367 MPV 9.2 Immature Gran % (Auto) 0.400 Neut % (Auto) 59.6 Lymph % (Auto) 29.1 Collier % (Auto) 5.0 Eos % (Auto) 5.3 H Baso % (Auto) 0.6 Absolute Neuts (auto) 7.1 Absolute Lymphs (auto) 3.48 Nucleated RBC % 0 Sodium 141 Potassium 3.6 Chloride 107 Carbon Dioxide 28.0 Anion Gap 6 BUN 9 Creatinine 0.77 Estim Creat Clear Calc 76.90 Est GFR (MDRD) Af Amer 101 Est GFR (MDRD) Non-Af 84 BUN/Creatinine Ratio 11.7 Glucose 135 H Calcium 9.5 Troponin I High Sens 85 H Radiography Diagnostic Testing: Clinical Impression(s) from Imaging Studies Chest X-Ray 12/03/22 17:21 IMPRESSION: 1. No evidence of acute cardiopulmonary process Electronically Signed: Marcelo Huston MD at 17:52 EST , EKG Initial EKG: Comments: Sinus rhythm with a rate of 78. Normal MO and QTc intervals. Left axis deviation. No acute ischemic changes. Critical Care Time Critical Care Time: Yes Critical care time (excluding procedures): 30-74 minutes, Including time spent:,Discussing w/Patient &/or Family/Assistant Attorney General, Discussing w/Consultants, ArrangingAdmission or Transfer, Performing Direct Patient Care at Bedside and - (30 minutes) Discharge Plan Triage Chief Complaint: Chest Pain ED Provider: Dante Daniel Dx/Rx/DC Orders Clinical Impression: ACS (acute coronary syndrome), Diabetes, Hypercholesterolemia, Chest pain, Elevated troponin Prescriptions: No Action levonorgestrel [Mirena] 20 mcg/24 hr (5 years) intrauterine device 1 insert Intrauterine ONCE Synjardy XR 25-1,000 mg tablet, IR - ER, biphasic 24hr 1 tab PO DAILY Qty: 90 3RF rosuvastatin 10 mg tablet 10 mg PO DAILY Qty: 90 3RF fluconazole 150 mg tablet 150 mg PO Q3D Qty: 2 2RF phenazopyridine [Pyridium] 200 mg tablet 200 mg PO TID PRN (Reason: pain) Qty: 9 5RF Trulicity 0.75 mg/0.5 mL pen injector 0.75 mg subcut QWEEK 90 Days Qty: 6.5 3RF Mounjaro 5 mg/0.5 mL pen injector 5 mg subcut QWEEK 30 Days Qty: 2.5 12RF Primary Care Provider: Joshua Kurtz NP Referrals: Joshua Kurtz [facility], [facility] [Primary Care Provider] - Disposition Disposition: Acute Care Hospital [facility] What to do if you have Problems For any increased pain, shortness of breath, bleeding, nausea or vomiting, chestpain, or any unexpected problems, contact your Primary Care Provider. Call [facility] ([phone]) or report to the closest Emergency Room. Call 911 if necessary. 12/03/221828 <Electronically signed by Dante Daniel MD> Cosigner Signature (if applicable): CC: [facility] Joshua Kurtz ~ Signed [facility] Work Phone: 1(179) 923-740501-20-[address] Daniel [facility] December 03, 2022 6:29pm Note Date/Time December 03, 2022 5 :31pm [facility] Medical Records Department [address] [place] [address] Emergency Department Summary 12/03/22 MR#: [id number] Acct: [id number] Name: PATRICIA LOPEZ ALIRIO Rep #:[id number] : 1970 52 From: Dante Daniel MD PCP: Joshua Kurtz NP-C Status:REG ER Location: ED HPI History of Present Illness Chief Complaint: Chest Pain Narrative Narrative: Patient presents with chest pain. It has been ongoing for about 6 hours, it is on and off, it is in her chest and lasts just a few minutes. It has been however constant over the past 2 hours and its somewhat squeezing and pressure-like. She has no radiation of the pain she has no back pain or tearing sensation no upper extremity symptoms. She has no pleuritic component. She hasno DVT or PE risk factors. [facility] Medical History Diabetes type 2, uncontrolled Dyspnea on exertion Hyperlipidemia Obstructive sleep apnea Small kidney, unilateral Thyroid mass Home Medications levonorgestrel 20 mcg/24 hours (8 yrs) 52 mg intrauterine device (Mirena) 1 insert intrauterine ONCE 06/13/18 [History Last Taken Unknown] empagliflozin 25 mg-metformin ER 1,000 mg tablet,extended release 24hr (SynjardyXR) 1 tab PO DAILY #90 ea 06/22/22 [Rx Last Taken Unknown] rosuvastatin 10 mg tablet 10 mg PO DAILY #90 tabs 06/22/22 [Rx Last Taken Unknown] fluconazole 150 mg tablet 150 mg PO Q3D 2 doses #2 tabs 07/22/22 [Rx Last Taken Unknown] phenazopyridine 200 mg tablet (Pyridium) 200 mg PO TID PRN pain #9 tabs 08/24/22[Rx Last Taken Unknown] dulaglutide 0.75 mg/0.5 mL subcutaneous pen injector (Trulicity) 0.75 mg (0.5 mL) subcut QWEEK 3 months #6.5 mL 09/23/22 [Rx Last Taken Unknown] tirzepatide 5 mg/0.5 mL subcutaneous pen injector (Mounjaro) 5 mg (0.5 mL) subcut QWEEK 30 days #2.5 mL 09/28/22 [Rx Last Taken Unknown] Allergy/AdvReac Type Severity Reaction Status Date / Time No Known Allergies Allergy Verified 12/03/22 17:05 Family History Mother Ovarian cancer Grandmother Thyroid disorder Arrhythmia Grandfather Thyroid disorder had thyroid removed for cancer Uncle Thyroid disorder Aunt Thyroid disorder thyroid cancer and had removed Brother Hypertension Surgical History History of cholecystectomy Social History Smoking Status: Current every day smoker tobacco type: cigarettes ROS ROS ED ROS Narrative Past medical history: Reviewed Medications: Reviewed Social history: Noncontributory Review of systems: All systems negative except as indicated General: No fever Eyes: No visual changes ENT: No upper airway congestion, normal voice Neck: No neck pain Cardiovascular: Chest pain as in HPI Respiratory: No shortness of breath or cough Gastrointestinal: No abdominal pain, nausea vomiting or diarrhea Genitourinary: No dysuria Musculoskeletal: Denies myalgias no difficulty with ambulation Skin: No rash Neurological: No memory loss, confusion or any focal weakness Psych: No recent behavioral changes Hematologic: No easy bleeding or easy bruising EXAM Physical Exam Narrative Exam Narrative: Physical exam General: Well nourished, Well developed, No Acute Distress Head: Normocephalic, Atraumatic Eyes: Conjunctiva not pale ENT: Moist mucous membranes Neck: Supple, Nontender, No lymphadenopathy Cardiovascular: Regular rate, Regular rhythm Respiratory: No distress, CTA bilaterally Abdomen: Soft, Nontender, Nondistended Back: Nontender, Normal Inspection. Negative for: CVA tenderness Extremities: Nontender, No edema Skin: Normal color, No rash Neurological: Alert, Normal Strength, Normal Sensation Psychological: Normal affect Const Vital Signs: 12/03/22 17:02 12/03/22 17:13 12/03/22 18:03 Temperature 97.6 F L Temperature Source Temporal Pulse Rate 78 66 Respiratory Rate 19 H 15 Blood Pressure 127/65 H Blood Pressure Mean 85 Pulse Ox 99 97 98 Oxygen Delivery Method Room Air Room Air Room Air Heart Score History: Highly Suspicious ECG: Nonspecific Repolarization Age: >45 - <65 years Risk Factors: >/= 3 Risk Factors or History of CAD Troponin: >/=3 x Normal Limit Score: 8 MDM MDM MDM Narrative Medical decision making narrative: A. Problems addressed Chest pain, acute coronary syndrome. B. Amount and/or complexity of the data 1. CBC, CMP, troponin ordered and interpreted by me. I discussed the patient with who was in the room 2. Independent interpretation of test Sinus rhythm with a rate in the 70s without any ectopy. 3. Discussion of management with cardiology, Dr. Burt, and the medicine admitting doctor. C. Patient is found to have quite an elevated troponin. Her heart score is an 8. Her EKG is however unremarkable other than nonspecific changes. I discussed with cardiology since the patient has acute coronary syndrome. We will give nitroglycerin and Lovenox. At this time there is no indication for emergent intervention. We will get the pain controlled and patient will be admitted Lab Data Labs: Laboratory Results - last 24 hr 12/03/22 12/03/22 17:15 17:15 WBC 12.0 H RBC 4.85 Hgb 15.0 Hct 46.5 MCV 95.9 MCH 30.9 MCHC 32.3 RDW Std Deviation 46.6 H RDW Coeff of Lakesha 13.2 Plt Count 367 MPV 9.2 Immature Gran % (Auto) 0.400 Neut % (Auto) 59.6 Lymph % (Auto) 29.1 Collier % (Auto) 5.0 Eos % (Auto) 5.3 H Baso % (Auto) 0.6 Absolute Neuts (auto) 7.1 Absolute Lymphs (auto) 3.48 Nucleated RBC % 0 Sodium 141 Potassium 3.6 Chloride 107 Carbon Dioxide 28.0 Anion Gap 6 BUN 9 Creatinine 0.77 Estim Creat Clear Calc 76.90 Est GFR (MDRD) Af Amer 101 Est GFR (MDRD) Non-Af 84 BUN/Creatinine Ratio 11.7 Glucose 135 H Calcium 9.5 Troponin I High Sens 85 H Radiography Diagnostic Testing: Clinical Impression(s) from Imaging Studies Chest X-Ray 12/03/22 17:21 IMPRESSION: 1. No evidence of acute cardiopulmonary process Electronically Signed: Marcelo Huston MD at 17:52 EST , EKG Initial EKG: Comments: Sinus rhythm with a rate of 78. Normal MO and QTc intervals. Left axis deviation. No acute ischemic changes. Critical Care Time Critical Care Time: Yes Critical care time (excluding procedures): 30-74 minutes, Including time spent:,Discussing w/Patient &/or Family/Assistant Attorney General, Discussing w/Consultants, ArrangingAdmission or Transfer, Performing Direct Patient Care at Bedside and - (30 minutes) Discharge Plan Triage Chief Complaint: Chest Pain ED Provider: Dante Daniel Dx/Rx/DC Orders Clinical Impression: ACS (acute coronary syndrome), Diabetes, Hypercholesterolemia, Chest pain, Elevated troponin Prescriptions: No Action levonorgestrel [Mirena] 20 mcg/24 hr (5 years) intrauterine device 1 insert Intrauterine ONCE Synjardy XR 25-1,000 mg tablet, IR - ER, biphasic 24hr 1 tab PO DAILY Qty: 90 3RF rosuvastatin 10 mg tablet 10 mg PO DAILY Qty: 90 3RF fluconazole 150 mg tablet 150 mg PO Q3D Qty: 2 2RF phenazopyridine [Pyridium] 200 mg tablet 200 mg PO TID PRN (Reason: pain) Qty: 9 5RF Trulicity 0.75 mg/0.5 mL pen injector 0.75 mg subcut QWEEK 90 Days Qty: 6.5 3RF Mounjaro 5 mg/0.5 mL pen injector 5 mg subcut QWEEK 30 Days Qty: 2.5 12RF Primary Care Provider: Joshua Kurtz NP Referrals: Joshua Kurtz NP, [facility] [Primary Care Provider] - Disposition Disposition: Acute Care Hospital [facility] What to do if you have Problems For any increased pain, shortness of breath, bleeding, nausea or vomiting, chestpain, or any unexpected problems, contact your Primary Care Provider. Call [facility] ([phone]) or report to the closest Emergency Room. Call 911 if necessary. 12/03/221828 <Electronically signed by Dante Daniel MD> Cosigner Signature (if applicable): CC: [facility] Joshua Kurtz ~ Signed [facility] Work Phone: 1(472) 566-247201-14-2022 Note ADDITIONAL PROCEDURES PRESENT Specimen originated from [facility] Specimen #: [id number] Submitting Physician: FREIDA MONTALVO M.D. ([id number]) SPECIMEN SUBMITTED A: CERVICAL, SCREENING, FLUID FINAL DIAGNOSIS A. CERVICAL, SCREENING, FLUID Satisfactory for interpretation. Negative for intraepithelial lesion or malignancy. This specimen has been analyzed by the ThinPrep Imaging System, an automated imaging and review system, which assists the laboratory in evaluating cells on ThinPrep Pap tests. Following automated imaging, selected zambrano from every slide are reviewed by a bobbin coil winder. Chyna Novak M.D. (Electronic Signature) ADDITIONAL PROCEDURE(S) HUMAN PAPILLOMA VIRUS Date Ordered: 12/01/2021 Date Reported: 12/02/2021 Procedure Results and Interpretation Positive for HPV DNA high risk type 16 by PCR(*) Positive for HPV DNA high risk type 18 by PCR(*) Negative for HPV DNA high risk types: 31,33,35,39,45,51,52,56,58,59,66,68 by PCR. This test was developed and its performance characteristics determined by [facility]'s Curt Garcia [facility] [place] ([facility] It has not been cleared or approved by the FDA. [facility] is regulated under CLIA as qualified to perform high-complexity testing. This test is used for clinical purposes. It should not be regarded as investigational or for research. CLINICAL DATA ROUTINE EXAM, HPV Testing: Yes, automatic HPV patients over 30 Date of Last Menstrual Period: IUD STAINS A: CERVICAL, SCREENING, FLUID THIN PREP MANAGER APPLE Date of Report: 12/04/2021 Date of Procedure: 11/27/2021 Date of Receipt: 11/30/2021 Submitted by: FREIDA MONTALVO M.D. ([id number]) Location: [facility] Diagnostic interpretation performed at [facility], [address] [place] [address]. CLIA Number: [id number] The Pap Smear is a screening test for cervical cancer. False negative results occur with all screening tests, emphasizing the need for rescreening at recommended intervals, and clinical correlation.[facility]01-14-2022 NoteHNO ID: [id number] Author: Freida Montalvo MD Service: ? Author Type: Physician Type: Progress Notes Filed: 11/27/2021 11:41 AM Note Text: Patricia is a 51 year old who presents for an annual gynecologic exam with complaints, hot flashes . Worsening over past year. Trouble sleeping. night sweats. Vaginal dryness senior care problem, but stopped Yuvafem. Has mirena IUD and no menses at all w/ this. Postmenopausal: likely HRT use: No. 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 PAST MEDICAL HISTORY Diagnosis Date - ASCUS on Pap smear 01/2014,08/2015,08/2016 - Diabetes (HCC) diet controled - HPV test positive 01/2014,08/2015,08/2016 - Hyperlipemia - Sleep apnea 2003 - Thyroid nodule PAST SURGICAL HISTORY Procedure Laterality Date - GALLBLADDER/EF - INSERTION OF IUD - OFFICE LEEP 04/2014 CIN2 - STRESS TEST EXERCISE 06/2018 w/o contrast - VAGINOSCOPY 02/2014, 12/2014 FAMILY HISTORY Problem Relation Age of Onset - None Mother - None Father SOCIAL HISTORY Social History Tobacco Use - Smoking status: Current Every Day Smoker Packs/day: 0.30 Years: 20.00 Pack years: 6.00 Types: Cigarettes - Smokeless tobacco: Never Used Vaping Use - Vaping Use: Never used Substance Use Topics - Alcohol use: No - Drug use: No REVIEW OF SYSTEMS Abdomen: No abdominal pain, nausea, vomiting, diarrhea, or constipation. No bloating, early satiety, indigestion, or increased flatulence. Bladder: No dysuria, gross hematuria, urinary frequency, urinary urgency, or incontinence Breast: No breast lumps, nipple d/c, overlying skin changes, redness or skin retraction Allergies and current medication updated:Yes EXAM: BP 124/82 Ht 5' 5.5 (1.66m) Wt 203 lb (92.1kg) LMP 10/09/2016 BMI 33.26 kg/(m2). GENERAL: pleasant, female in no apparent distress [...] external genitalia normal, normal Bartholin's glands, urethra, [place]'s glands, no vulvar lesions, no cervical lesions, good vaginal support, physiologic discharge present, normal appearing perineal body and perianal region, IUD strings present BIMANUAL: uterus normal size, shape and consistency, no adnexal masses and non-tender RECTOVAGINAL: deferred. NEURO: alert and oriented x3,exam grossly non-focal EXTREMITIES: normal ASSESSMENT/PLAN: 1) Health maintenance: Pap done with HPV. Mammogram ordered cont. IUD for now r/ba/ to trial estrogen w/ mirena for uterine protection for menopausal symptoms reviewed. She desires rx other health screens per PCP, encouraged colon ca screening 2) Follow up one year or sooner as needed [facility]ida Montalvo, [facility] Diagnosis Onset Date Resolution Status Wellness examination [facility] Work Phone: evaluation note* Diagnosis Onset Date Resolution Status Wellness examination acute Cystitis acute Diabetes type 2, uncontrolled acute Cystitis acute Diabetes type 2, uncontrolled acute [facility] Work Phone: evaluation note* Diagnosis Onset Date Resolution Status Cystitis acute Diabetes type 2, uncontrolled acute ACS (acute coronary syndrome) acute Chest pain acute Diabetes acute Elevated troponin acute Hypercholesterolemia acute [facility] Work Phone: evaluation note* Diagnosis Onset Date Resolution Status Cystitis acute Diabetes type 2, uncontrolled acute ACS (acute coronary syndrome) acute Chest pain acute Diabetes acute Elevated troponin acute Hypercholesterolemia acute Hyperlipidemia [facility] Work Phone: evaluation note* Diagnosis Onset Date Resolution Status ACS (acute coronary syndrome) acute Elevated troponin acute Hyperlipidemia chronic Chest pain resolved CAD (coronary artery disease), [place] coronary artery acute History of heart artery stent acute Hyperlipidemia [facility] Work Phone: evaluation note* Diagnosis Onset Date Resolution Status ACS (acute coronary syndrome) acute Elevated troponin acute Hyperlipidemia chronic Chest pain resolved CAD (coronary artery disease), [place] coronary artery acute History of heart artery stent acute Hyperlipidemia chronic History of heart artery stent acute Hyperlipidemia [facility] Work Phone: evaluation note* Diagnosis Onset Date Resolution Status CAD (coronary artery disease), [place] coronary artery acute History of heart artery stent acute Hyperlipidemia chronic History of heart artery stent acute Hyperlipidemia [facility] Work Phone: Evaluation note* Diagnosis Onset Date Resolution Status History of heart artery stent acute Hyperlipidemia chronic History of heart artery stent acute Pain in both lower legs acut e Hyperlipidemia [facility] Work Phone: Evaluation note* Diagnosis Onset Date Resolution Status History of heart artery stent acute Pain in both lower legs acut e Hyperlipidemia [facility] Work Phone: evaluation note* Diagnosis Onset Date Resolution Status History of heart artery stent acute Hyperlipidemia [facility] Work Phone: Evaluation note* Diagnosis CAD in [place] artery- Primary CAD in [place] artery S/P primary angioplasty with coronary stent Postsurgical percutaneous transluminal coronary angioplasty status Diabetes mellitus, type 2 (HCC) Type II or unspecified type diabetes mellitus without mention of complication, not stated as uncontrolled KATRINA (obstructive sleep apnea) Obstructive sleep apnea (adult) (pediatric) Hyperlipidemia Other and unspecified hyperlipidemia NSTEMI (non-ST elevated myocardial infarction) ([facility]/HCC) (HCC) Acute myocardial infarction, subendocardial infarction, episode of care unspecified CAD in [place] artery documented in this encounter [facility]* Diagnosis Onset Date Resolution Status Admit Date History of heart artery stent acute April 02, 2025 1:49pm Hyperlipidemia chronic April 02, 2025 1:49pm [facility] [employer] [facility] Work Phone: History and physical note Author Dr. Witt [facility] December 03, 2022 7:19pm Note Date/Time December 03, 2022 7 :19pm [facility] Medical Records Department [address] [place] [address] H&P Exam - Hospitalist 12/03/22 191 MR#: [id number] Acct: [id number] Name: PATRICIA LOPEZ Rep #:[id number] : 1970 52 From: Supa Witt DO PCP: ARMANDO Jackman Status:ADM IN Location: [place] [address] HPI - General General Date of Admission: 12/03/22 Date of Service: 12/03/22 Chief Complaint: Chest pain HPI Narrative PATRICIA LOPEZ, is a 52 F who presents to the emergency room at [facility] with complaints of substernal chest discomfort which started at 11 AM today, its been off and on since that time, she describes the chest discomfort as squeezing in nature and radiating into her throat and down both arms. At thetime of my examination, she states her chest pain is a 1 out of 10 in intensity with 10 being the greatest intensity. Patient's work-up in the emergency room included a chest x-ray which was unremarkable, white blood cell count was 12,000, chemistry profile was remarkable for glucose of 135 and troponin was 85. Patient's EKG showed a normal sinus rhythm without evidence of ischemic changes. Patient will be admitted for non-STEMI to the PCU, she will have an echocardiogram performed tomorrow, she was given subcu Lovenox for anticoagulation, and she was placed on Nitropaste. She will be seen by cardiology tomorrow, I had a brief conversation with Dr. Burt about her care. Cardiac enzymes will be cycled [facility] Medical History Diabetes type 2, uncontrolled Dyspnea on exertion Hyperlipidemia Obstructive sleep apnea Small kidney, unilateral Thyroid mass Home Medications levonorgestrel 20 mcg/24 hours (8 yrs) 52 mg intrauterine device (Mirena) 1 insert intrauterine ONCE CONTROL 06/13/18 [History Last Taken Unknown] empagliflozin 25 mg-metformin ER 1,000 mg tablet,extended release 24hr (SynjardyXR) 1 tab PO DAILY blood sugars 12/03/22 [History Last Taken 12/03/22] modafinil 100 mg tablet 100 mg PO DAILY SLEEP APNEA 12/03/22 [History Last Taken 12/03/22] rosuvastatin 10 mg tablet 10 mg PO DAILY cholesterol 12/03/22 [History Last Taken 12/03/22] tirzepatide 5 mg/0.5 mL subcutaneous pen injector (Mounjaro) 5 mg subcut SMALLS DIABETES 12/03/22 [History Last Taken 11/28/22] Allergy/AdvReac Type Severity Reaction Status Date / Time No Known Allergies Allergy Verified 12/03/22 17:05 Family History Mother Ovarian cancer Grandmother Thyroid disorder Arrhythmia Grandfather Thyroid disorder had thyroid removed for cancer Uncle Thyroid disorder Aunt Thyroid disorder thyroid cancer and had removed Brother Hypertension Surgical History History of cholecystectomy Social History Smoking Status: Current every day smoker tobacco type: cigarettes ROS Constitutional Constitutional: Denies anorexia, change in weight, chills, fatigue, fever(s), malaise, night sweats or weakness Eyes Eyes: Denies blurry vision, change in eye color, change in vision, discharge from eye(s), double vision or eye pain ENT HEENT: Denies abnormal hearing, dysphagia or ear pain Cardiovascular Cardiovascular: Reports chest pain; Denies claudication, dyspnea on exertion, edema, palpitations or rapid heart rate Respiratory/Chest Respiratory/Chest: Denies cough, dyspnea, excessive phlegm production, hemoptysis, productive cough, shortness of breath at rest or shortness of breathwith exertion Gastrointestinal Gastrointestinal: Denies abdominal pain, coffee ground emesis, constipation, diarrhea, dyspepsia, hematemesis, hematochezia, loose stools, melena, nausea or vomiting Genitourinary Genitourinary: Denies dysuria, hematuria, urinary frequency, urinary hesitancy, urinary incontinence or urinary urgency Musculoskeletal Musculoskeletal: Denies back pain, joint pain, joint stiffness, joint swelling, myalgias or neck pain Neurologic Neurologic: Denies abnormal gait, abnormal speech, dizziness, focal weakness, headache(s), loss of vision, numbness, other visual disturbances, paresthesias, syncope or tingling Psychiatric Psychiatric: Denies anxiety, cognitive impairment, depression, irritability, mood swings or suicidal ideation Endocrine Endocrinology: Denies change in body appearance, cold intolerance, excessive sweating, heat intolerance, polydipsia or polyuria Hematologic/Lymphatic Hematologic/Lymphatic: Denies none, anemia, easy bleeding, easy bruising or lymphadenopathy Allergic/Immunologic Allergic/Immunologic: Denies rhinitis, urticaria, eczemia or asthma Vital Signs Vital Signs Vital Signs: 12/03/22 17:02 12/03/22 17:13 12/03/22 18:03 Temperature 97.6 F L Temperature Source Temporal Pulse Rate 78 66 Respiratory Rate 19 H 15 Blood Pressure 127/65 H Blood Pressure Mean 85 Pulse Ox 99 97 98 Oxygen Delivery Method Room Air Room Air Room Air 12/03/22 18:49 Temperature 98.2 F Temperature Source Oral Pulse Rate 68 Respiratory Rate 14 Blood Pressure 125/70 H Blood Pressure Mean 88 Pulse Ox 97 Oxygen Delivery Method Room Air Weight Weight: 94.347 kg Body Mass Index (BMI) 34.6 Physical Exam Const alert, oriented x3, no apparent distress and healthy appearing General Appearance: cooperative, well kempt and well developed Orientation / Consciousness: awake, oriented to person, oriented to place and oriented to time HEENT normocephalic, head/scalp atraumatic, hearing grossly normal bilaterally and moist oral mucous membranes Eyes PERRL, EOMs intact bilaterally and conjunctivae normal Neck supple, no JVD, thyroid normal and no carotid bruits General: trachea midline Resp normal respiratory effort, no retractions, no use of accessory muscles and clearto auscultation bilaterally Auscultation: Negative for rales, rhonchi or wheezes Cardio regular rate, regular rhythm, S1 normal heart sound, S2 normal heart sound, no murmurs, no rub and no gallops GI normal to inspection, nondistended, normoactive bowel sounds, soft to palpation,non-tender and non-distended Extremity no clubbing, cyanosis or edema Skin no rashes or lesions noted General Skin Exam: no breakdown Neuro oriented x3, CN's II-XII intact bilaterally, moves all extremities, no focal motor deficits and no sensory deficits noted Sensorium / Orientation: awake and alert Speech: speech normal Psych affect normal Results Lab / Micro Data Result Diagrams: 12/03/22 17:15 12/03/22 17:15 Labs: Laboratory Results - last 24 hr 12/03/22 17:15: WBC 12.0 H, RBC 4.85, Hgb 15.0, Hct 46.5, MCV 95.9, MCH 30.9, MCHC 32.3, RDW Std Deviation 46.6 H, RDW Coeff of Lakesha 13.2, Plt Count 367, MPV 9.2, Immature Gran % (Auto) 0.400, Neut % (Auto) 59.6, Lymph % (Auto) 29.1, [place]lier% (Auto) 5.0, Eos % (Auto) 5.3 H, Baso % (Auto) 0.6, Absolute Neuts (auto) 7.1, Absolute Lymphs (auto) 3.48, Nucleated RBC % 0 12/03/22 17:15: Sodium 141, Potassium 3.6, Chloride 107, Carbon Dioxide 28.0, Anion Gap 6, BUN 9, Creatinine 0.77, Estim Creat Clear Calc 76.90, Est GFR (MDRD) Af Amer 101, Est GFR (MDRD) Non-Af 84, BUN/Creatinine Ratio 11.7, [id number] H, Calcium 9.5, Troponin I High Sens 85 H Radiology Impression Chest X-Ray 12/03/22 17:21 IMPRESSION: 1. No evidence of acute cardiopulmonary process Electronically Signed: Marcelo Huston MD at 17:52 EST , Assessment & Plan Assessment/Plan (1) ACS (acute coronary syndrome): PLAN: Plan 1. [id number] will be admitted to PCU, Lovenox subcu will be administered for full anticoagulation, patient will have an echocardiogram performed tomorrow, she will be seen by cardiology, cardiac enzymes will be cycled. Patient will be placed on a baby aspirin a day. #2 type 2 diabetes-patient's blood sugars will be monitored, sliding scale insulin will be administered as needed #3 hyperlipidemia-patient states that she does not take her cholesterol medications on a routine basis, she will be placed on a statin #4 sleep apnea-patient states that she takes Provigil, this will be continued here Total clinical time spent by myself addressing the patient's medical problems, reviewing the medical data, and collaborating with patient's care team: 55 minutes 12/03/221918 <Electronically signed by Supa Witt DO> Cosigner Signature (if applicable): CC: ARMANDO Kurtz; Dr. Supa Witt DO~ Signed [facility] Work Phone: Reason for referral (narrative)* Consultation (Routine) - Pending Review Specialty Diagnoses / Procedures Referred By Rochelle roberts Referred To Contact Cardiac Rehabilitation / Cardiology Diagnoses CAD in [place] artery S/P primary angioplasty with coronary stent Procedures MO OFFICE/OUTPATIENT [facility] 60-74 MINUTES Romelia Leija APRN - CNP [address] [facility] [address] [place] [address] [address] Card/Pulm Rehab [address] [place] [address] Referral ID Status Reason Start Date Expiration Date Visits Requested Visits Authorized [id number] Pending Review Specialty Services Required 12/09/2022 12/09/2023 1 1 [facility] for referral (narrative)No reason for referral information [facility] Work Phone: Summary Purpose Family History No Family History Records Found Relationship Condition Age at Onset Recorded Date/T efren mother Malignant neoplasm of ovary Unknown grandmother Disorder of thyroid Unknown Cardiac arrhythmia Unknown grandfather Disorder of thyroid Unknown uncle Disorder of thyroid Unknown aunt Disorder of thyroid Unknown brother Hypertension Unknown Advance Directives No Advanced Directives Records Found Advance Directive Response Recorded Date/ Time Living Will Yes June 22, 2022 2:38pm Power of Test Architect Yes June 22 2:38pm Advance Directive Response Recorded Date/ Time Name of Medical Power of Test Architect Mario Lopez December 03, 2022 7:15pm Living Will Yes December 03 7:15pm Power of Test Architect Yes December 03, 2022 7:15pm Advance Directive Response Recorded Date/ Time Name of Medical Power of Test Architect Mario Lopez December 03, 2022 8:15pm Advance Directives on File No January 24, 2023 1:57pm Living Will Yes January 24, 2023 1:57pm Power of Test Architect Yes January 24 1:57pm Advance Directive Response Recorded Date/ Time Advance Directives on File No January 24, 2023 1:57pm Living Will Yes January 24, 2023 1:57pm Power of Test Architect Yes January 24 1:57pm Advance Directive Response Recorded Date/ Time Living Will Yes January 24, 2023 1:57pm Power of Test Architect Yes January 24 1:57pm Advance Directive Response Recorded Date/ Time Living Will Yes January 24, 2023 12:57pm Power of Test Architect Yes January 24 12:57pm Documents on File Type Date Recorded Patient Firing Pin Gauger Expl anation Advance Directives and Livin g Will 12/06/2022 9:06 PM Latest Code Status on File Code Status Date Activated Date Inactivated Comments Full Code 12/06/2022 5:49 PM Documents on File Type Date Recorded Patient Firing Pin Gauger Expl anation Advance Directives and Livin g Will 12/06/2022 9:06 PM Latest Code Status on File Code Status Date Activated Date Inactivated Comments Full Code 12/06/2022 5:49 PM 12/10/2022 5:21 AM Chief Complaint and Reason for Visit Chief Complaint Annual wellness exam PE medrrefills E ORDER Reason for Visit Wellness examination Chief Complaint Annual wellness exam PE medrrefills E ORDER Urinary tract infection F/up W/mounjaro & UTI Reason for Visit Wellness examination Cystitis Diabetes type 2, uncontrolled Cystitis Diabetes type 2, uncontrolled Chief Complaint F/up W/mounjaro & UT I Amb Documentation ACS NON-STEMI Reason for Visit Cystitis Diabetes type 2, uncontrolled ACS (acute coronary syndrome) Chest pain Diabetes Elevated troponin Hypercholesterolemia Chief Complaint F/up W/mounjaro & UT I Amb Documentation ACS NON-STEMI NON-STEMI NON-STEMI NON-STEMI NON-STEMI Reason for Visit Cystitis Diabetes type 2, uncontrolled ACS (acute coronary syndrome) Chest pain Diabetes Elevated troponin Hypercholesterolemia Hyperlipidemia Chief Complaint Amb Documentation ACS NON-STEMI CP ADMIT NON-STEMI NON-STEMI NON-STEMI NON-STEMI NON-STEMI S/P [facility] ENLARGED THYROID MASS Reason for Visit ACS (acute coronary syndrome) Elevated troponin Hyperlipidemia Chest pain CAD (coronary artery disease), [place] coronary artery History of heart artery stent Hyperlipidemia Chief Complaint Amb Documentation ACS NON-STEMI CP ADMIT NON-STEMI NON-STEMI NON-STEMI NON-STEMI NON-STEMI S/P [facility] ENLARGED THYROID MASS PCI w/coronary stenting Reason for Visit ACS (acute coronary syndrome) Elevated troponin Hyperlipidemia Chest pain CAD (coronary artery disease), [place] coronary artery History of heart artery stent Hyperlipidemia Chief Complaint ACS NON-STEMI CP ADMIT NON-STEMI NON-STEMI NON-STEMI NON-STEMI NON-STEMI S/P [facility] ENLARGED THYROID MASS PCI w/coronary stenting PCI with coronary stent Reason for Visit ACS (acute coronary syndrome) Elevated troponin Hyperlipidemia Chest pain CAD (coronary artery disease), [place] coronary artery History of heart artery stent Hyperlipidemia Chief Complaint ACS NON-STEMI CP ADMIT NON-STEMI NON-STEMI NON-STEMI NON-STEMI NON-STEMI S/P [facility] ENLARGED THYROID MASS PCI w/coronary stenting PCI with coronary stent 6 wk FU E ORDER PCI with coronary stent Reason for Visit ACS (acute coronary syndrome) Elevated troponin Hyperlipidemia Chest pain CAD (coronary artery disease), [place] coronary artery History of heart artery stent Hyperlipidemia History of heart artery stent Hyperlipidemia Chief Complaint ACS NON-STEMI CP ADMIT NON-STEMI NON-STEMI NON-STEMI NON-STEMI NON-STEMI S/P [facility] ENLARGED THYROID MASS PCI w/coronary stenting PCI with coronary stent 6 wk FU E ORDER TYPE 2 DM PCI with coronary stent Reason for Visit ACS (acute coronary syndrome) Elevated troponin Hyperlipidemia Chest pain CAD (coronary artery disease), [place] coronary artery History of heart artery stent Hyperlipidemia History of heart artery stent Hyperlipidemia Chief Complaint S/P [facility] ENLARGED THYROID MASS PCI w/coronary stenting PCI with coronary stent 6 wk FU E ORDER TYPE 2 DM PCI with coronary stent TYPE 2 DM PCI with coronary stent Reason for Visit CAD (coronary artery disease), [place] coronary artery History of heart artery stent Hyperlipidemia History of heart artery stent Hyperlipidemia Chief Complaint PCI w/coronary stent ing PCI with coronary stent 6 wk FU E ORDER TYPE 2 DM PCI with coronary stent TYPE 2 DM PCI with coronary stent TYPE 2 DM PCI with coronary stent 2 M FU Reason for Visit History of heart art maryam stent Hyperlipidemia History of heart artery stent Pain in both lower legs Hyperlipidemia Chief Complaint 6 wk FU E ORDER TYPE 2 DM PCI with coronary stent TYPE 2 DM PCI with coronary stent TYPE 2 DM PCI with coronary stent 2 M FU Peripheral vascular disease, unspecified PCI with coronary stent Reason for Visit History of heart art maryam stent Hyperlipidemia History of heart artery stent Pain in both lower legs Hyperlipidemia Chief Complaint PCI with coronary st ent TYPE 2 DM PCI with coronary stent 2 M FU Peripheral vascular disease, unspecified PCI with coronary stent CHEST PAIN CHEST PAIN Reason for Visit History of heart art maryam stent Pain in both lower legs Hyperlipidemia Chief Complaint Peripheral vascular disease, unspecified PCI with coronary stent CHEST PAIN CHEST PAIN 3 M FU I25.118 ASHD Atherosclerotic heart disease of [place] coronary a Reason for Visit History of heart art maryam stent Pain in both lower legs Hyperlipidemia Chief Complaint Peripheral vascular disease, unspecified PCI with coronary stent CHEST PAIN CHEST PAIN 3 M FU I25.118 ASHD Atherosclerotic heart disease of [place] coronary a THYROID NODULE GROWTH Atherosclerotic heart disease of [place] coronary a Reason for Visit History of heart art maryam stent Pain in both lower legs Hyperlipidemia Chief Complaint CHEST PAIN CHEST PAIN 3 M FU I25.118 ASHD Atherosclerotic heart disease of [place] coronary a THYROID NODULE GROWTH Atherosclerotic heart disease of [place] coronary a Reason for Visit History of heart art maryam stent Pain in both lower legs Hyperlipidemia Chief Complaint CHEST PAIN CHEST PAIN 3 M FU I25.118 ASHD Atherosclerotic heart disease of [place] coronary a THYROID NODULE GROWTH Atherosclerotic heart disease of [place] coronary a E-ORDER AND PAPER ORDERS Atherosclerotic heart disease of [place] coronary a Reason for Visit History of heart art maryam stent Pain in both lower legs Hyperlipidemia Chief Complaint Atherosclerotic hear t disease of [place] coronary a 3 M FU Reason for Visit History of heart art maryam stent Hyperlipidemia Chief Complaint Admit Date THYROID NODULE December 13, 2024 3 :24pm 6 M FU April 02, 2025 1:49p m Reason for Visit Admit Date History of heart artery stent April 02, 2025 1:49pm Hyperlipidemia April 02, 2025 1:49p m Reason for Visit Admit Date Fatigue April 02, 2025 1:49p m History of heart artery stent April 02, 2025 1:49pm Hyperlipidemia April 02, 2025 1:49p m Chief Complaint Admit Date 6 M FU April 02, 2025 1:49p m 3 M FU July 02, 2025 2: 10pm Reason for Visit Admit Date Fatigue April 02, 2025 1:49p m History of heart artery stent April 02, 2025 1:49pm Hyperlipidemia April 02, 2025 1:49p m Fatigue July 02, 2025 2: 10pm History of heart artery stent June 2:10pm Hyperlipidemia July 02, 2025 2: 10pm Chief Complaint Admit Date 6 M FU April 02, 2025 1:49p m 3 M FU July 02, 2025 2: 10pm Fatigue/loose stool/nausea July 03, 2025 5:44pm Reason for Visit Admit Date Fatigue April 02, 2025 1:49p m History of heart artery stent April 02, 2025 1:49pm Hyperlipidemia April 02, 2025 1:49p m History of heart artery stent June 2:10pm Palpitations July 02, 2025 2: 10pm Hyperlipidemia July 02, 2025 2: 10pm C. difficile colitis July 03, 2025 5 :44pm Fatigue July 03, 2025 5: 44pm Chief Complaint Admit Date 6 M FU April 02, 2025 1:49p m 3 M FU July 02, 2025 2: 10pm Fatigue/loose stool/nausea July 03, 2025 5:44pm PALPS July 10, 2025 9: 06am Additional Source Comments INFORMATION SOURCE (unrecogn ized section and content) DATE CREATED AUTHOR 11/12/2019 [facility] DATE CREATED AUTHOR AUTHOR'S ORGANIZ ATION 01/31/2022 [facility] DATE CREATED AUTHOR AUTHOR'S ORGANIZ ATION 01/26/2023 [facility] DATE CREATED AUTHOR AUTHOR'S ORGANIZ ATION 07/13/2025 Ter[facility] Goals (unrecognized section and content) Goals may be documented in a n alternate sectionGoals may be documented in an alternate sectionGoals may be documented in an alternate sectionGoals may be documented in an alternate sectionGoals may be documented in an alternate sectionGoals may be documented in an alternate sectionGoals may be documented in an alternate sectionGoals may be documented in an alternate sectionGoals may be documented in an alternate sectionGoals may be documented in an alternate sectionGoals may be documented in an alternate sectionGoals may be documented in an alternate sectionGoals may be documented in an alternate sectionGoals may be documented in an alternate sectionGoals may be documented in an alternate sectionGoals may be documented in an alternate sectionGoals may be documented in an alternate sectionGoals may be documented in an alternate sectionGoals may be documented in an alternate sectionGoals may be documented in an alternate sectionGoals may be documented in an alternate sectionGoals may be documented in an alternate sectionGoals may be documented in an alternate section Care Teams (unrecognized sec tion and content) Team Status: Active Member Role Status Dates Joshua Kurtz BOATS RENTER, BOATS RENTER-C Family Provider Active Joshua Kurtz BOATS RENTER, BOATS RENTER-C Primary Care Provider Active Team Status: Active Member Role Status Dates Joshua Kurtz BOATS RENTER, BOATS RENTER-C Primary Care Provider Active Dr. Dante Daniel MD Emergency Provider Active Dr. Supa Witt , Admit Provider, Attending Provider, Other Provider Active Team Status: Inactive Member Role Status Dates Joshua Kurtz BOATS RENTER, BOATS RENTER-C Primary Care Pr ovider, Attending Provider, Referring Provider Active Team Status: Active Member Role Status Dates Joshua Kurtz BOATS RENTER, BOATS RENTER-C Primary Care Provider, Attend ing Provider Active Team Status: Inactive Member Role Status Dates Joshua Kurtz BOATS RENTER, BOATS RENTER-C Primary Care Provider, Attend ing Provider Active Team Status: Active Member Role Status Dates Joshua Kurtz NP, BOATS RENTER-C Primary Care Provider Active Dr. Dante Daniel MD Emergency Provider Active Dr. Supa Witt , Admit Provider, Attending Pro vider Active Team Status: Active Member Role Status Dates Joshua Kurtz BOATS RENTER, BOATS RENTER-C Primary Care Provider Active Dr. Ronak Burt MD Attending Provider Active Team Status: Active Member Role Status Dates Joshua Kurtz BOATS RENTER, BOATS RENTER-C Primary Care Provider Active Dr. Dante Daniel MD Emergency Provider Active Dr. Supa Witt , DO Admit Provider, Other Provide r Active Dr. Ronak Burt MD Other Provider Active Dr. Shilpa Norton MD Attending Provider, Other Provider Active Team Status: Active Member Role Status Dates Joshua Kurtz BOATS RENTER, BOATS RENTER-C Primary Care Provider Active Dr. Dante Daniel MD Emergency Provider Active Dr. Supa Witt , DO Admit Provider, Other Provide r Active Dr. Ronak Burt MD Attending Provider, Other Provide r Active Dr. Shilpa Norton MD Other Provider Active Team Status: Active Member Role Status Dates Joshua Kurtz BOATS RENTER, BOATS RENTER-C Primary Care Provider Active Dr. Dante Daniel MD Emergency Provider Active Dr. Supa Witt , DO Admit Provider, Other Provide r Active Dr. Ronak Burt MD Other Provider Active Dr. Lucia Shay DO Attending Provider, Other Provide r Active Dr. Shilpa Norton MD Other Provider Active Team Status: Inactive Member Role Status Dates Joshua Kurtz BOATS RENTER, BOATS RENTER-C Primary Care Provider Active Dr. Dante Daniel MD Emergency Provider Active Dr. Supa Witt DO Admit Provider, Other Provide r Active Dr. Ronak Burt MD Other Provider Active Dr. Lucia Shay DO Attending Provider Active Dr. Shilpa Norton MD Other Provider Active Team Status: Inactive Member Role Status Dates Joshua Kurtz BOATS RENTER, BOATS RENTER-C Primary Care Provider, Referr ing Provider Active Evie Miller PA, PA Attending Provider Active Team Status: Active Member Role Status Dates Joshua Kurtz BOATS RENTER, BOATS RENTER-C Primary Care Provider Active Dr. Dante Daniel MD Emergency Provider Active Dr. Supa Witt DO Admit Provider, Other Provide r Active Dr. Ronak Burt MD Attending Provider, Other Provide r Active Dr. Lucia Shay DO Other Provider Active Dr. Shilpa Norton MD Other Provider Active Team Status: Active Member Role Status Dates Joshua Kurtz BOATS RENTER, BOATS RENTER-C Primary Care Provider Active Dr. Ronak Burt MD Attending Provider Active Dr. Supa Witt DO Referring Provider Active Team Status: Inactive Member Role Status Dates Joshua Kurtz BOATS RENTER, BOATS RENTER-C Primary Care Provider Active Dr. Ronak Burt MD Attending Provider Active Team Status: Inactive Member Role Status Dates Joshua Kurtz BOATS RENTER, BOATS RENTER-C Primary Care Provider Active Evie Miller PA, PA Attending Provider, Referr ing Provider Active Team Status: Active Member Role Status Dates Joshua Kurtz BOATS RENTER, BOATS RENTER-C Primary Care Provider Active Dr. Ronak Burt MD Attending Provider, Referring Pro vider Active Team Status: Inactive Member Role Status Dates Joshua Kurtz BOATS RENTER, BOATS RENTER-C Primary Care Provider Active Dr. Ronak Burt MD Attending Provider, Referring Pro vider Active Team Status: Active Member Role Status Dates Joshua Jerardo BOATS RENTER, BOATS RENTER-C Primary Care Provider Active Dr. Taras Ramachandran MD Attending Provider Active Team Status: Active Member Role Status Dates Joshua Kurtz BOATS RENTER, BOATS RENTER-C Primary Care Provider Active Evie Miller PA, PA Attending Provider, Referr ing Provider Active Team Status: Active Member Role Status Dates Joshua Kurtz BOATS RENTER, BOATS RENTER-C Primary Care Provider Active Dr. Taras Ramachandran MD Attending Provider Active Evie Miller PA, PA Referring Provider Active Team Status: Active Member Role Status Dates Joshua Jerardo BOATS RENTER, BOATS RENTER-C Primary Care Provider Active Evie Miller PA, PA Referring Provider, Other Provider Active Dr. Ronak Burt MD Attending Provider Active Team Status: Inactive Member Role Status Dates Joshua Kurtz BOATS RENTER, BOATS RENTER-C Primary Care Provider Active Dr. Jodee Muniz MD Attending Provider, Re ferring Provider Active Team Status: Inactive Member Role Status Dates Joshua Kurtz BOATS RENTER, BOATS RENTER-C Primary Care Provider Active Dr. Jodee Muniz MD Attending Provider, Re ferring Provider Active Evie Miller PA, PA Other Provider Active Feeder Driver Relationship Specialty Start Date End Date Joshua Kurtz [address] [place] [address] PCP - General Nurse Practitioner 12/06/22 Feeder Driver Relationship Specialty Start Date End Date Joshua Kurtz [address] [place] [address] PCP - General Nurse Practitioner 12/06/22 Team Status: Active Member Role Status Dates Joshua Robertsonson BOATS RENTER, BOATS RENTER-C Primary Care Provider Active Team Status: Inactive Member Role Status Dates Joshua Kurtz BOATS RENTER, BOATS RENTER-C Primary Care Provider Active Start: December 13, 2024 End: December 13, 2024 Dr. Jodee Muniz MD Attending Provider Active Start: December 13, 2024 End: December 13, 2024 Dr. Jodee Muniz MD Referring Provider Active Start: December 13, 2024 End: December 13, 2024 Team Status: Active Member Role Status Dates Joshua Kurtz BOATS RENTER, BOATS RENTER-C Primary Care Provider Active Start: April 01, 2025 Dr. Jodee Muniz MD Attending Provider Act kirill Start: April 01, 2025 Dr. Jodee Muniz MD Referring Provider Act kirill Start: April 01, 2025 Team Status: Inactive Member Role Status Dates Joshua Kurtz BOATS RENTER, BOATS RENTER-C Primary Care Provider Active Start: April 02, 2025 End: April 02, 2025 Joshua Kurtz BOATS RENTER, BOATS RENTER-C Referring Provider Active Start: April 02, 2025 End: April 02, 2025 Yenny Izquierdo BOATS RENTER, BOATS RENTER-C Attending Provider Active Start: April 02, 2025 End: April 02, 2025 Team Status: Inactive Member Role Status Dates Joshua Kurtz BOATS RENTER, BOATS RENTER-C Primary Care Provider Active Start: April 01, 2025 End: April 01, 2025 Dr. Jodee Muniz MD Attending Provider Act kirill Start: April 01, 2025 End: April 01, 2025 Dr. Jodee Muniz MD Referring Provider Act kirill Start: April 01, 2025 End: April 01, 2025 Team Status: Active Member Role/Relationship Status Dates Joshua Kurtz BOATS RENTER, BOATS RENTER-C Primary Care Provider Active Team Status: Inactive Member Role/Relationship Status Dates Joshua Kurtz BOATS RENTER, BOATS RENTER-C Primary Care Provider Active Start: April 01, 2025 End: April 01, 2025 Dr. Jodee Muniz MD Attending Provider Act kirill Start: April 01, 2025 End: April 01, 2025 Dr. Jodee Muniz MD Referring Provider Act kirill Start: April 01, 2025 End: April 01, 2025 Team Status: Inactive Member Role/Relationship Status Dates Joshua Kurtz BOATS RENTER, BOATS RENTER-C Primary Care Provider Active Start: April 02, 2025 End: April 02, 2025 Joshua Kurtz BOATS RENTER, BOATS RENTER-C Referring Provider Active Start: April 02, 2025 End: April 02, 2025 Yenny Izquierdo BOATS RENTER, BOATS RENTER-C Attending Provider Active Start: April 02, 2025 End: April 02, 2025 Team Status: Inactive Member Role/Relationship Status Dates Joshua Kurtz BOATS RENTER, BOATS RENTER-C Primary Care Provider Active Start: July 02, 2025 End: July 02, 2025 Joshua Kurtz BOATS RENTER, BOATS RENTER-C Referring Provider Active Start: July 02, 2025 End: July 02, 2025 Yenny Izquierdo BOATS RENTER, BOATS RENTER-C Attending Provider Active Start: July 02, 2025 End: July 02, 2025 Team Status: Inactive Member Role/Relationship Status Dates Joshua Kurtz BOATS RENTER, BOATS RENTER-C Primary Care Provider Active Start: July 03, 2025 End: July 03, 2025 Joshua Kurtz BOATS RENTER, BOATS RENTER-C Attending Provider Active Start: July 03, 2025 End: July 03, 2025 Joshua Kurtz BOATS RENTER, BOATS RENTER-C Referring Provider Active Start: July 03, 2025 End: July 03, 2025 Team Status: Inactive Member Role/Relationship Status Dates Joshua Kurtz BOATS RENTER, BOATS RENTER-C Primary Care Provider Active Start: July 04, 2025 End: July 04, 2025 Joshua Kurtz BOATS RENTER, BOATS RENTER-C Attending Provider Active Start: July 04, 2025 End: July 04, 2025 Joshua Kurtz BOATS RENTER, BOATS RENTER-C Referring Provider Active Start: July 04, 2025 End: July 04, 2025 Team Status: Active Member Role/Relationship Status Dates Joshua Kurtz BOATS RENTER, BOATS RENTER-C Primary Care Provider Active Start: July 10, 2025 Yenny Izquierdo NP, BOATS RENTER-C Attending Provider Active Start: July 10, 2025 Yenyn Izquierdo NP, BOATS RENTER-C Referring Provider Active Start: July 10, 2025 Reason for Visit (unrecogniz ed section and content) Specialty Diagnoses / Procedures Referred By Rochelle t Referred To Contact Diagnoses CAD in [place] artery coronary artery disease Procedures CAD Taras Ulloa MD [address] [place] [address], [address] [place] [address] [facility] [address] [place] [id number] Referral ID Status Reason Start Date Expiration Date Visits Re quested Visits Authorized [id number] 1 1 Scheduled Active and Recently Administ ered Medications (unrecognized section and content) Medication Order 12/07/2022 12/08/2022 12/09/2022 aspirin chewable tablet 81 mg 81 mg, Oral, Daily, First dose on Tue12/06/22 at 1800 0832 (Given - Provider: Nika Mason RN) 0932 (Given - Provider: Nika Mason RN) 0838 (Given - Provider: Kirti Glass RN) atorvastatin (Lipitor) tablet 40 mg 40 mg, Oral, Daily, First dose on Tue12/06/22 at 1800 0832 (Given - Provider: Nika Mason RN) 0932 (Given - Provider: Nika Mason RN) 0838 (Given - Provider: Kirti Glass RN) heparin injection 4,000 Units (COMPLETED) 4,000 Units, IntraVENous, Once, On Tue12/07/22 at 0015, For 1 dose, Initial one time bolus 0100 (Given - Provider: Sheree Rees RN) Insulin Lispro (Humalog) injection 0-6 Units(Linked Group 1) 0-6 Units, SubCUTAneous, 3 times daily with meals, First dose on Tue12/06/22 at 1800, Low Dose Correction Algorithm Glucose: Dose: LESS than 139 No Insulin 140-199 1 Unit 200-249 2 Units 250-299 3 Units 300-349 4 Units 350-400 5 Units Above 400 6 Units 0800 (Not Given - Provider: Nika Mason RN - Reason: Order parameters not met)1200 (Not Given - Provider: Nika Mason RN - Reason: Order parameters not met)1700 (Not Given - Provider: Nika Mason RN - Reason: Order parameters not met) 0800 (Not Given - Provider: Nika Mason RN - Reason: Order parameters not met)1200 (Not Given - Provider: Nika Mason RN - Reason: Order parameters not met)1700 (Not Given - Provider: Mariposa Brewer RN - Reason: Other - Comment: ate in cath prep and recovery before arrival) 0800 (Not Given - Provider: Kirti Glass RN - Reason: Order parameters not met)1200 (Not Given - Provider: Kirti Glass RN - Reason: Patient/family refused)1700 (Canceled Entry - Provider: Automatic Discharge Provider - Comment: Automatically canceled at discontinue of medication order) Insulin Lispro (Humalog) injection 0-6 Units(Linked Group 1) 0-6 Units, SubCUTAneous, Nightly, First dose on Tue12/06/22 at 2100, If continuous tube feedings/TPN/NPO, give correction dose based on result, no reduction in dose. If eating or bolus tube feeding: Low Dose Correction Algorithm Glucose: Dose: LESS than 139 No Insulin 140-199 1 Unit 200-249 2 Units 250-299 3 Units 300-349 4 Units 350-400 5 Units Above 400 6 Units 2100 (Not Given - Provider: Vel Murray RN - Reason: Order parameters not met) 2100 (Not Given - Provider: Cassandra Lagunas RN - Reason: Order parameters not met) 2100 (Canceled Entry - Provider: Automatic Discharge Provider - Comment: Automatically canceled at discontinue of medication order) metoprolol succinate XL (Toprol-XL) 24 hr tablet 12.5 mg 12.5 mg, Oral, Daily, First dose on Tue12/08/22 at 1815, Do not crush or chew. 1826 (Given - Provider: Mariposa Brewer, ELHAM) 0900 (Not Given - Provider: Kirti Glass RN - Reason: Other - Comment: bp 93/53) ticagrelor (Brilinta) tablet 180 mg (COMPLETED) 180 mg, Oral, Once, On Tue12/08/22 at 0915, For 1 dose 0932 (Given - Provider: Nika Mason RN) ticagrelor (Brilinta) tablet 90 mg 90 mg, Oral, 2 times daily, First dose on Tue12/08/22 at 2100, For 365 days 2137 (Given - Provider: Cassandra Lagunas RN) 0838 (Given - Provider: Kirti Glass RN)2100 (Canceled Entry - Provider: Automatic Discharge Provider - Comment: Automatically canceled at discontinue of medication order) Continuous Medication Order 12/07/2022 12/08/2022 12/09/2022 heparin 25,000 units in dextrose 5% 250mL infusion (premix) (CANCELED) 5-30 Units/kg/hr 94.3 kg (4.715-28.29 mL/hr, rounded to 4.7-28.3 mL/hr), IntraVENous, Continuous, Starting on Tue12/07/22 at 0015, LOW Dose Heparin Weight Based Dosing (CAD / STEMI / NSTEMI / AFIB / ECMO) Bolus 60 units/kg IV x 1 (max 4000 units), then 12 units/kg/hr UNLESS due to patient weight rate exceeds 1000 units/hour (max initial rate) Initial rate for this patient: 10.6 units/kg/hr aPTT < 30 Heparin Full re-bolus Increase infusion by 2 units/kg/hr; notify prescriber aPTT 30-49.9 Heparin Half re-bolus Increase infusion by 1 unit/kg/hr aPTT 50-70.9 No bolus No change aPTT 71-95.9 Hold heparin for 60 min Decrease infusion by 1 units/kg/hr aPTT > 95.9 Hold heparin for 60 min Decrease infusion by 2 units/kg/hr; notify prescriber Check aPTT 6 hours after initiation and 6 hours after every dose change; every 12 hrs x 1 day after 2 consecutive therapeutic aPTT; daily after every 12 hrs x 1 day is completed. 0101 (New Bag - Provider: Sheree Rees RN)0830 (New Bag - Provider: Nika Mason RN)1435 (New Bag - Provider: Nika Mason RN)1622 (Rate/Dose Verify - Provider: Nika Mason RN)2235 (Rate/Dose Change - Provider: Vel Murray RN) 0022 (New Bag - Provider: Vel Murray RN)0531 (Rate/Dose Change - Provider: Vel Murray RN)0715 (Handoff - Provider: Nika Mason RN)1154 (New Bag - Provider: Nika Mason RN) PRN Medication Order 12/07/2022 12/08/2022 12/09/2022 acetaminophen (Tylenol) suppository 650 mg(Linked Group 2) 650 mg, Rectal, Every 6 hours PRN, mild pain (1-3), fever, For temp greater than 100.4 F (38 C), Starting on Tue12/06/22 at 1740, Administer if oral route cannot be used. Maximum dose of acetaminophen is 4000 mg from all sources in 24 hours. 2137 (See Alternative - Provider: Cassandra Lagunas RN) 342 (See Alternative - Provider: Cassandra Lagunas RN)111 (See Alternative - Provider: Kirti Glass RN) acetaminophen (Tylenol) tablet 650 mg(Linked Group 2) 650 mg, Oral, Every 6 hours PRN, mild pain (1-3), fever, For temp greater than 100.4 F (38 C), Starting on Tue12/06/22 at 1740, Maximum dose of acetaminophen is 4000 mg from all sources in 24 hours. 2137 (Given - Provider: Cassandra Lagunas RN) 342 (Given - Provider: Cassandra Lagunas RN)111 (Given - Provider: Kirti Glass RN) acetaminophen (Tylenol) tablet 650 mg (CANCELED) 650 mg, Oral, Every 4 hours PRN, mild pain (1-3), Fever > 100.5 F (38 C), Starting on Tue12/08/22 at 1457, Recovery & On Unit, Maximum dose of acetaminophen is 4000 mg from all sources in 24 hours. 1629 (Given - Provider: Meghana Shay RN) dextrose 5 % infusion 100 mL/hr, IntraVENous, PRN, Blood sugar less than 70mg/dL, Starting on Tue12/06/22 at 1753, Start infusion following administration of dextrose 50% or glucagon. dextrose 50 % solution 12.5 g 12.5 g, IntraVENous, PRN, low blood sugar, Blood glucose less than 70 mg/dL and patient NOT ALERT or NPO., Starting on Tue12/06/22 at 1753, If patient does not respond within 5 minutes, repeat dose x1. Start D5W at 100 mL/hour until ordering provider can be reached. Repeat blood glucose in 15 minutes. If blood glucose is less than 70 mg/dL, repeat treatment and recheck blood glucose in 15 minutes x2. If using Glucostabilizer, dose as instructed per system. fentaNYL (Sublimaze) injection (CANCELED) IntraVENous, As needed, Starting on Tue12/08/22 at 1323, Intraprocedure 1323 (Given - Provider: Bekah Richards RN)1331 (Given - Provider: Bekah Richards, RN)1450 (Given - Provider: Bekah Richards, RN) glucagon (human recombinant) injection 1 mg 1 mg, IntraMUSCular, PRN, low blood sugar, Blood glucose less than 70 mg/dL and patient NOT ALERT or NPO and does not have IV access., Starting on Tue12/06/22 at 1753, After administration, attempt intravenous access and start D5W at 100 mL/hr. Repeat blood glucose in 15 minutes x2 and notify provider. glucose oral gel 15 g 15 g, Oral, As needed, low blood sugar, Starting on Tue12/06/22 at 1753, If blood glucose less than 50 mg/dL and patient ALERT and NOT NPO, give 2 tubes glucose gel. If blood glucose less than 70 mg/dL and patient ALERT and NOT NPO, give 1 tube glucose gel. Repeat blood glucose in 15 minutes. If blood glucose is less than 70 mg/dL, repeat treatment and recheck blood glucose in 15 minutes x2 and notify provider. heparin injection 2,000 Units (CANCELED) 2,000 Units, IntraVENous, As needed, heparin dosing algorithm, Starting on Tue12/07/22 at 0003, Half dose re-bolus based on pharmacy algorithm 0830 (Given - Provider: Nika Mason RN)1434 (Given - Provider: Nika Mason RN)2236 (Given - Provider: Vel Murray, ELHAM) 0532 (Given - Provider: Vel Murray, ELHAM)1153 (Given - Provider: Nika Mason RN) heparin injection (CANCELED) IntraVENous, As needed, Starting on Tue12/08/22 at 1333, Intraprocedure 1333 (Given - Provider: Bekah Richards, ELHAM) iopamidol (Isovue-300) 61 % injection (CANCELED) As needed, Starting on Tue12/08/22 at 1459, Intraprocedure 1459 (Given - Provider: Gricelda Cortés MD) lidocaine (Xylocaine) 1 % injection (CANCELED) As needed, Starting on Tue12/08/22 at 1322, Intraprocedure 1322 (Given - Provider: Jose Alfredo Patterson MD) midazolam (Versed) injection (CANCELED) IntraVENous, As needed, Starting on Tue12/08/22 at 1323, Intraprocedure 1323 (Given - Provider: Bekah Richards, RN)1402 (Given - Provider: Bekah Richards RN) NITROGLYCERIN 1000 MCG / 10 ML SYRINGE (CHARGE ONLY) (CANCELED) As needed, Starting on Tue12/08/22 at 1331, Intraprocedure 1331 (Given - Provider: Gricelda Cortés MD)1401 (Given - Provider: Gricelda Cortés MD)1421 (Given - Provider: Gricelda Cortés MD) ondansetron (Zofran) injection 4 mg(Linked Group 3) 4 mg, IntraVENous, Every 6 hours PRN, nausea, vomiting, Starting on Tue12/06/22 at 1740, 1st Line. Give IV if patient is unable to take orally. If inadequate response within 60 minutes, proceed to next-line agent or contact provider if no further options ordered. ondansetron ODT (Zofran-ODT) disintegrating tablet 4 mg(Linked Group 3) 4 mg, Oral, Every 8 hours PRN, nausea, vomiting, Starting on Tue12/06/22 at 1740, 1st Line. If inadequate response within 60 minutes, proceed to next-line agent or contact provider if no further options ordered. Patient should allow tablet to dissolve on tongue. Do not remove from blister pack until just before administering. polyethylene glycol (PEG) 3350 (Miralax) packet 17 g 17 g, Oral, Daily PRN, constipation, Starting on Tue12/06/22 at 1740, 1st line for treatment of constipation - give scheduled if no bowel movement in past 24 hours. sodium chloride 0.9 % bolus (COMPLETED) Administer over 1 Hours, Continuous PRN, Starting on Tue12/08/22 at 1335, Intraprocedure 1335 (New Bag - Provider: Bekah Richards, ELHAM)1445 (New Bag - Provider: Bekah Richards RN) verapamil (Isoptin) injection (CANCELED) As needed, Starting on Tue12/08/22 at 1331, Intraprocedure 1331 (Given - Provider: Gricelda Cortés MD) Linked Groups Order Group 1: Insulin Lispro (Humalog) injection 0-6 UnitsJump to med 0-6 Units, SubCUTAneous, 3 times daily with meals, First dose on Tue12/06/22 at 1800
Low Dose Correction Algorithm Glucose: & nbsp; Dose: LESS than 139 No Insulin 140-199 1 Unit 200-249 2 Units 250-299 3 Units 300- 349 4 Units 350-400 5 Units Above 400 6 Units
And Insulin Lispro (Humalog) injection 0-6 UnitsJump to med 0-6 Units, SubCUTAneous, Nightly, First dose on Tue12/06/22 at 2100
If continuous tube feedings/TPN/NPO, give correction dose based on result, no reduction in dose. If eating or bolus tube feeding: Low Dose Correction Algorithm Glucose: & nbsp; Dose: LESS than 139 No Insulin 140-199 1 Unit 200-249 2 Units 250-299 3 Units 300- 349 4 Units 350-400 5 Units Above 400 6 Units
Group 2: acetaminophen (Tylenol) tablet 650 mgJump to med 650 mg, Oral, Every 6 hours PRN, mild pain (1-3), fever, For temp greater than 100.4 F (38 C), Starting on Tue12/06/22 at 1740
Maximum dose of acetaminophen is 4000 mg from all sources in 24 hours.
Or acetaminophen (Tylenol) suppository 650 mgJump to med 650 mg, Rectal, Every 6 hours PRN, mild pain (1-3), fever, For temp greater than 100.4 F (38 C), Starting on Tue12/06/22 at 1740
Administer if oral route cannot be used. Maximum dose of acetaminophen is 4000 mg from all sources in 24 hours.
Group 3: ondansetron ODT (Zofran-ODT) disintegrating tablet 4 mgJump to med 4 mg, Oral, Every 8 hours PRN, nausea, vomiting, Starting on Tue12/06/22 at 1740
1st Line. If inadequate response within 60 minutes, proceed to next-line agent or contact provider if no further options ordered. Patient should allow tablet to dissolve on tongue. Do not remove from blister pack until just before administering.
Or ondansetron (Zofran) injection 4 mgJump to med 4 mg, IntraVENous, Every 6 hours PRN, nausea, vomiting, Starting on Tue12/06/22 at 1740
1st Line. Give IV if patient is unable to take orally. If inadequate response within 60 minutes, proceed to next-line agent or contact provider if no further options ordered.
FOR RECORDS PERTAINING TO PATIENTS WHO ARE OR HAVE BEEN ENROLLED IN A CHEMICAL DEPENDENCY/SUBSTANCEABUSE PROGRAM, SOME INFORMATION MAY BE OMITTED. This clinical summary was aggregated from multiple sources. Caution should be exercised in using it in the provision of clinical care. This summary normalizes information from multiple sources, and as a consequence, information in this document may materially change the coding, format and clinical context of patient data. In addition, data may be omitted in some cases. CLINICAL DECISIONS SHOULD BE BASED ON THE PRIMARY CLINICAL RECORDS. [email or web address] provides no warranty or guarantee of the accuracy or completeness of information in this document.
== END | disposition home or self-care (01) ==
PROVIDERS: PCP Nurse Practitioner; Referring Provider Nurse Practitioner Gerontology; Visit Provider Nurse Practitioner Gerontology
DX: I25.10 Atherosclerotic heart disease of native coronary artery without angina pectoris (principal)
CPT/HCPCS: 93978

== ENCOUNTER → 2025-10-09 | Outpatient (CLI) | payer OTHER, SELFPAY ==
[2023-05-25 08:33] VITALS: BMI 36.5
== END | disposition home or self-care (01) ==
LOC: CR 13:05
PROVIDERS: PCP Nurse Practitioner; Referring Provider Internal Medicine Cardiovascular Disease; Visit Provider Internal Medicine Cardiovascular Disease
DX: I25.118 Atherosclerotic heart disease of native coronary artery with other forms of angina pectoris (principal)

== ENCOUNTER → 2025-10-15 | Outpatient (CLI) | payer OTHER, SELFPAY ==
[2023-05-25 08:33] VITALS: BMI 36.5
[2025-10-15 12:20] LABS: Creatinine, Urine (random) 222.00 mg/dL (28.00-217.00); Microalbumin,Random Urine 14.7 mg/L (<20 mg/L)
[2025-10-15 12:24] LABS: AST(SGOT) 22 U/L (<=31); Alanine Aminotransfer ALT/SGPT 25 U/L (<=34); Albumin, Serum 4.3 g/dL (3.5-5.0); Alkaline Phosphatase 83 U/L (35-104); Anion Gap 11 (5-15); BUN 13 mg/dL (4-19); BUN/Creat Ratio 14.1 RATIO (10-20); Calcium,Total 9.5 mg/dL (7.6-11.0); Carbon Dioxide 24.3 mmol/L (21.0-32.0); Chloride 106 mmol/L (98-108); Cholesterol 127 mg/dL (<=200); Free T3 3.2 pg/mL (2.18-3.98); Globulin 3.1 g/dL (2.2-4.2); Glucose 104 mg/dL (70-99); Low Density Lipoprotein Calc. 54 mg/dL; Potassium 4.5 mmol/L (3.3-5.1); Triglycerides 105 mg/dL; Very Low Density Lipoprotein 21 mg/dL (5-40); cholesterol:hdl ratio screen 2.36
== END | disposition home or self-care (01) ==
LOC: LAB 10:31
PROVIDERS: PCP Nurse Practitioner; Referring Provider Internal Medicine Endocrinology, Diabetes & Metabolism; Visit Provider Internal Medicine Endocrinology, Diabetes & Metabolism
DX: E11.65 Type 2 diabetes mellitus with hyperglycemia (principal); E78.5 Hyperlipidemia, unspecified; E55.9 Vitamin D deficiency, unspecified; E04.1 Nontoxic single thyroid nodule; G47.33 Obstructive sleep apnea (adult) (pediatric)
CPT/HCPCS: 36415; 80053; 80061; 82043; 82570; 83036; 84439; 84443; 84481

== ENCOUNTER 2025-11-13 08:00 | Outpatient (RCR) | payer OTHER, SELFPAY ==
[2023-05-25 08:33] VITALS: BMI 36.5
== END 2025-11-13 23:59 ==
LOC: CR 08:00
PROVIDERS: PCP Nurse Practitioner; Referring Provider Internal Medicine Cardiovascular Disease; Visit Provider Internal Medicine Cardiovascular Disease
DX: I25.118 Atherosclerotic heart disease of native coronary artery with other forms of angina pectoris (principal)
CPT/HCPCS: 92971; G0166